=== PATIENT | female | born 1945 | race Caucasian/White ===

== ENCOUNTER → 2016-09-28 | Outpatient (CLI) | payer MEDICARE ==
--- NOTE | 2016-09-28 14:37 | US ---
EXAMINATION TYPE: US thyroid st tissue head/neck DATE OF EXAM: 09/28/2016 1:59 PM COMPARISON: 02/01/2013 CLINICAL HISTORY: E03.9 HYPOTHYROIDISM. Right thyroidectomy 10 years ago, history of left thyroid nod ule GLAND SIZE: Right Lobe: Surgically absent Left Lobe: 4.1 x 0.8 x 1.0cm Overall Parenchyma: homogeneous NODULES RIGHT: # of nodules measured on right: 0 LEFT: # of nodules measured on left: 1 1. 0.8 X 0.5 x 0.5 cm mixed nodule at the upper pole with well-defined margins; . This nodule is w ider than tall and shows intranodular vascularity. Prior size: 0.7 x 0.5 x 0.5 cm ISTHMUS: # of nodules measured in the isthmus: 0 Stable appearing left thyroid nodule IMPRESSION: Subcentimeter left lobe thyroid nodule, stable
--- NOTE | 2016-09-29 10:23 | MM ---
Reason for exam: screening (asymptomatic). Last mammogram was performed 1 year and 8 months ago. History: Patient is postmenopausal and history of other cancer. Physical Findings: A clinical breast exam by your physician is recommended on an annual basis and results should be correlated with mammographic findings. MG Screening Mammo w CAD Bilateral CC and MLO view(s) were taken. Prior study comparison: January 31, 2015, bilateral MG screening mammo w CAD. October 16, 2013, mammogram, performed at [facility]. There are scattered fibroglandular densities. Finding: There are typically benign vascular, round, linear calcifications in both breasts. There is no discrete abnormality. ASSESSMENT: Benign, BI-RAD 2 RECOMMENDATION: Routine screening mammogram of the right breast in 1 year.
== END | disposition home or self-care (01) ==
LOC: RADUSWWP 13:30
PROVIDERS: ATTEND Family Medicine
DX: Z12.31 Encounter for screening mammogram for malignant neoplasm of breast (principal); E04.1 Nontoxic single thyroid nodule
CPT/HCPCS: 76536; G0202; 77063

== ENCOUNTER → 2016-12-21 | Outpatient (CLI) | payer MEDICARE ==
[2016-12-21 11:12] LABS: ALT 32 U/L (9-52); AST 22 U/L (14-36); Alkaline Phosphatase 89 U/L (38-126); Anion Gap 10 mmol/L; Blood Urea Nitrogen 12 mg/dL (7-17); Calcium 8.9 mg/dL (8.4-10.2); Carbon Dioxide 27 mmol/L (22-30); Chloride 107 mmol/L (98-107); Glucose 137 mg/dL (74-99); Non-African American GFR(MDRD) >60 (>60 ml/min/1.73 sqM); Potassium 4.4 mmol/L (3.5-5.1); Sodium 144 mmol/L (137-145); Total Bilirubin 0.7 mg/dL (0.2-1.3); Total Protein 6.3 g/dL (6.3-8.2)
--- NOTE | 2016-12-21 13:33 | XR ---
EXAMINATION TYPE: XR chest 2V DATE OF EXAM: 12/21/2016 COMPARISON: Prior chest x-ray 11/12/2011 HISTORY: Shortness of breath, lung cancer TECHNIQUE: Frontal and lateral views of the chest are obtained. FINDINGS: There is no pneumothorax seen. Blunting of the costophrenic angles is an interval finding. Patient is rotated. The cardiac silhouette size is stable. Surgical clips present in the aorticopu lmonary window, left chest. The osseous structures are intact. IMPRESSION: There may be small pleural effusions, associated atelectasis. Heart size may be accentua sharon by patient rotation. Postop changes. Follow-up suggested.
== END | disposition home or self-care (01) ==
LOC: LABWHC1 10:03
PROVIDERS: ATTEND Internal Medicine Cardiovascular Disease
DX: R06.02 Shortness of breath (principal)
CPT/HCPCS: 36415; 71020; 80053; 83880; 85379

== ENCOUNTER → 2016-12-29 | Outpatient (CLI) | payer MEDICARE ==
[2016-12-29 14:22] VITALS: BP 153/70; PULSE 69; RESP 16; TEMP 98.9; BMI 41.2
[2016-12-29 16:11] LABS: CH 30.7; CHCM 34.7; HCT 39.2 % (34.0-46.0); HGB 13.7 gm/dL (11.4-16.0); INR 2.7 (<1.2); MCH 31.2 pg (25.0-35.0); MCHC 35.1 g/dL (31.0-37.0); Mean Platelet Volume 7.4; Prothrombin Time 26.2 sec (9.0-12.0); RDW 12.4 % (11.5-15.5); WBC 6.6 k/uL (3.8-10.6)
[2016-12-29 16:13] LABS: ALT 38 U/L (9-52); AST 22 U/L (14-36); Alkaline Phosphatase 93 U/L (38-126); Blood Urea Nitrogen 12 mg/dL (7-17); Calcium 8.8 mg/dL (8.4-10.2); Carbon Dioxide 30 mmol/L (22-30); Cholesterol 150 mg/dL (<200); Glucose 124 mg/dL (74-99); Non-African American GFR(MDRD) >60 (>60 ml/min/1.73 sqM); Total Bilirubin 0.7 mg/dL (0.2-1.3); Total Protein 6.6 g/dL (6.3-8.2)
[2016-12-29 16:14] LABS: Anion Gap 11 mmol/L; Chloride 101 mmol/L (98-107); HDL Cholesterol 49 mg/dL (40-60); Iron 139 ug/dL (37-170); Magnesium 1.7 mg/dL (1.6-2.3); Potassium 4.2 mmol/L (3.5-5.1); Sodium 142 mmol/L (137-145)
[2016-12-29 16:24] LABS: % Iron Saturation 33.5 % (20-50); Prealbumin 19 mg/dL (18-36); Total Iron Binding Capacity 415 ug/dL (265-497)
[2016-12-29 18:35] LABS: Vitamin B12 201 pg/mL
[2016-12-29 20:51] LABS: Hemoglobin A1C 7.2 % (4.2-6.1)
[2016-12-31 18:59] LABS: Selenium 141 mcg/L (63-160)
--- NOTE | 2017-01-22 19:51 | P.PN ---
Progress Note - Text DATE OF SERVICE: 12/29/2016 CHIEF COMPLAINT: Follow-up gastric bypass. HISTORY OF PRESENT ILLNESS: Leona Saunders is a 70-year-old female who had a Juan-en-Y gastric bypass performed in November 2011. Her highest weight for her 5-foot, 1-inch frame was 286 pounds. Her ideal body weight is 131 pounds. Her lowest weight was 178 pounds. Today she comes in weighing 211 pounds. She has maintained a 75 pound weight loss. Her body mass index has been reduced from 54.2 down to 41.2. Her percent excess weight loss is 53%. Since her last visit 1 year ago, she lost another 6 pounds. She is on water pills for her congestive heart failure. She is still on medications for diabetes, moderately improved. She still reports troubles with eating sweets and having occasional dumping syndrome. She reports intermittent indigestion. She denies any dysphagia to solid foods. PAST MEDICAL HISTORY: 1. Osteoarthritis bilateral knees and hips. 2. Diabetes type 2, insulin dependent. 3. Deep venous thromboses. 4. Pulmonary embolism. 5. Anxiety. 6. Depression. 7. Gastroesophageal reflux disease. 8. Erosive esophagitis. 9. Prior history of thyroid cancer. 10. Morbid obesity. PAST SURGICAL HISTORY: 1. Tonsillectomy. 2. . 3. D&C. 4. Bilateral cataract removal. 5. EGD. 6. Pulmonary lobe resection. 7. Juan-en-Y gastric bypass. MEDICATIONS: 1. Coumadin. 2. Zoloft. 3. Potassium. 4. Omeprazole. 5. Multivitamin. 6. Synthroid. 7. Lasix. 8. Vitamin D. 9. Atenolol. 10. Xanax. ALLERGIES: Include IODINE, LATEX. SOCIAL HISTORY: Lifelong nontobacco user. She reports living alone. FAMILY HISTORY: Significant for diabetes, including colon cancer. REVIEW OF ORGAN SYSTEMS: CONSTITUTIONAL: Her highest weight for her 5-foot, 1-inch frame was 286 pounds. Her ideal body weight is 131 pounds. Her lowest weight was 178 pounds. Today she comes in weighing 211 pounds. She has maintained a 75 pound weight loss. Her body mass index has been reduced from 54.2 down to 41.2. Her percent excess weight loss is 53%. Since her last visit 1 year ago, she lost another 6 pounds. GASTROINTESTINAL: Reports dumping syndrome with ice cream and sugars. Also lactose intolerant. No gastroesophageal reflux disease. ENDOCRINE: She is back on insulin for diabetes. Has thyroid issues. MUSCULOSKELETAL: Has osteoarthritis of the bilateral knees. She is pending joint replacement. HEENT: Denies any troubles with vision. Denies any tinnitus. RESPIRATORY: Denies any troubles breathing. No further reports of sleep apnea. History of lobe resection. CARDIOVASCULAR: History of right bundle branch block including DVTs and pulmonary embolisms. NEURO: Denies any numbness or tingling of the lower extremities. No reports of strokes. PSYCH: History of anxiety including depression. HEMATOLOGIC: Prior history of DVTs and pulmonary embolism, lifelong Coumadin. SKIN: No skin cancer or recent rash. PHYSICAL EXAM: VITAL SIGNS: 5 feet 1 inch, 211 pounds. Body mass index 39.9. GENERAL: Well-developed female in no acute distress. ABDOMEN: No palpable incisional hernias. MUSCULOSKELETAL: Bilateral 1+ trace pitting edema. HEENT: No sclera icterus. Extraocular movements grossly intact. Moist buccal mucosa. Head is atraumatic, normocephalic. Hears conversational speech. No nasal drainage. NECK: Supple without lymphadenopathy. No JV distention. CHEST: Non-labored respirations and equal bilateral excursions. CARDIOVASCULAR: Regular rate and rhythm. Palpable 2+ radial pulses. NEUROLOGIC: No focal or lateralizing signs. PSYCH: Appropriate affect. Alert and oriented to person, place and time. SKIN: Good skin turgor. Well-perfused. LABS: Laboratory Last Values WBC 6.6 k/uL (3.8-10.6) 12/29/16 15:40 RBC 4.40 m/uL (3.80-5.40) 12/29/16 15:40 Hgb 13.7 gm/dL (11.4-16.0) 12/29/16 15:40 Hct 39.2 % (34.0-46.0) 12/29/16 15:40 MCV 89.0 fL (80.0-100.0) 12/29/16 15:40 MCH 31.2 pg (25.0-35.0) 12/29/16 15:40 MCHC 35.1 g/dL (31.0-37.0) 12/29/16 15:40 RDW 12.4 % (11.5-15.5) 12/29/16 15:40 Plt Count 232 k/uL (150-450) 12/29/16 15:40 PT 26.2 sec (9.0-12.0) H 12/29/16 15:40 INR 2.7 (<1.2) H 12/29/16 15:40 APTT 30.0 sec (22.0-30.0) 12/29/16 15:40 Sodium 142 mmol/L (137-145) 12/29/16 15:40 Potassium 4.2 mmol/L (3.5-5.1) 12/29/16 15:40 Chloride 101 mmol/L (98-107) 12/29/16 15:40 Carbon Dioxide 30 mmol/L (22-30) 12/29/16 15:40 Anion Gap 11 mmol/L 12/29/16 15:40 BUN 12 mg/dL (7-17) 12/29/16 15:40 Creatinine 0.70 mg/dL (0.52-1.04) 12/29/16 15:40 Est GFR (MDRD) Af Amer >60 (>60 ml/min/1.73 sqM) 12/29/16 15:40 Est GFR (MDRD) Non-Af >60 (>60 ml/min/1.73 sqM) 12/29/16 15:40 Glucose 124 mg/dL (74-99) H 12/29/16 15:[address] Glu mg/dL 160 mg/dL 12/29/16 15:40 Hemoglobin A1c 7.2 % (4.2-6.1) H 12/29/16 15:40 Calcium 8.8 mg/dL (8.4-10.2) 12/29/16 15:40 Phosphorus 4.0 mg/dL (2.5-4.5) 12/29/16 15:40 Magnesium 1.7 mg/dL (1.6-2.3) 12/29/16 15:40 Iron 139 ug/dL (37-170) 12/29/16 15:40 TIBC 415 ug/dL (265-497) 12/29/16 15:40 % Saturation 33.5 % (20-50) 12/29/16 15:40 Ferritin 21 ng/mL (11-264) 12/29/16 15:40 Total Bilirubin 0.7 mg/dL (0.2-1.3) 12/29/16 15:40 AST 22 U/L (14-36) 12/29/16 15:40 ALT 38 U/L (9-52) 12/29/16 15:40 Alkaline Phosphatase 93 U/L (38-126) 12/29/16 15:40 Total Protein 6.6 g/dL (6.3-8.2) 12/29/16 15:40 Albumin 3.9 g/dL (3.5-5.0) 12/29/16 15:40 Prealbumin 19 mg/dL (18-36) 12/29/16 15:40 Triglycerides 157 mg/dL (<150) H 12/29/16 15:40 Cholesterol 150 mg/dL (<200) 12/29/16 15:40 LDL Cholesterol, Calc 70 mg/dL (0-99) 12/29/16 15:40 HDL Cholesterol 49 mg/dL (40-60) 12/29/16 15:40 Vitamin A 47 ug/dL (38-106) 12/29/16 15:40 Vitamin B1 53 ug/L (38-122) 12/29/16 15:40 Vitamin B12 201 pg/mL 12/29/16 15:40 Vitamin D 25-Hydroxy 30.7 ng/mL (30.0-100.0) 12/29/16 15:40 Folate >20.00 ng/mL 12/29/16 15:40 TSH 0.624 mIU/L (0.465-4.680) 12/29/16 15:40 PTH Intact 60.5 pg/mL (14.0-72.0) 12/29/16 15:40 Copper 1229 ug/L (810-1990) 12/29/16 15:40 Selenium 141 mcg/L (63-160) 12/29/16 15:40 Zinc 50 ug/dL (60-130) L 12/29/16 15:40 ASSESSMENT: 1. Morbid obesity due to excess caloric intake. 2. Body mass index reduced from 54.2 to 39.9. 3. Status post Juan-en-Y gastric bypass. 4. Diabetes type 2, insulin dependent. 5. Osteoarthritis of the bilateral knees secondary to morbid obesity. 6. Hypothyroidism. 7. Prior history of deep venous thrombosis. 8. Prior history of pulmonary embolism. 9. Osteoarthritis bilateral hips. 10. Anxiety. 11. Depression. 12. Gastroesophageal reflux disease, resolved. 13. Dietary surveillance and counseling. 14. Zinc deficiency. PLAN: 1. Recommend evaluation with bariatric dietitian. 2. Recommend bariatric metabolic panel. 3. Recommend continue multivitamin. 4. Recommend goal protein intake of 60 g daily. 5. She is seeking additional weight loss may benefit from 2 week high-protein low caloric diet.
== END | disposition home or self-care (01) ==
LOC: BARWHC3 13:19
PROVIDERS: ATTEND Surgery Plastic and Reconstructive Surgery
DX: Z48.815 Encounter for surgical aftercare following surgery on the digestive system (principal); E66.01 Morbid (severe) obesity due to excess calories; E11.8 Type 2 diabetes mellitus with unspecified complications; M17.0 Bilateral primary osteoarthritis of knee; E03.9 Hypothyroidism, unspecified; M16.0 Bilateral primary osteoarthritis of hip; F41.9 Anxiety disorder, unspecified; F32.9 Major depressive disorder, single episode, unspecified; E60 Dietary zinc deficiency; E21.1 Secondary hyperparathyroidism, not elsewhere classified; E89.1 Postprocedural hypoinsulinemia; D50.8 Other iron deficiency anemias; E44.0 Moderate protein-calorie malnutrition; E55.9 Vitamin D deficiency, unspecified; K74.1 Hepatic sclerosis; N19 Unspecified kidney failure; K90.9 Intestinal malabsorption, unspecified; Z68.39 Body mass index [BMI] 39.0-39.9, adult; Z98.84 Bariatric surgery status; Z86.711 Personal history of pulmonary embolism; Z86.718 Personal history of other venous thrombosis and embolism; Z79.01 Long term (current) use of anticoagulants; Z79.899 Other long term (current) drug therapy; Z91.040 Latex allergy status
CPT/HCPCS: 84255; 84134; 84425; 80061; 80053; 82607; 82728; 83036; 82525; 82746; 83540; 83550; 83735; 84100; 84443; 84590; 84630; 85027; 85610; 85730; 82306; 83970; G0463; 99211

== ENCOUNTER 2017-01-11 07:46 | Day surgery (SDC) | payer MEDICARE ==
[~2017-01-11 07:46] MED LIST: ALPRAZolam 0.5 MG TAB PO PRN; ASPIRIN 325 MG TAB PO STA; ATORVASTATIN 80 MG TAB PO STA; NITROGLYCERIN SL TABS 0.4 MG TAB SUBLINGUAL PRN; SODIUM CHLORIDE 0.9% 1,000 ML in EMPTY BAG 1 BAG IV ONE
[2017-01-11] MEDS: ALPRAZolam 0.25 MG TAB PO PRN ×2 (08:30→22:12)
[2017-01-11 08:45] LABS: Glucose,Whole Blood 212 mg/dL (75-99)
[2017-01-11] MEDS ORDERED: MIDAZOLAM 2 MG/2 ML VIAL ONE (08:49)
[2017-01-11] MEDS ORDERED: fentaNYL (PF) 50 MCG/ML 2 ML AMP ONE (08:50)
[2017-01-11 09:04] LABS: INR 1.6 (<1.2); Prothrombin Time 15.1 sec (9.0-12.0)
[2017-01-11] MEDS: BENZOCAINE SPRAY 100 APPLIC/CAN MUCOUS MEM ONE ×2 (09:09→09:18)
[2017-01-11] MEDS: MIDAZOLAM 2 MG/2 ML VIAL IV ONE ×2 (09:19→09:20)
[2017-01-11] MEDS ORDERED: fentaNYL (PF) 50 MCG/ML 2 ML AMP IV ONE ×2 (09:19→10:13)
--- NOTE | 2017-01-11 09:42 | P.PCN ---
Date of Procedure: 01/11/17 Preoperative Diagnosis: Moderate to severe mitral regurgitation Postoperative Diagnosis: The same Procedure(s) Performed: Transesophageal echocardiogram Implants: Indications for Procedure: Operative Findings: Description of Procedure: INDICATION: Assessment of mitral regurgitation CONSENT: . Verbal consent was obtained from patient PROCEDURE: , Patient was brought to the lab in a fasting state. Patient was prepped and draped in the usual fashion. The throat was sprayed with Hurricaine. Patient was given IV Versed and fentanyl for sedation. A lubricated Omni probe was introduced into the oropharynx and was advanced into the esophagus and stomach. Multiple views were obtained. Color, pulsed wave Doppler was obtained across the valves. Saline Contrast bubble injections were also performed. Patient tolerated the procedure well. CONSCIOUS SEDATION: Patient was given 1 mg of Versed and 25 micrograms of fentanyl for sedation. The duration is 12 minutes FINDINGS: . The aortic valve is mildly thickened and appears to be tricuspid without any regurgitation. The mitral valve also shows some thickening with evidence of eccentric mitral regurgitation which seemed to be protected posterior laterally. The piece of evaluating his 0.5-1. No reversal of flow in documented in either pulmonary veins. The left atrium is severely enlarged. There is no evidence of any clot in the left atrial appendage. There was no shunt across the interatrial septum. Saline contrast bubble injection also did not reveal any crossing of the bubbles across the interatrial septum. Left ventricle function appear to be mildly impaired. There is moderate tricuspid regurgitation. There is moderate pulmonary hypertension with a calculated peak right ventricle systolic blood pressures of 55. Trace pulmonic insufficiency. Aorta showed mild plaque in IMPRESSION: #1. Moderate to severe eccentric mitral regurgitation. #2. Severe left atrial enlargement. #3. No clot in the left atrial appendage. # 4. No shunt across intra-atrial septum or PFO #4. LV function appeared mildly impaired. #5. Mild plaque in the aorta. PLAN: Proceed with cardiac catheterization.
[2017-01-11] MEDS ORDERED: SODIUM CHLORIDE 0.9% 1,000 ML IV SCH ×3 (09:45→16:15)
[2017-01-11] MEDS ORDERED: LIDOCAINE 2% INJ 20 MG/ML SQ ONE (10:13)
[2017-01-11] MEDS: IV FLUID CONTINUATION 1,000 ML IV ONE ×2 (10:16→17:10)
[2017-01-11 10:38] LABS: Site FA
[2017-01-11 10:39] LABS: Site PA; Site RA
[2017-01-11] MEDS ORDERED: IOHEXOL 350 MG/ML 125ML BOTTLE INJ ONE (10:46)
[2017-01-11] MEDS ORDERED: FUROSEMIDE 10 MG/ML 4 ML VIAL IV ONE (10:46)
[2017-01-11] MEDS ORDERED: RX INFO: IV CONTRAST WAS GIVEN 1 EACH MISC MISCELLANE PRN (10:56)
--- NOTE | 2017-01-11 11:15 | P.PCN ---
Date of Procedure: 01/11/17 Preoperative Diagnosis: CHF, mitral regurgitation, atrial fibrillation Postoperative Diagnosis: Mild to moderate ostial stenosis of the right. Moderate pulmonary hypertension. Elevated end-diastolic pressures. Procedure(s) Performed: Implants: Indications for Procedure: Operative Findings: Description of Procedure: HISTORY: This is a 71-year-old female with history of chronic atrial fibrillation and hypertension who was recently found to have evidence of congestive heart failure and also evidence of moderate to severe mitral regurg on the echocardiogram. Patient had a EMELY examination today that also confirmed the presence of moderate to severe eccentric mitral regurgitation. Patient is advised to have a right and left heart catheterization for further evaluation. CONSENT:I have discussed the risks, benefits and alternative therapies for the above-mentioned procedure and for both sedation/analgesia as well as necessary blood product administration, if indicated, as they pertain to this patient. The patient has indicated understanding and acceptance of the risks and procedures discussed. Delete PROCEDURE: RIGHT HEART CATHETERIZATION: This was performed through the right femoral vein. Right femoral vein was entered using Seldinger technique and a 8-Faroese sheath was left in place. Right heart cath ablation was performed using [place] catheter. Patient tolerated the procedure well. LEFT HEART CATHETERIZATION: Patient was brought to the lab in a fasting state. Patient was given some IV sedation. The right groin is infiltrated with lidocaine and right femoral artery was entered using Seldinger technique. A 6-Faroese catheter was left in place and selective coronary arteriography and left ventriculography was performed. Patient tolerated the procedure well. Femoral angiogram was performed and Angio -Seal was applied for hemostasis. No immediate complications were noted and patient was transferred to [facility] in a stable condition. Conscious Sedation: Versed 0 mg Fentanyl : 25 g Duration : 32 minutes HEMODYNAMICS: RIGHT HEART CATHETERIZATION. #1. Right atrial pressure showed a mean value of 11. #2. Right ventricle pressure is 54/11. # 3. Pulmonary artery pressure 46/22 with mean of 22. #4. Pulmonary wedge pressure 33/45 with a mean of 31. V-wave was 45. #5. Cardiac output by thermodilution method is 5.63. By Armin method is 4.18. LEFT HEART CATHETERIZATION: Left ventricle pressure is 157/22-year-old aortic pressure is 152/75. End-diastolic pressure is about 15-22. SELECTIVE CORONARY ARTERIOGRAPHY: LEFT MAIN: Normal length and patent. THE LEFT ANTERIOR DESCENDING CORONARY ARTERY: This is a fair caliber vessel giving rise to good-sized diagonal and septal branches. The LAD and its branches are free of occlusive disease. THE LEFT CIRCUMFLEX AND IS CORONARY ARTERY: This is a moderate caliber vessel giving rise to good-sized OM branch. The circumflex and branches are free of occlusive disease. THE RIGHT CORONARY ARTERY: This is a dominant vessel with suspicious looking ostial lesion. There appears to be about 50-60% ostial lesion. This will further evaluate stress test to see the present ischemia. LEFT VENTRICULOGRAPHY: This revealed normal-sized cardiac silhouette with good systolic function. Mitral regurgitation could not be appreciated FINAL IMPRESSION: There is a moderate ostial stenosis of the right coronary artery. The rest of the coronary system appears to be normal. LV function is preserved. There is moderate pulmonary hypertension. There is a high wedge pressure with the significant V-wave though mitral regurgitation was not appreciated on the LV gram. PLAN: Continuation of the maximum medical therapy. I'll plan to increase the dose of ROHINI inhibitor, add Imdur and also Aldactone. Further recommendations depend upon clinical course. If there is ischemia documented in the right coronary artery distribution, percutaneous intervention could be considered. PROGNOSIS: []
[2017-01-11] MEDS ORDERED: INSULIN LISPRO (humaLOG) 300 UNIT/3 ML VIAL SQ SCH (12:30)
[2017-01-11] MEDS ORDERED: ATENOLOL 25 MG TAB PO STA (12:35)
[2017-01-11] MEDS ORDERED: MAGNESIUM SULFATE-D5W PMX 1 GM in DEXTROSE/WATER 1 100ML.BAG IVPB ONE ×2 (16:04→16:31)
[2017-01-11] MEDS ORDERED: ACETAMINOPHEN TAB 325 MG TAB PO PRN (16:08)
[2017-01-11 16:18] LABS: Magnesium 1.4 mg/dL (1.6-2.3); Potassium 4.5 mmol/L (3.5-5.1)
[2017-01-11 17:05] LABS: Glucose,Whole Blood 305 mg/dL (75-99)
[2017-01-11] MEDS: MAGNESIUM SULFATE-D5W PMX 1 GM in DEXTROSE/WATER 1 100ML.BAG IVPB SCH ×2 (17:12→18:15)
[2017-01-11] MEDS: ISOSORBIDE MONONITRATE ER 30 MG TAB.ER.24H PO SCH (17:17)
[2017-01-11] MEDS: INSULIN LISPRO (humaLOG) 300 UNIT/3 ML VIAL SQ SCH ×2 (17:21→22:13)
[2017-01-11] MEDS ORDERED: WARFARIN 2 MG TAB PO SCH (18:00)
[2017-01-11] MEDS: ATENOLOL 25 MG TAB PO SCH (20:38)
[2017-01-11 20:42] LABS: Hemoglobin A1C 7.4 % (4.2-6.1)
[2017-01-11 20:54] LABS: Glucose,Whole Blood 255 mg/dL (75-99)
[2017-01-12 05:43] LABS: Glucose,Whole Blood 117 mg/dL (75-99)
[2017-01-12] MEDS ORDERED: LEVOTHYROXINE 100 MCG TAB PO SCH (06:30)
[2017-01-12] MEDS: INSULIN LISPRO (humaLOG) 300 UNIT/3 ML VIAL SQ SCH ×2 (06:36→11:34)
[2017-01-12] MEDS ORDERED: PANTOPRAZOLE 40 MG TABLET PO SCH (07:30)
[2017-01-12 07:43] LABS: Magnesium 1.9 mg/dL (1.6-2.3); Potassium 4.4 mmol/L (3.5-5.1)
[2017-01-12] MEDS: ISOSORBIDE MONONITRATE ER 30 MG TAB.ER.24H PO SCH (08:32)
[2017-01-12] MEDS: ATENOLOL 25 MG TAB PO SCH (08:33)
[2017-01-12] MEDS ORDERED: SPIRONOLACTONE 25 MG TAB PO SCH (09:00)
[2017-01-12] MEDS ORDERED: FUROSEMIDE 40 MG TAB PO SCH (09:00)
[2017-01-12] MEDS ORDERED: LISINOPRIL 5 MG TAB PO SCH (09:00)
[2017-01-12] MEDS ORDERED: ESCITALOPRAM 20 MG TAB PO SCH (09:00)
[2017-01-12 09:05] VITALS: RESP 16
[2017-01-12 11:23] LABS: Glucose,Whole Blood 177 mg/dL (75-99)
[2017-01-12 11:48] VITALS: BMI 39.1
[2017-01-12] MEDS ORDERED: CHOLECALCIFEROL 1,000 UNIT TAB PO SCH (12:00)
[2017-01-12] MEDS ORDERED: MULTIVITAMINS, THERA 1 EACH TAB PO SCH (12:00)
[2017-01-12 12:59] VITALS: BP 95/59; PULSE 75; TEMP 97.1
--- NOTE | 2017-01-12 15:02 | P.PN ---
Subjective Principal diagnosis: mitral regurg discharge note This is a pleasant 71-year-old female with history of chronic atrial fibrillation, hypertension, who was recently found to be in congestive heart failure and was also found to have evidence of moderate to severe mitral regurgitation on echocardiogram. She was admitted to the hospital to undergo a transesophageal echocardiogram as well as cardiac catheterization.cardiac catheterization revealed moderate ostial stenosis of the right coronary artery, the rest of the coronary system appeared to be normal and LV function was preserved. Maximal medical therapy advised.EMELY revealed moderate to severe eccentric mitral regurgitation, severe left atrial enlargement. No clot in the left atrial appendage. No shunt across the intra-atrial septum and no evidence of PFO. Patient had 1 episode of nonsustained ventricular tachycardia and for this reason she was kept in the hospital. She was noted to have 2 brief episodes of nonsustained VT at a much slower rate since then. Magnesium was 1.4 this morning is 1.9. Her potassium is 4.4. Hemodynamically stable.patient was seen and examined today, Denies any chest pain or difficulty in breathing. Sitting up in the chair at the time of our examination. Objective - Vital Signs Vital signs: Vital Signs Temp 97.1 F L 01/12/17 12:00 Pulse 75 01/12/17 12:00 Resp 16 01/12/17 12:00 BP 95/59 01/12/17 12:00 Pulse Ox 97 01/12/17 12:00 Intake & Output 01/11/17 01/12/17 01/12/17 18:59 06:59 18:59 Intake Total 715 500 640 Output Total 300 Balance 415 500 640 Weight 95 kg 93.9 kg 93.9 kg Intake: IV 175 IV Fluid Continuation 1, 0 000 ml As IV .[facility] Rx#:[id number] Intake, IV Titration 300 260 160 Amount Magnesium Sulfate-D5w Pmx 100 1 gm In Dextrose/Water 1 100ml.bag @ 100 mls/hr IVPB Q1HR [facility] Rx#: [id number] Sodium Chloride 0.9% 1, 0 160 160 000 ml @ 20 mls/hr IV . Q24H [facility] Rx#:[id number] Sodium Chloride 0.9% 1, 300 000 ml @ 50 mls/hr IV . Q20H [facility] Rx#:[id number] Oral 240 240 480 Output: Urine 300 Other: # Voids 1 2 3 - Exam PHYSICAL EXAMINATION: HEENT: [Head is atraumatic, normocephalic. Pupils equal, round. Neck is supple. There is no elevated jugular venous pressure.] HEART EXAMINATION: [Heart S1, S2 systolic murmur. ] CHEST EXAMINATION:[ Lungs are clear to auscultation and precussion. No chest wall tenderness is noted on palpation or with deep breathing.] ABDOMEN: [ Soft, nontender. Bowel sounds are heard. No organomegaly noted]. right groin does not reveal any evidence of hematoma, there is mild ecchymosis. EXTREMITIES:[ 2+ peripheral pulses with no evidence of peripheral edema and no calf tenderness noted]. NEUROLOGIC [patient is awake, alert and oriented -3.] . - Labs CBC & Chem 7: 01/12/17 06:02 Labs: Abnormal Lab Results - Last 24 Hours (Table) 01/11/17 01/11/17 01/11/17 Range/Units 15:43 15:43 16:49 POC Glucose (mg/dL) 305 H (75-99) mg/dL Hemoglobin A1c 7.4 H (4.2-6.1) % Magnesium 1.4 L (1.6-2.3) mg/dL 01/11/17 01/12/17 01/12/17 Range/Units 20:53 05:41 11:17 POC Glucose (mg/dL) 255 H 117 H 177 H (75-99) mg/dL Hemoglobin A1c (4.2-6.1) % Magnesium (1.6-2.3) mg/dL Assessment and Plan (1) S/P cardiac cath Status: Acute (2) Mitral regurgitation Status: Acute (3) H/O transesophageal echocardiography (EMELY) for monitoring Status: Acute (4) HTN (hypertension) Status: Acute (5) Hyperlipemia Status: Acute (6) Diabetes Status: Acute Plan: From cardiology's perspective, patient may be able to be discharged home today we'll make her a follow-up appointment to see Dr. Orourke in the office next week. Patient will have a 24-hour monitor on at at time of discharge as well.she will be discharged home on atenolol 25 mg twice a day, Lexapro 20 mg daily, Lasix 40 mg daily, Imdur 30 mg daily, Synthroid 100 g daily, lisinopril 5 mg daily, multivitamin daily,Protonix 40 daily, Aldactone 25 mg daily,and Coumadin 2 mg daily as the patient was taking previously at home. DNP note has been reviewed, I agree with a documented findings and plan of care. Patient was seen and examined.
== END 2017-01-12 16:04 | disposition home or self-care (01) ==
LOC: CATHCVL 07:46 → 6SEL 10:45 → CATHCVL 01-12 16:04
PROVIDERS: ATTEND Internal Medicine Cardiovascular Disease
DX: I25.10 Atherosclerotic heart disease of native coronary artery without angina pectoris (principal); I27.2 Other secondary pulmonary hypertension; I11.0 Hypertensive heart disease with heart failure; I50.31 Acute diastolic (congestive) heart failure; I48.2 Chronic atrial fibrillation; I34.0 Nonrheumatic mitral (valve) insufficiency; I47.2 Ventricular tachycardia; E78.00 Pure hypercholesterolemia, unspecified; E11.9 Type 2 diabetes mellitus without complications; Z68.39 Body mass index [BMI] 39.0-39.9, adult; E66.09 Other obesity due to excess calories; E78.5 Hyperlipidemia, unspecified; Z86.711 Personal history of pulmonary embolism; Z85.118 Personal history of other malignant neoplasm of bronchus and lung; Z85.850 Personal history of malignant neoplasm of thyroid; Z98.84 Bariatric surgery status; Z79.01 Long term (current) use of anticoagulants; Z79.899 Other long term (current) drug therapy; Z91.09 Other allergy status, other than to drugs and biological substances
CPT/HCPCS: 93312; 93320; 93325; 93460; 85018; 83036; 82810; 83735 ×2; 84132 ×2; 85610; 99152; 99153; C1760; C1894 ×2; C1769; J2001; J2250; J1940; J3010; J3475; Q9967

== ENCOUNTER 2017-01-14 16:30 | Inpatient (IN) | payer MEDICARE ==
[2017-01-14] MEDS ORDERED: ACETAMINOPHEN TAB 325 MG TAB PO PRN (17:34)
[2017-01-14] MEDS ORDERED: NITROGLYCERIN SL TABS 0.4 MG TAB SUBLINGUAL PRN (17:34)
--- NOTE | 2017-01-14 17:39 | P.HPCAR ---
History of Present Illness H&P Date: 01/14/17 This is a 71-year-old female with history of chronic atrial fibrillation who has been having symptoms of shortness of breath and evidence of congestive heart failure. 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 Cardiac catheterization showed mild to moderate ostial narrowing of the right coronary artery without any significant lesion in the rest of the coronary system. Patient was sent home on medical therapy. Post cardiac catheterization, Patient was found to have 1 run of nonsustained V. tach. Patient was monitored for 12 hours overnight without any recurrence of significant arrhythmias. Patient was discharged home to have outpatient 24-hour monitor period outpatient 24-hour monitor showed recurrent episodes of asymptomatic ventricular tachycardia the longest one being 30 beats at a rate of about 160- 170. Patient is advised to be admitted to the hospital. Patient will have IV amiodarone therapy. She will have continuous monitoring. Further recommendations depend upon the clinical course. We'll also obtain EP evaluation Review of Systems REVIEW OF SYSTEMS: CONSTITUTIONAL:. Patient is doing well. No complaints of fever or chills EYES: Denies diplopia, blurring of vision EARS, NOSE, MOUTH, THROAT: Denies headaches, denies sore throat. CARDIOVASCULAR: Denies chest pain, denies shortness of breath, denies palpitations RESPIRATORY: Denies shortness of breath, denies cough. GASTROINTESTINAL: Denies change in appetite, denies abdominal pain, denies diarrhea GENITOURINARY: Denies hematuria, denies infections. MUSKULOSKELETAL: Denies pain, denies swelling. Denies any cramps or claudication INTEGUMENTARY: Denies rash, denies eczema. NEUROLOGICAL: Denies focal weakness, or visual disturbance. Denies any dizziness or syncope PSYCHIATRIC: Denies anxiety, denies depression. HEMATOLOGIC/LYMPHATIC: Denies any bleeding, denies enlarged lymph nodes. Physical Exam Vitals: Intake and Output 01/14/17 01/14/17 01/14/17 06:59 14:59 22:59 Other: Weight 95.45 kg Patient Weight 01/15/17 06:59 Weight 95.45 kg GENERAL EXAM: Patient is alert and oriented and doesn't appear to be in any acute distress HEENT: Normocephalic. Normal reaction of pupils, equal size, normal range of extraocular motion. No erythema or exudates in the throat. NECK: No masses, no nuchal rigidity. CHEST: No chest wall deformity. LUNGS: Equal air entry with no crackles or wheeze. HEART: S1 and S2 normal with no audible mumurs or gallops. Regular rhythm, femorals equal on both sides.. ABDOMEN: No hepatosplenomegaly, normal bowel sounds, no guarding or rigidity. SKIN: No rashes CENTRAL NERVOUS SYSTEM: No focal deficits. EXTREMITIES: No cyanosis, clubbing or edema. Past Medical History Past Medical History: Blood Disorder, Cancer, Diabetes Mellitus, Hypertension, Pulmonary Embolus (PE) Additional Past Medical History / Comment(s): Hx CHF, lung cancer, thyroid cancer. See Dr Orourke H&P. History of Any Multi-Drug Resistant Organisms: None Reported Past Surgical History: Bariatric Surgery, Section, Cholecystectomy, Tubal Ligation Additional Past Surgical History / Comment(s): Pt stated that she fractured toe , left lung lower lobe removed, partial thyroidectomy, bilateral cataract surgery. Past Anesthesia/Blood Transfusion Reactions: No Reported Reaction Past Psychological History: Anxiety, Depression Smoking Status: Never smoker Past Alcohol Use History: None Reported Past Drug Use History: None Reported - Past Family History Mother Family Medical History: No Reported History Physical Examination Intake and Output 01/14/17 01/14/17 01/14/17 06:59 14:59 22:59 Other: Weight 95.45 kg Patient Weight 01/15/17 06:59 Weight 95.45 kg Physical Exam: GENERAL EXAM: Patient is alert and oriented and doesn't appear to be in any acute distress HEENT: Normocephalic. Normal reaction of pupils, equal size, normal range of extraocular motion. No erythema or exudates in the throat. NECK: No masses, no nuchal rigidity. CHEST: No chest wall deformity. LUNGS: Equal air entry with no crackles or wheeze. HEART: S1 and S2 normal with no audible mumurs or gallops. Regular rhythm, femorals equal on both sides.. ABDOMEN: No hepatosplenomegaly, normal bowel sounds, no guarding or rigidity. SKIN: No rashes CENTRAL NERVOUS SYSTEM: No focal deficits. EXTREMITIES: No cyanosis, clubbing or edema. Results Intake and Output 08/04/17 08/04/17 08/04/17 06:59 14:59 22:59 Other: Weight 95.45 kg Patient Weight 01/15/17 06:59 Weight 95.45 kg Assessment and Plan (1) Ventricular tachycardia Status: Acute (2) Chronic congestive heart failure Status: Acute (3) Diabetes Status: Acute (4) HTN (hypertension) Status: Acute (5) Hyperlipemia Status: Acute (6) Mitral regurgitation Status: Acute Plan: Patient is being admitted and be monitored continuously. Patient is going to be be initiated on IV amiodarone therapy. Rest of the medication including beta blockers and nitrates will be continued. Anti-cognition to be continued. Electrophysiology evaluation. Further recommendations will depend upon the clinical course.
--- NOTE | 2017-01-14 18:35 | XR ---
EXAMINATION TYPE: XR chest 2V DATE OF EXAM: 01/14/2017 COMPARISON: 12/21/2016 HISTORY: Irregular heartbeat short of breath TECHNIQUE: Frontal and lateral views of the chest are obtained. FINDINGS: Heart appears enlarged. There is no heart failure. Lungs are clear of consolidation. There are chest leads. There is no sign of pleural effusion. IMPRESSION: No active cardiopulmonary disease. There is clearing of the heart failure and pleural fl uid compared to old exam.
[2017-01-14] MEDS ORDERED: DEXTROSE 5% IN WATER 250 ML with AMIODARONE 300 MG IV ONE (19:31)
[2017-01-14 19:34] LABS: Basophils % (A) 1 %; CH 31.2; CHCM 34.2; Eosinophils # (A) 0.1 k/uL (0-0.7); Eosinophils % (A) 2 %; HCT 38.4 % (34.0-46.0); HGB 12.6 gm/dL (11.4-16.0); Luc # (Auto) 0.07; Luc % (Auto) 1; Lymphocytes # (A) 1.9 k/uL (1.0-4.8); Lymphocytes % (A) 32 %; MCHC 32.8 g/dL (31.0-37.0); MCV 91.7 fL (80.0-100.0); Mean Platelet Volume 8.1; Monocytes # (A) 0.3 k/uL (0-1.0); Monocytes % (A) 5 %; Neutrophils # (A) 3.5 k/uL (1.3-7.7); Neutrophils % (A) 59 %; RBC 4.19 m/uL (3.80-5.40); RDW 13.4 % (11.5-15.5); WBC (Perox) 6.58
[2017-01-14 19:44] LABS: AST 23 U/L (14-36); Alkaline Phosphatase 79 U/L (38-126); Anion Gap 8 mmol/L; Blood Urea Nitrogen 24 mg/dL (7-17); Calcium 8.4 mg/dL (8.4-10.2); Carbon Dioxide 28 mmol/L (22-30); Chloride 101 mmol/L (98-107); Glucose 226 mg/dL (74-99); Non-African American GFR(MDRD) >60 (>60 ml/min/1.73 sqM); Potassium 4.3 mmol/L (3.5-5.1); Sodium 137 mmol/L (137-145); Total Bilirubin 0.5 mg/dL (0.2-1.3); Total Protein 5.9 g/dL (6.3-8.2)
[2017-01-14 19:49] LABS: ALT 38 U/L (9-52)
[2017-01-14 19:55] LABS: INR 1.5 (<1.2); Prothrombin Time 14.6 sec (9.0-12.0)
[2017-01-14] MEDS ORDERED: WARFARIN 2 MG TAB PO SCH (20:00)
[2017-01-14] MEDS ORDERED: DEXTROSE 5% IN WATER 100 ML with AMIODARONE 150 MG IV ONE (20:00)
[2017-01-14 20:45] LABS: Glucose,Whole Blood 219 mg/dL (75-99)
[2017-01-14] MEDS: AMIODARONE 450 MG in DEXTROSE 5% IN WATER 250 ML IV SCH ×2 (20:57)
[2017-01-14] MEDS: metFORMIN 500 MG TAB PO SCH (20:57)
[2017-01-14] MEDS: ATENOLOL 25 MG TAB PO SCH (20:57)
[2017-01-14] MEDS: SODIUM CHLORIDE 0.9% 1,000 ML IV SCH (20:58)
[2017-01-15] MEDS: AMIODARONE 450 MG in DEXTROSE 5% IN WATER 250 ML IV SCH ×6 (04:14→19:52)
[2017-01-15] MEDS: LEVOTHYROXINE 100 MCG TAB PO SCH (06:01)
[2017-01-15] MEDS: PANTOPRAZOLE 40 MG TABLET PO SCH (06:02)
[2017-01-15 06:32] LABS: Anion Gap 10 mmol/L; Blood Urea Nitrogen 20 mg/dL (7-17); Calcium 8.8 mg/dL (8.4-10.2); Carbon Dioxide 25 mmol/L (22-30); Chloride 104 mmol/L (98-107); Glucose 164 mg/dL (74-99); Magnesium 1.8 mg/dL (1.6-2.3); Non-African American GFR(MDRD) >60 (>60 ml/min/1.73 sqM); Potassium 4.4 mmol/L (3.5-5.1); Sodium 139 mmol/L (137-145)
[2017-01-15 06:40] LABS: Glucose,Whole Blood 173 mg/dL (75-99)
[2017-01-15] MEDS: ISOSORBIDE MONONITRATE ER 30 MG TAB.ER.24H PO SCH (08:10)
[2017-01-15] MEDS: FUROSEMIDE 40 MG TAB PO SCH (08:10)
[2017-01-15] MEDS: ATENOLOL 25 MG TAB PO SCH ×2 (08:10→19:59)
[2017-01-15] MEDS: LISINOPRIL 5 MG TAB PO SCH (08:11)
[2017-01-15] MEDS: SPIRONOLACTONE 25 MG TAB PO SCH (08:12)
[2017-01-15] MEDS: metFORMIN 500 MG TAB PO SCH ×2 (08:12→19:59)
--- NOTE | 2017-01-15 10:24 | P.PN ---
Subjective Principal diagnosis: V. tach This is a 71-year-old female with history of chronic atrial fibrillation who has been having symptoms of shortness of breath and evidence of congestive heart failure. 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 Cardiac catheterization showed mild to moderate ostial narrowing of the right coronary artery without any significant lesion in the rest of the coronary system. Patient was sent home on medical therapy. Post cardiac catheterization, Patient was found to have 1 run of nonsustained V. tach. Patient was monitored for 12 hours overnight without any recurrence of significant arrhythmias. Patient was discharged home to have outpatient 24-hour monitor period outpatient 24-hour monitor showed recurrent episodes of asymptomatic ventricular tachycardia the longest one being 30 beats at a rate of about 160- 170. Patient is advised to be admitted to the hospital. Patient will have IV amiodarone therapy. She will have continuous monitoring. Further recommendations depend upon the clinical course. We'll also obtain EP evaluation. 01/15/2017 Patient seen and examined this morning, she had one run of 10 nonsustained ventricular tachycardia through the night last night. No further episodes of VT since then. She was seen and examined this morning, denies any palpitations , no chest discomfort no dizziness or lightheadedness. Continues to be on IV amiodarone drip. Blood pressure this morning 140/60 with a heart rate in the 70s. Sodium 139, potassium 4.4, BUN 20, creatinine 0.8. Objective - Vital Signs Vital signs: Vital Signs Temp 98.1 F 01/15/17 08:18 Pulse 71 01/15/17 08:18 Resp 16 01/15/17 08:18 BP 140/67 01/15/17 08:18 Pulse Ox 96 01/15/17 08:18 Intake & Output 01/14/17 01/15/17 01/15/17 18:59 06:59 18:59 Intake Total 226.083 0 Output Total 350 200 Balance -123.917 -200 Weight 95.45 kg 94.9 kg Intake: Intake, IV Titration 226.083 Amount Amiodarone 450 mg In 226.083 Dextrose 5% in Water 250 ml @ 1 MG/MIN 33.33 mls/ hr IV .[id number] [facility] Rx#: [id number] Oral 0 Output: Urine 350 200 Other: Voiding Method Toilet # Voids 1 - Exam PHYSICAL EXAMINATION: HEENT: Head is atraumatic, normocephalic. Pupils equal, round. Neck is supple. There is no elevated jugular venous pressure. HEART EXAMINATION: Heart S1 and S2 systolic murmur is heard. CHEST EXAMINATION: Lungs are clear to auscultation and precussion. No chest wall tenderness is noted on palpation or with deep breathing. ABDOMEN: Soft, nontender. Bowel sounds are heard. No organomegaly noted. EXTREMITIES: 2+ peripheral pulses with no evidence of peripheral edema and no calf tenderness noted. NEUROLOGIC patient is awake, alert and oriented -3. . - Labs CBC & Chem 7: 01/14/17 19:20 01/15/17 05:41 Labs: Abnormal Lab Results - Last 24 Hours (Table) 01/14/17 01/14/17 01/14/17 Range/Units 19:20 19:20 20:15 PT 14.6 H (9.0-12.0) sec INR 1.5 H (<1.2) BUN 24 H (7-17) mg/dL Glucose 226 H (74-99) mg/dL POC Glucose (mg/dL) 219 H (75-99) mg/dL Total Protein 5.9 L (6.3-8.2) g/dL Albumin 3.3 L (3.5-5.0) g/dL 01/15/17 01/15/17 Range/Units 05:41 06:29 PT (9.0-12.0) sec INR (<1.2) BUN 20 H (7-17) mg/dL Glucose 164 H (74-99) mg/dL POC Glucose (mg/dL) 173 H (75-99) mg/dL Total Protein (6.3-8.2) g/dL Albumin (3.5-5.0) g/dL Assessment and Plan (1) Ventricular tachycardia Status: Acute (2) Diabetes Status: Acute (3) H/O transesophageal echocardiography (EMELY) for monitoring Status: Acute (4) HTN (hypertension) Status: Acute (5) Hyperlipemia Status: Acute (6) Mitral regurgitation Status: Acute (7) S/P cardiac cath Status: Acute Plan: From cardiology's perspective, we will continue IV amiodarone until. This finished at 8:00 tonight, then we will start the patient on oral amiodarone. Consultation with Dr. Ochoa has also been requested, he was seen and evaluate the patient on Tuesday. Potassium 4.4, magnesium 1.8. DNP note has been reviewed, I agree with a documented findings and plan of care. Patient was seen and examined.
[2017-01-15 12:04] LABS: Glucose,Whole Blood 166 mg/dL (75-99)
[2017-01-15] MEDS: SODIUM CHLORIDE 0.9% 1,000 ML IV SCH (19:52)
[2017-01-15] MEDS: WARFARIN 2 MG TAB PO SCH (19:59)
[2017-01-15] MEDS: AMIODARONE 200 MG TAB PO SCH (19:59)
[2017-01-15 21:07] LABS: Glucose,Whole Blood 232 mg/dL (75-99)
[2017-01-15] MEDS: ALPRAZolam 0.25 MG TAB PO PRN (22:36)
[2017-01-16 06:09] LABS: Glucose,Whole Blood 133 mg/dL (75-99)
[2017-01-16] MEDS: PANTOPRAZOLE 40 MG TABLET PO SCH (06:15)
[2017-01-16] MEDS: LEVOTHYROXINE 100 MCG TAB PO SCH (06:16)
[2017-01-16] MEDS: SPIRONOLACTONE 25 MG TAB PO SCH (09:44)
[2017-01-16] MEDS: AMIODARONE 200 MG TAB PO SCH ×2 (09:44→21:05)
[2017-01-16] MEDS: ATENOLOL 25 MG TAB PO SCH ×2 (09:44→21:05)
[2017-01-16] MEDS: metFORMIN 500 MG TAB PO SCH ×2 (09:44→21:05)
[2017-01-16] MEDS: LISINOPRIL 5 MG TAB PO SCH (09:44)
[2017-01-16] MEDS: ISOSORBIDE MONONITRATE ER 30 MG TAB.ER.24H PO SCH (09:45)
[2017-01-16] MEDS: FUROSEMIDE 40 MG TAB PO SCH (09:45)
[2017-01-16 12:24] LABS: Glucose,Whole Blood 156 mg/dL (75-99)
--- NOTE | 2017-01-16 13:05 | P.PN ---
Subjective Principal diagnosis: Cardiac arrhythmia This is a pleasant 71-year-old female patient with a known mitral regurgitation, paroxysmal atrial fibrillation, as well as multiple comorbid conditions who was admitted to the hospital after she was found to have multiple episodes of sustained and symptomatic V. tach. The patient is going to be seen in the next [address] Ochoa for EP study and possible VT ablation. She continues to be hemodynamically stable and she has been maintaining normal sinus mechanism. She is asymptomatic from the cardiovascular standpoint of view. Objective - Vital Signs Vital signs: Vital Signs Temp 97.5 F L 01/16/17 04:00 Pulse 56 L 01/16/17 04:00 Resp 16 01/16/17 04:00 BP 120/52 01/16/17 04:00 Pulse Ox 96 01/16/17 04:00 Intake & Output 01/15/17 01/16/17 01/16/17 18:59 06:59 18:59 Intake Total 606.674 46.6 Output Total 500 Balance 106.674 46.6 Weight 93.7 kg Intake: IV 46.6 0.9% NS FLUSH 10mL 10 Amiodarone 450 mg In 16.6 Dextrose 5% in Water 250 ml @ 1 MG/MIN 33.33 mls/ hr IV .Q7H31M [facility] Rx#: [id number] Sodium Chloride 0.9% 1, 20 000 ml @ 20 mls/hr IV . Q24H [facility] Rx#:[id number] Intake, IV Titration 119.674 Amount Amiodarone 450 mg In 119.674 Dextrose 5% in Water 250 ml @ 1 MG/MIN 33.33 mls/ hr IV .Q7H31M [facility] Rx#: [id number] Oral 487 Output: Urine 500 Other: # Voids 2 - Constitutional General appearance: Present: no acute distress - Labs CBC & Chem 7: 01/14/17 19:20 01/15/17 05:41 Labs: Abnormal Lab Results - Last 24 Hours (Table) 01/15/17 01/16/17 01/16/17 Range/Units 20:59 06:04 12:03 POC Glucose (mg/dL) 232 H 133 H 156 H (75-99) mg/dL Assessment and Plan Plan: This is a pleasant 71-year-old female patient with sustained VT. The plan is to proceed with EP study and VT ablation.
[2017-01-16] MEDS: SODIUM CHLORIDE 0.9% 1,000 ML IV SCH (15:06)
[2017-01-16 17:13] LABS: Glucose,Whole Blood 144 mg/dL (75-99)
[2017-01-16] MEDS: WARFARIN 2 MG TAB PO SCH (21:05)
[2017-01-16 21:10] LABS: Glucose,Whole Blood 171 mg/dL (75-99)
[2017-01-16] MEDS: ALPRAZolam 0.25 MG TAB PO PRN (22:30)
[2017-01-17 05:43] LABS: Glucose,Whole Blood 122 mg/dL (75-99)
[2017-01-17] MEDS: LEVOTHYROXINE 100 MCG TAB PO SCH (06:03)
[2017-01-17] MEDS: PANTOPRAZOLE 40 MG TABLET PO SCH (06:05)
[2017-01-17 06:59] LABS: INR 2.1 (<1.2); Prothrombin Time 20.4 sec (9.0-12.0)
[2017-01-17] MEDS: LISINOPRIL 5 MG TAB PO SCH (09:40)
[2017-01-17] MEDS: AMIODARONE 200 MG TAB PO SCH ×2 (09:41→22:17)
[2017-01-17] MEDS: ATENOLOL 25 MG TAB PO SCH ×2 (09:41→22:17)
[2017-01-17] MEDS: SPIRONOLACTONE 25 MG TAB PO SCH (09:41)
[2017-01-17] MEDS: FUROSEMIDE 40 MG TAB PO SCH (09:41)
[2017-01-17] MEDS: metFORMIN 500 MG TAB PO SCH ×2 (09:42→22:17)
[2017-01-17] MEDS: ISOSORBIDE MONONITRATE ER 30 MG TAB.ER.24H PO SCH (09:42)
[2017-01-17 12:02] LABS: Glucose,Whole Blood 137 mg/dL (75-99)
--- NOTE | 2017-01-17 14:59 | P.PN ---
Subjective Principal diagnosis: V. tach This is a 71-year-old female with history of chronic atrial fibrillation who has been having symptoms of shortness of breath and evidence of congestive heart failure. 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 Cardiac catheterization showed mild to moderate ostial narrowing of the right coronary artery without any significant lesion in the rest of the coronary system. Patient was sent home on medical therapy. Post cardiac catheterization, Patient was found to have 1 run of nonsustained V. tach. Patient was monitored for 12 hours overnight without any recurrence of significant arrhythmias. Patient was discharged home to have outpatient 24-hour monitor period outpatient 24-hour monitor showed recurrent episodes of asymptomatic ventricular tachycardia the longest one being 30 beats at a rate of about 160- 170. Patient is advised to be admitted to the hospital. Patient will have IV amiodarone therapy. She will have continuous monitoring. Further recommendations depend upon the clinical course. We'll also obtain EP evaluation. 01/15/2017 Patient seen and examined this morning, she had one run of 10 nonsustained ventricular tachycardia through the night last night. No further episodes of VT since then. She was seen and examined this morning, denies any palpitations , no chest discomfort no dizziness or lightheadedness. Continues to be on IV amiodarone drip. Blood pressure this morning 140/60 with a heart rate in the 70s. Sodium 139, potassium 4.4, BUN 20, creatinine 0.8. 01/17/2017 Patient seen and examined this morning, she has been up ambulating in the quarles today with no difficulty. She was noted to have 1 run of 4 nonsustained VT through the night last night. Currently on oral amiodarone. Consultation with cardiothoracic surgery has been requested for mitral valve replacement and maze procedure. Patient will also be evaluated today by Dr. Laureano. Objective - Vital Signs Vital signs: Vital Signs Temp 97 F L 01/17/17 04:00 Pulse 61 01/17/17 12:00 Resp 18 01/17/17 12:00 BP 113/55 01/17/17 12:00 Pulse Ox 97 01/17/17 12:00 Intake & Output 01/16/17 01/17/17 01/17/17 18:59 06:59 18:59 Intake Total 914 257 180 Output Total 2 Balance 912 257 180 Weight 93 kg Intake: IV 440 20 0.9% NS FLUSH 10mL 20 Amiodarone 450 mg In 200 Dextrose 5% in Water 250 ml @ 1 MG/MIN 33.33 mls/ hr IV .Q7H31M [facility] Rx#: [id number] Sodium Chloride 0.9% 1, 240 000 ml @ 20 mls/hr IV . Q24H [facility] Rx#:[id number] Oral 474 237 180 Output: Urine 2 Other: # Voids 0 # Bowel Movements 1 - Exam PHYSICAL EXAMINATION: HEENT: Head is atraumatic, normocephalic. Pupils equal, round. Neck is supple. There is no elevated jugular venous pressure. HEART EXAMINATION: Heart S1 and S2 systolic murmur is heard. CHEST EXAMINATION: Lungs are clear to auscultation and precussion. No chest wall tenderness is noted on palpation or with deep breathing. ABDOMEN: Soft, nontender. Bowel sounds are heard. No organomegaly noted. EXTREMITIES: 2+ peripheral pulses with no evidence of peripheral edema and no calf tenderness noted. NEUROLOGIC patient is awake, alert and oriented -3. . - Labs CBC & Chem 7: 01/14/17 19:20 01/15/17 05:41 Labs: Abnormal Lab Results - Last 24 Hours (Table) 01/16/17 01/16/17 01/17/17 Range/Units 16:49 21:08 05:42 PT (9.0-12.0) sec INR (<1.2) POC Glucose (mg/dL) 144 H 171 H 122 H (75-99) mg/dL 01/17/17 01/17/17 Range/Units 05:49 11:54 PT 20.4 H (9.0-12.0) sec INR 2.1 H (<1.2) POC Glucose (mg/dL) 137 H (75-99) mg/dL Assessment and Plan (1) Ventricular tachycardia Status: Acute (2) Diabetes Status: Acute (3) H/O transesophageal echocardiography (EMELY) for monitoring Status: Acute (4) HTN (hypertension) Status: Acute (5) Hyperlipemia Status: Acute (6) Mitral regurgitation Status: Acute (7) S/P cardiac cath Status: Acute Plan: From cardiology's perspective, we will continue by mouth amiodarone . Consultation with cardiothoracic surgery regarding a mitral valve replacement and maze procedure. Patient will also be evaluated later today by Dr. Ochoa. DNP note has been reviewed, I agree with a documented findings and plan of care. Patient was seen and examined.
--- NOTE | 2017-01-17 16:21 | P.GSCN ---
History of Present Illness Consult date: 01/17/17 Reason for Consult: Severe mitral regurgitation, surgical recommendations. Requesting physician: Ricardo Orourke History of present illness: This 71-year-old female has been followed by Dr. Orourke for hypertension, pulmonary embolism, mitral regurgitation, and congestive heart failure. Apparently she has had increasing complaints of shortness of breath as well as lower extremity edema. She has been treated with diuretics. She had an echocardiogram in Dr. Dr. Orourke's office demonstrating moderate to severe mitral regurgitation and evidence of pulmonary hypertension. She was advised to have a cardiac catheterization as well as a EMELY. Her heart catheterization on 01/11/2017 demonstrated moderate ostial stenosis of the right coronary artery , otherwise no significant coronary artery disease. Transesophageal echocardiogram demonstrated a thickened mitral valve with evidence of eccentric mitral regurgitation which seemed to be projected postero-laterally. Her left atrium was severely enlarged. There is no evidence of a clot in the left atrial appendage. There was no shunt across intra-arterial septum or PFO. LV function appeared to be mildly impaired. There is mild plaque in the aorta. In addition she has had runs of nonsustained ventricular tachycardia which was captured on a 24-hour event monitor. She denies any chest pain, palpitations, discomfort, lightheadedness, or syncope with these episodes. She is to see Dr. Ochoa for recommendations related to the ventricular tachycardia. Dr. García from cardiothoracic surgery was consulted for her mitral valve regurgitation. Review of Systems 14 point review of systems was completed and was negative except as noted. - Constitutional Reports fatigue - Cardiovascular Reports as per HPI - Respiratory Reports as per HPI - Musculoskeletal bilateral: knee pain Past Medical History Past Medical History: Blood Disorder, Cancer, Diabetes Mellitus, Hypertension, Pulmonary Embolus (PE) Additional Past Medical History / Comment(s): Hx CHF, lung cancer, thyroid cancer. See Dr Orourke H&P. History of Any Multi-Drug Resistant Organisms: None Reported Past Surgical History: Bariatric Surgery, Section, Cholecystectomy, Tubal Ligation Additional Past Surgical History / Comment(s): Pt stated that she fractured toe , left lung lower lobe removed, partial thyroidectomy, bilateral cataract surgery. Past Anesthesia/Blood Transfusion Reactions: No Reported Reaction Smoking Status: Never smoker Past Alcohol Use History: None Reported Past Drug Use History: None Reported - Past Family History Mother Family Medical History: No Reported History Additional Family Medical History / Comment(s): age 94 from "natural causes " Father Family Medical History: Diabetes Mellitus, Myocardial Infarction ([place]) Medications and Allergies Home Medications Medication Instructions Recorded Confirmed Type Cholecalciferol [Vitamin D3] 5,000 units PO DAILY 01/09/14 01/14/17 History Furosemide [Lasix] 40 mg PO DAILY 01/09/14 01/14/17 History Multivitamins, Thera [Multivitamin 1 tab PO DAILY 01/09/14 01/14/17 History (formulary)] Omeprazole 40 mg PO DAILY 01/09/14 01/14/17 History Warfarin [Coumadin] 2 mg PO HS 01/09/14 01/14/17 History Escitalopram [Lexapro] 20 mg PO DAILY 12/29/16 01/14/17 History Lisinopril [Zestril] 5 mg PO DAILY 01/07/17 01/14/17 History Acetaminophen [Tylenol Arthritis] 650 mg PO DAILY PRN 01/11/17 01/14/17 History Levothyroxine Sodium [Synthroid] 100 mcg PO DAILY 01/11/17 01/14/17 History metFORMIN HCL [Glucophage] 1,000 mg PO BID 01/11/17 01/14/17 History Atenolol 25 mg PO BID 01/14/17 01/14/17 History ALPRAZolam [Xanax] 0.25 mg PO BID PRN 01/15/17 01/15/17 History Allergies Allergy/AdvReac Type Severity Reaction Status Date / Time iodine AdvReac Intermediate MOTHER IS Verified 01/14/17 20:57 ALLERGIC latex AdvReac Rash/Hives Verified 01/14/17 20:57 Surgical - Exam Vital Signs Temp Pulse Resp BP Pulse Ox 97.8 F 82 18 144/79 94 L 01/14/17 18:00 01/14/17 18:00 01/14/17 18:00 01/14/17 18:00 01/14/17 18:00 - General well developed, well nourished, no distress, no pain - Eyes PERRL, normal ocular movement - ENT no hearing loss - Neck no masses, no bruits, trachea midline - Respiratory Respirations even, nonlabored. Currently on room air with oxygen saturation 99% . normal expansion, normal respiratory effort, clear to auscultation - Cardiovascular Normal sinus rhythm on telemetry without evidence of ischemia. Alarm monitor does demonstrate runs of ventricular tachycardia as previously mentioned. Palpable pulses bilaterally. Trace nonpitting edema present to lower extremities. Heart Sounds: normal: S1, S2 Abnormal Heart Sounds: systolic murmur - Abdomen Abdomen: soft, non tender, bowel sounds - Genitourinary Deferred - Rectum Deferred - Integumentary no rash, no growths - Neurologic normal coordination, normal sensation - Musculoskeletal Patient does walk with a walker. - Psychiatric oriented to time, oriented to person, oriented to place, speech is normal, memory intact Results - Labs 01/14/17 19:20 01/15/17 05:41 Abnormal Lab Results - Last 24 Hours (Table) 01/16/17 01/16/17 01/17/17 Range/Units 16:49 21:08 05:42 PT (9.0-12.0) sec INR (<1.2) POC Glucose (mg/dL) 144 H 171 H 122 H (75-99) mg/dL 01/17/17 01/17/17 Range/Units 05:49 11:54 PT 20.4 H (9.0-12.0) sec INR 2.1 H (<1.2) POC Glucose (mg/dL) 137 H (75-99) mg/dL - Imaging Chest x-ray: report reviewed, image reviewed Assessment and Plan (1) History of lung cancer Status: Acute (2) History of thyroid cancer Status: Acute (3) Paroxysmal atrial fibrillation Status: Acute (4) History of pulmonary embolism Status: Acute (5) Nonsustained ventricular tachycardia Status: Acute (6) History of lobectomy of lung Status: Acute (7) Tobacco dependence in remission Status: Acute (8) Ventricular tachycardia Status: Acute (9) Diabetes Status: Acute (10) H/O transesophageal echocardiography (EMELY) for monitoring Status: Acute (11) HTN (hypertension) Status: Acute (12) Hyperlipemia Status: Acute (13) Mitral regurgitation Status: Acute (14) S/P cardiac cath Status: Acute Plan: The patient was seen and examined at the bedside with Dr. García. Chart/ diagnostics or reviewed. Cardiac catheterization as well as transesophageal echocardiogram films were reviewed. Patient to see Dr. Ochoa regarding ventricular tachycardia. Patient would need dental clearance prior to surgery. Dr. García discussed mitral valve surgery with the patient and her daughters at length. All risks and benefits were explained and all questions were answered. She is to follow-up in our office with Dr. García for plans for future surgery. Thank you Dr. Orourke for this consult. We look forward to working with you in the care of your patient. Time with Patient: Greater than 30
[2017-01-17 16:55] LABS: Glucose,Whole Blood 153 mg/dL (75-99)
[2017-01-17 19:03] LABS: Magnesium 1.5 mg/dL (1.6-2.3); Potassium 4.8 mmol/L (3.5-5.1)
[2017-01-17 21:05] LABS: Glucose,Whole Blood 257 mg/dL (75-99)
[2017-01-17] MEDS: WARFARIN 2 MG TAB PO SCH (22:17)
[2017-01-17] MEDS: SODIUM CHLORIDE 0.9% 1,000 ML IV SCH (22:18)
[2017-01-17] MEDS: ALPRAZolam 0.25 MG TAB PO PRN (22:18)
[2017-01-17] MEDS ORDERED: Magnesium Replacement Protocol 1 EACH MISC MISCELLANE PRN (23:56)
[2017-01-18] MEDS: MAGNESIUM SULFATE-D5W PMX 1 GM in DEXTROSE/WATER 1 100ML.BAG IVPB SCH ×2 (00:41→01:45)
[2017-01-18 05:48] LABS: Glucose,Whole Blood 139 mg/dL (75-99)
[2017-01-18] MEDS: LEVOTHYROXINE 100 MCG TAB PO SCH (06:43)
[2017-01-18] MEDS: PANTOPRAZOLE 40 MG TABLET PO SCH (06:43)
[2017-01-18] MEDS: AMIODARONE 200 MG TAB PO SCH ×2 (08:13→21:40)
[2017-01-18] MEDS: FUROSEMIDE 40 MG TAB PO SCH (08:14)
[2017-01-18] MEDS: ATENOLOL 25 MG TAB PO SCH ×2 (08:14→21:40)
[2017-01-18] MEDS: ISOSORBIDE MONONITRATE ER 30 MG TAB.ER.24H PO SCH (08:14)
[2017-01-18] MEDS: SPIRONOLACTONE 25 MG TAB PO SCH (08:15)
[2017-01-18] MEDS: LISINOPRIL 5 MG TAB PO SCH (08:15)
[2017-01-18] MEDS: metFORMIN 500 MG TAB PO SCH ×2 (08:15→21:40)
[2017-01-18 09:52] LABS: Hemoglobin A1C 7.6 % (4.2-6.1)
[2017-01-18 11:52] LABS: Glucose,Whole Blood 130 mg/dL (75-99)
--- NOTE | 2017-01-18 12:11 | P.PN ---
Subjective Principal diagnosis: V. tach This is a 71-year-old female with history of chronic atrial fibrillation who has been having symptoms of shortness of breath and evidence of congestive heart failure. 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 Cardiac catheterization showed mild to moderate ostial narrowing of the right coronary artery without any significant lesion in the rest of the coronary system. Patient was sent home on medical therapy. Post cardiac catheterization, Patient was found to have 1 run of nonsustained V. tach. Patient was monitored for 12 hours overnight without any recurrence of significant arrhythmias. Patient was discharged home to have outpatient 24-hour monitor period outpatient 24-hour monitor showed recurrent episodes of asymptomatic ventricular tachycardia the longest one being 30 beats at a rate of about 160- 170. Patient is advised to be admitted to the hospital. Patient will have IV amiodarone therapy. She will have continuous monitoring. Further recommendations depend upon the clinical course. We'll also obtain EP evaluation. 01/15/2017 Patient seen and examined this morning, she had one run of 10 nonsustained ventricular tachycardia through the night last night. No further episodes of VT since then. She was seen and examined this morning, denies any palpitations , no chest discomfort no dizziness or lightheadedness. Continues to be on IV amiodarone drip. Blood pressure this morning 140/60 with a heart rate in the 70s. Sodium 139, potassium 4.4, BUN 20, creatinine 0.8. 01/17/2017 Patient seen and examined this morning, she has been up ambulating in the quarles today with no difficulty. She was noted to have 1 run of 4 nonsustained VT through the night last night. Currently on oral amiodarone. Consultation with cardiothoracic surgery has been requested for mitral valve replacement and maze procedure. Patient will also be evaluated today by Dr. Ochoa. 01/18/2017 Patient seen and examined this morning. She has been up ambulating without any difficulty. Denies any chest discomfort, breathing overall has been stable. Patient was noted to have 1 run of 3 nonsustained ventricular tachycardia. Upon further review in the monitor room, patient did have another episode of 11 is nonsustained VT. She is waiting today to be evaluated by Dr. Ochoa. Patient was also seen in consultation yesterday by Dr. García regarding mitral valve surgery. They will also follow up with him as an outpatient. Objective - Vital Signs Vital signs: Vital Signs Temp 96.9 F L 01/18/17 11:19 Pulse 59 L 01/18/17 11:19 Resp 18 01/18/17 11:19 BP 108/52 01/18/17 11:19 Pulse Ox 97 01/18/17 11:19 Intake & Output 01/17/17 01/18/17 01/18/17 18:59 06:59 18:59 Intake Total 360 440 840 Balance 360 440 840 Weight 91.8 kg Intake: Intake, IV Titration 200 Amount Magnesium Sulfate-D5w Pmx 200 1 gm In Dextrose/Water 1 100ml.bag @ 100 mls/hr IVPB Q1H [facility] Rx#: [id number] Oral 360 240 840 Other: Voiding Method Toilet Toilet # Voids 0 1 - Exam PHYSICAL EXAMINATION: HEENT: Head is atraumatic, normocephalic. Pupils equal, round. Neck is supple. There is no elevated jugular venous pressure. HEART EXAMINATION: Heart S1 and S2 systolic murmur is heard. CHEST EXAMINATION: Lungs are clear to auscultation and precussion. No chest wall tenderness is noted on palpation or with deep breathing. ABDOMEN: Soft, nontender. Bowel sounds are heard. No organomegaly noted. EXTREMITIES: 2+ peripheral pulses with no evidence of peripheral edema and no calf tenderness noted. NEUROLOGIC patient is awake, alert and oriented -3. . - Labs CBC & Chem 7: 01/14/17 19:20 01/17/17 18:41 Labs: Abnormal Lab Results - Last 24 Hours (Table) 01/17/17 01/17/17 01/17/17 Range/Units 16:46 18:41 21:04 POC Glucose (mg/dL) 153 H 257 H (75-99) mg/dL Hemoglobin A1c (4.2-6.1) % Magnesium 1.5 L (1.6-2.3) mg/dL 01/18/17 01/18/17 01/18/17 Range/Units 05:47 05:52 11:49 POC Glucose (mg/dL) 139 H 130 H (75-99) mg/dL Hemoglobin A1c 7.6 H (4.2-6.1) % Magnesium (1.6-2.3) mg/dL Assessment and Plan (1) Ventricular tachycardia Status: Acute (2) Diabetes Status: Acute (3) H/O transesophageal echocardiography (EMELY) for monitoring Status: Acute (4) HTN (hypertension) Status: Acute (5) Hyperlipemia Status: Acute (6) Mitral regurgitation Status: Acute (7) S/P cardiac cath Status: Acute Plan: From cardiology's perspective, we will continue by mouth Amiodarone 400 mg one tablet by mouth twice a day . Patient will be evaluated later today by Dr. Ochoa. Further recommendations to follow. DNP note has been reviewed, I agree with a documented findings and plan of care. Patient was seen and examined.
--- NOTE | 2017-01-18 13:18 | P.CRDCN ---
History of Present Illness Chief complaint: [facility] History of present illness: Consult requested by Dr. Orourke 71-year-old female with a history of permanent atrial fibrillation who was admitted with runs of ventricular tachycardia documented on a vent monitor. Review of the telemetry strips suggests a left bundle branch block morphology with notching of the QRS and upright QRS is in the inferior leads and possibly biphasic in lead 1, but this is a telemetry strip not 12-lead ECG She was started on IV amiodarone and now is on by mouth amiodarone for suppression of runs of ventricular tachycardia She does not feel the palpitations but she complains of shortness of breath and may get dizzy She also has eccentric mitral regurgitation. I reviewed the 2-D echo in the office and it shows involvement of the sub-valvular chordal apparatus, restriction of movement of the valve leaflets especially the distal half of the valve leaflets with a hockey-stick appearance when fully open. A rheumatic etiology must be considered. She continues to have short runs of nonsustained ventricular tachycardia but has been recently started on oral amiodarone after switching from IV amiodarone Review of systems: No fever chills or rigors, no cough, phlegm or expectoration , no nausea, vomiting or diarrhea, no hematuria, dysuria, no musculoskeletal complaints, no strokes or seizures, no skin lesions. Her main complaint is shortness of breath on exertion. She was originally admitted last month which shortness of breath and heart failure symptoms secondary to significant mitral regurgitation. Left ventricular ejection fraction at best 50%. Past history of pulmonary embolism, lung cancer in the past, thyroid cancer, diabetes mellitus bariatric surgery 5 years back On examination she is sitting comfortably in bed afebrile 96.9F pulse rate in the 60s, blood pressure 108/52 mmHg no JVD breath sounds are reduced bilaterally , no clear-cut murmur audible in the sitting position abdomen soft extremities are warm no edema Impression Recurrent long runs of nonsustained ventricular tachycardia, possible associated dizzy spells Significant mitral regurgitation, eccentric Left ventricular ejection fraction about 50% in the setting of significant mitral regurgitation History of pulmonary embolism History of lung cancer History of thyroid cancer Adult onset diabetes Morbid obesity status post gastric bypass surgery Suggest Oral amiodarone for suppressive therapy In view of severe mitral regurgitation and heart failure I would avoid an invasive approach for ventricular tachycardia management Evaluation and treatment of mitral regurgitation with valve replacement, surgical consult LifeVest for at least 3 months Reassessment of ventricular tachycardia thereafter Cardiac MRI to assess the right and left ventricle given the notching of the QRS during ventricular tachycardia Past Medical History Past Medical History: Blood Disorder, Cancer, Diabetes Mellitus, Hypertension, Pulmonary Embolus (PE) Additional Past Medical History / Comment(s): Hx CHF, lung cancer, thyroid cancer. See Dr Orourke H&P. History of Any Multi-Drug Resistant Organisms: None Reported Past Surgical History: Bariatric Surgery, Section, Cholecystectomy, Tubal Ligation Additional Past Surgical History / Comment(s): Pt stated that she fractured toe , left lung lower lobe removed, partial thyroidectomy, bilateral cataract surgery. Past Anesthesia/Blood Transfusion Reactions: No Reported Reaction Smoking Status: Never smoker Past Alcohol Use History: None Reported Past Drug Use History: None Reported - Past Family History Mother Family Medical History: No Reported History Additional Family Medical History / Comment(s): age 94 from "natural causes " Father Family Medical History: Diabetes Mellitus, Myocardial Infarction ([place]) Medications and Allergies Home Medications Medication Instructions Recorded Confirmed Type Cholecalciferol [Vitamin D3] 5,000 units PO DAILY 01/09/14 01/14/17 History Furosemide [Lasix] 40 mg PO DAILY 01/09/14 01/14/17 History Multivitamins, Thera [Multivitamin 1 tab PO DAILY 01/09/14 01/14/17 History (formulary)] Omeprazole 40 mg PO DAILY 01/09/14 01/14/17 History Warfarin [Coumadin] 2 mg PO HS 01/09/14 01/14/17 History Escitalopram [Lexapro] 20 mg PO DAILY 12/29/16 01/14/17 History Lisinopril [Zestril] 5 mg PO DAILY 01/07/17 01/14/17 History Acetaminophen [Tylenol Arthritis] 650 mg PO DAILY PRN 01/11/17 01/14/17 History Levothyroxine Sodium [Synthroid] 100 mcg PO DAILY 01/11/17 01/14/17 History metFORMIN HCL [Glucophage] 1,000 mg PO BID 01/11/17 01/14/17 History Atenolol 25 mg PO BID 01/14/17 01/14/17 History ALPRAZolam [Xanax] 0.25 mg PO BID PRN 01/15/17 01/15/17 History Allergies Allergy/AdvReac Type Severity Reaction Status Date / Time iodine AdvReac Intermediate MOTHER IS Verified 01/14/17 20:57 ALLERGIC latex AdvReac Rash/Hives Verified 01/14/17 20:57 Physical Exam Vitals: Vital Signs Temp Pulse Resp BP Pulse Ox 01/18/17 11:19 96.9 F L 59 L 18 108/52 97 01/18/17 08:00 97.8 F 58 L 18 109/53 97 01/18/17 04:00 97.7 F 56 L 18 133/61 99 01/18/17 00:00 97.2 F L 56 L 18 141/63 99 01/17/17 20:00 98.2 F 61 18 129/67 97 01/17/17 16:00 97.7 F 61 18 128/61 97 Intake and Output 01/17/17 01/18/17 01/18/17 22:59 06:59 14:59 Intake Total 240 200 840 Balance 240 200 840 Intake: Intake, IV Titration 200 Amount Magnesium Sulfate-D5w Pmx 200 1 gm In Dextrose/Water 1 100ml.bag @ 100 mls/hr IVPB Q1H KEYLA Rx#: [id number] Oral 240 840 Other: Voiding Method Toilet Toilet Toilet # Voids 1 Weight 91.8 kg Results 01/14/17 19:20 01/17/17 18:41 Comprehensive Metabolic Panel 01/17/17 Range/Units 18:41 Potassium 4.8 (3.5-5.1) mmol/L Current Medications Generic Name Dose Route Start Last Admin Trade Name Lauroq PRN Reason Stop Dose Admin Acetaminophen 650 mg 01/14/17 17:34 01/14/17 20:06 Tylenol Tab PO 650 mg DAILY PRN Administration Mild to Moderate Pain Alprazolam 0.25 mg 01/15/17 17:28 01/17/17 22:18 Xanax PO 0.25 mg BID PRN Administration Anxiety Amiodarone HCl 400 mg 01/15/17 21:00 01/18/17 08:13 Cordarone PO 400 mg BID KEYLA Administration Atenolol 25 mg 01/14/17 21:00 01/18/17 08:14 Tenormin PO 25 mg BID KEYLA Administration Furosemide 40 mg 01/15/17 09:00 01/18/17 08:14 Lasix PO 40 mg DAILY KEYLA Administration Sodium Chloride 1,000 mls @ 20 mls/hr 01/14/17 19:30 01/17/17 22:18 Saline 0.9% IV Not Given .Q24H [facility] [place] Isosorbide Mononitrate 30 mg 01/15/17 09:00 01/18/17 08:14 Imdur PO 30 mg DAILY KEYLA Administration Levothyroxine Sodium 100 mcg 01/15/17 06:30 01/18/17 06:43 Synthroid PO 100 mcg DAILY@0630 KEYLA Administration Lisinopril 5 mg 01/15/17 09:00 01/18/17 08:15 Zestril PO 5 mg DAILY KEYLA Administration Metformin HCl 1,000 mg 01/14/17 21:00 01/18/17 08:15 Glucophage PO 1,000 mg BID KEYLA Administration Miscellaneous Information 1 each 01/17/17 23:56 Magnesium Per Protocol MISCELLANE DAILY PRN Per Protocol Protocol Nitroglycerin 0.4 mg 01/14/17 17:34 Nitrostat SUBLINGUAL Q5M PRN Chest Pain Pantoprazole Sodium 40 mg 01/15/17 07:30 01/18/17 06:43 Protonix PO 40 mg AC-[id number] KEYLA Administration Spironolactone 25 mg 01/15/17 09:00 01/18/17 08:15 Aldactone PO 25 mg DAILY KEYLA Administration Warfarin Sodium 2 mg 01/15/17 21:00 01/17/17 22:17 Coumadin PO 2 mg HS KEYLA Administration Intake and Output 01/17/17 01/18/17 01/18/17 22:59 06:59 14:59 Intake Total 240 200 840 Balance 240 200 840 Intake: Intake, IV Titration 200 Amount Magnesium Sulfate-D5w Pmx 200 1 gm In Dextrose/Water 1 100ml.bag @ 100 mls/hr IVPB Q1H [facility] Rx#: [id number] Oral 240 840 Other: Voiding Method Toilet Toilet Toilet # Voids 1 Weight 91.8 kg 01/14/17 19:20 01/17/17 18:41
[2017-01-18 16:52] LABS: Glucose,Whole Blood 135 mg/dL (75-99)
[2017-01-18 20:55] LABS: Glucose,Whole Blood 134 mg/dL (75-99)
[2017-01-18] MEDS: WARFARIN 2 MG TAB PO SCH (21:41)
[2017-01-18] MEDS: SODIUM CHLORIDE 0.9% 1,000 ML IV SCH (21:44)
[2017-01-18] MEDS: ALPRAZolam 0.25 MG TAB PO PRN (21:44)
[2017-01-19 06:04] LABS: Glucose,Whole Blood 113 mg/dL (75-99)
[2017-01-19] MEDS: LEVOTHYROXINE 100 MCG TAB PO SCH (06:32)
[2017-01-19] MEDS: PANTOPRAZOLE 40 MG TABLET PO SCH (07:24)
[2017-01-19] MEDS: ATENOLOL 25 MG TAB PO SCH ×2 (08:51→21:27)
[2017-01-19] MEDS: AMIODARONE 200 MG TAB PO SCH ×2 (08:51→21:27)
[2017-01-19] MEDS: FUROSEMIDE 40 MG TAB PO SCH (08:51)
[2017-01-19] MEDS: LISINOPRIL 5 MG TAB PO SCH (08:51)
[2017-01-19] MEDS: metFORMIN 500 MG TAB PO SCH ×2 (08:52→21:27)
[2017-01-19] MEDS: ISOSORBIDE MONONITRATE ER 30 MG TAB.ER.24H PO SCH (08:52)
[2017-01-19] MEDS: SPIRONOLACTONE 25 MG TAB PO SCH (08:52)
[2017-01-19 10:30] LABS: INR 2.8 (<1.2); Prothrombin Time 27.3 sec (9.0-12.0)
[2017-01-19 11:46] LABS: Glucose,Whole Blood 128 mg/dL (75-99)
--- NOTE | 2017-01-19 14:28 | CDI ---
In responding to this query, please exercise your independent professional judgment. [facility] Coding Staff and Clinical Documentation Specialists appreciate your assistance in clarifying documentation, maintaining compliance with coding guidelines, accurately documenting patients condition and capturing severity of illness. The fact that a question is asked does not imply that any particular answer is desired or expected. Communication forms are a method of clarifying documentation and are not made part of the Legal Health Record. Thank you in advance for your clarification. Last Revision, August 2016 Theodore Andino [address] [place] [address] Documentation Clarification Form Date: 01/19/2017 1:56:00 PM From: Leonor Hensley RN, CDS Admit Date: 01/14/2017 5:10:00 PM Patient Name: Leona Saunders Visit Number: [id number] Radha Sanchez DNP/Dr. Ricardo Orourke 71 yo patient admitted for shortness of breath and evidence of CHF. Noted to have run of Nonsustained Ventricular Tachycardia Chronic A-fib and CHF noted per medical history History/Risk Factors: Lung and Thyroid cancer, Chronic A-fib, HTN, CHF Clinical Indicators: "This is a 71-year-old female with history of chronic atrial fibrillation who has been having symptoms of shortness of breath and evidence of congestive heart failure" per H&P and progress notes 01/14 through 01/18. " Chronic congestive heart failure" "recent EMELY- moderate to severe eccentric mitral regurgitation, per H&P, "Left ventricular ejection fraction about 50% in the setting of significant per EP consult Treatment: IV Amiodarone, Home doses: Lasix 40mg daily, Atenolol 25 mg BID, Zestril 5 mg daily In your professional opinion, can you please clarify the acuity and type of CHF if known? Compensated Chronic Systolic Heart Failure Compensated Chronic Diastolic Heart Failure Unable to determine Other, please specify Please document in your progress notes and discharge summary in order to capture severity of illness and risk of mortality. Include clinical findings that support your diagnosis. FYI: Press F11 to launch patient chart. Thank you. MAYNOR
--- NOTE | 2017-01-19 14:38 | P.PN ---
Subjective Principal diagnosis: V. tach This is a 71-year-old female with history of chronic atrial fibrillation who has been having symptoms of shortness of breath and evidence of congestive heart failure. 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 Cardiac catheterization showed mild to moderate ostial narrowing of the right coronary artery without any significant lesion in the rest of the coronary system. Patient was sent home on medical therapy. Post cardiac catheterization, Patient was found to have 1 run of nonsustained V. tach. Patient was monitored for 12 hours overnight without any recurrence of significant arrhythmias. Patient was discharged home to have outpatient 24-hour monitor period outpatient 24-hour monitor showed recurrent episodes of asymptomatic ventricular tachycardia the longest one being 30 beats at a rate of about 160- 170. Patient is advised to be admitted to the hospital. Patient will have IV amiodarone therapy. She will have continuous monitoring. Further recommendations depend upon the clinical course. We'll also obtain EP evaluation. 01/15/2017 Patient seen and examined this morning, she had one run of 10 nonsustained ventricular tachycardia through the night last night. No further episodes of VT since then. She was seen and examined this morning, denies any palpitations , no chest discomfort no dizziness or lightheadedness. Continues to be on IV amiodarone drip. Blood pressure this morning 140/60 with a heart rate in the 70s. Sodium 139, potassium 4.4, BUN 20, creatinine 0.8. 01/17/2017 Patient seen and examined this morning, she has been up ambulating in the quarles today with no difficulty. She was noted to have 1 run of 4 nonsustained VT through the night last night. Currently on oral amiodarone. Consultation with cardiothoracic surgery has been requested for mitral valve replacement and maze procedure. Patient will also be evaluated today by Dr. Ochoa. 01/18/2017 Patient seen and examined this morning. She has been up ambulating without any difficulty. Denies any chest discomfort, breathing overall has been stable. Patient was noted to have 1 run of 3 nonsustained ventricular tachycardia. Upon further review in the monitor room, patient did have another episode of 11 is nonsustained VT. She is waiting today to be evaluated by Dr. Ochoa. Patient was also seen in consultation yesterday by Dr. García regarding mitral valve surgery. They will also follow up with him as an outpatient. 01/19/2017 Patient seen and examined this morning, she had one run of nonsustained ventricular tachycardia, 5 B2 the night last night. Feels well overall. She has been up ambulating in the hallways. Her outpatient appointment for her cardiac MRI has been scheduled. We are trying to work out the details to assist the patient with coverage for her LifeVest. Objective - Vital Signs Vital signs: Vital Signs Temp 96.8 F L 01/19/17 08:00 Pulse 57 L 01/19/17 11:29 Resp 17 01/19/17 11:29 BP 100/50 01/19/17 11:29 Pulse Ox 94 L 01/19/17 11:29 Intake & Output 01/18/17 01/19/17 01/19/17 18:59 06:59 18:59 Intake Total 1260 210 360 Balance 1260 210 360 Weight 92.5 kg Intake: IV 10 0.9% NS FLUSH 10mL 10 Oral 1260 200 360 Other: Voiding Method Toilet Toilet Toilet # Voids 2 1 - Exam PHYSICAL EXAMINATION: HEENT: Head is atraumatic, normocephalic. Pupils equal, round. Neck is supple. There is no elevated jugular venous pressure. HEART EXAMINATION: Heart S1 and S2 systolic murmur is heard. CHEST EXAMINATION: Lungs are clear to auscultation and precussion. No chest wall tenderness is noted on palpation or with deep breathing. ABDOMEN: Soft, nontender. Bowel sounds are heard. No organomegaly noted. EXTREMITIES: 2+ peripheral pulses with no evidence of peripheral edema and no calf tenderness noted. NEUROLOGIC patient is awake, alert and oriented -3. . - Labs CBC & Chem 7: 01/14/17 19:20 01/17/17 18:41 Labs: Abnormal Lab Results - Last 24 Hours (Table) 01/18/17 01/18/17 01/19/17 Range/Units 16:49 20:53 06:02 PT (9.0-12.0) sec INR (<1.2) POC Glucose (mg/dL) 135 H 134 H 113 H (75-99) mg/dL 01/19/17 01/19/17 Range/Units 10:01 11:42 PT 27.3 H (9.0-12.0) sec INR 2.8 H (<1.2) POC Glucose (mg/dL) 128 H (75-99) mg/dL Assessment and Plan (1) Ventricular tachycardia Status: Acute (2) Diabetes Status: Acute (3) H/O transesophageal echocardiography (EMELY) for monitoring Status: Acute (4) HTN (hypertension) Status: Acute (5) Hyperlipemia Status: Acute (6) Mitral regurgitation Status: Acute (7) S/P cardiac cath Status: Acute Plan: From cardiology's perspective, we will continue by mouth Amiodarone 400 mg one tablet by mouth twice a day . Outpatient cardiac MRI has been scheduled. Attempting to assist the patient with getting her LifeVest. Plan for possible discharge home in the morning DNP note has been reviewed, I agree with a documented findings and plan of care. Patient was seen and examined.
[2017-01-19 17:06] LABS: Glucose,Whole Blood 120 mg/dL (75-99)
[2017-01-19] MEDS: SODIUM CHLORIDE 0.9% 1,000 ML IV SCH (20:42)
[2017-01-19 20:50] LABS: Glucose,Whole Blood 179 mg/dL (75-99)
[2017-01-19 20:56] VITALS: RESP 18
[2017-01-19] MEDS: WARFARIN 2 MG TAB PO SCH (21:27)
[2017-01-19] MEDS: ALPRAZolam 0.25 MG TAB PO PRN (21:28)
[2017-01-20 05:51] LABS: Glucose,Whole Blood 95 mg/dL (75-99)
[2017-01-20] MEDS: LEVOTHYROXINE 100 MCG TAB PO SCH (07:09)
[2017-01-20] MEDS: PANTOPRAZOLE 40 MG TABLET PO SCH (07:09)
[2017-01-20] MEDS: FUROSEMIDE 40 MG TAB PO SCH (08:44)
[2017-01-20] MEDS: ISOSORBIDE MONONITRATE ER 30 MG TAB.ER.24H PO SCH (08:44)
[2017-01-20] MEDS: ATENOLOL 25 MG TAB PO SCH (08:44)
[2017-01-20] MEDS: AMIODARONE 200 MG TAB PO SCH (08:44)
[2017-01-20] MEDS: metFORMIN 500 MG TAB PO SCH (08:44)
[2017-01-20] MEDS: SPIRONOLACTONE 25 MG TAB PO SCH (08:44)
[2017-01-20] MEDS: LISINOPRIL 5 MG TAB PO SCH (08:47)
[2017-01-20 11:30] LABS: Glucose,Whole Blood 104 mg/dL (75-99)
[2017-01-20 15:07] VITALS: BMI 38.5
[2017-01-20 15:42] VITALS: BP 98/52; PULSE 62; TEMP 97
--- NOTE | 2017-01-20 15:55 | P.PN ---
Subjective Principal diagnosis: V. tach Discharge Summary This is a 71-year-old female with history of chronic atrial fibrillation who has been having symptoms of shortness of breath and evidence of congestive heart failure. 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 Cardiac catheterization showed mild to moderate ostial narrowing of the right coronary artery without any significant lesion in the rest of the coronary system. Patient was sent home on medical therapy. Post cardiac catheterization, Patient was found to have 1 run of nonsustained V. tach. Patient was monitored for 12 hours overnight without any recurrence of significant arrhythmias. Patient was discharged home to have outpatient 24-hour monitor period outpatient 24-hour monitor showed recurrent episodes of asymptomatic ventricular tachycardia the longest one being 30 beats at a rate of about 160- 170. Patient is advised to be admitted to the hospital. Patient will have IV amiodarone therapy. She will have continuous monitoring. Further recommendations depend upon the clinical course. We'll also obtain EP evaluation. 01/15/2017 Patient seen and examined this morning, she had one run of 10 nonsustained ventricular tachycardia through the night last night. No further episodes of VT since then. She was seen and examined this morning, denies any palpitations , no chest discomfort no dizziness or lightheadedness. Continues to be on IV amiodarone drip. Blood pressure this morning 140/60 with a heart rate in the 70s. Sodium 139, potassium 4.4, BUN 20, creatinine 0.8. 01/17/2017 Patient seen and examined this morning, she has been up ambulating in the quarles today with no difficulty. She was noted to have 1 run of 4 nonsustained VT through the night last night. Currently on oral amiodarone. Consultation with cardiothoracic surgery has been requested for mitral valve replacement and maze procedure. Patient will also be evaluated today by Dr. Ochoa. 01/18/2017 Patient seen and examined this morning. She has been up ambulating without any difficulty. Denies any chest discomfort, breathing overall has been stable. Patient was noted to have 1 run of 3 nonsustained ventricular tachycardia. Upon further review in the monitor room, patient did have another episode of 11 is nonsustained VT. She is waiting today to be evaluated by Dr. Ochoa. Patient was also seen in consultation yesterday by Dr. García regarding mitral valve surgery. They will also follow up with him as an outpatient. 01/19/2017 Patient seen and examined this morning, she had one run of nonsustained ventricular tachycardia, 5 B2 the night last night. Feels well overall. She has been up ambulating in the hallways. Her outpatient appointment for her cardiac MRI has been scheduled. We are trying to work out the details to assist the patient with coverage for her LifeVest. 10/20/2016 Patient seen and examined this morning, feels well, no further episodes of nonsustained ventricular tachycardia. Blood pressure 98/50 with a heart rate in the 60s. PT 27.3 INR 2.8. Outpatient MRI is scheduled next week, LifeVest should arrive today. Objective - Vital Signs Vital signs: Vital Signs Temp 97.0 F L 01/20/17 15:41 Pulse 62 01/20/17 15:43 Resp 18 01/20/17 15:43 BP 98/52 01/20/17 15:41 Pulse Ox 97 01/20/17 15:41 Intake & Output 01/19/17 01/20/17 01/20/17 18:59 06:59 18:59 Intake Total 610 210 390 Output Total 400 Balance 610 210 -10 Weight 92.5 kg 92.5 kg Intake: IV 10 10 10 0.9% NS FLUSH 10mL 10 10 10 Oral 600 200 380 Output: Urine 400 Other: Voiding Method Toilet Toilet Toilet # Voids 1 1 1 - Exam PHYSICAL EXAMINATION: HEENT: Head is atraumatic, normocephalic. Pupils equal, round. Neck is supple. There is no elevated jugular venous pressure. HEART EXAMINATION: Heart S1 and S2 systolic murmur is heard. CHEST EXAMINATION: Lungs are clear to auscultation and precussion. No chest wall tenderness is noted on palpation or with deep breathing. ABDOMEN: Soft, nontender. Bowel sounds are heard. No organomegaly noted. EXTREMITIES: 2+ peripheral pulses with no evidence of peripheral edema and no calf tenderness noted. NEUROLOGIC patient is awake, alert and oriented -3. . - Labs CBC & Chem 7: 01/14/17 19:20 01/17/17 18:41 Labs: Abnormal Lab Results - Last 24 Hours (Table) 01/19/17 01/19/17 01/20/17 Range/Units 17:03 20:48 11:25 POC Glucose (mg/dL) 120 H 179 H 104 H (75-99) mg/dL Assessment and Plan (1) Ventricular tachycardia Status: Acute (2) Diabetes Status: Acute (3) H/O transesophageal echocardiography (EMELY) for monitoring Status: Acute (4) HTN (hypertension) Status: Acute (5) Hyperlipemia Status: Acute (6) Mitral regurgitation Status: Acute (7) S/P cardiac cath Status: Acute Plan: Patient will be discharged home today. She'll have a follow-up appointment with Dr. Orourke in one week. Patient is scheduled for cardiac MRI next week. Prior to her discharge home she will be fitted with a LifeVest. She will also have a follow-up appointment with Dr. Laureano in the office. She will follow-up with cardiothoracic surgery as well. Patient will be discharged home on amiodarone 200 mg one tablet by mouth 3 times a day, atenolol 25 mg twice a day, Lasix 40 mg daily, Imdur 30 mg daily, Synthroid 100 g daily, lisinopril 5 mg daily, metformin 1000 mg twice a day, Protonix 40 mg daily, Aldactone 25 mg daily, and Coumadin 2 mg daily. We will will monitor INR closely as the patient is also now on amiodarone. PT/INR Tuesday and every weekly. Patient discharged home in stable condition, no ectopy noted today on the monitor. Patient and Family aware of the plan of care. DNP note has been reviewed, I agree with a documented findings and plan of care. Patient was seen and examined.
[2017-01-20 16:36] LABS: Glucose,Whole Blood 119 mg/dL (75-99)
--- NOTE | 2017-02-25 13:48 | P.PN ---
Progress Note - Text This is an addendum to the cardiology progress note dictated. Patient has diastolic congestive heart failure acute on chronic. DNP note has been reviewed, I agree with a documented findings and plan of care. Patient was seen and examined.
== END 2017-01-20 19:21 | disposition home health service (06) | DRG 308 ==
LOC: 6SEL 17:10
PROVIDERS: ADMIT Internal Medicine Cardiovascular Disease; ATTEND Internal Medicine Cardiovascular Disease
DX: I47.2 Ventricular tachycardia (principal); I50.33 Acute on chronic diastolic (congestive) heart failure; I27.2 Other secondary pulmonary hypertension; E66.01 Morbid (severe) obesity due to excess calories; E11.9 Type 2 diabetes mellitus without complications; I25.10 Atherosclerotic heart disease of native coronary artery without angina pectoris; I11.0 Hypertensive heart disease with heart failure; I34.0 Nonrheumatic mitral (valve) insufficiency; I48.0 Paroxysmal atrial fibrillation; F41.9 Anxiety disorder, unspecified; F32.9 Major depressive disorder, single episode, unspecified; E78.5 Hyperlipidemia, unspecified; F17.201 Nicotine dependence, unspecified, in remission; Z79.84 Long term (current) use of oral hypoglycemic drugs; Z79.01 Long term (current) use of anticoagulants; Z79.899 Other long term (current) drug therapy; Z90.49 Acquired absence of other specified parts of digestive tract; Z91.041 Radiographic dye allergy status; Z91.040 Latex allergy status; Z98.84 Bariatric surgery status; Z86.711 Personal history of pulmonary embolism; Z85.850 Personal history of malignant neoplasm of thyroid; Z85.118 Personal history of other malignant neoplasm of bronchus and lung; Z82.49 Family history of ischemic heart disease and other diseases of the circulatory system; Z68.38 Body mass index [BMI] 38.0-38.9, adult
CPT/HCPCS: 36415; 71020; 80048; 80053; 82810; 83036; 83735; 83880; 84132; 85018; 85025; 85610; 93312; 93320; 93325; 93460

== ENCOUNTER → 2017-01-14 | Outpatient (CLI) | payer MEDICARE ==
[2017-01-14 11:36] LABS: Anion Gap 9 mmol/L; Blood Urea Nitrogen 22 mg/dL (7-17); Calcium 8.5 mg/dL (8.4-10.2); Carbon Dioxide 29 mmol/L (22-30); Chloride 101 mmol/L (98-107); Glucose 189 mg/dL (74-99); Non-African American GFR(MDRD) 57 (>60 ml/min/1.73 sqM); Potassium 4.5 mmol/L (3.5-5.1); Sodium 139 mmol/L (137-145)
== END | disposition home or self-care (01) ==
LOC: LABWHC1 10:55
PROVIDERS: ATTEND Internal Medicine Cardiovascular Disease
DX: I50.31 Acute diastolic (congestive) heart failure (principal)
CPT/HCPCS: 36415; 80048

== ENCOUNTER → 2017-02-08 | Outpatient (CLI) | payer MEDICARE ==
[2017-02-08 07:59] LABS: EKG EKG PERFORMED
[2017-02-08 09:54] LABS: INR 2.1 (<1.2); Partial Thromboplastin Time 26.6 sec (22.0-30.0); Prothrombin Time 20.2 sec (9.0-12.0)
[2017-02-08 10:03] LABS: ALT 38 U/L (9-52); AST 26 U/L (14-36); Alkaline Phosphatase 82 U/L (38-126); Anion Gap 9 mmol/L; Blood Urea Nitrogen 26 mg/dL (7-17); Calcium 8.8 mg/dL (8.4-10.2); Carbon Dioxide 25 mmol/L (22-30); Chloride 106 mmol/L (98-107); Cholesterol 155 mg/dL (<200); Glucose 148 mg/dL (74-99); HDL Cholesterol 56 mg/dL (40-60); Magnesium 1.6 mg/dL (1.6-2.3); Non-African American GFR(MDRD) 49 (>60 ml/min/1.73 sqM); Potassium 4.7 mmol/L (3.5-5.1); Sodium 140 mmol/L (137-145); Total Bilirubin 0.4 mg/dL (0.2-1.3); Total Protein 6.2 g/dL (6.3-8.2)
[2017-02-08 10:08] LABS: CH 31.7; HCT 40.5 % (34.0-46.0); HDW 2.58; HGB 13.5 gm/dL (11.4-16.0); MCH 31.1 pg (25.0-35.0); MCHC 33.3 g/dL (31.0-37.0); MCV 93.6 fL (80.0-100.0); Mean Platelet Volume 7.8; RBC 4.33 m/uL (3.80-5.40); RDW 13.2 % (11.5-15.5); WBC 7.5 k/uL (3.8-10.6)
[2017-02-08 10:14] LABS: Appearance,Urine Cloudy (Clear); Bacteria,Urine Many /hpf; Bilirubin,Urine Negative (Negative); Glucose,Urine (UA) Negative (Negative); Ketones,Urine Negative (Negative); Leukocyte Esterase,Urine Large (Negative); Mucus,Urine Rare /hpf; Nitrite,Urine Negative (Negative); Particle Count 12449; Protein,Urine Negative (Negative); RBC,Urine 2 /hpf (0-5); Specific Gravity,Urine 1.014 (1.001-1.035); Squamous Epithelial Cell,Urine 2 /hpf (0-4); UA Billing (MACRO vs. MICRO) MICRO; Urobilinogen,Urine <2.0 mg/dL (<2.0); WBC,Urine 39 /hpf (0-5)
[2017-02-08 10:35] LABS: Hepatitis B Surface Ag Index 0.05
[2017-02-08 10:41] LABS: Hepatitis B Core IgM Index 0.02
[2017-02-08 10:51] LABS: Hepatitis C Virus IgG Ab Negative (Negative); Hepatitis C Virus IgG Index 0.04
--- NOTE | 2017-02-08 12:06 | XR ---
EXAMINATION TYPE: XR chest 2V DATE OF EXAM: 02/08/2017 HISTORY: Z01.818 pre op. REFERENCE: Previous study dated 01/14/2017. FINDINGS: There is an S-shaped scoliosis convex to the right in the upper thoracic region and to the left in the lower thoracic region. There is mild hypertrophic spondylosis and spondylosis deformans i n the dorsal spine. There is been previous mediastinal surgery. The lungs appear clear. Pleural spaces are clear. The heart is not enlarged. IMPRESSION: NO ACUTE INTRATHORACIC ABNORMALITY.
== END | disposition home or self-care (01) ==
LOC: LABWHC1 07:48
PROVIDERS: ATTEND Thoracic Surgery (Cardiothoracic Vascular Surgery)
DX: Z01.818 Encounter for other preprocedural examination (principal); Z01.812 Encounter for preprocedural laboratory examination
CPT/HCPCS: 36415; 71020; 80053; 80061; 80074; 81001; 83036; 83735; 83880; 84443; 84484; 85027; 85610; 85730; 87070; 87077; 87086; 87186; 93005; 94150

== ENCOUNTER 2017-02-18 05:46 | Inpatient (IN) | payer MEDICARE ==
[~2017-02-18 05:46] MED LIST changes: +ALBUMIN HUMAN 25% 50 ML IV ONE; +ALBUMIN HUMAN 5% 500 ML IVPB ONE; -ALPRAZolam 0.5 MG TAB PO PRN; +AMINOCAPROIC ACID 5,000 MG in DEXTROSE 5% IN WATER 50 ML IV ONE; +ASPIRIN 325 MG TAB PO ONE; -ASPIRIN 325 MG TAB PO STA; +ATORVASTATIN 10 MG TAB PO ONE; -ATORVASTATIN 80 MG TAB PO STA; +CALCIUM CHLORIDE 100 MG/ML 10 ML SYRINGE IV ONE; +CARDIOPLEGIC SOLN (K+ 16 MEQ/L 1,000 ML with SODIUM BICARB (1 MEQ/ML) 20 ML, LIDOCAINE ... PERFUSION ONE; +CHLORHEXIDINE GLUCONATE 15 ML CUP MUCOUS MEM ONE; +HEPARIN SODIUM 1,000 UN/ML (10ML VL) IV ONE; +HEPARIN SODIUM,PORCINE 5,000 UNIT in SODIUM CHLORIDE 0.9% 500 ML IV ONE; +INSULIN REGULAR 100 UNIT in SODIUM CHLORIDE 0.9% 100 ML IV ONE; +LACTATED RINGERS 1,000 ML IV ONE; +MAGNESIUM SULFATE MG 500 MG/ML VIAL IV ONE; +MANNITOL 25% 12.5 GM/50 ML VIAL IV ONE; +METOPROLOL TARTRATE 12.5 MG TAB PO ONE; +MUPIROCIN 2% OINT 22 GM TUBE NASAL ONE; -NITROGLYCERIN SL TABS 0.4 MG TAB SUBLINGUAL PRN; +NITROGLYCERIN-D5W PMX 25 MG/250 ML BTL IV ONE; +NITROGLYCERIN-D5W PMX 50 MG in DEXTROSE/WATER 1 250ML.BAG IV ONE; +NOREPINEPHRIN 4 MG-0.9% NS PMX 4 MG/250 ML ML IV ONE; +PAPAVERINE 360 MG in SODIUM CHLORIDE 0.9% 90 ML IV ONE; +PHENYLEPHRINE 40 MG in SODIUM CHLORIDE 0.9% 250 ML IV ONE; +PHENYLEPHRINE-0.9% NACL SYG 1 MG/10 ML SYRINGE IV ONE; +PROPOFOL 1,000 MG/100 ML VIAL IV ONE; +PROTAMINE SULFATE 10 MG/ML 25 ML VIAL IV ONE; +PROTAMINE SULFATE 250 MG in EMPTY BAG 1 BAG IV ONE; +SODIUM BICARB 8.4% 50 ML SYR (1 MEQ/ML) IV ONE; +SODIUM CHLORIDE 0.9% 1,000 ML IV ONE; -SODIUM CHLORIDE 0.9% 1,000 ML in EMPTY BAG 1 BAG IV ONE; +ceFAZolin 1,000 MG in SODIUM CHLORIDE 0.9% IRRIGATIO 1,000 ML IRRIGATION ONE; +ceFAZolin 2,000 MG in SODIUM CHLORIDE 0.9% 30 ML IVPB ONE
[2017-02-18] MEDS ORDERED: LACTATED RINGERS 1,000 ML IV SCH (05:47)
[2017-02-18] MEDS ORDERED: MIDAZOLAM 2 MG/2 ML VIAL IV PRN (05:47)
[2017-02-18 06:24] LABS: Glucose,Whole Blood 132 mg/dL (75-99)
[2017-02-18] MEDS ORDERED: PROPOFOL 10 MG/ML 20 ML VIAL IV ONE (08:10)
[2017-02-18] MEDS ORDERED: CALCIUM CHLORIDE 100 MG/ML 10 ML SYRINGE ONE (08:10)
[2017-02-18] MEDS ORDERED: HEPARIN SODIUM,PORCINE 10,000 UNIT/ML 1 ML VIAL ONE (08:10)
[2017-02-18] MEDS ORDERED: MIDAZOLAM 2 MG/2 ML VIAL ONE (08:10)
[2017-02-18] MEDS ORDERED: PHENYLEPHRINE-0.9% NACL SYG 1 MG/10 ML SYRINGE ONE (08:10)
[2017-02-18] MEDS ORDERED: fentaNYL (PF) 50 MCG/ML 50 ML VIAL ONE (08:10)
[2017-02-18] MEDS ORDERED: ePHEDrine SULFATE/0.9% NACL/PF 50 MG/5 ML SYRINGE IV ONE (08:10)
[2017-02-18] MEDS ORDERED: fentaNYL (PF) 50 MCG/ML 2 ML AMP ONE (08:10)
[2017-02-18] MEDS ORDERED: HEPARIN SODIUM,PORCINE 5,000 UNIT/ML 1 ML VIAL ONE (08:10)
[2017-02-18] MEDS ORDERED: LIDOCAINE 2% SYG (PF) 100 MG/5 ML ONE (08:10)
[2017-02-18] MEDS ORDERED: PROTAMINE SULFATE 10 MG/ML 25 ML VIAL IV ONE (08:10)
[2017-02-18] MEDS ORDERED: VECURONIUM 10 MG VIAL IV ONE (08:10)
[2017-02-18] MEDS ORDERED: SODIUM CHLORIDE 0.9% IRRIG 1,000 ML BTL IRRIGATION ONE (08:10)
[2017-02-18 08:52] LABS: Glucose,Whole Blood 161 mg/dL (75-99)
[2017-02-18] MEDS ORDERED: SODIUM CHLORIDE 0.9% 500 ML with HEPARIN SODIUM,PORCINE 5,000 UNIT IRRIGATION ONE ×2 (09:07)
[2017-02-18] MEDS ORDERED: ceFAZolin 1,000 MG in SODIUM CHLORIDE 0.9% 1,000 ML IRRIGATION ONE (09:12)
[2017-02-18 09:25] LABS: Glucose,Whole Blood 179 mg/dL (75-99)
[2017-02-18 10:16] LABS: Glucose,Whole Blood 178 mg/dL (75-99)
[2017-02-18 10:52] LABS: Glucose,Whole Blood 175 mg/dL (75-99)
[2017-02-18 11:55] LABS: Glucose,Whole Blood 182 mg/dL (75-99)
[2017-02-18 11:55] LABS: Glucose,Whole Blood 185 mg/dL (75-99)
[2017-02-18] MEDS: CLEVIDIPINE BUTYRATE 25 MG in EMPTY BAG 1 BAG IV ONE ×2 (12:41→13:33)
[2017-02-18] MEDS ORDERED: Phosphorus Replacement Protoco 1 EACH MISC MISCELLANE PRN (12:47)
[2017-02-18] MEDS ORDERED: CALCIUM GLUCONATE 2,000 MG in SODIUM CHLORIDE 0.9% 100 ML IVPB PRN (12:47)
[2017-02-18] MEDS ORDERED: MORPHINE SULFATE 2 MG/ML SYRINGE IVP PRN (12:47)
[2017-02-18] MEDS ORDERED: ALBUMIN HUMAN 5% 250 ML in EMPTY BAG 1 BAG IVPB PRN (12:47)
[2017-02-18] MEDS ORDERED: BENZOCAINE/MENTHOL LOZENG 1 EACH LOZENGE MUCOUS MEM PRN (12:47)
[2017-02-18] MEDS ORDERED: Magnesium Replacement Protocol 1 EACH MISC MISCELLANE PRN (12:47)
[2017-02-18] MEDS ORDERED: NITROGLYCERIN-D5W PMX 50 MG in DEXTROSE/WATER 1 250ML.BAG IV SCH (12:47)
[2017-02-18] MEDS ORDERED: Potassium Replacement Protocol 1 EACH MISC MISCELLANE PRN (12:47)
[2017-02-18] MEDS ORDERED: PROPOFOL 1,000 MG/100 ML VIAL IV SCH (12:47)
[2017-02-18] MEDS ORDERED: ONDANSETRON 4 MG/2 ML VIAL IVP PRN (12:47)
--- NOTE | 2017-02-18 12:49 | P.OP ---
Date of Procedure: 02/18/17 Preoperative Diagnosis: Mitral regurgitation Postoperative Diagnosis: Same, PFO Procedure(s) Performed: Complex mitral valve repair with cari-cord to A1, closure of cleft P1-P2, and annuloplasty with randee 3-D 28 mm ring, closure of PFO, with epi-aortic ultrasonography and closure of the left atrial appendage, and EMELY by anesthesia Implants: 28 mm randee 3-D mitral ring Anesthesia: MEG Surgeon: Pedro García Vehicle Insurance Agent #1: Bud Bautista Estimated Blood Loss (ml): 200 Pathology: none sent Condition: stable Disposition: ICU Indications for Procedure: 71-year-old obese female with severe mitral regurgitation and debilitating symptomatology Operative Findings: Intraoperative EMELY confirmed the presence of a posteriorly directed jet that extended along the wall of the atrium all the way to the posterior atrium. This was felt to be consistent with anterior leaflet prolapse. On opening the left atrium a patent foramen ovale was evident. On exploration of the valve there was a ruptured cord in a 1 as well as posterior annular dilatation. A cari -cord was placed on the ruptured cord area and an annuloplasty ring was placed. There was still regurgitation on testing the valve at that point between P1 and P2 and this cleft was closed. EMELY on completion of the procedure showed no evidence of mitral regurgitation Description of Procedure: Patient was brought to the operating room, placed supine on the operating table , anesthetized, and intubated. EMELY probe was placed. The anterior torso and lower extremities were sterilely prepped and draped. Midline sternotomy was performed. Pericardium was opened in the midline after opening both pleural spaces. Heart was exposed with pericardial sutures. The patient was systemically heparinized. Epi-aortic ultrasonography was performed. There was some calcified posterior plaque in the distal ascending aorta. This area was avoided on crossclamping. Patient was cannulated for cardiopulmonary bypass in standard fashion with dual atrial cannulation. Antegrade and retrograde cardioplegia lines were placed. Pursestring suture was placed in the right superior pulmonary vein for a atrial vent. Patient was placed on cardiopulmonary bypass and stabilized. Aorta was crossclamped avoiding the area of posterior plaque and the heart was arrested with cold crystalloid antegrade cardioplegia. Following antegrade cardioplegia retrograde cardioplegia was given. The interatrial groove was developed and the left atrium was entered through the inner atrial groove. There was a patent foramen ovale and this was closed with 4-0 Prolene. Left atrial appendage was oversewn with a 2 layer closure of 3-0 Prolene. The valve was now assessed. There was an obvious ruptured cord at 81. A 5-0 [place] was placed twice through the anterior medial papillary muscle and tied down. The 2 ends of the suture were then passed through the edge of the anterior leaflet at the region of the ruptured cord. These were tightened to appropriate length and tied. Circumferential annuloplasty sutures of 2-0 [place] were placed. The anterior leaflet was sized and a 28 mm randee 3-D ring was chosen. Sutures were placed through the ring and the ring was seated and the sutures tied. The valve was again tested. There was residual regurgitation at the P1 and P2 cleft and this was closed with a 5-0 Prolene suture. Regurgitation was now resolved. The atrium was closed with a single layer running closure of 3-0 Prolene. The left atrial vent was removed and the pursestring tied. The patient was placed in Trendelenburg the aortic vent was turned on high and the cross-clamp was removed. Retrograde cardioplegia line was removed. Atrial and ventricular pacing wires were placed. The inferior vena caval cannula was pulled back into the right atrium and the superior vena caval click cannula was clamped and removed. EMELY guidance demonstrated no significant air in the heart and good motion of the mitral leaflets. Patient was rewarmed to systemic temperature from a kevin of 34. We then weaned the patient from cardiopulmonary bypass without use of inotropic support. Patient easily. The pump was returned to the patient and the patient was decannulated in standard fashion. Heparin was reversed with protamine. The left pleural space was drained with a 32-Afghan chest tube. The mediastinum was drained with 2 36-Afghan chest tubes. After assuring good hemostasis the mediastinum was irrigated with antibiotic solution and the sternum closed with 8 sternal wires. Fascia was closed with 0 Ethibond. Subcutaneous and subcuticular layers were closed with layers of Vicryl suture. Patient was transferred to the ICU in stable hemodynamic condition. 2 units of fresh frozen and 6 units of platelets were given to facilitate coagulation during the drying up process. No inotropic support was required.
[2017-02-18 13:06] LABS: Glucose,Whole Blood 132 mg/dL (75-99)
[2017-02-18 13:26] LABS: INR 1.2 (<1.2); Partial Thromboplastin Time 26.5 sec (22.0-30.0); Prothrombin Time 12.2 sec (9.0-12.0)
[2017-02-18 13:28] LABS: Ionized Calcium 4.8 mg/dL (4.5-5.3)
[2017-02-18 13:30] LABS: ABG PCO2 47 mmHg (35-45); ABG PH 7.32 (7.35-7.45); ABG PO2 394 mmHg (83-108)
[2017-02-18 13:31] LABS: ABG Base Excess -1.7 mmol/L; ABG HCO3 24 mmol/L (21-25); ABG TCO2 25 mmol/L (19-24)
--- NOTE | 2017-02-18 13:33 | XR ---
EXAMINATION TYPE: XR chest 1V portable DATE OF EXAM: 02/18/2017 CLINICAL HISTORY: Post open cardiac surgery. TECHNIQUE: Single AP portable supine view of the chest is obtained. COMPARISON: Chest x-ray from February 08, 2017. FINDINGS: There is new endotracheal tube with tip at aortic knob level just above julio, recommend pulling back 3 to 4 cm. There is new orogastric tube projecting below left hemidiaphragm. There is ne w right internal jugular [place] catheter with tip at level of pulmonary outflow track. There is me diastinal drainage catheter and left-sided chest tube. Sternal wires are now present. Mediastinal cli ps are again seen. There is metallic mitral valvular ring now identified. There is diminished inspiration with moderate central vascular congestion and patchy right basilar at electasis and more prominent left basilar opacity consistent with atelectasis and/or infiltrate and p robable small left pleural effusion. No sizable pneumothorax is seen. Cardiac silhouette size is felt within normal limits. Osseous structures are intact. IMPRESSION: 1. New endotracheal tube has tip just above julio, recommend pulling back 3 to 4 cm. 2. Diminished inspiration on current study with moderate central vascular congestion and left greater than right bibasilar atelectasis and/or infiltrate with suspected new small left pleural effusion.
[2017-02-18 13:40] LABS: Basophils % (A) 0 %; CH 30.7; CHCM 34.3; Eosinophils % (A) 1 %; HCT 26.9 % (34.0-46.0); HDW 2.69; Luc # (Auto) 0.03; Luc % (Auto) 1; Lymphocytes # (A) 0.7 k/uL (1.0-4.8); Lymphocytes % (A) 11 %; MCH 30.7 pg (25.0-35.0); MCHC 34.2 g/dL (31.0-37.0); MCV 89.9 fL (80.0-100.0); Mean Platelet Volume 7.1; Monocytes # (A) 0.2 k/uL (0-1.0); Monocytes % (A) 3 %; Neutrophils # (A) 5.7 k/uL (1.3-7.7); Neutrophils % (A) 85 %; RDW 12.9 % (11.5-15.5); WBC 6.7 k/uL (3.8-10.6); WBC (Perox) 6.78
[2017-02-18 13:42] LABS: HGB 9.2 gm/dL (11.4-16.0)
[2017-02-18 13:58] LABS: Glucose,Whole Blood 121 mg/dL (75-99)
[2017-02-18 14:00] LABS: ALT 204 U/L (9-52); AST 551 U/L (14-36); Alkaline Phosphatase 78 U/L (38-126); Anion Gap 6 mmol/L; Blood Urea Nitrogen 22 mg/dL (7-17); Calcium 8.1 mg/dL (8.4-10.2); Carbon Dioxide 25 mmol/L (22-30); Chloride 110 mmol/L (98-107); Glucose 126 mg/dL (74-99); Magnesium 2.5 mg/dL (1.6-2.3); Non-African American GFR(MDRD) >60 (>60 ml/min/1.73 sqM); Potassium 4.3 mmol/L (3.5-5.1); Sodium 141 mmol/L (137-145); Total Bilirubin 0.6 mg/dL (0.2-1.3); Total Protein 4.8 g/dL (6.3-8.2)
[2017-02-18 14:41] LABS: ABG Base Excess -1.5 mmol/L; ABG HCO3 23 mmol/L (21-25); ABG PCO2 41 mmHg (35-45); ABG PH 7.37 (7.35-7.45); ABG PO2 125 mmHg (83-108); ABG TCO2 24 mmol/L (19-24)
[2017-02-18] MEDS: LACTATED RINGERS 1,000 ML IV SCH (14:41)
[2017-02-18] MEDS: INSULIN REGULAR 100 UNIT in SODIUM CHLORIDE 0.9% 100 ML IV SCH (14:42)
[2017-02-18 15:05] LABS: Glucose,Whole Blood 120 mg/dL (75-99)
--- NOTE | 2017-02-18 15:08 | CONS ---
CONSULTATION Leona is a 71-year-old lady who was admitted to hospital who has history of hypertension, pulmonary embolism and mitral regurgitation. She was admitted to hospital following mitral valve repair. Patient has just been brought in from the OR. She underwent successful surgery, intubated on vent and on IV Lopressor, oral aspirin and statin. PAST MEDICAL HISTORY: Past medical history is significant for: 1. Eab-qghylow-bfocwxuqe diabetes. 2. Pulmonary embolism. 3. Mitral regurgitation. 4. Hypothyroidism. 5. Atrial fibrillation. MEDICATIONS: Medications at home included: 1. Glucophage 500 b.i.d. 2. Coumadin. 3. Aldactone 25 daily. 4. Vistaril 5 daily. 5. Synthroid. 6. Imdur. 7. Lasix. 8. Atenolol 25 b.i.d. 9. Cordarone 200 b.i.d. 10.Xanax. ALLERGIES: 1. IV DYE. 2. LATEX. FAMILY HISTORY, SOCIAL HISTORY, REVIEW OF SYSTEMS: I am unable to obtain from the patient, who is intubated on vent. PHYSICAL EXAMINATION: Patient is intubated on vent. Remains in a paced rhythm. Hemodynamically stable. Chest exam reveals diminished air entry bilaterally. Heart exam reveals first and second heart sounds. No gallop. Abdomen is soft. Examination of extremities did not reveal edema. Peripheral pulses are palpable. LABS: Hemoglobin of 9.2. Platelet count is 173. Blood gases show a pH of 7.3, PO2 of 394. Potassium is 4.3. Creatinine is 0.86. EKG is ( ) as described above. ASSESSMENT: 1. Mitral regurgitation, status post mitral valve repair. 2. History of hypertension. 3. History of pulmonary embolism. Patient will continue with supportive care at this time. Please resume Coumadin whenever it is feasible from the surgical standpoint. MMODL / IJN: [id number] /
[2017-02-18] MEDS: IPRATROPIUM-ALBUTEROL 3 ML NEB INHALATION SCH ×2 (15:21→19:25)
[2017-02-18] MEDS: CLEVIDIPINE BUTYRATE 25 MG in EMPTY BAG 1 BAG IV SCH ×2 (15:30→20:18)
--- NOTE | 2017-02-18 15:39 | P.CNPUL ---
History of Present Illness Consult date: 02/18/17 Requesting physician: Pedro García Reason for consult: other (Status post mitral valve repair, patient is on mechanical ventilation.) Chief complaint: Status post mitral valve repair History of present illness: This is a 71-year-old female with history of multiple medical problems including mfr-[id number] diabetes, history of pulmonary embolism, chronic mitral regurgitation, and atrial fibrillation as well as hypothyroidism. Patient was recently evaluated by cardiac surgery for possible mitral valve repair, and electively the patient underwent mitral valve repair today, postoperatively she was on mechanical ventilation, and I was asked to see her on consultation. Patient is presently on mechanical ventilation, vent settings where at rest by Dr. García and he placed on a tidal volume of 600 assist control rate of 10, and FiO2 of 50%. PEEP of 5. Chest x-ray showed minimal nonspecific atelectasis at the bases. Review of Systems ROS unobtainable: due to endotracheal tube Past Medical History Past Medical History: Atrial Fibrillation, Blood Disorder, Cancer, Heart Failure , Diabetes Mellitus, GERD/Reflux, Hypertension, Osteoarthritis (OA), Pulmonary Embolus (PE), Sleep Apnea/CPAP/BIPAP Additional Past Medical History / Comment(s): Hx lung cancer-8 yrs. ago, thyroid cancer @least 10 yrs., hx. of multiple pulmonary embolisms about 8 yrs. ago-clotting disorder-not sure what it's called, unable to use CPAP, wearing life vest, finished antibiotic for UTI History of Any Multi-Drug Resistant Organisms: None Reported Past Surgical History: Bariatric Surgery, Section, Cholecystectomy, Heart Catheterization, Tubal Ligation Additional Past Surgical History / Comment(s): Pt stated that she fractured toe , left lung lower lobe removed, partial thyroidectomy, bilateral cataract surgery, rouxen y gastric bypass Past Anesthesia/Blood Transfusion Reactions: Postoperative Nausea & Vomiting ( PONV) Past Psychological History: Anxiety, Depression Additional Psychological History / Comment(s): pt lives alone, uses a walker when up for balance Smoking Status: Never smoker Past Alcohol Use History: None Reported Past Drug Use History: None Reported - Past Family History Mother Family Medical History: No Reported History Additional Family Medical History / Comment(s): age 94 from "natural causes " Father Family Medical History: Diabetes Mellitus, Myocardial Infarction (DC) Medications and Allergies Home Medications Medication Instructions Recorded Confirmed Type Cholecalciferol [Vitamin D3] 5,000 units PO BID 07/30/14 09/08/17 History Furosemide [Lasix] 40 mg PO DAILY 01/09/14 02/18/17 History Multivitamins, Thera [Multivitamin 1 tab PO DAILY 01/09/14 02/18/17 History (formulary)] Omeprazole 40 mg PO DAILY 01/09/14 02/18/17 History Warfarin [Coumadin] 1 mg PO HS 01/09/14 02/18/17 History Lisinopril [Zestril] 5 mg PO DAILY 01/07/17 02/18/17 History Acetaminophen [Tylenol Arthritis] 650 mg PO DAILY PRN 01/11/17 02/18/17 History Isosorbide Mononitrate ER [Imdur] 30 mg PO DAILY #30 tab 01/11/17 02/18/17 Rx Levothyroxine Sodium [Synthroid] 100 mcg PO DAILY 01/11/17 02/18/17 History metFORMIN HCL [Glucophage] 500 mg PO BID 01/11/17 02/18/17 History Spironolactone [Aldactone] 25 mg PO DAILY #30 tab 01/12/17 02/18/17 Rx ALPRAZolam [Xanax] 0.25 mg PO BID PRN 01/15/17 02/18/17 History Atenolol 25 mg PO BID #60 01/20/17 02/18/17 Rx Amiodarone [Cordarone] 200 mg PO BID 02/09/17 02/18/17 History Mupirocin 2% Nasal Oint [Bactroban 1 applic NASAL BID 02/17/17 02/18/17 History 2% Nasal Oint] Aspirin 325 mg PO ONCE 02/18/17 02/18/17 History Allergies Allergy/AdvReac Type Severity Reaction Status Date / Time iodine AdvReac Intermediate MOTHER IS Verified 02/18/17 06:05 ALLERGIC latex AdvReac Rash/Hives Verified 02/18/17 06:05 Physical Exam Vitals: Vital Signs Temp Pulse Pulse Resp BP BP BP 02/18/17 15:24 80 02/18/17 15:15 80 02/18/17 15:00 96.6 F L 80 10 L 02/18/17 14:45 80 02/18/17 14:30 80 10 L 02/18/17 14:15 80 02/18/17 14:00 96.5 F L 80 10 L 02/18/17 13:45 80 02/18/17 13:30 80 10 L 02/18/17 13:20 80 12 149/70 02/18/17 13:10 80 12 02/18/17 13:01 02/18/17 13:00 02/18/17 12:47 96.4 F L 02/18/17 06:15 97.8 F 64 16 147/65 141/71 Pulse Ox 02/18/17 15:24 02/18/17 15:15 100 02/18/17 15:00 100 02/18/17 14:45 100 02/18/17 14:30 100 02/18/17 14:15 100 02/18/17 14:00 100 02/18/17 13:45 100 02/18/17 13:30 100 02/18/17 13:20 100 02/18/17 13:10 100 02/18/17 13:01 100 02/18/17 13:00 100 02/18/17 12:47 02/18/17 06:15 99 Intake and Output 02/18/17 02/18/17 02/18/17 06:59 14:59 22:59 Intake Total 1100.948 80.764 Output Total 2364 48 Balance -1263.052 32.764 Intake: IV 148 69 Cardiac Output 0.9NS 30 10 Lactated Ringers 100 50 Pressure Bag 0.9NS 18 9 Intake, IV Titration 53.948 11.764 Amount Insulin Regular 100 unit 0.606 In Sodium Chloride 0.9% 100 ml @ Per Protocol IV .Q0M [facility] Rx#:[id number] Lactated Ringers 1,000 ml 40 @ Per Protocol IV ONCE ONE Rx#:[id number] Propofol 1,000 mg In 100 13.948 11.158 ml @ Titrate IV .Q0M [facility] Rx#:[id number] Blood Product 899 Ffp 24 Cpd Unit 297 [id number] Ffp 24 Cpd Unit 340 [id number] Platelet Pheresis Acda1 262 Unit [id number] Output: Chest Tube Drainage 87 13 Left Plueral X 1 7 3 Mediastinal X2 80 10 Urine 1077 35 Estimated Blood Loss 1200 ABP, PAP, CO, CI - Last 8 Hours Arterial Blood Pressure 110/53 Arterial Blood Pressure 101/47 Arterial Blood Pressure 112/49 Arterial Blood Pressure 121/56 Arterial Blood Pressure 110/51 Arterial Blood Pressure 109/49 Arterial Blood Pressure 116/50 Arterial Blood Pressure 135/58 Arterial Blood Pressure 142/70 Arterial Blood Pressure 138/67 Pulmonary Artery Pressure 34/21 Pulmonary Artery Pressure 32/20 Pulmonary Artery Pressure 34/21 Pulmonary Artery Pressure 35/21 Pulmonary Artery Pressure 34/21 Pulmonary Artery Pressure 35/22 Pulmonary Artery Pressure 40/23 Pulmonary Artery Pressure 45/25 Pulmonary Artery Pressure 57/36 Pulmonary Artery Pressure 53/34 Cardiac Output 4.7 Cardiac Output 4.7 Cardiac Output 4.2 Cardiac Output 4.2 Cardiac Output 4.8 Cardiac Output 4.8 Cardiac Output 4.2 Cardiac Output 4.2 Cardiac Output 4.2 Cardiac Output 4.2 Cardiac Index 2.5 Cardiac Index 2.2 Cardiac Index 2.2 Cardiac Index 2.2 Physical Exam: Revealed a 71-year-old female on mechanical ventilation, sedated , in no distress. Endotracheal tube and orogastric tube are intact. HEENT:[Neck is supple.] [No neck masses.] [No thyromegaly.] [No JVD.] Chest: [Clear throughout, no crackles, no rhonchi, no wheezes.] Cardiac Exam: [Normal S1 and S2, no S3 gallop, no murmur.] Abdomen: [Soft, nontender, no megaly, no rebound, no guarding, normal bowel sounds.] Extremities: [No clubbing, no edema, no cyanosis.] Neurological Exam: Cannot be assessed, patient is sedated, on mechanical ventilation. Results - Laboratory Findings CBC and BMP: 02/18/17 13:00 02/18/17 13:00 ABG ABG pH 7.37 (7.35-7.45) 02/18/17 14:36 ABG pCO2 41 mmHg (35-45) 02/18/17 14:36 ABG pO2 125 mmHg (83-108) H 02/18/17 14:36 ABG O2 Saturation 99.0 % (94-97) H 02/18/17 14:36 PT/INR, D-dimer PT 12.2 sec (9.0-12.0) H 02/18/17 13:00 INR 1.2 (<1.2) H 02/18/17 13:00 Abnormal lab findings: Abnormal Labs 02/08/17 02/18/17 02/18/17 07:59 06:20 08:38 RBC Hgb Hct Lymphocytes # PT INR ABG pH ABG pCO2 ABG pO2 ABG Total CO2 ABG O2 Saturation Chloride BUN Glucose POC Glucose (mg/dL) 132 H 161 H Calcium Magnesium AST ALT Total Protein Albumin Crossmatch See Detail 02/18/17 02/18/17 02/18/17 09:22 10:04 10:37 RBC Hgb Hct Lymphocytes # PT INR ABG pH ABG pCO2 ABG pO2 ABG Total CO2 ABG O2 Saturation Chloride BUN Glucose POC Glucose (mg/dL) 179 H 178 H 175 H Calcium Magnesium AST ALT Total Protein Albumin Crossmatch 02/18/17 02/18/17 02/18/17 11:16 11:41 13:00 RBC 3.00 L Hgb 9.2 L D Hct 26.9 L Lymphocytes # 0.7 L PT INR ABG pH ABG pCO2 ABG pO2 ABG Total CO2 ABG O2 Saturation Chloride BUN Glucose POC Glucose (mg/dL) 185 H 182 H Calcium Magnesium AST ALT Total Protein Albumin Crossmatch 02/18/17 02/18/17 02/18/17 13:00 13:00 13:04 RBC Hgb Hct Lymphocytes # PT 12.2 H INR 1.2 H ABG pH ABG pCO2 ABG pO2 ABG Total CO2 ABG O2 Saturation Chloride 110 H BUN 22 H Glucose 126 H POC Glucose (mg/dL) 132 H Calcium 8.1 L Magnesium 2.5 H AST 551 H ALT 204 H Total Protein 4.8 L Albumin 2.7 L Crossmatch 02/18/17 02/18/17 02/18/17 13:27 13:55 14:36 RBC Hgb Hct Lymphocytes # PT INR ABG pH 7.32 L ABG pCO2 47 H ABG pO2 394 H 125 H ABG Total CO2 25 H ABG O2 Saturation 100.0 H 99.0 H Chloride BUN Glucose POC Glucose (mg/dL) 121 H Calcium Magnesium AST ALT Total Protein Albumin Crossmatch 02/18/17 15:03 RBC Hgb Hct Lymphocytes # PT INR ABG pH ABG pCO2 ABG pO2 ABG Total CO2 ABG O2 Saturation Chloride BUN Glucose POC Glucose (mg/dL) 120 H Calcium Magnesium AST ALT Total Protein Albumin Crossmatch - Diagnostic Findings Chest x-ray: image reviewed (Endotracheal tube just above the julio, by basilar atelectasis is noted, small left pleural effusion is noted.) Assessment and Plan Plan: Impression: 1Status post mitral valve repair postoperative day #0. 2 multiple comorbidities including history of pulmonary embolism, diabetes, hypertension, thyroid cancer, history of bariatric surgery, history of partial thyroidectomy and history of left lower lobectomy. Recommendation: Patient will be kept on mechanical ventilation, vent settings were noted as ordered by Dr. García ABG was also noted, will likely extubate in the next few hours. We'll continue to follow. Time with Patient: Greater than 30
[2017-02-18 15:52] LABS: Glucose,Whole Blood 122 mg/dL (75-99)
[2017-02-18 15:59] LABS: Basophils % (A) 0 %; CH 31.7; Eosinophils % (A) 0 %; HCT 28.9 % (34.0-46.0); HGB 10.1 gm/dL (11.4-16.0); Luc # (Auto) 0.03; Luc % (Auto) 0; Lymphocytes % (A) 13 %; MCV 88.4 fL (80.0-100.0); Mean Platelet Volume 8.2; Monocytes # (A) 0.3 k/uL (0-1.0); Monocytes % (A) 4 %; Neutrophils # (A) 6.1 k/uL (1.3-7.7); Neutrophils % (A) 82 %; RBC 3.27 m/uL (3.80-5.40); RDW 13.3 % (11.5-15.5); WBC 7.4 k/uL (3.8-10.6); WBC (Perox) 7.49
[2017-02-18 17:10] LABS: Glucose,Whole Blood 130 mg/dL (75-99)
[2017-02-18] MEDS: ACETAMINOPHEN IV (For NPO) 1,000 MG in EMPTY BAG 1 BAG IVPB SCH ×2 (17:10→23:04)
[2017-02-18] MEDS: ceFAZolin 2 GM in SODIUM CHLORIDE 0.9% 100 ML IVPB SCH ×2 (18:02→23:22)
[2017-02-18 18:03] LABS: Glucose,Whole Blood 140 mg/dL (75-99)
[2017-02-18 18:59] LABS: Glucose,Whole Blood 129 mg/dL (75-99)
[2017-02-18 19:15] LABS: Basophils % (A) 0 %; Eosinophils % (A) 0 %; HCT 29.7 % (34.0-46.0); HGB 10.1 gm/dL (11.4-16.0); Luc # (Auto) 0.03; Luc % (Auto) 0; Lymphocytes # (A) 0.5 k/uL (1.0-4.8); Lymphocytes % (A) 6 %; MCH 30.3 pg (25.0-35.0); MCHC 33.9 g/dL (31.0-37.0); MCV 89.2 fL (80.0-100.0); Mean Platelet Volume 7.8; Monocytes # (A) 0.3 k/uL (0-1.0); Monocytes % (A) 4 %; Neutrophils # (A) 8.2 k/uL (1.3-7.7); Neutrophils % (A) 90 %; RBC 3.33 m/uL (3.80-5.40); RDW 13.8 % (11.5-15.5); WBC 9.1 k/uL (3.8-10.6); WBC (Perox) 9.06
[2017-02-18 19:27] LABS: Anion Gap 5 mmol/L; Blood Urea Nitrogen 19 mg/dL (7-17); Carbon Dioxide 26 mmol/L (22-30); Chloride 107 mmol/L (98-107); Glucose 125 mg/dL (74-99); Non-African American GFR(MDRD) >60 (>60 ml/min/1.73 sqM); Potassium 4.5 mmol/L (3.5-5.1); Sodium 138 mmol/L (137-145)
[2017-02-18 20:17] LABS: Glucose,Whole Blood 129 mg/dL (75-99)
[2017-02-18 20:30] LABS: ABG PCO2 39 mmHg (35-45)
[2017-02-18 20:31] LABS: ABG Base Excess -0.7 mmol/L; ABG HCO3 24 mmol/L (21-25); ABG PO2 86 mmHg (83-108); ABG TCO2 25 mmol/L (19-24)
[2017-02-18] MEDS: HEPARIN SODIUM,PORCINE 5,000 UNIT/ML 1 ML VIAL SQ SCH (21:00)
[2017-02-18 21:05] LABS: Glucose,Whole Blood 126 mg/dL (75-99)
[2017-02-18] MEDS: MUPIROCIN 2% OINT 22 GM TUBE NASAL SCH (21:08)
[2017-02-18 22:02] LABS: Glucose,Whole Blood 125 mg/dL (75-99)
[2017-02-18 23:09] LABS: Glucose,Whole Blood 125 mg/dL (75-99)
[2017-02-19 00:01] LABS: Glucose,Whole Blood 120 mg/dL (75-99)
[2017-02-19] MEDS: HEPARIN SODIUM,PORCINE 5,000 UNIT/ML 1 ML VIAL SQ SCH ×4 (00:34→23:14)
[2017-02-19 01:11] LABS: Glucose,Whole Blood 113 mg/dL (75-99)
[2017-02-19 02:21] LABS: Glucose,Whole Blood 112 mg/dL (75-99)
[2017-02-19 03:40] LABS: Glucose,Whole Blood 130 mg/dL (75-99)
[2017-02-19] MEDS: IPRATROPIUM-ALBUTEROL 3 ML NEB INHALATION SCH ×5 (04:05→21:08)
[2017-02-19 04:11] LABS: Glucose,Whole Blood 109 mg/dL (75-99)
[2017-02-19 05:07] LABS: Glucose,Whole Blood 129 mg/dL (75-99)
[2017-02-19 05:59] LABS: Glucose,Whole Blood 165 mg/dL (75-99)
[2017-02-19 05:59] LABS: Glucose,Whole Blood 171 mg/dL (75-99)
[2017-02-19 06:12] LABS: Basophils % (A) 0 %; CH 30.5; CHCM 34.5; Eosinophils % (A) 0 %; HCT 30.5 % (34.0-46.0); HDW 2.66; HGB 10.5 gm/dL (11.4-16.0); Luc # (Auto) 0.08; Luc % (Auto) 1; Lymphocytes # (A) 0.7 k/uL (1.0-4.8); Lymphocytes % (A) 6 %; MCH 30.5 pg (25.0-35.0); MCHC 34.4 g/dL (31.0-37.0); MCV 88.7 fL (80.0-100.0); Mean Platelet Volume 7.6; Monocytes # (A) 0.5 k/uL (0-1.0); Monocytes % (A) 4 %; Neutrophils # (A) 10.4 k/uL (1.3-7.7); Neutrophils % (A) 88 %; RBC 3.44 m/uL (3.80-5.40); RDW 12.9 % (11.5-15.5); WBC 11.8 k/uL (3.8-10.6); WBC (Perox) 11.57
[2017-02-19 06:20] LABS: INR 1.1 (<1.2); Prothrombin Time 10.8 sec (9.0-12.0)
[2017-02-19] MEDS: ACETAMINOPHEN IV (For NPO) 1,000 MG in EMPTY BAG 1 BAG IVPB SCH ×3 (06:22→17:11)
[2017-02-19 06:26] LABS: Partial Thromboplastin Time 22.2 sec (22.0-30.0)
[2017-02-19 06:46] LABS: Ionized Calcium 4.8 mg/dL (4.5-5.3)
[2017-02-19 06:58] LABS: ALT 164 U/L (9-52); AST 202 U/L (14-36); Alkaline Phosphatase 71 U/L (38-126); Anion Gap 5 mmol/L; Blood Urea Nitrogen 17 mg/dL (7-17); Calcium 8.2 mg/dL (8.4-10.2); Carbon Dioxide 25 mmol/L (22-30); Chloride 107 mmol/L (98-107); Glucose 158 mg/dL (74-99); Magnesium 1.8 mg/dL (1.6-2.3); Non-African American GFR(MDRD) >60 (>60 ml/min/1.73 sqM); Potassium 5.5 mmol/L (3.5-5.1); Sodium 137 mmol/L (137-145); Total Bilirubin 0.7 mg/dL (0.2-1.3); Total Protein 5.1 g/dL (6.3-8.2)
[2017-02-19 07:04] LABS: Glucose,Whole Blood 152 mg/dL (75-99)
[2017-02-19] MEDS: CLEVIDIPINE BUTYRATE 25 MG in EMPTY BAG 1 BAG IV SCH ×2 (07:24→11:24)
--- NOTE | 2017-02-19 08:00 | XR ---
EXAMINATION TYPE: XR chest 1V portable DATE OF EXAM: 02/19/2017 HISTORY: Post Operative Cardiac Surgery. REFERENCE: Previous study dated 02/18/2017. FINDINGS: There has been a midline sternotomy. The patient has been extubated. The patient's NG tube is been removed. A Kenvir-Grayson catheter remains in place via a right internal jugular approach. Its tip is in the pulmonary outflow tract. A left pleural drain remains in place. There is platelike atelectasis in the right midlung. There is dense consolidation behind the left rodriguez e of the heart. There is vascular congestion without destiny edema. There is a small left effusion. IMPRESSION: CONTINUING POSTOPERATIVE CHANGE.
[2017-02-19 08:05] LABS: Glucose,Whole Blood 132 mg/dL (75-99)
[2017-02-19] MEDS: ceFAZolin 2 GM in SODIUM CHLORIDE 0.9% 100 ML IVPB SCH (08:15)
[2017-02-19] MEDS: CLOPIDOGREL 75 MG TAB PO SCH (08:16)
[2017-02-19] MEDS: ASPIRIN 325 MG TAB PO SCH (08:17)
[2017-02-19] MEDS: MUPIROCIN 2% OINT 22 GM TUBE NASAL SCH ×2 (08:17→22:15)
[2017-02-19] MEDS: METOPROLOL TARTRATE 12.5 MG TAB PO SCH (08:17)
[2017-02-19] MEDS ORDERED: ATORVASTATIN 40 MG TAB PO SCH (09:00)
[2017-02-19] MEDS ORDERED: PANTOPRAZOLE 40 MG/10 ML VIAL IVP SCH (09:00)
[2017-02-19 09:02] LABS: Glucose,Whole Blood 139 mg/dL (75-99)
--- NOTE | 2017-02-19 09:04 | P.PN ---
Subjective Principal diagnosis: Severe mitral regurgitation, history of atrial fibrillation, congestive heart failure, diabetes mellitus type 2, gastroesophageal reflux disease, hypertension , history of pulmonary embolus, osteoarthritis, sleep apnea uses CPAP/BiPAP at home, history of lung cancer 8 years ago, history of thyroid cancer. POD #1, Complex mitral valve repair with cari-cord to A1, closure of cleft P1-P2 , and annuloplasty with randee 3-D 28 mm ring, closure of PFO, with epi-aortic ultrasonography and closure of the left atrial appendage, and EMELY by anesthesia. Patient is sitting up to the bedside chair, no acute distress. Oriented 3. Denies any complaints of pain at this time. She is tolerating oral intake. Objective - Vital Signs Vital signs: Vital Signs Temp 98.2 F 02/18/17 19:00 Pulse 53 L 02/19/17 07:30 Resp 9 L 02/19/17 07:30 BP 149/70 02/18/17 13:20 Pulse Ox 99 02/19/17 07:30 Intake & Output 02/18/17 02/19/17 02/19/17 18:59 06:59 18:59 Intake Total 3494.798 3767.067 69.626 Output Total 3097 1383 135 Balance -1579.881 -198.933 -65.374 Weight 92.986 kg 99.5 kg Intake: IV 424 798 59 Cardiac Output 0.9NS 70 90 Lactated Ringers 300 600 50 Pressure Bag 0.9NS 54 108 9 Intake, IV Titration 194.119 386.067 10.626 Amount ACETAMINOPHEN IV (For NPO 200 ) 1,000 mg In Empty Bag 1 bag @ 400 mls/hr IVPB Q6HR [facility] Rx#:[id number] Clevidipine Butyrate 25 10.034 63.133 0.033 mg In Empty Bag 1 bag @ 1 MG/HR 2 mls/hr IV .Q24H [facility] Rx#:[id number] Insulin Regular 100 unit 7.216 22.934 10.593 In Sodium Chloride 0.9% 100 ml @ Per Protocol IV .Q0M [facility] Rx#:[id number] Lactated Ringers 1,000 ml 40 @ Per Protocol IV ONCE ONE Rx#:[id number] Propofol 1,000 mg In 100 36.869 ml @ Titrate IV .Q0M [facility] Rx#:[id number] ceFAZolin 2 gm In Sodium 100 100 Chloride 0.9% 100 ml @ 100 mls/hr IVPB Q8HR [facility] Rx#:[id number] Blood Product 899 Ffp 24 Cpd Unit 297 [id number] Ffp 24 Cpd Unit 340 [id number] Platelet Pheresis Acda1 262 Unit [id number] Output: Chest Tube Drainage 195 323 35 Left Plueral X 1 40 93 15 Mediastinal X2 155 230 20 Urine 1702 1060 100 Estimated Blood Loss 1200 Other: Voiding Method Indwelling Catheter Indwelling Catheter ABP, PAP, CO, CI - Last Documented Arterial Blood Pressure 115/42 Pulmonary Artery Pressure 27/10 Cardiac Output 4.4 Cardiac Index 2.3 - Constitutional General appearance: Present: cooperative, no acute distress, obese - EENT Eyes: Present: PERRLA, normal appearance ENT: Present: hearing grossly normal - Neck Details: No JVD, right IJ [place] and [place] catheter in place. Current cardiac output is 3.8, cardiac index 2.0, PA pressures are 27/9, CVP is 3. - Respiratory Details: Lungs are essentially clear to her bilateral upper lobes, few scattered crackles to her bilateral bases. She is achieving 750 mL on her incentive spirometry. Oxygen saturations are 99% on 2 L nasal cannula. Left pleural and mediastinal chest tubes without air leak. Chest tubes remained to low continuous wall suction -20 cm H2O. Left pleural chest tube draining thin serosanguineous drainage 80 mL output in the last 8 hours, 160 mL output since surgery. Mediastinal chest tubes draining thin serosanguineous drainage 150 mL output in the last 8 hours, 420 mL output since surgery. - Cardiovascular Details: Regular rhythm and bradycardic rate. S1 and S2 present, faint systolic murmur. Bedside telemetry showing sinus bradycardia heart rate 52. Sternum is stable. Heart hugger is in place and she is demonstrating appropriate use. No edema present. Knee-high CATE hose and sequential compression devices in place to her bilateral lower extremities. A/V epicardial pacemaker wires and intact and connected to a [employer] pacemaker generator on VVI backup of 50. - Gastrointestinal Gastrointestinal Comment(s): Abdomen is soft, nontender and nondistended. Active bowel sounds to all 4 abdominal quadrants. She is tolerating oral intake. - Genitourinary Genitourinary Comment(s): Adequate urine output, clear yellow urine. Ortega catheter for accurate I&O. - Integumentary Integumentary Comment(s): Midline sternal incision clean dry and well approximated. Dermabond dressing clean and dry. Integumentary: Present: normal, normal turgor - Neurologic Neurologic Comment(s): No focal deficits. Neurologic: Present: CNII-XII intact - Musculoskeletal Musculoskeletal: Present: gait normal, strength equal bilaterally - Psychiatric Psychiatric: Present: A&O x's 3, appropriate affect, intact judgment & insight - Allied health notes Allied health notes reviewed: nursing - Labs CBC & Chem 7: 02/19/17 05:50 02/19/17 05:50 Labs: Abnormal Lab Results - Last 24 Hours (Table) 02/08/17 02/18/17 02/18/17 Range/Units 07:59 08:38 09:22 WBC (3.8-10.6) k/uL RBC (3.80-5.40) m/uL Hgb (11.4-16.0) gm/dL Hct (34.0-46.0) % Neutrophils # (1.3-7.7) k/uL Lymphocytes # (1.0-4.8) k/uL PT (9.0-12.0) sec INR (<1.2) ABG pH (7.35-7.45) ABG pCO2 (35-45) mmHg ABG pO2 (83-108) mmHg ABG Total CO2 (19-24) mmol/L ABG O2 Saturation (94-97) % Potassium (3.5-5.1) mmol/L Chloride (98-107) mmol/L BUN (7-17) mg/dL Glucose (74-99) mg/dL POC Glucose (mg/dL) 161 H 179 H (75-99) mg/dL Calcium (8.4-10.2) mg/dL Magnesium (1.6-2.3) mg/dL AST (14-36) U/L ALT (9-52) U/L Total Protein (6.3-8.2) g/dL Albumin (3.5-5.0) g/dL Crossmatch See Detail 02/18/17 02/18/17 02/18/17 Range/Units 10:04 10:37 11:16 WBC (3.8-10.6) k/uL RBC (3.80-5.40) m/uL Hgb (11.4-16.0) gm/dL Hct (34.0-46.0) % Neutrophils # (1.3-7.7) k/uL Lymphocytes # (1.0-4.8) k/uL PT (9.0-12.0) sec INR (<1.2) ABG pH (7.35-7.45) ABG pCO2 (35-45) mmHg ABG pO2 (83-108) mmHg ABG Total CO2 (19-24) mmol/L ABG O2 Saturation (94-97) % Potassium (3.5-5.1) mmol/L Chloride (98-107) mmol/L BUN (7-17) mg/dL Glucose (74-99) mg/dL POC Glucose (mg/dL) 178 H 175 H 185 H (75-99) mg/dL Calcium (8.4-10.2) mg/dL Magnesium (1.6-2.3) mg/dL AST (14-36) U/L ALT (9-52) U/L Total Protein (6.3-8.2) g/dL Albumin (3.5-5.0) g/dL Crossmatch 02/18/17 02/18/17 02/18/17 Range/Units 11:41 13:00 13:00 WBC (3.8-10.6) k/uL RBC 3.00 L (3.80-5.40) m/uL Hgb 9.2 L D (11.4-16.0) gm/dL Hct 26.9 L (34.0-46.0) % Neutrophils # (1.3-7.7) k/uL Lymphocytes # 0.7 L (1.0-4.8) k/uL PT (9.0-12.0) sec INR (<1.2) ABG pH (7.35-7.45) ABG pCO2 (35-45) mmHg ABG pO2 (83-108) mmHg ABG Total CO2 (19-24) mmol/L ABG O2 Saturation (94-97) % Potassium (3.5-5.1) mmol/L Chloride 110 H (98-107) mmol/L BUN 22 H (7-17) mg/dL Glucose 126 H (74-99) mg/dL POC Glucose (mg/dL) 182 H (75-99) mg/dL Calcium 8.1 L (8.4-10.2) mg/dL Magnesium 2.5 H (1.6-2.3) mg/dL AST 551 H (14-36) U/L ALT 204 H (9-52) U/L Total Protein 4.8 L (6.3-8.2) g/dL Albumin 2.7 L (3.5-5.0) g/dL Crossmatch 02/18/17 02/18/17 02/18/17 Range/Units 13:00 13:04 13:27 WBC (3.8-10.6) k/uL RBC (3.80-5.40) m/uL Hgb (11.4-16.0) gm/dL Hct (34.0-46.0) % Neutrophils # (1.3-7.7) k/uL Lymphocytes # (1.0-4.8) k/uL PT 12.2 H (9.0-12.0) sec INR 1.2 H (<1.2) ABG pH 7.32 L (7.35-7.45) ABG pCO2 47 H (35-45) mmHg ABG pO2 394 H (83-108) mmHg ABG Total CO2 25 H (19-24) mmol/L ABG O2 Saturation 100.0 H (94-97) % Potassium (3.5-5.1) mmol/L Chloride (98-107) mmol/L BUN (7-17) mg/dL Glucose (74-99) mg/dL POC Glucose (mg/dL) 132 H (75-99) mg/dL Calcium (8.4-10.2) mg/dL Magnesium (1.6-2.3) mg/dL AST (14-36) U/L ALT (9-52) U/L Total Protein (6.3-8.2) g/dL Albumin (3.5-5.0) g/dL Crossmatch 02/18/17 02/18/17 02/18/17 Range/Units 13:55 14:36 15:03 WBC (3.8-10.6) k/uL RBC (3.80-5.40) m/uL Hgb (11.4-16.0) gm/dL Hct (34.0-46.0) % Neutrophils # (1.3-7.7) k/uL Lymphocytes # (1.0-4.8) k/uL PT (9.0-12.0) sec INR (<1.2) ABG pH (7.35-7.45) ABG pCO2 (35-45) mmHg ABG pO2 125 H (83-108) mmHg ABG Total CO2 (19-24) mmol/L ABG O2 Saturation 99.0 H (94-97) % Potassium (3.5-5.1) mmol/L Chloride (98-107) mmol/L BUN (7-17) mg/dL Glucose (74-99) mg/dL POC Glucose (mg/dL) 121 H 120 H (75-99) mg/dL Calcium (8.4-10.2) mg/dL Magnesium (1.6-2.3) mg/dL AST (14-36) U/L ALT (9-52) U/L Total Protein (6.3-8.2) g/dL Albumin (3.5-5.0) g/dL Crossmatch 02/18/17 02/18/17 02/18/17 Range/Units 15:50 15:50 17:07 WBC (3.8-10.6) k/uL RBC 3.27 L (3.80-5.40) m/uL Hgb 10.1 L (11.4-16.0) gm/dL Hct 28.9 L (34.0-46.0) % Neutrophils # (1.3-7.7) k/uL Lymphocytes # (1.0-4.8) k/uL PT (9.0-12.0) sec INR (<1.2) ABG pH (7.35-7.45) ABG pCO2 (35-45) mmHg ABG pO2 (83-108) mmHg ABG Total CO2 (19-24) mmol/L ABG O2 Saturation (94-97) % Potassium (3.5-5.1) mmol/L Chloride (98-107) mmol/L BUN (7-17) mg/dL Glucose (74-99) mg/dL POC Glucose (mg/dL) 122 H 130 H (75-99) mg/dL Calcium (8.4-10.2) mg/dL Magnesium (1.6-2.3) mg/dL AST (14-36) U/L ALT (9-52) U/L Total Protein (6.3-8.2) g/dL Albumin (3.5-5.0) g/dL Crossmatch 02/18/17 02/18/17 02/18/17 Range/Units 18:01 18:56 19:00 WBC (3.8-10.6) k/uL RBC (3.80-5.40) m/uL Hgb (11.4-16.0) gm/dL Hct (34.0-46.0) % Neutrophils # (1.3-7.7) k/uL Lymphocytes # (1.0-4.8) k/uL PT (9.0-12.0) sec INR (<1.2) ABG pH (7.35-7.45) ABG pCO2 (35-45) mmHg ABG pO2 (83-108) mmHg ABG Total CO2 (19-24) mmol/L ABG O2 Saturation (94-97) % Potassium (3.5-5.1) mmol/L Chloride (98-107) mmol/L BUN 19 H (7-17) mg/dL Glucose 125 H (74-99) mg/dL POC Glucose (mg/dL) 140 H 129 H (75-99) mg/dL Calcium 8.0 L (8.4-10.2) mg/dL Magnesium (1.6-2.3) mg/dL AST (14-36) U/L ALT (9-52) U/L Total Protein (6.3-8.2) g/dL Albumin (3.5-5.0) g/dL Crossmatch 02/18/17 02/18/17 02/18/17 Range/Units 19:00 20:11 20:20 WBC (3.8-10.6) k/uL RBC 3.33 L (3.80-5.40) m/uL Hgb 10.1 L (11.4-16.0) gm/dL Hct 29.7 L (34.0-46.0) % Neutrophils # 8.2 H (1.3-7.7) k/uL Lymphocytes # 0.5 L (1.0-4.8) k/uL PT (9.0-12.0) sec INR (<1.2) ABG pH (7.35-7.45) ABG pCO2 (35-45) mmHg ABG pO2 (83-108) mmHg ABG Total CO2 25 H (19-24) mmol/L ABG O2 Saturation (94-97) % Potassium (3.5-5.1) mmol/L Chloride (98-107) mmol/L BUN (7-17) mg/dL Glucose (74-99) mg/dL POC Glucose (mg/dL) 129 H (75-99) mg/dL Calcium (8.4-10.2) mg/dL Magnesium (1.6-2.3) mg/dL AST (14-36) U/L ALT (9-52) U/L Total Protein (6.3-8.2) g/dL Albumin (3.5-5.0) g/dL Crossmatch 02/18/17 02/18/17 02/18/17 Range/Units 21:03 21:59 23:08 WBC (3.8-10.6) k/uL RBC (3.80-5.40) m/uL Hgb (11.4-16.0) gm/dL Hct (34.0-46.0) % Neutrophils # (1.3-7.7) k/uL Lymphocytes # (1.0-4.8) k/uL PT (9.0-12.0) sec INR (<1.2) ABG pH (7.35-7.45) ABG pCO2 (35-45) mmHg ABG pO2 (83-108) mmHg ABG Total CO2 (19-24) mmol/L ABG O2 Saturation (94-97) % Potassium (3.5-5.1) mmol/L Chloride (98-107) mmol/L BUN (7-17) mg/dL Glucose (74-99) mg/dL POC Glucose (mg/dL) 126 H 125 H 125 H (75-99) mg/dL Calcium (8.4-10.2) mg/dL Magnesium (1.6-2.3) mg/dL AST (14-36) U/L ALT (9-52) U/L Total Protein (6.3-8.2) g/dL Albumin (3.5-5.0) g/dL Crossmatch 02/19/17 02/19/17 02/19/17 Range/Units 00:00 01:09 02:19 WBC (3.8-10.6) k/uL RBC (3.80-5.40) m/uL Hgb (11.4-16.0) gm/dL Hct (34.0-46.0) % Neutrophils # (1.3-7.7) k/uL Lymphocytes # (1.0-4.8) k/uL PT (9.0-12.0) sec INR (<1.2) ABG pH (7.35-7.45) ABG pCO2 (35-45) mmHg ABG pO2 (83-108) mmHg ABG Total CO2 (19-24) mmol/L ABG O2 Saturation (94-97) % Potassium (3.5-5.1) mmol/L Chloride (98-107) mmol/L BUN (7-17) mg/dL Glucose (74-99) mg/dL POC Glucose (mg/dL) 120 H 113 H 112 H (75-99) mg/dL Calcium (8.4-10.2) mg/dL Magnesium (1.6-2.3) mg/dL AST (14-36) U/L ALT (9-52) U/L Total Protein (6.3-8.2) g/dL Albumin (3.5-5.0) g/dL Crossmatch 02/19/17 02/19/17 02/19/17 Range/Units 03:27 04:09 05:05 WBC (3.8-10.6) k/uL RBC (3.80-5.40) m/uL Hgb (11.4-16.0) gm/dL Hct (34.0-46.0) % Neutrophils # (1.3-7.7) k/uL Lymphocytes # (1.0-4.8) k/uL PT (9.0-12.0) sec INR (<1.2) ABG pH (7.35-7.45) ABG pCO2 (35-45) mmHg ABG pO2 (83-108) mmHg ABG Total CO2 (19-24) mmol/L ABG O2 Saturation (94-97) % Potassium (3.5-5.1) mmol/L Chloride (98-107) mmol/L BUN (7-17) mg/dL Glucose (74-99) mg/dL POC Glucose (mg/dL) 130 H 109 H 129 H (75-99) mg/dL Calcium (8.4-10.2) mg/dL Magnesium (1.6-2.3) mg/dL AST (14-36) U/L ALT (9-52) U/L Total Protein (6.3-8.2) g/dL Albumin (3.5-5.0) g/dL Crossmatch 02/19/17 02/19/17 02/19/17 Range/Units 05:50 05:50 05:52 WBC 11.8 H (3.8-10.6) k/uL RBC 3.44 L (3.80-5.40) m/uL Hgb 10.5 L (11.4-16.0) gm/dL Hct 30.5 L (34.0-46.0) % Neutrophils # 10.4 H (1.3-7.7) k/uL Lymphocytes # 0.7 L (1.0-4.8) k/uL PT (9.0-12.0) sec INR (<1.2) ABG pH (7.35-7.45) ABG pCO2 (35-45) mmHg ABG pO2 (83-108) mmHg ABG Total CO2 (19-24) mmol/L ABG O2 Saturation (94-97) % Potassium 5.5 H (3.5-5.1) mmol/L Chloride (98-107) mmol/L BUN (7-17) mg/dL Glucose 158 H (74-99) mg/dL POC Glucose (mg/dL) 171 H (75-99) mg/dL Calcium 8.2 L (8.4-10.2) mg/dL Magnesium (1.6-2.3) mg/dL AST 202 H (14-36) U/L ALT 164 H (9-52) U/L Total Protein 5.1 L (6.3-8.2) g/dL Albumin 2.9 L (3.5-5.0) g/dL Crossmatch 02/19/17 02/19/17 02/19/17 Range/Units 05:55 07:02 08:03 WBC (3.8-10.6) k/uL RBC (3.80-5.40) m/uL Hgb (11.4-16.0) gm/dL Hct (34.0-46.0) % Neutrophils # (1.3-7.7) k/uL Lymphocytes # (1.0-4.8) k/uL PT (9.0-12.0) sec INR (<1.2) ABG pH (7.35-7.45) ABG pCO2 (35-45) mmHg ABG pO2 (83-108) mmHg ABG Total CO2 (19-24) mmol/L ABG O2 Saturation (94-97) % Potassium (3.5-5.1) mmol/L Chloride (98-107) mmol/L BUN (7-17) mg/dL Glucose (74-99) mg/dL POC Glucose (mg/dL) 165 H 152 H 132 H (75-99) mg/dL Calcium (8.4-10.2) mg/dL Magnesium (1.6-2.3) mg/dL AST (14-36) U/L ALT (9-52) U/L Total Protein (6.3-8.2) g/dL Albumin (3.5-5.0) g/dL Crossmatch - Imaging and Cardiology Chest x-ray: report reviewed, image reviewed Assessment and Plan (1) Status post mitral valve repair Status: Acute (2) Chronic congestive heart failure Status: Acute (3) Diabetes Status: Acute (4) HTN (hypertension) Status: Acute (5) History of lobectomy of lung Status: Acute (6) History of lung cancer Status: Acute (7) History of pulmonary embolism Status: Acute (8) History of thyroid cancer Status: Acute (9) Hyperlipemia Status: Acute (10) Mitral regurgitation Status: Acute (11) Paroxysmal atrial fibrillation Status: Acute (12) Tobacco dependence in remission Status: Acute Plan: 1. Continue aspirin, heparin subcu, Plavix, and beta samira. We will maximize beta samira therapy as tolerated. 2. Encourage use of her incentive spirometry every hour while awake. 3. Wean oxygen as tolerated. Pulmonary recommendations per Dr. Trujillo. 4. GI and DVT prophylaxis. 5. We will hold her Lipitor as her liver enzymes are elevated this a.m. 6. We will monitor daily labs and chest x-ray. 7. Physical therapy will be consulted to assist with ambulation and increasing activity as tolerated. 8. welfare eligibility worker consult and for discharge planning to rehab. 9. Further recommendations as the patient progresses and care. Time with Patient: Greater than 30
[2017-02-19 09:57] LABS: Glucose,Whole Blood 117 mg/dL (75-99)
[2017-02-19 11:13] LABS: Glucose,Whole Blood 108 mg/dL (75-99)
--- NOTE | 2017-02-19 11:17 | P.PN ---
Subjective Principal diagnosis: Mitral regurgitation status post mitral valve repair Patient is postop day #1 doing well she is extubated. She has underlying sinus rhythm but is currently using the pacemaker she is being paced at 60 bpm underlying rate is 50 bpm Objective - Vital Signs Vital signs: Vital Signs Temp 98.2 F 02/18/17 19:00 Pulse 66 02/19/17 09:02 Resp 9 L 02/19/17 07:30 BP 149/70 02/18/17 13:20 Pulse Ox 99 02/19/17 07:30 Intake & Output 02/18/17 02/19/17 02/19/17 18:59 06:59 18:59 Intake Total 9444.788 4370.067 75.326 Output Total 3097 1383 135 Balance -1579.881 -198.933 -59.674 Weight 92.986 kg 99.5 kg Intake: IV 424 798 59 Cardiac Output 0.9NS 70 90 Lactated Ringers 300 600 50 Pressure Bag 0.9NS 54 108 9 Intake, IV Titration 194.119 386.067 16.326 Amount ACETAMINOPHEN IV (For NPO 200 ) 1,000 mg In Empty Bag 1 bag @ 400 mls/hr IVPB Q6HR [facility] Rx#:[id number] Clevidipine Butyrate 25 10.034 63.133 0.033 mg In Empty Bag 1 bag @ 1 MG/HR 2 mls/hr IV .Q24H [facility] Rx#:[id number] Insulin Regular 100 unit 7.216 22.934 16.293 In Sodium Chloride 0.9% 100 ml @ Per Protocol IV .Q0M [facility] Rx#:[id number] Lactated Ringers 1,000 ml 40 @ Per Protocol IV ONCE ONE Rx#:[id number] Propofol 1,000 mg In 100 36.869 ml @ Titrate IV .Q0M [facility] Rx#:[id number] ceFAZolin 2 gm In Sodium 100 100 Chloride 0.9% 100 ml @ 100 mls/hr IVPB Q8HR [facility] Rx#:[id number] Blood Product 899 Ffp 24 Cpd Unit 297 [id number] Ffp 24 Cpd Unit 340 [id number] Platelet Pheresis Acda1 262 Unit [id number] Output: Chest Tube Drainage 195 323 35 Left Plueral X 1 40 93 15 Mediastinal X2 155 230 20 Urine 1702 1060 100 Estimated Blood Loss 1200 Other: Voiding Method Indwelling Catheter Indwelling Catheter ABP, PAP, CO, CI - Last Documented Arterial Blood Pressure 115/42 Pulmonary Artery Pressure 27/10 Cardiac Output 4.4 Cardiac Index 2.3 - Exam Comfortable at rest vital signs are stable chest exam reveals diminished air entry at the bases heart exam was first and second heart sounds no gallop exam extremities did not will any edema per for pulses are felt Labs have been reviewed - Labs CBC & Chem 7: 02/19/17 05:50 02/19/17 05:50 Labs: Abnormal Lab Results - Last 24 Hours (Table) 02/08/17 02/18/17 02/18/17 Range/Units 07:59 11:16 11:41 WBC (3.8-10.6) k/uL RBC (3.80-5.40) m/uL Hgb (11.4-16.0) gm/dL Hct (34.0-46.0) % Neutrophils # (1.3-7.7) k/uL Lymphocytes # (1.0-4.8) k/uL PT (9.0-12.0) sec INR (<1.2) ABG pH (7.35-7.45) ABG pCO2 (35-45) mmHg ABG pO2 (83-108) mmHg ABG Total CO2 (19-24) mmol/L ABG O2 Saturation (94-97) % Potassium (3.5-5.1) mmol/L Chloride (98-107) mmol/L BUN (7-17) mg/dL Glucose (74-99) mg/dL POC Glucose (mg/dL) 185 H 182 H (75-99) mg/dL Calcium (8.4-10.2) mg/dL Magnesium (1.6-2.3) mg/dL AST (14-36) U/L ALT (9-52) U/L Total Protein (6.3-8.2) g/dL Albumin (3.5-5.0) g/dL Crossmatch See Detail 02/18/17 02/18/17 02/18/17 Range/Units 13:00 13:00 13:00 WBC (3.8-10.6) k/uL RBC 3.00 L (3.80-5.40) m/uL Hgb 9.2 L D (11.4-16.0) gm/dL Hct 26.9 L (34.0-46.0) % Neutrophils # (1.3-7.7) k/uL Lymphocytes # 0.7 L (1.0-4.8) k/uL PT 12.2 H (9.0-12.0) sec INR 1.2 H (<1.2) ABG pH (7.35-7.45) ABG pCO2 (35-45) mmHg ABG pO2 (83-108) mmHg ABG Total CO2 (19-24) mmol/L ABG O2 Saturation (94-97) % Potassium (3.5-5.1) mmol/L Chloride 110 H (98-107) mmol/L BUN 22 H (7-17) mg/dL Glucose 126 H (74-99) mg/dL POC Glucose (mg/dL) (75-99) mg/dL Calcium 8.1 L (8.4-10.2) mg/dL Magnesium 2.5 H (1.6-2.3) mg/dL AST 551 H (14-36) U/L ALT 204 H (9-52) U/L Total Protein 4.8 L (6.3-8.2) g/dL Albumin 2.7 L (3.5-5.0) g/dL Crossmatch 02/18/17 02/18/17 02/18/17 Range/Units 13:04 13:27 13:55 WBC (3.8-10.6) k/uL RBC (3.80-5.40) m/uL Hgb (11.4-16.0) gm/dL Hct (34.0-46.0) % Neutrophils # (1.3-7.7) k/uL Lymphocytes # (1.0-4.8) k/uL PT (9.0-12.0) sec INR (<1.2) ABG pH 7.32 L (7.35-7.45) ABG pCO2 47 H (35-45) mmHg ABG pO2 394 H (83-108) mmHg ABG Total CO2 25 H (19-24) mmol/L ABG O2 Saturation 100.0 H (94-97) % Potassium (3.5-5.1) mmol/L Chloride (98-107) mmol/L BUN (7-17) mg/dL Glucose (74-99) mg/dL POC Glucose (mg/dL) 132 H 121 H (75-99) mg/dL Calcium (8.4-10.2) mg/dL Magnesium (1.6-2.3) mg/dL AST (14-36) U/L ALT (9-52) U/L Total Protein (6.3-8.2) g/dL Albumin (3.5-5.0) g/dL Crossmatch 02/18/17 02/18/17 02/18/17 Range/Units 14:36 15:03 15:50 WBC (3.8-10.6) k/uL RBC 3.27 L (3.80-5.40) m/uL Hgb 10.1 L (11.4-16.0) gm/dL Hct 28.9 L (34.0-46.0) % Neutrophils # (1.3-7.7) k/uL Lymphocytes # (1.0-4.8) k/uL PT (9.0-12.0) sec INR (<1.2) ABG pH (7.35-7.45) ABG pCO2 (35-45) mmHg ABG pO2 125 H (83-108) mmHg ABG Total CO2 (19-24) mmol/L ABG O2 Saturation 99.0 H (94-97) % Potassium (3.5-5.1) mmol/L Chloride (98-107) mmol/L BUN (7-17) mg/dL Glucose (74-99) mg/dL POC Glucose (mg/dL) 120 H (75-99) mg/dL Calcium (8.4-10.2) mg/dL Magnesium (1.6-2.3) mg/dL AST (14-36) U/L ALT (9-52) U/L Total Protein (6.3-8.2) g/dL Albumin (3.5-5.0) g/dL Crossmatch 02/18/17 02/18/17 02/18/17 Range/Units 15:50 17:07 18:01 WBC (3.8-10.6) k/uL RBC (3.80-5.40) m/uL Hgb (11.4-16.0) gm/dL Hct (34.0-46.0) % Neutrophils # (1.3-7.7) k/uL Lymphocytes # (1.0-4.8) k/uL PT (9.0-12.0) sec INR (<1.2) ABG pH (7.35-7.45) ABG pCO2 (35-45) mmHg ABG pO2 (83-108) mmHg ABG Total CO2 (19-24) mmol/L ABG O2 Saturation (94-97) % Potassium (3.5-5.1) mmol/L Chloride (98-107) mmol/L BUN (7-17) mg/dL Glucose (74-99) mg/dL POC Glucose (mg/dL) 122 H 130 H 140 H (75-99) mg/dL Calcium (8.4-10.2) mg/dL Magnesium (1.6-2.3) mg/dL AST (14-36) U/L ALT (9-52) U/L Total Protein (6.3-8.2) g/dL Albumin (3.5-5.0) g/dL Crossmatch 02/18/17 02/18/17 02/18/17 Range/Units 18:56 19:00 19:00 WBC (3.8-10.6) k/uL RBC 3.33 L (3.80-5.40) m/uL Hgb 10.1 L (11.4-16.0) gm/dL Hct 29.7 L (34.0-46.0) % Neutrophils # 8.2 H (1.3-7.7) k/uL Lymphocytes # 0.5 L (1.0-4.8) k/uL PT (9.0-12.0) sec INR (<1.2) ABG pH (7.35-7.45) ABG pCO2 (35-45) mmHg ABG pO2 (83-108) mmHg ABG Total CO2 (19-24) mmol/L ABG O2 Saturation (94-97) % Potassium (3.5-5.1) mmol/L Chloride (98-107) mmol/L BUN 19 H (7-17) mg/dL Glucose 125 H (74-99) mg/dL POC Glucose (mg/dL) 129 H (75-99) mg/dL Calcium 8.0 L (8.4-10.2) mg/dL Magnesium (1.6-2.3) mg/dL AST (14-36) U/L ALT (9-52) U/L Total Protein (6.3-8.2) g/dL Albumin (3.5-5.0) g/dL Crossmatch 02/18/17 02/18/17 02/18/17 Range/Units 20:11 20:20 21:03 WBC (3.8-10.6) k/uL RBC (3.80-5.40) m/uL Hgb (11.4-16.0) gm/dL Hct (34.0-46.0) % Neutrophils # (1.3-7.7) k/uL Lymphocytes # (1.0-4.8) k/uL PT (9.0-12.0) sec INR (<1.2) ABG pH (7.35-7.45) ABG pCO2 (35-45) mmHg ABG pO2 (83-108) mmHg ABG Total CO2 25 H (19-24) mmol/L ABG O2 Saturation (94-97) % Potassium (3.5-5.1) mmol/L Chloride (98-107) mmol/L BUN (7-17) mg/dL Glucose (74-99) mg/dL POC Glucose (mg/dL) 129 H 126 H (75-99) mg/dL Calcium (8.4-10.2) mg/dL Magnesium (1.6-2.3) mg/dL AST (14-36) U/L ALT (9-52) U/L Total Protein (6.3-8.2) g/dL Albumin (3.5-5.0) g/dL Crossmatch 02/18/17 02/18/17 02/19/17 Range/Units 21:59 23:08 00:00 WBC (3.8-10.6) k/uL RBC (3.80-5.40) m/uL Hgb (11.4-16.0) gm/dL Hct (34.0-46.0) % Neutrophils # (1.3-7.7) k/uL Lymphocytes # (1.0-4.8) k/uL PT (9.0-12.0) sec INR (<1.2) ABG pH (7.35-7.45) ABG pCO2 (35-45) mmHg ABG pO2 (83-108) mmHg ABG Total CO2 (19-24) mmol/L ABG O2 Saturation (94-97) % Potassium (3.5-5.1) mmol/L Chloride (98-107) mmol/L BUN (7-17) mg/dL Glucose (74-99) mg/dL POC Glucose (mg/dL) 125 H 125 H 120 H (75-99) mg/dL Calcium (8.4-10.2) mg/dL Magnesium (1.6-2.3) mg/dL AST (14-36) U/L ALT (9-52) U/L Total Protein (6.3-8.2) g/dL Albumin (3.5-5.0) g/dL Crossmatch 02/19/17 02/19/17 02/19/17 Range/Units 01:09 02:19 03:27 WBC (3.8-10.6) k/uL RBC (3.80-5.40) m/uL Hgb (11.4-16.0) gm/dL Hct (34.0-46.0) % Neutrophils # (1.3-7.7) k/uL Lymphocytes # (1.0-4.8) k/uL PT (9.0-12.0) sec INR (<1.2) ABG pH (7.35-7.45) ABG pCO2 (35-45) mmHg ABG pO2 (83-108) mmHg ABG Total CO2 (19-24) mmol/L ABG O2 Saturation (94-97) % Potassium (3.5-5.1) mmol/L Chloride (98-107) mmol/L BUN (7-17) mg/dL Glucose (74-99) mg/dL POC Glucose (mg/dL) 113 H 112 H 130 H (75-99) mg/dL Calcium (8.4-10.2) mg/dL Magnesium (1.6-2.3) mg/dL AST (14-36) U/L ALT (9-52) U/L Total Protein (6.3-8.2) g/dL Albumin (3.5-5.0) g/dL Crossmatch 02/19/17 02/19/17 02/19/17 Range/Units 04:09 05:05 05:50 WBC 11.8 H (3.8-10.6) k/uL RBC 3.44 L (3.80-5.40) m/uL Hgb 10.5 L (11.4-16.0) gm/dL Hct 30.5 L (34.0-46.0) % Neutrophils # 10.4 H (1.3-7.7) k/uL Lymphocytes # 0.7 L (1.0-4.8) k/uL PT (9.0-12.0) sec INR (<1.2) ABG pH (7.35-7.45) ABG pCO2 (35-45) mmHg ABG pO2 (83-108) mmHg ABG Total CO2 (19-24) mmol/L ABG O2 Saturation (94-97) % Potassium (3.5-5.1) mmol/L Chloride (98-107) mmol/L BUN (7-17) mg/dL Glucose (74-99) mg/dL POC Glucose (mg/dL) 109 H 129 H (75-99) mg/dL Calcium (8.4-10.2) mg/dL Magnesium (1.6-2.3) mg/dL AST (14-36) U/L ALT (9-52) U/L Total Protein (6.3-8.2) g/dL Albumin (3.5-5.0) g/dL Crossmatch 02/19/17 02/19/17 02/19/17 Range/Units 05:50 05:52 05:55 WBC (3.8-10.6) k/uL RBC (3.80-5.40) m/uL Hgb (11.4-16.0) gm/dL Hct (34.0-46.0) % Neutrophils # (1.3-7.7) k/uL Lymphocytes # (1.0-4.8) k/uL PT (9.0-12.0) sec INR (<1.2) ABG pH (7.35-7.45) ABG pCO2 (35-45) mmHg ABG pO2 (83-108) mmHg ABG Total CO2 (19-24) mmol/L ABG O2 Saturation (94-97) % Potassium 5.5 H (3.5-5.1) mmol/L Chloride (98-107) mmol/L BUN (7-17) mg/dL Glucose 158 H (74-99) mg/dL POC Glucose (mg/dL) 171 H 165 H (75-99) mg/dL Calcium 8.2 L (8.4-10.2) mg/dL Magnesium (1.6-2.3) mg/dL AST 202 H (14-36) U/L ALT 164 H (9-52) U/L Total Protein 5.1 L (6.3-8.2) g/dL Albumin 2.9 L (3.5-5.0) g/dL Crossmatch 02/19/17 02/19/17 02/19/17 Range/Units 07:02 08:03 09:00 WBC (3.8-10.6) k/uL RBC (3.80-5.40) m/uL Hgb (11.4-16.0) gm/dL Hct (34.0-46.0) % Neutrophils # (1.3-7.7) k/uL Lymphocytes # (1.0-4.8) k/uL PT (9.0-12.0) sec INR (<1.2) ABG pH (7.35-7.45) ABG pCO2 (35-45) mmHg ABG pO2 (83-108) mmHg ABG Total CO2 (19-24) mmol/L ABG O2 Saturation (94-97) % Potassium (3.5-5.1) mmol/L Chloride (98-107) mmol/L BUN (7-17) mg/dL Glucose (74-99) mg/dL POC Glucose (mg/dL) 152 H 132 H 139 H (75-99) mg/dL Calcium (8.4-10.2) mg/dL Magnesium (1.6-2.3) mg/dL AST (14-36) U/L ALT (9-52) U/L Total Protein (6.3-8.2) g/dL Albumin (3.5-5.0) g/dL Crossmatch 02/19/17 02/19/17 Range/Units 09:56 11:12 WBC (3.8-10.6) k/uL RBC (3.80-5.40) m/uL Hgb (11.4-16.0) gm/dL Hct (34.0-46.0) % Neutrophils # (1.3-7.7) k/uL Lymphocytes # (1.0-4.8) k/uL PT (9.0-12.0) sec INR (<1.2) ABG pH (7.35-7.45) ABG pCO2 (35-45) mmHg ABG pO2 (83-108) mmHg ABG Total CO2 (19-24) mmol/L ABG O2 Saturation (94-97) % Potassium (3.5-5.1) mmol/L Chloride (98-107) mmol/L BUN (7-17) mg/dL Glucose (74-99) mg/dL POC Glucose (mg/dL) 117 H 108 H (75-99) mg/dL Calcium (8.4-10.2) mg/dL Magnesium (1.6-2.3) mg/dL AST (14-36) U/L ALT (9-52) U/L Total Protein (6.3-8.2) g/dL Albumin (3.5-5.0) g/dL Crossmatch Assessment and Plan Plan: Mitral regurgitation status post mitral valve repair Sinus bradycardia Plan the pacer rate down to 50 bpm continue rest of her medications
[2017-02-19] MEDS: FUROSEMIDE 10 MG/ML 2 ML VIAL IV SCH ×2 (11:20→22:23)
[2017-02-19] MEDS: LACTATED RINGERS 1,000 ML IV SCH (11:24)
[2017-02-19 11:52] LABS: Glucose,Whole Blood 107 mg/dL (75-99)
[2017-02-19] MEDS ORDERED: HYDROcodone/APAP 5-325MG 1 EACH TAB PO PRN (12:09)
[2017-02-19] MEDS ORDERED: BISACODYL 10 MG SUPP RECTAL PRN (12:11)
[2017-02-19] MEDS ORDERED: MAGNESIUM HYDROXIDE 2,400 MG/10 ML CUP PO PRN (12:11)
[2017-02-19] MEDS ORDERED: IPRATROPIUM-ALBUTEROL 3 ML NEB INHALATION PRN (12:12)
--- NOTE | 2017-02-19 12:36 | P.PN ---
Subjective Principal diagnosis: Severe mitral valve regurgitation, status post mitral valve repair postoperative day #1 his is a 71-year-old female with history of multiple medical problems including mxi-[id number] diabetes, history of pulmonary embolism, chronic mitral regurgitation, and atrial fibrillation as well as hypothyroidism. Patient was recently evaluated by cardiac surgery for possible mitral valve repair, and electively the patient underwent mitral valve repair today, postoperatively she was on mechanical ventilation, and I was asked to see her on consultation. Patient is presently on mechanical ventilation, vent settings where at rest by Dr. García and he placed on a tidal volume of 600 assist control rate of 10, and FiO2 of 50%. PEEP of 5. Chest x-ray showed minimal nonspecific atelectasis at the bases. Patient was reevaluated today on 02/19/2017, underwent mitral valve repair on 2016, patient had a relatively uneventful postoperative course, extubated last night uneventfully. Doing well today, relatively asymptomatic. Chest x-ray showed mostly postoperative changes and possibly some left lower lobe atelectasis and right basilar atelectasis. Small tiny effusion is suspected on the left side. CBC was reviewed, and basic metabolic profile was also reviewed. Objective - Vital Signs Vital signs: Vital Signs Temp 98.2 F 02/18/17 19:00 Pulse 125 H 02/19/17 11:00 Resp 19 02/19/17 11:00 BP 131/55 02/19/17 11:00 Pulse Ox 99 02/19/17 08:00 Intake & Output 02/18/17 02/19/17 02/19/17 18:59 06:59 18:59 Intake Total 4010.076 7507.067 308.326 Output Total 3097 1383 287 Balance -1579.881 -198.933 21.326 Weight 92.986 kg 99.5 kg Intake: IV 424 798 292 Cardiac Output 0.9NS 70 90 60 Lactated Ringers 300 600 190 Pressure Bag 0.9NS 54 108 42 Intake, IV Titration 194.119 386.067 16.326 Amount ACETAMINOPHEN IV (For NPO 200 ) 1,000 mg In Empty Bag 1 bag @ 400 mls/hr IVPB Q6HR [facility] Rx#:[id number] Clevidipine Butyrate 25 10.034 63.133 0.033 mg In Empty Bag 1 bag @ 1 MG/HR 2 mls/hr IV .Q24H [facility] Rx#:[id number] Insulin Regular 100 unit 7.216 22.934 16.293 In Sodium Chloride 0.9% 100 ml @ Per Protocol IV .Q0M [facility] Rx#:[id number] Lactated Ringers 1,000 ml 40 @ Per Protocol IV ONCE ONE Rx#:[id number] Propofol 1,000 mg In 100 36.869 ml @ Titrate IV .Q0M [facility] Rx#:[id number] ceFAZolin 2 gm In Sodium 100 100 Chloride 0.9% 100 ml @ 100 mls/hr IVPB Q8HR [facility] Rx#:[id number] Blood Product 899 Ffp 24 Cpd Unit 297 [id number] Ffp 24 Cpd Unit 340 [id number] Platelet Pheresis Acda1 262 Unit [id number] Output: Chest Tube Drainage 195 323 60 Left Plueral X 1 40 93 20 Mediastinal X2 155 230 40 Urine 1702 1060 227 Estimated Blood Loss 1200 Other: Voiding Method Indwelling Catheter Indwelling Catheter Indwelling Catheter ABP, PAP, CO, CI - Last Documented Arterial Blood Pressure 95/35 Pulmonary Artery Pressure 36/12 Cardiac Output 3.4 Cardiac Index 1.8 - Exam Physical Exam: Revealed a 71-year-old female in no distress. HEENT:[Neck is supple.] [No neck masses.] [No thyromegaly.] [No JVD.] Chest: [Diminished breath sounds and crackles at the bases..] Cardiac Exam: [Normal S1 and S2, no S3 gallop, no murmur.] Abdomen: [Soft, nontender, no megaly, no rebound, no guarding, normal bowel sounds.] Extremities: [No clubbing, no edema, no cyanosis.] Neurological Exam: [No focal neurologic deficit.] - Labs CBC & Chem 7: 02/19/17 05:50 02/19/17 05:50 Labs: Abnormal Lab Results - Last 24 Hours (Table) 02/08/17 02/18/17 02/18/17 Range/Units 07:59 13:00 13:00 WBC (3.8-10.6) k/uL RBC 3.00 L (3.80-5.40) m/uL Hgb 9.2 L D (11.4-16.0) gm/dL Hct 26.9 L (34.0-46.0) % Neutrophils # (1.3-7.7) k/uL Lymphocytes # 0.7 L (1.0-4.8) k/uL PT (9.0-12.0) sec INR (<1.2) ABG pH (7.35-7.45) ABG pCO2 (35-45) mmHg ABG pO2 (83-108) mmHg ABG Total CO2 (19-24) mmol/L ABG O2 Saturation (94-97) % Potassium (3.5-5.1) mmol/L Chloride 110 H (98-107) mmol/L BUN 22 H (7-17) mg/dL Glucose 126 H (74-99) mg/dL POC Glucose (mg/dL) (75-99) mg/dL Calcium 8.1 L (8.4-10.2) mg/dL Magnesium 2.5 H (1.6-2.3) mg/dL AST 551 H (14-36) U/L ALT 204 H (9-52) U/L Total Protein 4.8 L (6.3-8.2) g/dL Albumin 2.7 L (3.5-5.0) g/dL Crossmatch See Detail 02/18/17 02/18/17 02/18/17 Range/Units 13:00 13:04 13:27 WBC (3.8-10.6) k/uL RBC (3.80-5.40) m/uL Hgb (11.4-16.0) gm/dL Hct (34.0-46.0) % Neutrophils # (1.3-7.7) k/uL Lymphocytes # (1.0-4.8) k/uL PT 12.2 H (9.0-12.0) sec INR 1.2 H (<1.2) ABG pH 7.32 L (7.35-7.45) ABG pCO2 47 H (35-45) mmHg ABG pO2 394 H (83-108) mmHg ABG Total CO2 25 H (19-24) mmol/L ABG O2 Saturation 100.0 H (94-97) % Potassium (3.5-5.1) mmol/L Chloride (98-107) mmol/L BUN (7-17) mg/dL Glucose (74-99) mg/dL POC Glucose (mg/dL) 132 H (75-99) mg/dL Calcium (8.4-10.2) mg/dL Magnesium (1.6-2.3) mg/dL AST (14-36) U/L ALT (9-52) U/L Total Protein (6.3-8.2) g/dL Albumin (3.5-5.0) g/dL Crossmatch 02/18/17 02/18/17 02/18/17 Range/Units 13:55 14:36 15:03 WBC (3.8-10.6) k/uL RBC (3.80-5.40) m/uL Hgb (11.4-16.0) gm/dL Hct (34.0-46.0) % Neutrophils # (1.3-7.7) k/uL Lymphocytes # (1.0-4.8) k/uL PT (9.0-12.0) sec INR (<1.2) ABG pH (7.35-7.45) ABG pCO2 (35-45) mmHg ABG pO2 125 H (83-108) mmHg ABG Total CO2 (19-24) mmol/L ABG O2 Saturation 99.0 H (94-97) % Potassium (3.5-5.1) mmol/L Chloride (98-107) mmol/L BUN (7-17) mg/dL Glucose (74-99) mg/dL POC Glucose (mg/dL) 121 H 120 H (75-99) mg/dL Calcium (8.4-10.2) mg/dL Magnesium (1.6-2.3) mg/dL AST (14-36) U/L ALT (9-52) U/L Total Protein (6.3-8.2) g/dL Albumin (3.5-5.0) g/dL Crossmatch 02/18/17 02/18/17 02/18/17 Range/Units 15:50 15:50 17:07 WBC (3.8-10.6) k/uL RBC 3.27 L (3.80-5.40) m/uL Hgb 10.1 L (11.4-16.0) gm/dL Hct 28.9 L (34.0-46.0) % Neutrophils # (1.3-7.7) k/uL Lymphocytes # (1.0-4.8) k/uL PT (9.0-12.0) sec INR (<1.2) ABG pH (7.35-7.45) ABG pCO2 (35-45) mmHg ABG pO2 (83-108) mmHg ABG Total CO2 (19-24) mmol/L ABG O2 Saturation (94-97) % Potassium (3.5-5.1) mmol/L Chloride (98-107) mmol/L BUN (7-17) mg/dL Glucose (74-99) mg/dL POC Glucose (mg/dL) 122 H 130 H (75-99) mg/dL Calcium (8.4-10.2) mg/dL Magnesium (1.6-2.3) mg/dL AST (14-36) U/L ALT (9-52) U/L Total Protein (6.3-8.2) g/dL Albumin (3.5-5.0) g/dL Crossmatch 02/18/17 02/18/17 02/18/17 Range/Units 18:01 18:56 19:00 WBC (3.8-10.6) k/uL RBC (3.80-5.40) m/uL Hgb (11.4-16.0) gm/dL Hct (34.0-46.0) % Neutrophils # (1.3-7.7) k/uL Lymphocytes # (1.0-4.8) k/uL PT (9.0-12.0) sec INR (<1.2) ABG pH (7.35-7.45) ABG pCO2 (35-45) mmHg ABG pO2 (83-108) mmHg ABG Total CO2 (19-24) mmol/L ABG O2 Saturation (94-97) % Potassium (3.5-5.1) mmol/L Chloride (98-107) mmol/L BUN 19 H (7-17) mg/dL Glucose 125 H (74-99) mg/dL POC Glucose (mg/dL) 140 H 129 H (75-99) mg/dL Calcium 8.0 L (8.4-10.2) mg/dL Magnesium (1.6-2.3) mg/dL AST (14-36) U/L ALT (9-52) U/L Total Protein (6.3-8.2) g/dL Albumin (3.5-5.0) g/dL Crossmatch 02/18/17 02/18/17 02/18/17 Range/Units 19:00 20:11 20:20 WBC (3.8-10.6) k/uL RBC 3.33 L (3.80-5.40) m/uL Hgb 10.1 L (11.4-16.0) gm/dL Hct 29.7 L (34.0-46.0) % Neutrophils # 8.2 H (1.3-7.7) k/uL Lymphocytes # 0.5 L (1.0-4.8) k/uL PT (9.0-12.0) sec INR (<1.2) ABG pH (7.35-7.45) ABG pCO2 (35-45) mmHg ABG pO2 (83-108) mmHg ABG Total CO2 25 H (19-24) mmol/L ABG O2 Saturation (94-97) % Potassium (3.5-5.1) mmol/L Chloride (98-107) mmol/L BUN (7-17) mg/dL Glucose (74-99) mg/dL POC Glucose (mg/dL) 129 H (75-99) mg/dL Calcium (8.4-10.2) mg/dL Magnesium (1.6-2.3) mg/dL AST (14-36) U/L ALT (9-52) U/L Total Protein (6.3-8.2) g/dL Albumin (3.5-5.0) g/dL Crossmatch 02/18/17 02/18/17 02/18/17 Range/Units 21:03 21:59 23:08 WBC (3.8-10.6) k/uL RBC (3.80-5.40) m/uL Hgb (11.4-16.0) gm/dL Hct (34.0-46.0) % Neutrophils # (1.3-7.7) k/uL Lymphocytes # (1.0-4.8) k/uL PT (9.0-12.0) sec INR (<1.2) ABG pH (7.35-7.45) ABG pCO2 (35-45) mmHg ABG pO2 (83-108) mmHg ABG Total CO2 (19-24) mmol/L ABG O2 Saturation (94-97) % Potassium (3.5-5.1) mmol/L Chloride (98-107) mmol/L BUN (7-17) mg/dL Glucose (74-99) mg/dL POC Glucose (mg/dL) 126 H 125 H 125 H (75-99) mg/dL Calcium (8.4-10.2) mg/dL Magnesium (1.6-2.3) mg/dL AST (14-36) U/L ALT (9-52) U/L Total Protein (6.3-8.2) g/dL Albumin (3.5-5.0) g/dL Crossmatch 02/19/17 02/19/17 02/19/17 Range/Units 00:00 01:09 02:19 WBC (3.8-10.6) k/uL RBC (3.80-5.40) m/uL Hgb (11.4-16.0) gm/dL Hct (34.0-46.0) % Neutrophils # (1.3-7.7) k/uL Lymphocytes # (1.0-4.8) k/uL PT (9.0-12.0) sec INR (<1.2) ABG pH (7.35-7.45) ABG pCO2 (35-45) mmHg ABG pO2 (83-108) mmHg ABG Total CO2 (19-24) mmol/L ABG O2 Saturation (94-97) % Potassium (3.5-5.1) mmol/L Chloride (98-107) mmol/L BUN (7-17) mg/dL Glucose (74-99) mg/dL POC Glucose (mg/dL) 120 H 113 H 112 H (75-99) mg/dL Calcium (8.4-10.2) mg/dL Magnesium (1.6-2.3) mg/dL AST (14-36) U/L ALT (9-52) U/L Total Protein (6.3-8.2) g/dL Albumin (3.5-5.0) g/dL Crossmatch 02/19/17 02/19/17 02/19/17 Range/Units 03:27 04:09 05:05 WBC (3.8-10.6) k/uL RBC (3.80-5.40) m/uL Hgb (11.4-16.0) gm/dL Hct (34.0-46.0) % Neutrophils # (1.3-7.7) k/uL Lymphocytes # (1.0-4.8) k/uL PT (9.0-12.0) sec INR (<1.2) ABG pH (7.35-7.45) ABG pCO2 (35-45) mmHg ABG pO2 (83-108) mmHg ABG Total CO2 (19-24) mmol/L ABG O2 Saturation (94-97) % Potassium (3.5-5.1) mmol/L Chloride (98-107) mmol/L BUN (7-17) mg/dL Glucose (74-99) mg/dL POC Glucose (mg/dL) 130 H 109 H 129 H (75-99) mg/dL Calcium (8.4-10.2) mg/dL Magnesium (1.6-2.3) mg/dL AST (14-36) U/L ALT (9-52) U/L Total Protein (6.3-8.2) g/dL Albumin (3.5-5.0) g/dL Crossmatch 02/19/17 02/19/17 02/19/17 Range/Units 05:50 05:50 05:52 WBC 11.8 H (3.8-10.6) k/uL RBC 3.44 L (3.80-5.40) m/uL Hgb 10.5 L (11.4-16.0) gm/dL Hct 30.5 L (34.0-46.0) % Neutrophils # 10.4 H (1.3-7.7) k/uL Lymphocytes # 0.7 L (1.0-4.8) k/uL PT (9.0-12.0) sec INR (<1.2) ABG pH (7.35-7.45) ABG pCO2 (35-45) mmHg ABG pO2 (83-108) mmHg ABG Total CO2 (19-24) mmol/L ABG O2 Saturation (94-97) % Potassium 5.5 H (3.5-5.1) mmol/L Chloride (98-107) mmol/L BUN (7-17) mg/dL Glucose 158 H (74-99) mg/dL POC Glucose (mg/dL) 171 H (75-99) mg/dL Calcium 8.2 L (8.4-10.2) mg/dL Magnesium (1.6-2.3) mg/dL AST 202 H (14-36) U/L ALT 164 H (9-52) U/L Total Protein 5.1 L (6.3-8.2) g/dL Albumin 2.9 L (3.5-5.0) g/dL Crossmatch 02/19/17 02/19/17 02/19/17 Range/Units 05:55 07:02 08:03 WBC (3.8-10.6) k/uL RBC (3.80-5.40) m/uL Hgb (11.4-16.0) gm/dL Hct (34.0-46.0) % Neutrophils # (1.3-7.7) k/uL Lymphocytes # (1.0-4.8) k/uL PT (9.0-12.0) sec INR (<1.2) ABG pH (7.35-7.45) ABG pCO2 (35-45) mmHg ABG pO2 (83-108) mmHg ABG Total CO2 (19-24) mmol/L ABG O2 Saturation (94-97) % Potassium (3.5-5.1) mmol/L Chloride (98-107) mmol/L BUN (7-17) mg/dL Glucose (74-99) mg/dL POC Glucose (mg/dL) 165 H 152 H 132 H (75-99) mg/dL Calcium (8.4-10.2) mg/dL Magnesium (1.6-2.3) mg/dL AST (14-36) U/L ALT (9-52) U/L Total Protein (6.3-8.2) g/dL Albumin (3.5-5.0) g/dL Crossmatch 02/19/17 02/19/17 02/19/17 Range/Units 09:00 09:56 11:12 WBC (3.8-10.6) k/uL RBC (3.80-5.40) m/uL Hgb (11.4-16.0) gm/dL Hct (34.0-46.0) % Neutrophils # (1.3-7.7) k/uL Lymphocytes # (1.0-4.8) k/uL PT (9.0-12.0) sec INR (<1.2) ABG pH (7.35-7.45) ABG pCO2 (35-45) mmHg ABG pO2 (83-108) mmHg ABG Total CO2 (19-24) mmol/L ABG O2 Saturation (94-97) % Potassium (3.5-5.1) mmol/L Chloride (98-107) mmol/L BUN (7-17) mg/dL Glucose (74-99) mg/dL POC Glucose (mg/dL) 139 H 117 H 108 H (75-99) mg/dL Calcium (8.4-10.2) mg/dL Magnesium (1.6-2.3) mg/dL AST (14-36) U/L ALT (9-52) U/L Total Protein (6.3-8.2) g/dL Albumin (3.5-5.0) g/dL Crossmatch 02/19/17 Range/Units 11:51 WBC (3.8-10.6) k/uL RBC (3.80-5.40) m/uL Hgb (11.4-16.0) gm/dL Hct (34.0-46.0) % Neutrophils # (1.3-7.7) k/uL Lymphocytes # (1.0-4.8) k/uL PT (9.0-12.0) sec INR (<1.2) ABG pH (7.35-7.45) ABG pCO2 (35-45) mmHg ABG pO2 (83-108) mmHg ABG Total CO2 (19-24) mmol/L ABG O2 Saturation (94-97) % Potassium (3.5-5.1) mmol/L Chloride (98-107) mmol/L BUN (7-17) mg/dL Glucose (74-99) mg/dL POC Glucose (mg/dL) 107 H (75-99) mg/dL Calcium (8.4-10.2) mg/dL Magnesium (1.6-2.3) mg/dL AST (14-36) U/L ALT (9-52) U/L Total Protein (6.3-8.2) g/dL Albumin (3.5-5.0) g/dL Crossmatch Assessment and Plan Plan: Impression: 1Status post mitral valve repair postoperative day #1 2 multiple comorbidities including history of pulmonary embolism, diabetes, hypertension, thyroid cancer, history of bariatric surgery, history of partial thyroidectomy and history of left lower lobectomy. Recommendation: Continue present supportive measures, continue incentive spirometry, early ambulation, we'll follow. Time with Patient: Less than 30
[2017-02-19 14:02] LABS: Glucose,Whole Blood 181 mg/dL (75-99)
[2017-02-19 15:19] LABS: Glucose,Whole Blood 173 mg/dL (75-99)
[2017-02-19 16:04] LABS: Glucose,Whole Blood 153 mg/dL (75-99)
[2017-02-19 17:06] LABS: Glucose,Whole Blood 134 mg/dL (75-99)
[2017-02-19 18:07] LABS: Glucose,Whole Blood 125 mg/dL (75-99)
[2017-02-19 20:49] LABS: Glucose,Whole Blood 108 mg/dL (75-99)
[2017-02-19] MEDS ORDERED: MORPHINE SULFATE 2 MG/ML SYRINGE IVP PRN (22:03)
[2017-02-19] MEDS: SENNOSIDES-DOCUSATE SODIUM 1 EACH TAB PO SCH (22:14)
[2017-02-19 22:15] LABS: Glucose,Whole Blood 132 mg/dL (75-99)
[2017-02-19] MEDS: MORPHINE SULFATE 2 MG/ML SYRINGE IVP PRN ×3 (22:23→23:55)
[2017-02-19 23:15] LABS: Glucose,Whole Blood 133 mg/dL (75-99)
[2017-02-20] LABS: Glucose,Whole Blood 128 mg/dL (75-99)
[2017-02-20 01:05] LABS: Glucose,Whole Blood 118 mg/dL (75-99)
[2017-02-20 02:07] LABS: Glucose,Whole Blood 118 mg/dL (75-99)
[2017-02-20] MEDS: MORPHINE SULFATE 2 MG/ML SYRINGE IVP PRN (02:36)
[2017-02-20 03:07] LABS: Glucose,Whole Blood 112 mg/dL (75-99)
[2017-02-20 03:20] LABS: Basophils % (A) 0 %; CH 31.4; CHCM 34.7; Eosinophils # (A) 0.2 k/uL (0-0.7); Eosinophils % (A) 2 %; HCT 30.1 % (34.0-46.0); HGB 10.2 gm/dL (11.4-16.0); Luc % (Auto) 1; Lymphocytes # (A) 1.1 k/uL (1.0-4.8); Lymphocytes % (A) 10 %; MCH 30.8 pg (25.0-35.0); MCHC 33.8 g/dL (31.0-37.0); Mean Platelet Volume 7.9; Monocytes # (A) 0.6 k/uL (0-1.0); Monocytes % (A) 5 %; Neutrophils # (A) 9.3 k/uL (1.3-7.7); Neutrophils % (A) 82 %; RBC 3.31 m/uL (3.80-5.40); RDW 14.1 % (11.5-15.5); WBC 11.3 k/uL (3.8-10.6); WBC (Perox) 11.93
[2017-02-20 03:26] LABS: Ionized Calcium 4.8 mg/dL (4.5-5.3)
[2017-02-20 03:35] LABS: ALT 73 U/L (9-52); AST 87 U/L (14-36); Alkaline Phosphatase 74 U/L (38-126); Anion Gap 6 mmol/L; Blood Urea Nitrogen 19 mg/dL (7-17); Calcium 8.4 mg/dL (8.4-10.2); Carbon Dioxide 26 mmol/L (22-30); Chloride 106 mmol/L (98-107); Glucose 111 mg/dL (74-99); Magnesium 1.8 mg/dL (1.6-2.3); Non-African American GFR(MDRD) >60 (>60 ml/min/1.73 sqM); Potassium 4.8 mmol/L (3.5-5.1); Sodium 138 mmol/L (137-145); Total Bilirubin 0.5 mg/dL (0.2-1.3); Total Protein 5.3 g/dL (6.3-8.2)
[2017-02-20 04:01] LABS: Glucose,Whole Blood 120 mg/dL (75-99)
[2017-02-20 05:17] LABS: Glucose,Whole Blood 122 mg/dL (75-99)
[2017-02-20] MEDS: METOPROLOL TARTRATE 12.5 MG TAB PO SCH ×2 (05:31→08:42)
[2017-02-20] MEDS: MAGNESIUM SULFATE-D5W PMX 1 GM in DEXTROSE/WATER 1 100ML.BAG IVPB SCH ×2 (05:36→07:00)
[2017-02-20 06:12] LABS: Glucose,Whole Blood 121 mg/dL (75-99)
[2017-02-20] MEDS: INSULIN REGULAR 100 UNIT in SODIUM CHLORIDE 0.9% 100 ML IV SCH (07:08)
[2017-02-20 07:09] LABS: Glucose,Whole Blood 138 mg/dL (75-99)
--- NOTE | 2017-02-20 07:34 | XR ---
EXAMINATION TYPE: XR chest 1V portable DATE OF EXAM: 02/20/2017 HISTORY: Post Operative Cardiac Surgery. REFERENCE: Previous study dated 02/19/2017. FINDINGS: There has been a midline sternotomy. The patient's right internal jugular catheter is been removed. There is a left pleural drain in place. No definite residual pneumothorax is seen. There are areas of platelike atelectasis present bilaterally. There is more confluent consolidation a t the left lung base. The heart is upper limits of normal in size. There are small effusions, greater on the left than the right. IMPRESSION: 1. CONTINUING PLATELIKE ATELECTASIS, BOTH LUNGS. 2. LEFT BASILAR AIRSPACE DISEASE. 3. SMALL LEFT EFFUSION. 4. NO DEFINITE RESIDUAL PNEUMOTHORAX.
[2017-02-20 08:00] LABS: Glucose,Whole Blood 178 mg/dL (75-99)
[2017-02-20] MEDS: HYDROcodone/APAP 5-325MG 1 EACH TAB PO PRN (08:40)
[2017-02-20] MEDS: CLOPIDOGREL 75 MG TAB PO SCH (08:41)
[2017-02-20] MEDS: PANTOPRAZOLE 40 MG TABLET PO SCH (08:41)
[2017-02-20] MEDS: HEPARIN SODIUM,PORCINE 5,000 UNIT/ML 1 ML VIAL SQ SCH ×3 (08:41→23:37)
[2017-02-20] MEDS: LEVOTHYROXINE 100 MCG TAB PO SCH (08:42)
[2017-02-20] MEDS: MUPIROCIN 2% OINT 22 GM TUBE NASAL SCH ×2 (08:42→20:20)
[2017-02-20] MEDS: FUROSEMIDE 10 MG/ML 2 ML VIAL IV SCH ×2 (08:42→20:21)
[2017-02-20] MEDS: ASPIRIN 325 MG TAB PO SCH (08:43)
[2017-02-20] MEDS: IPRATROPIUM-ALBUTEROL 3 ML NEB INHALATION SCH ×4 (08:48→19:58)
--- NOTE | 2017-02-20 09:23 | P.PN ---
<Charlie Mathias - Last Filed: 02/20/17 09:19> Subjective Principal diagnosis: Severe mitral regurgitation, history of atrial fibrillation, congestive heart failure, diabetes mellitus type 2, gastroesophageal reflux disease, hypertension , history of pulmonary embolus, osteoarthritis, sleep apnea uses CPAP/BiPAP at home, history of lung cancer 8 years ago, history of thyroid cancer and preoperative urinary tract infection. POD #1, Complex mitral valve repair with cari-cord to A1, closure of cleft P1-P2 , and annuloplasty with randee 3-D 28 mm ring, closure of PFO, with epi-aortic ultrasonography and closure of the left atrial appendage, and EMELY by anesthesia. Patient is sitting up in a chair position in bed. No acute distress. Oriented 3. Denies any complaints of pain at this time. She is tolerating oral intake. Bedside monitor currently showing ventricular paced rhythm with occasional atrial pace, underlying rhythm is atrial fibrillation heart rate in the mid 40s and 50s. Objective - Vital Signs Vital signs: Vital Signs Temp 98.8 F 02/20/17 04:00 Pulse 60 02/20/17 07:00 Resp 20 02/20/17 07:00 BP 155/50 02/20/17 07:00 Pulse Ox 94 L 02/20/17 07:00 Intake & Output 02/19/17 02/20/17 02/20/17 18:59 06:59 18:59 Intake Total 508.926 408.750 110.731 Output Total 747 1175 60 Balance -238.074 -766.250 50.731 Weight 95.6 kg Intake: IV 474 292 6 Cardiac Output 0.9NS 60 Lactated Ringers 330 220 Pressure Bag 0.9NS 84 72 6 Intake, IV Titration 34.926 116.750 104.731 Amount Clevidipine Butyrate 25 0.033 mg In Empty Bag 1 bag @ 1 MG/HR 2 mls/hr IV .Q24H [facility] Rx#:[id number] Insulin Regular 100 unit 34.893 16.750 4.731 In Sodium Chloride 0.9% 100 ml @ Per Protocol IV .Q0M [facility] Rx#:[id number] Magnesium Sulfate-D5w Pmx 100 100 1 gm In Dextrose/Water 1 100ml.bag @ 100 mls/hr IVPB Q1H [facility] Rx#: [id number] Output: Chest Tube Drainage 130 70 30 Left Plueral X 1 90 70 30 Mediastinal X2 40 Urine 617 1105 30 Other: Voiding Method Indwelling Catheter Indwelling Catheter ABP, PAP, CO, CI - Last Documented Arterial Blood Pressure 110/42 Pulmonary Artery Pressure 36/12 Cardiac Output 3.4 Cardiac Index 1.8 - Constitutional General appearance: Present: cooperative, no acute distress, obese - EENT Eyes: Present: PERRLA, normal appearance ENT: Present: hearing grossly normal - Neck Details: No JVD, right IJ Cordis in place to continuous CVP monitoring. Current CVP is 10. - Respiratory Details: Lung sounds are essentially clear to her bilateral upper lobes, few scattered crackles to her bilateral bases. Respirations are symmetrical and unlabored. Oxygen saturations are 96% on 2 L nasal cannula. Room air oxygen saturations are 90%. She is achieving 500 mL on her incentive spirometry. Left pleural chest tube in place, no air leak. Chest tube remains to low continuous wall suction at -20 cm H2O. It is draining thin serosanguineous drainage, 30 mL output in the last 8 hours, 170 mL output in the last 24 hours. - Cardiovascular Details: Irregular rhythm and rate. S1 and S2 present, positive systolic murmur. +1 generalized edema. Sternum is stable. Heart hugger is in place and she is demonstrating appropriate use. Knee-high CATE hose and sequential compression devices in place to her bilateral lower extremities. A/V epicardial pacemaker wires in place and connected to a pacemaker generator. The pacemaker is on a DDD mode heart rate 60. Bedside telemetry showing ventricular paced with occasional atrial paced rhythm heart rate 60. Underlying rhythm is atrial fibrillation/atrial flutter heart rate in the mid 40s to 50s. - Gastrointestinal Gastrointestinal Comment(s): Abdomen is soft, nontender and nondistended. Passing flatus. Active bowel sounds all 4 abdominal quadrants. Tolerating oral intake. - Genitourinary Genitourinary Comment(s): Ortega catheter for accurate I&O. Urine is clear and yellow. - Integumentary Integumentary Comment(s): Midline sternal incision clean dry and well approximated. Dermabond dressing clean and dry. No drainage noted. - Neurologic Neurologic Comment(s): No focal deficits. Neurologic: Present: CNII-XII intact - Musculoskeletal Musculoskeletal: Present: generalized weakness, strength equal bilaterally - Psychiatric Psychiatric: Present: A&O x's 3, appropriate affect, intact judgment & insight - Allied health notes Allied health notes reviewed: nursing - Labs CBC & Chem 7: 02/20/17 03:00 02/20/17 03:00 Labs: Abnormal Lab Results - Last 24 Hours (Table) 02/19/17 02/19/17 02/19/17 Range/Units 08:03 09:00 09:56 WBC (3.8-10.6) k/uL RBC (3.80-5.40) m/uL Hgb (11.4-16.0) gm/dL Hct (34.0-46.0) % Neutrophils # (1.3-7.7) k/uL BUN (7-17) mg/dL Glucose (74-99) mg/dL POC Glucose (mg/dL) 132 H 139 H 117 H (75-99) mg/dL AST (14-36) U/L ALT (9-52) U/L Total Protein (6.3-8.2) g/dL Albumin (3.5-5.0) g/dL 02/19/17 02/19/17 02/19/17 Range/Units 11:12 11:51 14:00 WBC (3.8-10.6) k/uL RBC (3.80-5.40) m/uL Hgb (11.4-16.0) gm/dL Hct (34.0-46.0) % Neutrophils # (1.3-7.7) k/uL BUN (7-17) mg/dL Glucose (74-99) mg/dL POC Glucose (mg/dL) 108 H 107 H 181 H (75-99) mg/dL AST (14-36) U/L ALT (9-52) U/L Total Protein (6.3-8.2) g/dL Albumin (3.5-5.0) g/dL 02/19/17 02/19/17 02/19/17 Range/Units 15:18 16:03 17:03 WBC (3.8-10.6) k/uL RBC (3.80-5.40) m/uL Hgb (11.4-16.0) gm/dL Hct (34.0-46.0) % Neutrophils # (1.3-7.7) k/uL BUN (7-17) mg/dL Glucose (74-99) mg/dL POC Glucose (mg/dL) 173 H 153 H 134 H (75-99) mg/dL AST (14-36) U/L ALT (9-52) U/L Total Protein (6.3-8.2) g/dL Albumin (3.5-5.0) g/dL 02/19/17 02/19/17 02/19/17 Range/Units 18:05 20:47 22:13 WBC (3.8-10.6) k/uL RBC (3.80-5.40) m/uL Hgb (11.4-16.0) gm/dL Hct (34.0-46.0) % Neutrophils # (1.3-7.7) k/uL BUN (7-17) mg/dL Glucose (74-99) mg/dL POC Glucose (mg/dL) 125 H 108 H 132 H (75-99) mg/dL AST (14-36) U/L ALT (9-52) U/L Total Protein (6.3-8.2) g/dL Albumin (3.5-5.0) g/dL 02/19/17 02/19/17 02/20/17 Range/Units 22:56 23:59 01:02 WBC (3.8-10.6) k/uL RBC (3.80-5.40) m/uL Hgb (11.4-16.0) gm/dL Hct (34.0-46.0) % Neutrophils # (1.3-7.7) k/uL BUN (7-17) mg/dL Glucose (74-99) mg/dL POC Glucose (mg/dL) 133 H 128 H 118 H (75-99) mg/dL AST (14-36) U/L ALT (9-52) U/L Total Protein (6.3-8.2) g/dL Albumin (3.5-5.0) g/dL 02/20/17 02/20/17 02/20/17 Range/Units 02:03 03:00 03:00 WBC 11.3 H (3.8-10.6) k/uL RBC 3.31 L (3.80-5.40) m/uL Hgb 10.2 L (11.4-16.0) gm/dL Hct 30.1 L (34.0-46.0) % Neutrophils # 9.3 H (1.3-7.7) k/uL BUN 19 H (7-17) mg/dL Glucose 111 H (74-99) mg/dL POC Glucose (mg/dL) 118 H (75-99) mg/dL AST 87 H (14-36) U/L ALT 73 H (9-52) U/L Total Protein 5.3 L (6.3-8.2) g/dL Albumin 2.9 L (3.5-5.0) g/dL 02/20/17 02/20/17 02/20/17 Range/Units 03:00 04:00 05:13 WBC (3.8-10.6) k/uL RBC (3.80-5.40) m/uL Hgb (11.4-16.0) gm/dL Hct (34.0-46.0) % Neutrophils # (1.3-7.7) k/uL BUN (7-17) mg/dL Glucose (74-99) mg/dL POC Glucose (mg/dL) 112 H 120 H 122 H (75-99) mg/dL AST (14-36) U/L ALT (9-52) U/L Total Protein (6.3-8.2) g/dL Albumin (3.5-5.0) g/dL 02/20/17 02/20/17 Range/Units 06:11 07:02 WBC (3.8-10.6) k/uL RBC (3.80-5.40) m/uL Hgb (11.4-16.0) gm/dL Hct (34.0-46.0) % Neutrophils # (1.3-7.7) k/uL BUN (7-17) mg/dL Glucose (74-99) mg/dL POC Glucose (mg/dL) 121 H 138 H (75-99) mg/dL AST (14-36) U/L ALT (9-52) U/L Total Protein (6.3-8.2) g/dL Albumin (3.5-5.0) g/dL - Imaging and Cardiology Chest x-ray: report reviewed, image reviewed Assessment and Plan (1) Status post mitral valve repair Status: Acute (2) Chronic congestive heart failure Status: Acute (3) Diabetes Status: Acute (4) HTN (hypertension) Status: Acute (5) History of lobectomy of lung Status: Acute (6) History of lung cancer Status: Acute (7) History of pulmonary embolism Status: Acute (8) History of thyroid cancer Status: Acute (9) Hyperlipemia Status: Acute (10) Mitral regurgitation Status: Acute (11) Paroxysmal atrial fibrillation Status: Acute (12) Tobacco dependence in remission Status: Acute (13) History of urinary tract infection Status: Acute Plan: 1. Continue aspirin, heparin subcu, Plavix, and beta samira. We will maximize beta samira therapy as tolerated. Metoprolol was held yesterday as her heart rate is less than 60. 2. Amiodarone 150 mg bolus, followed by amiodarone 200 mg by mouth twice a day will be initiated for her atrial fibrillation. 3. Wean oxygen as tolerated. Pulmonary recommendations per Dr. Trujillo. 4. Coumadin 2 mg by mouth today, with daily PT and INRs. History of pulmonary embolus. 5. We will continue to hold her Lipitor as her liver enzymes are trending down. We will restart the Lipitor and her liver enzymes normalize. 6. We will monitor daily labs and chest x-ray. 7. Physical therapy will be consulted to assist with ambulation. Increase activity as tolerated. 8. piece worker consulted for discharge planning to rehab. 9. Dr. Thompson was consulted to evaluate for possible acceptance to [facility] rehabilitation upon discharge. 10. Encourage use of her incentive spirometry every hour while awake. 11. GI and DVT prophylaxis. 12. We will remove her left pleural chest tube 13. Further recommendations as the patient progresses and care. Time with Patient: Greater than 30 <Jerome Mason - Last Filed: 02/20/17 13:12> Objective - Vital Signs Vital signs: Vital Signs Temp 98.1 F 02/20/17 08:00 Pulse 76 02/20/17 12:21 Resp 13 02/20/17 10:00 BP 144/55 02/20/17 10:00 Pulse Ox 95 02/20/17 10:00 Intake & Output 02/19/17 02/20/17 02/20/17 18:59 06:59 18:59 Intake Total 508.926 408.750 203.216 Output Total 747 1175 330 Balance -238.074 -766.250 -126.784 Weight 95.6 kg Intake: IV 474 292 84 Cardiac Output 0.9NS 60 Lactated Ringers 330 220 60 Pressure Bag 0.9NS 84 72 24 Intake, IV Titration 34.926 116.750 119.216 Amount Clevidipine Butyrate 25 0.033 mg In Empty Bag 1 bag @ 1 MG/HR 2 mls/hr IV .Q24H [facility] Rx#:[id number] Insulin Regular 100 unit 34.893 16.750 19.216 In Sodium Chloride 0.9% 100 ml @ Per Protocol IV .Q0M [facility] Rx#:[id number] Magnesium Sulfate-D5w Pmx 100 100 1 gm In Dextrose/Water 1 100ml.bag @ 100 mls/hr IVPB Q1H [facility] Rx#: [id number] Output: Chest Tube Drainage 130 70 30 Left Plueral X 1 90 70 30 Mediastinal X2 40 Urine 617 1105 300 Other: Voiding Method Indwelling Catheter Indwelling Catheter Indwelling Catheter # Bowel Movements 0 ABP, PAP, CO, CI - Last Documented Arterial Blood Pressure 95/42 Pulmonary Artery Pressure 36/12 Cardiac Output 3.4 Cardiac Index 1.8 - Labs CBC & Chem 7: 02/20/17 03:00 02/20/17 03:00 Labs: Abnormal Lab Results - Last 24 Hours (Table) 02/19/17 02/19/17 02/19/17 Range/Units 14:00 15:18 16:03 WBC (3.8-10.6) k/uL RBC (3.80-5.40) m/uL Hgb (11.4-16.0) gm/dL Hct (34.0-46.0) % Neutrophils # (1.3-7.7) k/uL BUN (7-17) mg/dL Glucose (74-99) mg/dL POC Glucose (mg/dL) 181 H 173 H 153 H (75-99) mg/dL AST (14-36) U/L ALT (9-52) U/L Total Protein (6.3-8.2) g/dL Albumin (3.5-5.0) g/dL 02/19/17 02/19/17 02/19/17 Range/Units 17:03 18:05 20:47 WBC (3.8-10.6) k/uL RBC (3.80-5.40) m/uL Hgb (11.4-16.0) gm/dL Hct (34.0-46.0) % Neutrophils # (1.3-7.7) k/uL BUN (7-17) mg/dL Glucose (74-99) mg/dL POC Glucose (mg/dL) 134 H 125 H 108 H (75-99) mg/dL AST (14-36) U/L ALT (9-52) U/L Total Protein (6.3-8.2) g/dL Albumin (3.5-5.0) g/dL 02/19/17 02/19/17 02/19/17 Range/Units 22:13 22:56 23:59 WBC (3.8-10.6) k/uL RBC (3.80-5.40) m/uL Hgb (11.4-16.0) gm/dL Hct (34.0-46.0) % Neutrophils # (1.3-7.7) k/uL BUN (7-17) mg/dL Glucose (74-99) mg/dL POC Glucose (mg/dL) 132 H 133 H 128 H (75-99) mg/dL AST (14-36) U/L ALT (9-52) U/L Total Protein (6.3-8.2) g/dL Albumin (3.5-5.0) g/dL 02/20/17 02/20/17 02/20/17 Range/Units 01:02 02:03 03:00 WBC (3.8-10.6) k/uL RBC (3.80-5.40) m/uL Hgb (11.4-16.0) gm/dL Hct (34.0-46.0) % Neutrophils # (1.3-7.7) k/uL BUN 19 H (7-17) mg/dL Glucose 111 H (74-99) mg/dL POC Glucose (mg/dL) 118 H 118 H (75-99) mg/dL AST 87 H (14-36) U/L ALT 73 H (9-52) U/L Total Protein 5.3 L (6.3-8.2) g/dL Albumin 2.9 L (3.5-5.0) g/dL 02/20/17 02/20/17 02/20/17 Range/Units 03:00 03:00 04:00 WBC 11.3 H (3.8-10.6) k/uL RBC 3.31 L (3.80-5.40) m/uL Hgb 10.2 L (11.4-16.0) gm/dL Hct 30.1 L (34.0-46.0) % Neutrophils # 9.3 H (1.3-7.7) k/uL BUN (7-17) mg/dL Glucose (74-99) mg/dL POC Glucose (mg/dL) 112 H 120 H (75-99) mg/dL AST (14-36) U/L ALT (9-52) U/L Total Protein (6.3-8.2) g/dL Albumin (3.5-5.0) g/dL 02/20/17 02/20/17 02/20/17 Range/Units 05:13 06:11 07:02 WBC (3.8-10.6) k/uL RBC (3.80-5.40) m/uL Hgb (11.4-16.0) gm/dL Hct (34.0-46.0) % Neutrophils # (1.3-7.7) k/uL BUN (7-17) mg/dL Glucose (74-99) mg/dL POC Glucose (mg/dL) 122 H 121 H 138 H (75-99) mg/dL AST (14-36) U/L ALT (9-52) U/L Total Protein (6.3-8.2) g/dL Albumin (3.5-5.0) g/dL 02/20/17 02/20/17 02/20/17 Range/Units 07:58 09:57 11:45 WBC (3.8-10.6) k/uL RBC (3.80-5.40) m/uL Hgb (11.4-16.0) gm/dL Hct (34.0-46.0) % Neutrophils # (1.3-7.7) k/uL BUN (7-17) mg/dL Glucose (74-99) mg/dL POC Glucose (mg/dL) 178 H 157 H 129 H (75-99) mg/dL AST (14-36) U/L ALT (9-52) U/L Total Protein (6.3-8.2) g/dL Albumin (3.5-5.0) g/dL Assessment and Plan Plan: The patient was seen and examined. I agree with the above assessment and plan. She was given amiodarone for atrial fibrillation. We will resume her Coumadin. Her Plavix is discontinued. We have removed her chest tubes. She' ll be given Lasix. We will continue to encourage ambulation and incentive spirometry.
[2017-02-20] MEDS ORDERED: DEXTROSE 5% IN WATER 100 ML with AMIODARONE 150 MG IV ONE (09:30)
[2017-02-20] MEDS: AMIODARONE 200 MG TAB PO SCH ×2 (09:53→21:18)
[2017-02-20 10:18] LABS: Glucose,Whole Blood 157 mg/dL (75-99)
[2017-02-20 11:48] LABS: Glucose,Whole Blood 129 mg/dL (75-99)
--- NOTE | 2017-02-20 12:41 | P.PN ---
Subjective Principal diagnosis: Severe mitral valve regurgitation, status post mitral valve repair postoperative day #2 his is a 71-year-old female with history of multiple medical problems including wjn-[id number] diabetes, history of pulmonary embolism, chronic mitral regurgitation, and atrial fibrillation as well as hypothyroidism. Patient was recently evaluated by cardiac surgery for possible mitral valve repair, and electively the patient underwent mitral valve repair today, postoperatively she was on mechanical ventilation, and I was asked to see her on consultation. Patient is presently on mechanical ventilation, vent settings where at rest by Dr. García and he placed on a tidal volume of 600 assist control rate of 10, and FiO2 of 50%. PEEP of 5. Chest x-ray showed minimal nonspecific atelectasis at the bases. Patient was reevaluated today on 02/19/2017, underwent mitral valve repair on 2016, patient had a relatively uneventful postoperative course, extubated last night uneventfully. Doing well today, relatively asymptomatic. Chest x-ray showed mostly postoperative changes and possibly some left lower lobe atelectasis and right basilar atelectasis. Small tiny effusion is suspected on the left side. CBC was reviewed, and basic metabolic profile was also reviewed. Patient was reevaluated today on 02/20/2017, no active pulmonary symptoms, patient seems to be fully paced, she seems to have an underlying bradycardia, and looking at the rhythm strip, possible Wenckebach. Clinically however the patient is asymptomatic, no cough no wheezing no shortness of breath. CBC is normal. Electrolytes are normal. Renal profile is normal. Chest x-ray is showing mostly platelike atelectasis basically in the left lower lobe. And a small left effusion. Objective - Vital Signs Vital signs: Vital Signs Temp 98.1 F 02/20/17 08:00 Pulse 76 02/20/17 12:21 Resp 13 02/20/17 10:00 BP 144/55 02/20/17 10:00 Pulse Ox 95 02/20/17 10:00 Intake & Output 02/19/17 02/20/17 02/20/17 18:59 06:59 18:59 Intake Total 508.926 408.750 196.466 Output Total 747 1175 330 Balance -238.074 -766.250 -133.534 Weight 95.6 kg Intake: IV 474 292 84 Cardiac Output 0.9NS 60 Lactated Ringers 330 220 60 Pressure Bag 0.9NS 84 72 24 Intake, IV Titration 34.926 116.750 112.466 Amount Clevidipine Butyrate 25 0.033 mg In Empty Bag 1 bag @ 1 MG/HR 2 mls/hr IV .Q24H [facility] Rx#:[id number] Insulin Regular 100 unit 34.893 16.750 12.466 In Sodium Chloride 0.9% 100 ml @ Per Protocol IV .Q0M [facility] Rx#:[id number] Magnesium Sulfate-D5w Pmx 100 100 1 gm In Dextrose/Water 1 100ml.bag @ 100 mls/hr IVPB Q1H [facility] Rx#: [id number] Output: Chest Tube Drainage 130 70 30 Left Plueral X 1 90 70 30 Mediastinal X2 40 Urine 617 1105 300 Other: Voiding Method Indwelling Catheter Indwelling Catheter Indwelling Catheter # Bowel Movements 0 ABP, PAP, CO, CI - Last Documented Arterial Blood Pressure 95/42 Pulmonary Artery Pressure 36/12 Cardiac Output 3.4 Cardiac Index 1.8 - Exam Physical Exam: Revealed a 71-year-old female in no distress. HEENT:[Neck is supple.] [No neck masses.] [No thyromegaly.] [No JVD.] Chest: [Diminished breath sounds and crackles at the bases..] Cardiac Exam: [Normal S1 and S2, no S3 gallop, no murmur.] Abdomen: [Soft, nontender, no megaly, no rebound, no guarding, normal bowel sounds.] Extremities: [No clubbing, no edema, no cyanosis.] Neurological Exam: [No focal neurologic deficit.] - Labs CBC & Chem 7: 02/20/17 03:00 02/20/17 03:00 Labs: Abnormal Lab Results - Last 24 Hours (Table) 02/19/17 02/19/17 02/19/17 Range/Units 14:00 15:18 16:03 WBC (3.8-10.6) k/uL RBC (3.80-5.40) m/uL Hgb (11.4-16.0) gm/dL Hct (34.0-46.0) % Neutrophils # (1.3-7.7) k/uL BUN (7-17) mg/dL Glucose (74-99) mg/dL POC Glucose (mg/dL) 181 H 173 H 153 H (75-99) mg/dL AST (14-36) U/L ALT (9-52) U/L Total Protein (6.3-8.2) g/dL Albumin (3.5-5.0) g/dL 02/19/17 02/19/17 02/19/17 Range/Units 17:03 18:05 20:47 WBC (3.8-10.6) k/uL RBC (3.80-5.40) m/uL Hgb (11.4-16.0) gm/dL Hct (34.0-46.0) % Neutrophils # (1.3-7.7) k/uL BUN (7-17) mg/dL Glucose (74-99) mg/dL POC Glucose (mg/dL) 134 H 125 H 108 H (75-99) mg/dL AST (14-36) U/L ALT (9-52) U/L Total Protein (6.3-8.2) g/dL Albumin (3.5-5.0) g/dL 02/19/17 02/19/17 02/19/17 Range/Units 22:13 22:56 23:59 WBC (3.8-10.6) k/uL RBC (3.80-5.40) m/uL Hgb (11.4-16.0) gm/dL Hct (34.0-46.0) % Neutrophils # (1.3-7.7) k/uL BUN (7-17) mg/dL Glucose (74-99) mg/dL POC Glucose (mg/dL) 132 H 133 H 128 H (75-99) mg/dL AST (14-36) U/L ALT (9-52) U/L Total Protein (6.3-8.2) g/dL Albumin (3.5-5.0) g/dL 02/20/17 02/20/17 02/20/17 Range/Units 01:02 02:03 03:00 WBC (3.8-10.6) k/uL RBC (3.80-5.40) m/uL Hgb (11.4-16.0) gm/dL Hct (34.0-46.0) % Neutrophils # (1.3-7.7) k/uL BUN 19 H (7-17) mg/dL Glucose 111 H (74-99) mg/dL POC Glucose (mg/dL) 118 H 118 H (75-99) mg/dL AST 87 H (14-36) U/L ALT 73 H (9-52) U/L Total Protein 5.3 L (6.3-8.2) g/dL Albumin 2.9 L (3.5-5.0) g/dL 02/20/17 02/20/17 02/20/17 Range/Units 03:00 03:00 04:00 WBC 11.3 H (3.8-10.6) k/uL RBC 3.31 L (3.80-5.40) m/uL Hgb 10.2 L (11.4-16.0) gm/dL Hct 30.1 L (34.0-46.0) % Neutrophils # 9.3 H (1.3-7.7) k/uL BUN (7-17) mg/dL Glucose (74-99) mg/dL POC Glucose (mg/dL) 112 H 120 H (75-99) mg/dL AST (14-36) U/L ALT (9-52) U/L Total Protein (6.3-8.2) g/dL Albumin (3.5-5.0) g/dL 02/20/17 02/20/17 02/20/17 Range/Units 05:13 06:11 07:02 WBC (3.8-10.6) k/uL RBC (3.80-5.40) m/uL Hgb (11.4-16.0) gm/dL Hct (34.0-46.0) % Neutrophils # (1.3-7.7) k/uL BUN (7-17) mg/dL Glucose (74-99) mg/dL POC Glucose (mg/dL) 122 H 121 H 138 H (75-99) mg/dL AST (14-36) U/L ALT (9-52) U/L Total Protein (6.3-8.2) g/dL Albumin (3.5-5.0) g/dL 02/20/17 02/20/17 02/20/17 Range/Units 07:58 09:57 11:45 WBC (3.8-10.6) k/uL RBC (3.80-5.40) m/uL Hgb (11.4-16.0) gm/dL Hct (34.0-46.0) % Neutrophils # (1.3-7.7) k/uL BUN (7-17) mg/dL Glucose (74-99) mg/dL POC Glucose (mg/dL) 178 H 157 H 129 H (75-99) mg/dL AST (14-36) U/L ALT (9-52) U/L Total Protein (6.3-8.2) g/dL Albumin (3.5-5.0) g/dL Assessment and Plan Plan: Impression: 1Status post mitral valve repair postoperative day #2 2 multiple comorbidities including history of pulmonary embolism, diabetes, hypertension, thyroid cancer, history of bariatric surgery, history of partial thyroidectomy and history of left lower lobectomy. Recommendation: Continue present supportive measures, continue incentive spirometry, ambulation, we will follow. Cardiology to address her arrhythmia. Time with Patient: Less than 30
--- NOTE | 2017-02-20 13:22 | PN ---
PROGRESS NOTE Leona is a 71-year-old lady who underwent mitral valve repair and today is postop day #3. She is doing well. Still using permanent pacemaker. Has developed atrial fibrillation. Heart rate apparently had an episode of atrial fibrillation with heart rates in the 80s and 90s. Currently she is paced. Underlying heart rate is around 40 to 50 beats per minute. The patient had been started on amiodarone and dose of Coumadin. EXAM: On exam, comfortable at rest. Heart rate is 76 beats per minute. Blood pressure is 100/60, respirations 18. Chest exam reveals diminished air entry at the bases. Heart exam reveals first and second heart sounds. No gallop. Exam of extremities did not reveal any edema. Peripheral pulses are palpable. LABS: A creatinine of 0.9. Potassium is 4.8. AST and ALT are elevated. ASSESSMENT: 1. Status post mitral valve repair. 2. High-grade AV block, probably secondary to the perioperative trauma to the conduction system. 3. Chronic atrial fibrillation. PLAN: I will decrease the pacer rate down to 50 beats per minute. Stop the Lopressor and decide on further course of action based on how she evolves from here. MMODL / IJN: [id number] /
[2017-02-20 15:16] LABS: Glucose,Whole Blood 163 mg/dL (75-99)
[2017-02-20] MEDS: LACTATED RINGERS 1,000 ML IV SCH (15:19)
[2017-02-20 15:57] LABS: Glucose,Whole Blood 154 mg/dL (75-99)
[2017-02-20] MEDS ORDERED: WARFARIN 2 MG TAB PO ONE (18:00)
[2017-02-20 18:23] LABS: Glucose,Whole Blood 133 mg/dL (75-99)
[2017-02-20 20:07] LABS: Glucose,Whole Blood 107 mg/dL (75-99)
[2017-02-20] MEDS: SENNOSIDES-DOCUSATE SODIUM 1 EACH TAB PO SCH (20:20)
[2017-02-20 22:07] LABS: Glucose,Whole Blood 149 mg/dL (75-99)
[2017-02-21 00:40] LABS: Glucose,Whole Blood 134 mg/dL (75-99)
[2017-02-21 02:15] LABS: Glucose,Whole Blood 119 mg/dL (75-99)
[2017-02-21 04:12] LABS: Glucose,Whole Blood 117 mg/dL (75-99)
[2017-02-21 04:23] LABS: Basophils % (A) 0 %; CH 30.5; Eosinophils # (A) 0.4 k/uL (0-0.7); Eosinophils % (A) 4 %; HCT 28.1 % (34.0-46.0); HDW 2.61; HGB 9.7 gm/dL (11.4-16.0); Luc # (Auto) 0.15; Luc % (Auto) 2; Lymphocytes # (A) 2.2 k/uL (1.0-4.8); Lymphocytes % (A) 22 %; MCH 31.1 pg (25.0-35.0); MCHC 34.6 g/dL (31.0-37.0); Mean Platelet Volume 7.7; Monocytes # (A) 0.4 k/uL (0-1.0); Monocytes % (A) 4 %; Neutrophils % (A) 69 %; RBC 3.12 m/uL (3.80-5.40); RDW 13.1 % (11.5-15.5); WBC 10.2 k/uL (3.8-10.6); WBC (Perox) 10.24
[2017-02-21 04:32] LABS: Prothrombin Time 10.6 sec (9.0-12.0)
[2017-02-21 04:34] LABS: ALT 44 U/L (9-52); AST 34 U/L (14-36); Alkaline Phosphatase 64 U/L (38-126); Anion Gap 5 mmol/L; Blood Urea Nitrogen 21 mg/dL (7-17); Calcium 7.8 mg/dL (8.4-10.2); Carbon Dioxide 25 mmol/L (22-30); Chloride 103 mmol/L (98-107); Glucose 107 mg/dL (74-99); Non-African American GFR(MDRD) >60 (>60 ml/min/1.73 sqM); Phosphorous 4.1 mg/dL (2.5-4.5); Potassium 4.5 mmol/L (3.5-5.1); Sodium 133 mmol/L (137-145); Total Bilirubin 0.5 mg/dL (0.2-1.3); Total Protein 4.9 g/dL (6.3-8.2)
[2017-02-21 06:31] LABS: Glucose,Whole Blood 111 mg/dL (75-99)
[2017-02-21] MEDS: LEVOTHYROXINE 100 MCG TAB PO SCH (06:31)
--- NOTE | 2017-02-21 07:13 | XR ---
EXAMINATION TYPE: XR chest 1V portable DATE OF EXAM: 02/21/2017 COMPARISON: 02/20/2017 HISTORY: Postop cardiac surgery. Chest pain. TECHNIQUE: Single frontal view of the chest is obtained. FINDINGS: New radiopaque tubular structure overlies the right mid mediastinum and is thought to be e xternal to the patient. Median sternotomy wires and mediastinal clips are again noted. Similar retroc ardiac density demonstrates meniscus sign and relates to small layering pleural effusion with associa sharon atelectasis. Airspace disease is also noted at the right cardiophrenic angle and there is obscura tion of the right costophrenic angle with subsegmental linear atelectasis radiating from both [place]. H eart remains enlarged. Degenerative changes of the thoracic spine are again noted. No pneumothorax is seen. IMPRESSION: 1. Small layering left pleural effusion and trace right pleural effusion with scattered subsegmental bilateral atelectasis. Retrocardiac airspace disease likely relates to the pleural effusion and atele ctasis although superimposed infection is also a possibility.
--- NOTE | 2017-02-21 07:20 | P.CONS ---
History of Present Illness - Chief Complaint Cardiac debility - History of Present Illness I had the op to see patient for inpatient rehab consultation with regard to cardiac debility. She was admitted for and underwent elective MVR Dr. Ricky Perales. Seen by pulmonology in ICU. Chest x-ray demonstrates mild left pleural effusion and subsegmental atelectasis. PT reports moderate assistance for bed mobility minimal assistance for functional ability and gait 30 feet with IV pole. OT prescribed. Previous functional history as elicited from patient: 71-year-old right-handed white female who is lives in second-floor apartment alone. Retired. Independent with cooking, laundry, driving, standing shower and gait with [address] Lentz is regular doctor. Family history both parents were smokers. Review of Systems Review of systems: ENT: Denies sneezes or discharge. Eyes: Denies discharge or photophobia. Cardiac: Denies chest pain or palpitation. Pulmonary: Denies cough or shortness of breath. Breast: Denies discharge or lumps. Gastrointestinal: Denies nausea, emesis, constipation, diarrhea. Genitourinary: Denies discharge or frequency. Musculoskeletal: Denies muscle or bone aches. Neurologic: Denies motor or sensory change. Endocrine: Denies shakes or sweats. Oncology: Denies cancers. Dermatologic: Denies rash, itching, pruritus. ALLERGY/immunology: Denies sneezes, rashes. Past Medical History Past Medical History: Atrial Fibrillation, Blood Disorder, Cancer, Heart Failure , Diabetes Mellitus, GERD/Reflux, Hypertension, Osteoarthritis (OA), Pulmonary Embolus (PE), Sleep Apnea/CPAP/BIPAP Additional Past Medical History / Comment(s): Hx lung cancer-8 yrs. ago, thyroid cancer @least 10 yrs., hx. of multiple pulmonary embolisms about 8 yrs. ago-clotting disorder-not sure what it's called, unable to use CPAP, wearing life vest, finished antibiotic for UTI History of Any Multi-Drug Resistant Organisms: None Reported Past Surgical History: Bariatric Surgery, Section, Cholecystectomy, Heart Catheterization, Tubal Ligation Additional Past Surgical History / Comment(s): Pt stated that she fractured toe , left lung lower lobe removed, partial thyroidectomy, bilateral cataract surgery, rouxen y gastric bypass Past Anesthesia/Blood Transfusion Reactions: Postoperative Nausea & Vomiting ( PONV) Past Psychological History: Anxiety, Depression Additional Psychological History / Comment(s): pt lives alone, uses a walker when up for balance Smoking Status: Never smoker Past Alcohol Use History: None Reported Past Drug Use History: None Reported - Past Family History Mother Family Medical History: No Reported History Additional Family Medical History / Comment(s): age 94 from "natural causes " Father Family Medical History: Diabetes Mellitus, Myocardial Infarction (MT) Medications and Allergies Home Medications Medication Instructions Recorded Confirmed Type Cholecalciferol [Vitamin D3] 5,000 units PO BID 01/09/14 02/18/17 History Furosemide [Lasix] 40 mg PO DAILY 01/09/14 02/18/17 History Multivitamins, Thera [Multivitamin 1 tab PO DAILY 01/09/14 02/18/17 History (formulary)] Omeprazole 40 mg PO DAILY 01/09/14 02/18/17 History Warfarin [Coumadin] 1 mg PO HS 01/09/14 02/18/17 History Lisinopril [Zestril] 5 mg PO DAILY 01/07/17 02/18/17 History Acetaminophen [Tylenol Arthritis] 650 mg PO DAILY PRN 01/11/17 02/18/17 History Isosorbide Mononitrate ER [Imdur] 30 mg PO DAILY #30 tab 01/11/17 02/18/17 Rx Levothyroxine Sodium [Synthroid] 100 mcg PO DAILY 01/11/17 02/18/17 History metFORMIN HCL [Glucophage] 500 mg PO BID 01/11/17 02/18/17 History Spironolactone [Aldactone] 25 mg PO DAILY #30 tab 01/12/17 02/18/17 Rx ALPRAZolam [Xanax] 0.25 mg PO BID PRN 01/15/17 02/18/17 History Atenolol 25 mg PO BID #60 01/20/17 02/18/17 Rx Amiodarone [Cordarone] 200 mg PO BID 02/09/17 02/18/17 History Mupirocin 2% Nasal Oint [Bactroban 1 applic NASAL BID 02/17/17 02/18/17 History 2% Nasal Oint] Aspirin 325 mg PO ONCE 02/18/17 02/18/17 History Allergies Allergy/AdvReac Type Severity Reaction Status Date / Time iodine AdvReac Intermediate MOTHER IS Verified 02/18/17 06:05 ALLERGIC lactose AdvReac Diarrhea Verified 02/20/17 03:09 latex AdvReac Rash/Hives Verified 02/18/17 06:05 Physical Exam Vitals: Vital Signs Temp Pulse Resp BP Pulse Ox 02/21/17 07:00 60 20 131/53 94 L 02/21/17 06:00 68 12 135/64 99 02/21/17 05:00 67 18 138/61 100 02/21/17 04:00 98.2 F 68 18 150/60 99 02/21/17 03:00 68 19 146/58 98 02/21/17 02:00 69 18 143/56 96 02/21/17 01:00 71 20 154/64 96 02/21/17 00:00 98.7 F 74 19 153/63 95 02/20/17 23:00 79 27 H 136/59 95 02/20/17 22:00 58 L 29 H 120/51 92 L 02/20/17 21:00 68 58 H 145/55 94 L 02/20/17 20:05 55 L 02/20/17 20:00 98.8 F 54 L 18 142/49 90 L 02/20/17 19:58 54 L 02/20/17 19:00 53 L 20 128/58 90 L 02/20/17 18:00 57 L 27 H 118/48 92 L 02/20/17 17:00 66 27 H 135/51 93 L 02/20/17 16:13 57 L 02/20/17 16:00 49 L 24 124/46 94 L 02/20/17 15:00 98.4 F 50 L 26 H 127/42 95 02/20/17 14:00 50 L 22 117/46 93 L 02/20/17 13:00 53 L 22 115/55 93 L 02/20/17 12:21 76 02/20/17 12:13 62 02/20/17 12:00 98.4 F 59 L 24 103/67 88 L 02/20/17 11:00 59 L 22 147/55 95 02/20/17 10:00 82 13 144/55 95 02/20/17 09:03 66 02/20/17 09:00 59 L 16 158/58 98 02/20/17 08:50 66 02/20/17 08:00 98.1 F 104 H 25 H 159/70 95 Intake and Output 02/20/17 02/21/17 02/21/17 22:59 06:59 14:59 Intake Total 622.492 215.643 26 Output Total 140 460 50 Balance 482.492 -244.357 -24 Intake: IV 202 208 26 Lactated Ringers 160 160 20 Pressure Bag 0.9NS 42 48 6 Intake, IV Titration 20.492 7.643 Amount Insulin Regular 100 unit 20.492 7.643 In Sodium Chloride 0.9% 100 ml @ Per Protocol IV .Q0M [facility] Rx#:[id number] Oral 400 Output: Urine 140 460 50 Other: Voiding Method Indwelling Catheter Indwelling Catheter Weight 96.5 kg Skin: Good color, texture, turgor. General: Obese and comfortable appearance. Head: Normocephalic, atraumatic. Eyes: Symmetric. Pupils equal round. Ears: Symmetric. Hearing within normal limits. Mouth: Clear. Neck: Supple. Carotid without bruit. Cardiac: Regular rate and rhythm. Surgical dressing anterior chest. Lungs: Clear anteriorly and posteriorly. Abdomen: Soft active nontender. Extremities: Normal tone. Edema noted lowers. Neurological: Mental status: Alert, cooperative, pleasant. Cranial nerves: Symmetric facial tone and trapezius. Motor: Can actively elevate all limbs off of bed. Sensation: Intact throughout. DTRs: Symmetric and equal throughout. Mobility: Currently receiving a.m. dressing care. Results CBC & Chem 7: 02/21/17 04:10 02/21/17 04:10 Labs: Abnormal Lab Results - Last 24 Hours (Table) 02/20/17 02/20/17 02/20/17 Range/Units 07:58 09:57 11:45 RBC (3.80-5.40) m/uL Hgb (11.4-16.0) gm/dL Hct (34.0-46.0) % Sodium (137-145) mmol/L BUN (7-17) mg/dL Glucose (74-99) mg/dL POC Glucose (mg/dL) 178 H 157 H 129 H (75-99) mg/dL Calcium (8.4-10.2) mg/dL Total Protein (6.3-8.2) g/dL Albumin (3.5-5.0) g/dL 02/20/17 02/20/17 02/20/17 Range/Units 15:15 15:56 18:22 RBC (3.80-5.40) m/uL Hgb (11.4-16.0) gm/dL Hct (34.0-46.0) % Sodium (137-145) mmol/L BUN (7-17) mg/dL Glucose (74-99) mg/dL POC Glucose (mg/dL) 163 H 154 H 133 H (75-99) mg/dL Calcium (8.4-10.2) mg/dL Total Protein (6.3-8.2) g/dL Albumin (3.5-5.0) g/dL 02/20/17 02/20/17 02/21/17 Range/Units 20:05 22:06 00:37 RBC (3.80-5.40) m/uL Hgb (11.4-16.0) gm/dL Hct (34.0-46.0) % Sodium (137-145) mmol/L BUN (7-17) mg/dL Glucose (74-99) mg/dL POC Glucose (mg/dL) 107 H 149 H 134 H (75-99) mg/dL Calcium (8.4-10.2) mg/dL Total Protein (6.3-8.2) g/dL Albumin (3.5-5.0) g/dL 02/21/17 02/21/17 02/21/17 Range/Units 02:14 04:09 04:10 RBC (3.80-5.40) m/uL Hgb (11.4-16.0) gm/dL Hct (34.0-46.0) % Sodium 133 L (137-145) mmol/L BUN 21 H (7-17) mg/dL Glucose 107 H (74-99) mg/dL POC Glucose (mg/dL) 119 H 117 H (75-99) mg/dL Calcium 7.8 L (8.4-10.2) mg/dL Total Protein 4.9 L (6.3-8.2) g/dL Albumin 2.5 L (3.5-5.0) g/dL 02/21/17 02/21/17 Range/Units 04:10 06:30 RBC 3.12 L (3.80-5.40) m/uL Hgb 9.7 L (11.4-16.0) gm/dL Hct 28.1 L (34.0-46.0) % Sodium (137-145) mmol/L BUN (7-17) mg/dL Glucose (74-99) mg/dL POC Glucose (mg/dL) 111 H (75-99) mg/dL Calcium (8.4-10.2) mg/dL Total Protein (6.3-8.2) g/dL Albumin (3.5-5.0) g/dL Chest x-ray: report reviewed (Mild left pleural effusion and bilateral subsegmental atelectasis.) Assessment and Plan (1) Status post mitral valve repair Status: Acute Plan: Impression: 1. Cardiac debility. 2. MVR. 3. Morbidly obese. 4. History of lung cancer. 5. Atrial fibrillation. 6. Hypertension. 7. Diabetes. 8. Sleep apnea. Comments and plan: At this time PT is ongoing in demonstrates safety concerns. OT prescribed. We'll follow for possible inpatient rehab.
[2017-02-21 08:04] LABS: Glucose,Whole Blood 150 mg/dL (75-99)
[2017-02-21 08:11] LABS: ABG Base Excess -2.8 mmol/L; ABG HCO3 21 mmol/L (21-25); ABG Hematocrit 36 % (34.0-46.0); ABG Oxygen Saturation 99.9 % (94-97); ABG PCO2 35 mmHg (35-45); ABG PH 7.39 (7.35-7.45); ABG PO2 333 mmHg (83-108); ABG TCO2 22 mmol/L (19-24)
[2017-02-21 08:12] LABS: ABG HCO3 21 mmol/L (21-25); ABG Hematocrit 35 % (34.0-46.0); ABG Oxygen Saturation 99.9 % (94-97); ABG PCO2 35 mmHg (35-45); ABG PH 7.39 (7.35-7.45); ABG PO2 258 mmHg (83-108); ABG TCO2 22 mmol/L (19-24)
[2017-02-21] MEDS: IPRATROPIUM-ALBUTEROL 3 ML NEB INHALATION SCH ×4 (08:12→20:52)
[2017-02-21 08:18] LABS: ABG Base Excess -2.7 mmol/L; ABG HCO3 24 mmol/L (21-25); ABG PCO2 54 mmHg (35-45); ABG PH 7.27 (7.35-7.45); ABG PO2 294 mmHg (83-108); ABG TCO2 25 mmol/L (19-24)
[2017-02-21 08:19] LABS: ABG Hematocrit 28 % (34.0-46.0); ABG Oxygen Saturation 99.9 % (94-97)
[2017-02-21 08:19] LABS: ABG HCO3 22 mmol/L (21-25); ABG PCO2 38 mmHg (35-45); ABG PH 7.38 (7.35-7.45); ABG PO2 279 mmHg (83-108); ABG TCO2 23 mmol/L (19-24)
[2017-02-21 08:20] LABS: ABG PCO2 47 mmHg (35-45); ABG PH 7.29 (7.35-7.45); ABG PO2 315 mmHg (83-108)
[2017-02-21 08:20] LABS: ABG Base Excess -2.3 mmol/L; ABG Hematocrit 26 % (34.0-46.0); ABG Oxygen Saturation 99.9 % (94-97)
[2017-02-21 08:21] LABS: ABG PCO2 38 mmHg (35-45); ABG PH 7.36 (7.35-7.45)
[2017-02-21 08:21] LABS: ABG Base Excess -3.9 mmol/L; ABG HCO3 22 mmol/L (21-25); ABG Hematocrit 27 % (34.0-46.0); ABG Oxygen Saturation 99.9 % (94-97); ABG TCO2 23 mmol/L (19-24)
[2017-02-21 08:22] LABS: ABG Base Excess -3.9 mmol/L; ABG HCO3 21 mmol/L (21-25); ABG Hematocrit 29 % (34.0-46.0); ABG Oxygen Saturation 99.5 % (94-97); ABG PO2 177 mmHg (83-108); ABG TCO2 22 mmol/L (19-24)
[2017-02-21] MEDS: ASPIRIN 325 MG TAB PO SCH (10:04)
[2017-02-21] MEDS: AMIODARONE 200 MG TAB PO SCH (10:04)
[2017-02-21] MEDS: FUROSEMIDE 10 MG/ML 2 ML VIAL IV SCH ×2 (10:04→20:54)
[2017-02-21] MEDS: PANTOPRAZOLE 40 MG TABLET PO SCH (10:04)
[2017-02-21] MEDS: HEPARIN SODIUM,PORCINE 5,000 UNIT/ML 1 ML VIAL SQ SCH ×2 (10:04→17:02)
--- NOTE | 2017-02-21 10:04 | P.PN ---
<Myrtle Raymond - Last Filed: 02/21/17 09:55> Subjective Principal diagnosis: Severe mitral regurgitation. History of atrial fibrillation. History of congestive heart failure. Diabetes mellitus type 2. Gastroesophageal reflux disease. Hypertension. History of pulmonary embolus. Osteoarthritis. Sleep apnea with CPAP use at home. History of lung cancer approximately 8 years ago. History of thyroid cancer. Preoperative urinary tract infection. POD #3 complex mitral valve repair with cari-cord to A1, closure of cleft P1-P2, annuloplasty with randee 3-D 28 mm ring, closure of PFO, with epi-aortic ultrasonography and closure of the left atrial appendage, and EMELY by anesthesia Patient's currently sitting up in a recliner in no acute distress eating breakfast. Denies pain, shortness of breath. Ambulated in the hallway yesterday. Remains partially dependent on epicardial pacemaker. Unable to void after Ortega removal yesterday morning, Ortega reinserted last night. Objective - Vital Signs Vital signs: Vital Signs Temp 98.2 F 02/21/17 04:00 Pulse 74 02/21/17 08:20 Resp 20 02/21/17 07:00 BP 131/53 02/21/17 07:00 Pulse Ox 94 L 02/21/17 07:00 Intake & Output 02/20/17 02/21/17 02/21/17 18:59 06:59 18:59 Intake Total 421.275 724.076 26 Output Total 610 460 50 Balance -188.725 264.076 -24 Weight 96.5 kg Intake: IV 286 312 26 Lactated Ringers 220 240 20 Pressure Bag 0.9NS 66 72 6 Intake, IV Titration 135.275 12.076 Amount Insulin Regular 100 unit 35.275 12.076 In Sodium Chloride 0.9% 100 ml @ Per Protocol IV .Q0M [facility] Rx#:[id number] Magnesium Sulfate-D5w Pmx 100 1 gm In Dextrose/Water 1 100ml.bag @ 100 mls/hr IVPB Q1H [facility] Rx#: [id number] Oral 400 Output: Chest Tube Drainage 30 Left Plueral X 1 30 Urine 580 460 50 Other: Voiding Method Indwelling Catheter Indwelling Catheter # Bowel Movements 0 ABP, PAP, CO, CI - Last Documented Arterial Blood Pressure 93/41 Pulmonary Artery Pressure 36/12 Cardiac Output 3.4 Cardiac Index 1.8 - Constitutional General appearance: Present: cooperative, no acute distress - Respiratory Details: Lungs sounds diminished bilaterally. Respirations even, nonlabored. Currently on 2 L nasal cannula oxygen saturation 100%. Able to achieve 500 mL on incentive spirometry. Effective cough. - Cardiovascular Details: S1, S2 present. Currently the paced on telemetry, was sinus bradycardia in the low 50s with a long first-degree block this morning. A/V epicardial pacemaker wires remain connected to generator, currently in DDD mode with backup rate of 60. Sternum stable. Heart hugger in place with patient demonstrating appropriate use. Palpable pulses bilaterally. Edema present to bilateral upper and lower extremities. Teds/SCDs present. - Gastrointestinal Gastrointestinal Comment(s): Abdomen soft, nontender, nondistended. Active bowel sounds 4 quadrants. Tolerating diet. - Genitourinary Genitourinary Comment(s): Ortega present draining clear, yellow urine. Was reinserted last night. - Neurologic Neurologic: Present: CNII-XII intact - Musculoskeletal Musculoskeletal: Present: gait normal, strength equal bilaterally - Psychiatric Psychiatric: Present: A&O x's 3, appropriate affect, intact judgment & insight - Allied health notes Allied health notes reviewed: nursing - Labs CBC & Chem 7: 02/21/17 04:10 02/21/17 04:10 Labs: Abnormal Lab Results - Last 24 Hours (Table) 02/18/17 02/18/17 02/18/17 Range/Units 08:38 09:23 10:04 RBC (3.80-5.40) m/uL Hgb (11.4-16.0) gm/dL Hct (34.0-46.0) % ABG pH 7.27 L (7.35-7.45) ABG pCO2 54 H (35-45) mmHg ABG pO2 333 H 258 H 294 H (83-108) mmHg ABG Total CO2 25 H (19-24) mmol/L ABG O2 Saturation 99.9 H 99.9 H 99.9 H (94-97) % ABG Hematocrit 28 L (34.0-46.0) % ABG Potassium 4.8 H 4.7 H (3.4-4.5) mmol/L Sodium (137-145) mmol/L BUN (7-17) mg/dL Glucose (74-99) mg/dL POC Glucose (mg/dL) (75-99) mg/dL Calcium (8.4-10.2) mg/dL Total Protein (6.3-8.2) g/dL Albumin (3.5-5.0) g/dL Arterial Blood Potassium 4.8 H 4.7 H (3.4-4.5) mmol/L 02/18/17 02/18/17 02/18/17 Range/Units 10:38 11:16 11:41 RBC (3.80-5.40) m/uL Hgb (11.4-16.0) gm/dL Hct (34.0-46.0) % ABG pH 7.29 L (7.35-7.45) ABG pCO2 47 H (35-45) mmHg ABG pO2 279 H 315 H 177 H (83-108) mmHg ABG Total CO2 (19-24) mmol/L ABG O2 Saturation 99.9 H 99.9 H 99.5 H (94-97) % ABG Hematocrit 26 L 27 L 29 L (34.0-46.0) % ABG Potassium 4.8 H 4.9 H (3.4-4.5) mmol/L Sodium (137-145) mmol/L BUN (7-17) mg/dL Glucose (74-99) mg/dL POC Glucose (mg/dL) (75-99) mg/dL Calcium (8.4-10.2) mg/dL Total Protein (6.3-8.2) g/dL Albumin (3.5-5.0) g/dL Arterial Blood Potassium 4.8 H 4.9 H (3.4-4.5) mmol/L 02/20/17 02/20/17 02/20/17 Range/Units 09:57 11:45 15:15 RBC (3.80-5.40) m/uL Hgb (11.4-16.0) gm/dL Hct (34.0-46.0) % ABG pH (7.35-7.45) ABG pCO2 (35-45) mmHg ABG pO2 (83-108) mmHg ABG Total CO2 (19-24) mmol/L ABG O2 Saturation (94-97) % ABG Hematocrit (34.0-46.0) % ABG Potassium (3.4-4.5) mmol/L Sodium (137-145) mmol/L BUN (7-17) mg/dL Glucose (74-99) mg/dL POC Glucose (mg/dL) 157 H 129 H 163 H (75-99) mg/dL Calcium (8.4-10.2) mg/dL Total Protein (6.3-8.2) g/dL Albumin (3.5-5.0) g/dL Arterial Blood Potassium (3.4-4.5) mmol/L 02/20/17 02/20/17 02/20/17 Range/Units 15:56 18:22 20:05 RBC (3.80-5.40) m/uL Hgb (11.4-16.0) gm/dL Hct (34.0-46.0) % ABG pH (7.35-7.45) ABG pCO2 (35-45) mmHg ABG pO2 (83-108) mmHg ABG Total CO2 (19-24) mmol/L ABG O2 Saturation (94-97) % ABG Hematocrit (34.0-46.0) % ABG Potassium (3.4-4.5) mmol/L Sodium (137-145) mmol/L BUN (7-17) mg/dL Glucose (74-99) mg/dL POC Glucose (mg/dL) 154 H 133 H 107 H (75-99) mg/dL Calcium (8.4-10.2) mg/dL Total Protein (6.3-8.2) g/dL Albumin (3.5-5.0) g/dL Arterial Blood Potassium (3.4-4.5) mmol/L 02/20/17 02/21/17 02/21/17 Range/Units 22:06 00:37 02:14 RBC (3.80-5.40) m/uL Hgb (11.4-16.0) gm/dL Hct (34.0-46.0) % ABG pH (7.35-7.45) ABG pCO2 (35-45) mmHg ABG pO2 (83-108) mmHg ABG Total CO2 (19-24) mmol/L ABG O2 Saturation (94-97) % ABG Hematocrit (34.0-46.0) % ABG Potassium (3.4-4.5) mmol/L Sodium (137-145) mmol/L BUN (7-17) mg/dL Glucose (74-99) mg/dL POC Glucose (mg/dL) 149 H 134 H 119 H (75-99) mg/dL Calcium (8.4-10.2) mg/dL Total Protein (6.3-8.2) g/dL Albumin (3.5-5.0) g/dL Arterial Blood Potassium (3.4-4.5) mmol/L 02/21/17 02/21/17 02/21/17 Range/Units 04:09 04:10 04:10 RBC 3.12 L (3.80-5.40) m/uL Hgb 9.7 L (11.4-16.0) gm/dL Hct 28.1 L (34.0-46.0) % ABG pH (7.35-7.45) ABG pCO2 (35-45) mmHg ABG pO2 (83-108) mmHg ABG Total CO2 (19-24) mmol/L ABG O2 Saturation (94-97) % ABG Hematocrit (34.0-46.0) % ABG Potassium (3.4-4.5) mmol/L Sodium 133 L (137-145) mmol/L BUN 21 H (7-17) mg/dL Glucose 107 H (74-99) mg/dL POC Glucose (mg/dL) 117 H (75-99) mg/dL Calcium 7.8 L (8.4-10.2) mg/dL Total Protein 4.9 L (6.3-8.2) g/dL Albumin 2.5 L (3.5-5.0) g/dL Arterial Blood Potassium (3.4-4.5) mmol/L 02/21/17 02/21/17 Range/Units 06:30 08:03 RBC (3.80-5.40) m/uL Hgb (11.4-16.0) gm/dL Hct (34.0-46.0) % ABG pH (7.35-7.45) ABG pCO2 (35-45) mmHg ABG pO2 (83-108) mmHg ABG Total CO2 (19-24) mmol/L ABG O2 Saturation (94-97) % ABG Hematocrit (34.0-46.0) % ABG Potassium (3.4-4.5) mmol/L Sodium (137-145) mmol/L BUN (7-17) mg/dL Glucose (74-99) mg/dL POC Glucose (mg/dL) 111 H 150 H (75-99) mg/dL Calcium (8.4-10.2) mg/dL Total Protein (6.3-8.2) g/dL Albumin (3.5-5.0) g/dL Arterial Blood Potassium (3.4-4.5) mmol/L - Imaging and Cardiology Chest x-ray: report reviewed, image reviewed Assessment and Plan (1) Obstructive sleep apnea Status: Acute (2) History of urinary tract infection Status: Acute (3) Status post mitral valve repair Status: Acute (4) Chronic congestive heart failure Status: Acute (5) Diabetes Status: Acute (6) HTN (hypertension) Status: Acute (7) History of lobectomy of lung Status: Acute (8) History of lung cancer Status: Acute (9) History of pulmonary embolism Status: Acute (10) History of thyroid cancer Status: Acute (11) Hyperlipemia Status: Acute (12) Mitral regurgitation Status: Acute (13) Nonsustained ventricular tachycardia Status: Acute (14) Paroxysmal atrial fibrillation Status: Acute (15) Tobacco dependence in remission Status: Acute Plan: 1. Continue aspirin, heparin subcu, Lasix. 2. Continue amiodarone for A. fib prophylaxis. 3. Restart Lipitor as her liver enzymes have returned to normal. 4. Encourage incentive spirometry use. 5. Will restart on Coumadin 1 mg by mouth daily with daily PT/INRs. 6. GI/DVT prophylaxis. 7. Will monitor daily labs, chest x-rays. 8. Will retry Ortega removal. If retention persists we will consult urology. 9. Increase activity, ambulate in hallway. Physical therapy following. 10. We'll discuss heart rhythm with cardiology for recommendations. 11. More recommendations as patient progresses. Time with Patient: Greater than 30 <Jerome Mason - Last Filed: 02/22/17 11:22> Objective - Vital Signs Vital signs: Vital Signs Temp 97.5 F L 02/22/17 08:00 Pulse 52 L 02/22/17 09:00 Resp 23 02/22/17 09:00 BP 118/43 02/22/17 09:00 Pulse Ox 93 L 02/22/17 09:00 Intake & Output 02/21/17 02/22/17 02/22/17 18:59 06:59 18:59 Intake Total 482 373 183 Output Total 510 317 176 Balance -28 56 7 Weight 96.8 kg 96.8 kg Intake: IV 282 273 43 Lactated Ringers 240 240 40 Pressure Bag 0.9NS 42 33 3 Intake, IV Titration 20 Amount Lactated Ringers 1,000 ml 20 @ 20 mls/hr IV .Q24H [facility] Rx#:[id number] Oral 200 100 120 Output: Urine 510 317 176 Other: Voiding Method Indwelling Catheter Indwelling Catheter Indwelling Catheter # Bowel Movements 0 0 ABP, PAP, CO, CI - Last Documented Arterial Blood Pressure 93/41 Pulmonary Artery Pressure 36/12 Cardiac Output 3.4 Cardiac Index 1.8 - Labs CBC & Chem 7: 02/22/17 06:11 02/22/17 06:11 Labs: Abnormal Lab Results - Last 24 Hours (Table) 02/21/17 02/21/17 02/21/17 Range/Units 12:03 16:56 20:48 RBC (3.80-5.40) m/uL Hgb (11.4-16.0) gm/dL Hct (34.0-46.0) % PT (9.0-12.0) sec INR (<1.2) BUN (7-17) mg/dL Creatinine (0.52-1.04) mg/dL Glucose (74-99) mg/dL POC Glucose (mg/dL) 153 H 216 H 196 H (75-99) mg/dL Calcium (8.4-10.2) mg/dL Total Protein (6.3-8.2) g/dL Albumin (3.5-5.0) g/dL 02/22/17 02/22/17 02/22/17 Range/Units 06:11 06:11 06:11 RBC 3.09 L (3.80-5.40) m/uL Hgb 9.3 L (11.4-16.0) gm/dL Hct 28.7 L (34.0-46.0) % PT 12.9 H (9.0-12.0) sec INR 1.3 H (<1.2) BUN 29 H (7-17) mg/dL Creatinine 1.16 H (0.52-1.04) mg/dL Glucose 113 H (74-99) mg/dL POC Glucose (mg/dL) (75-99) mg/dL Calcium 8.0 L (8.4-10.2) mg/dL Total Protein 5.3 L (6.3-8.2) g/dL Albumin 2.7 L (3.5-5.0) g/dL 02/22/17 Range/Units 08:04 RBC (3.80-5.40) m/uL Hgb (11.4-16.0) gm/dL Hct (34.0-46.0) % PT (9.0-12.0) sec INR (<1.2) BUN (7-17) mg/dL Creatinine (0.52-1.04) mg/dL Glucose (74-99) mg/dL POC Glucose (mg/dL) 139 H (75-99) mg/dL Calcium (8.4-10.2) mg/dL Total Protein (6.3-8.2) g/dL Albumin (3.5-5.0) g/dL Assessment and Plan Plan: The patient was seen and examined. I agree with the above assessment and plan. We will discuss her rhythm issues with cardiology. Her beta samira is on hold. She may need a permanent pacemaker. In the meantime we will encourage incentive spirometry and ambulation. She is currently on amiodarone secondary to atrial fibrillation. She will be given a dose of Lasix.
[2017-02-21] MEDS: MUPIROCIN 2% OINT 22 GM TUBE NASAL SCH ×2 (10:05→20:56)
[2017-02-21] MEDS: ATORVASTATIN 40 MG TAB PO SCH (10:05)
--- NOTE | 2017-02-21 10:32 | P.PN ---
Subjective Progress note dated 02/21/2017 This is a 71-year-old female was admitted on February 18 for mitral valve repair. It was done on February 18. Currently she's not receiving any supplemental oxygen. She's on no IV fluids. She's doing well. She has had some issues with her rhythm. She may need a permanent pacemaker. Her nurse today is Moris. She sitting in the chair. She feeling well. Really has no major issues. No hemodynamic or respiratory issues at this time. Objective - Vital Signs Vital signs: Vital Signs Temp 98.2 F 02/21/17 04:00 Pulse 74 02/21/17 08:20 Resp 20 02/21/17 07:00 BP 131/53 02/21/17 07:00 Pulse Ox 94 L 02/21/17 07:00 Intake & Output 02/20/17 02/21/17 02/21/17 18:59 06:59 18:59 Intake Total 421.275 724.076 26 Output Total 610 460 50 Balance -188.725 264.076 -24 Weight 96.5 kg Intake: IV 286 312 26 Lactated Ringers 220 240 20 Pressure Bag 0.9NS 66 72 6 Intake, IV Titration 135.275 12.076 Amount Insulin Regular 100 unit 35.275 12.076 In Sodium Chloride 0.9% 100 ml @ Per Protocol IV .Q0M [facility] Rx#:[id number] Magnesium Sulfate-D5w Pmx 100 1 gm In Dextrose/Water 1 100ml.bag @ 100 mls/hr IVPB Q1H [facility] Rx#: [id number] Oral 400 Output: Chest Tube Drainage 30 Left Plueral X 1 30 Urine 580 460 50 Other: Voiding Method Indwelling Catheter Indwelling Catheter # Bowel Movements 0 ABP, PAP, CO, CI - Last Documented Arterial Blood Pressure 93/41 Pulmonary Artery Pressure 36/12 Cardiac Output 3.4 Cardiac Index 1.8 - Exam No acute distress, oriented 3. HEENT examination is grossly unremarkable. Mucous membranes are moist. No oral lesions. Neck supple. Full range of motion. No adenopathy or thyromegaly. Cardiovascular examination reveals regular rhythm rate. S1-S2 normal. There is no S3-S4 or murmur. Lungs reveal mostly clear breath sounds. No wheezes or rhonchi. No crackles. Abdomen soft bowel sounds are heard. Semis are intact. No cyanosis clubbing or edema. Skin without rash. Neurologic is nonfocal. - Labs CBC & Chem 7: 02/21/17 04:10 02/21/17 04:10 Labs: Abnormal Lab Results - Last 24 Hours (Table) 02/18/17 02/18/17 02/18/17 Range/Units 08:38 09:23 10:04 RBC (3.80-5.40) m/uL Hgb (11.4-16.0) gm/dL Hct (34.0-46.0) % ABG pH 7.27 L (7.35-7.45) ABG pCO2 54 H (35-45) mmHg ABG pO2 333 H 258 H 294 H (83-108) mmHg ABG Total CO2 25 H (19-24) mmol/L ABG O2 Saturation 99.9 H 99.9 H 99.9 H (94-97) % ABG Hematocrit 28 L (34.0-46.0) % ABG Potassium 4.8 H 4.7 H (3.4-4.5) mmol/L Sodium (137-145) mmol/L BUN (7-17) mg/dL Glucose (74-99) mg/dL POC Glucose (mg/dL) (75-99) mg/dL Calcium (8.4-10.2) mg/dL Total Protein (6.3-8.2) g/dL Albumin (3.5-5.0) g/dL Arterial Blood Potassium 4.8 H 4.7 H (3.4-4.5) mmol/L 02/18/17 02/18/17 02/18/17 Range/Units 10:38 11:16 11:41 RBC (3.80-5.40) m/uL Hgb (11.4-16.0) gm/dL Hct (34.0-46.0) % ABG pH 7.29 L (7.35-7.45) ABG pCO2 47 H (35-45) mmHg ABG pO2 279 H 315 H 177 H (83-108) mmHg ABG Total CO2 (19-24) mmol/L ABG O2 Saturation 99.9 H 99.9 H 99.5 H (94-97) % ABG Hematocrit 26 L 27 L 29 L (34.0-46.0) % ABG Potassium 4.8 H 4.9 H (3.4-4.5) mmol/L Sodium (137-145) mmol/L BUN (7-17) mg/dL Glucose (74-99) mg/dL POC Glucose (mg/dL) (75-99) mg/dL Calcium (8.4-10.2) mg/dL Total Protein (6.3-8.2) g/dL Albumin (3.5-5.0) g/dL Arterial Blood Potassium 4.8 H 4.9 H (3.4-4.5) mmol/L 02/20/17 02/20/17 02/20/17 Range/Units 11:45 15:15 15:56 RBC (3.80-5.40) m/uL Hgb (11.4-16.0) gm/dL Hct (34.0-46.0) % ABG pH (7.35-7.45) ABG pCO2 (35-45) mmHg ABG pO2 (83-108) mmHg ABG Total CO2 (19-24) mmol/L ABG O2 Saturation (94-97) % ABG Hematocrit (34.0-46.0) % ABG Potassium (3.4-4.5) mmol/L Sodium (137-145) mmol/L BUN (7-17) mg/dL Glucose (74-99) mg/dL POC Glucose (mg/dL) 129 H 163 H 154 H (75-99) mg/dL Calcium (8.4-10.2) mg/dL Total Protein (6.3-8.2) g/dL Albumin (3.5-5.0) g/dL Arterial Blood Potassium (3.4-4.5) mmol/L 02/20/17 02/20/17 02/20/17 Range/Units 18:22 20:05 22:06 RBC (3.80-5.40) m/uL Hgb (11.4-16.0) gm/dL Hct (34.0-46.0) % ABG pH (7.35-7.45) ABG pCO2 (35-45) mmHg ABG pO2 (83-108) mmHg ABG Total CO2 (19-24) mmol/L ABG O2 Saturation (94-97) % ABG Hematocrit (34.0-46.0) % ABG Potassium (3.4-4.5) mmol/L Sodium (137-145) mmol/L BUN (7-17) mg/dL Glucose (74-99) mg/dL POC Glucose (mg/dL) 133 H 107 H 149 H (75-99) mg/dL Calcium (8.4-10.2) mg/dL Total Protein (6.3-8.2) g/dL Albumin (3.5-5.0) g/dL Arterial Blood Potassium (3.4-4.5) mmol/L 02/21/17 02/21/17 02/21/17 Range/Units 00:37 02:14 04:09 RBC (3.80-5.40) m/uL Hgb (11.4-16.0) gm/dL Hct (34.0-46.0) % ABG pH (7.35-7.45) ABG pCO2 (35-45) mmHg ABG pO2 (83-108) mmHg ABG Total CO2 (19-24) mmol/L ABG O2 Saturation (94-97) % ABG Hematocrit (34.0-46.0) % ABG Potassium (3.4-4.5) mmol/L Sodium (137-145) mmol/L BUN (7-17) mg/dL Glucose (74-99) mg/dL POC Glucose (mg/dL) 134 H 119 H 117 H (75-99) mg/dL Calcium (8.4-10.2) mg/dL Total Protein (6.3-8.2) g/dL Albumin (3.5-5.0) g/dL Arterial Blood Potassium (3.4-4.5) mmol/L 02/21/17 02/21/17 02/21/17 Range/Units 04:10 04:10 06:30 RBC 3.12 L (3.80-5.40) m/uL Hgb 9.7 L (11.4-16.0) gm/dL Hct 28.1 L (34.0-46.0) % ABG pH (7.35-7.45) ABG pCO2 (35-45) mmHg ABG pO2 (83-108) mmHg ABG Total CO2 (19-24) mmol/L ABG O2 Saturation (94-97) % ABG Hematocrit (34.0-46.0) % ABG Potassium (3.4-4.5) mmol/L Sodium 133 L (137-145) mmol/L BUN 21 H (7-17) mg/dL Glucose 107 H (74-99) mg/dL POC Glucose (mg/dL) 111 H (75-99) mg/dL Calcium 7.8 L (8.4-10.2) mg/dL Total Protein 4.9 L (6.3-8.2) g/dL Albumin 2.5 L (3.5-5.0) g/dL Arterial Blood Potassium (3.4-4.5) mmol/L 02/21/17 Range/Units 08:03 RBC (3.80-5.40) m/uL Hgb (11.4-16.0) gm/dL Hct (34.0-46.0) % ABG pH (7.35-7.45) ABG pCO2 (35-45) mmHg ABG pO2 (83-108) mmHg ABG Total CO2 (19-24) mmol/L ABG O2 Saturation (94-97) % ABG Hematocrit (34.0-46.0) % ABG Potassium (3.4-4.5) mmol/L Sodium (137-145) mmol/L BUN (7-17) mg/dL Glucose (74-99) mg/dL POC Glucose (mg/dL) 150 H (75-99) mg/dL Calcium (8.4-10.2) mg/dL Total Protein (6.3-8.2) g/dL Albumin (3.5-5.0) g/dL Arterial Blood Potassium (3.4-4.5) mmol/L Assessment and Plan (1) Obstructive sleep apnea Status: Acute (2) Status post mitral valve repair Status: Acute (3) Chronic congestive heart failure Status: Acute (4) Diabetes Status: Acute (5) HTN (hypertension) Status: Acute (6) History of lobectomy of lung Status: Acute (7) History of lung cancer Status: Acute (8) History of pulmonary embolism Status: Acute (9) History of thyroid cancer Status: Acute (10) Mitral regurgitation Status: Acute (11) Nonsustained ventricular tachycardia Status: Acute (12) Paroxysmal atrial fibrillation Status: Acute (13) Ventricular tachycardia Status: Acute Plan: Plan dated 02/21/2017 The patient seemed be doing relatively well. Today is postop day #3 status post mitral valve repair. She has multiple comorbidities including pulmonary embolism diabetes hypertension thyroid cancer bariatric surgery partial thyroidectomy and left lower lobectomy. The patient's doing well. We'll continue to follow closely. Not receiving any supplemental oxygen. No IV fluids. He may need a permanent pacemaker down the road if she's having some rhythm issues. Time with Patient: Less than 30
[2017-02-21] MEDS ORDERED: INSULN ASP PRT/INSULIN ASPART 100 UNIT/ML 10 ML VIAL SQ SCH (10:45)
--- NOTE | 2017-02-21 11:02 | P.CONS ---
History of Present Illness - Reason for Consult Consult date: 02/21/17 Medical management Requesting physician: Pedro García - Chief Complaint Status post mitral valve repair - History of Present Illness This is a 71-year-old female with severe mitral valve regurgitation, non-insulin -dependent diabetes mellitus, pulmonary embolism, atrial fibrillation and hypothyroidism due to her having thyroid cancer and partial thyroidectomy. Patient presents to the hospital for mitral valve repair. Patient tolerated surgery well. She remains in the ICU. She's up and sitting at the bedside chair. She did develop atrial fibrillation started on amiodarone and Coumadin per cardiology. He also reported evidence of a high-grade AV block in which it was related to the perioperative trauma. They discontinued the Lopressor. They also adjusted the pacer rate. We have been consulted for medical management. Patient has been on insulin drip. Blood sugars have been stable. She'll be placed on a sliding scale coverage. Patient denies any chest pain or shortness of breath. Denies any nausea or vomiting. Passing gas. Last bowel movement 2 days ago. Had a episode of urinary retention which Ortega catheter had to be reinserted. Review of Systems Please refer to HPI otherwise unremarkable Past Medical History Past Medical History: Atrial Fibrillation, Blood Disorder, Cancer, Heart Failure , Diabetes Mellitus, GERD/Reflux, Hypertension, Osteoarthritis (OA), Pulmonary Embolus (PE), Sleep Apnea/CPAP/BIPAP Additional Past Medical History / Comment(s): Hx lung cancer-8 yrs. ago, thyroid cancer @least 10 yrs., hx. of multiple pulmonary embolisms about 8 yrs. ago-clotting disorder-not sure what it's called, unable to use CPAP, wearing life vest, finished antibiotic for UTI History of Any Multi-Drug Resistant Organisms: None Reported Past Surgical History: Bariatric Surgery, Section, Cholecystectomy, Heart Catheterization, Tubal Ligation Additional Past Surgical History / Comment(s): Pt stated that she fractured toe , left lung lower lobe removed, partial thyroidectomy, bilateral cataract surgery, rouxen y gastric bypass Past Anesthesia/Blood Transfusion Reactions: Postoperative Nausea & Vomiting ( PONV) Past Psychological History: Anxiety, Depression Additional Psychological History / Comment(s): pt lives alone, uses a walker when up for balance Smoking Status: Never smoker Past Alcohol Use History: None Reported Past Drug Use History: None Reported - Past Family History Mother Family Medical History: No Reported History Additional Family Medical History / Comment(s): age 94 from "natural causes " Father Family Medical History: Diabetes Mellitus, Myocardial Infarction (VT) Medications and Allergies Home Medications Medication Instructions Recorded Confirmed Type Cholecalciferol [Vitamin D3] 5,000 units PO BID 01/09/14 02/18/17 History Furosemide [Lasix] 40 mg PO DAILY 01/09/14 02/18/17 History Multivitamins, Thera [Multivitamin 1 tab PO DAILY 01/09/14 02/18/17 History (formulary)] Omeprazole 40 mg PO DAILY 01/09/14 02/18/17 History Warfarin [Coumadin] 1 mg PO HS 01/09/14 02/18/17 History Lisinopril [Zestril] 5 mg PO DAILY 01/07/17 02/18/17 History Acetaminophen [Tylenol Arthritis] 650 mg PO DAILY PRN 01/11/17 02/18/17 History Isosorbide Mononitrate ER [Imdur] 30 mg PO DAILY #30 tab 01/11/17 02/18/17 Rx Levothyroxine Sodium [Synthroid] 100 mcg PO DAILY 01/11/17 02/18/17 History metFORMIN HCL [Glucophage] 500 mg PO BID 01/11/17 02/18/17 History Spironolactone [Aldactone] 25 mg PO DAILY #30 tab 01/12/17 02/18/17 Rx ALPRAZolam [Xanax] 0.25 mg PO BID PRN 01/15/17 02/18/17 History Atenolol 25 mg PO BID #60 01/20/17 02/18/17 Rx Amiodarone [Cordarone] 200 mg PO BID 02/09/17 02/18/17 History Mupirocin 2% Nasal Oint [Bactroban 1 applic NASAL BID 02/17/17 02/18/17 History 2% Nasal Oint] Aspirin 325 mg PO ONCE 02/18/17 02/18/17 History Allergies Allergy/AdvReac Type Severity Reaction Status Date / Time iodine AdvReac Intermediate MOTHER IS Verified 02/18/17 06:05 ALLERGIC lactose AdvReac Diarrhea Verified 02/20/17 03:09 latex AdvReac Rash/Hives Verified 02/18/17 06:05 Physical Exam Vitals: Vital Signs Temp Pulse Resp BP Pulse Ox 02/21/17 10:00 50 L 23 94 L 02/21/17 09:00 75 22 130/56 92 L 02/21/17 08:20 74 02/21/17 08:12 73 02/21/17 08:00 98.4 F 72 19 110/43 93 L 02/21/17 07:00 60 20 131/53 94 L 02/21/17 06:00 68 12 135/64 99 02/21/17 05:00 67 18 138/61 100 02/21/17 04:00 98.2 F 68 18 150/60 99 02/21/17 03:00 68 19 146/58 98 02/21/17 02:00 69 18 143/56 96 02/21/17 01:00 71 20 154/64 96 02/21/17 00:00 98.7 F 74 19 153/63 95 02/20/17 23:00 79 27 H 136/59 95 02/20/17 22:00 58 L 29 H 120/51 92 L 02/20/17 21:00 68 58 H 145/55 94 L 02/20/17 20:05 55 L 02/20/17 20:00 98.8 F 54 L 18 142/49 90 L 02/20/17 19:58 54 L 02/20/17 19:00 53 L 20 128/58 90 L 02/20/17 18:00 57 L 27 H 118/48 92 L 02/20/17 17:00 66 27 H 135/51 93 L 02/20/17 16:13 57 L 02/20/17 16:00 49 L 24 124/46 94 L 02/20/17 15:00 98.4 F 50 L 26 H 127/42 95 02/20/17 14:00 50 L 22 117/46 93 L 02/20/17 13:00 53 L 22 115/55 93 L 02/20/17 12:21 76 02/20/17 12:13 62 02/20/17 12:00 98.4 F 59 L 24 103/67 88 L 02/20/17 11:00 59 L 22 147/55 95 Intake and Output 02/20/17 02/21/17 02/21/17 22:59 06:59 14:59 Intake Total 622.492 215.643 101 Output Total 140 460 160 Balance 482.492 -244.357 -59 Intake: IV 202 208 101 Lactated Ringers 160 160 80 Pressure Bag 0.9NS 42 48 21 Intake, IV Titration 20.492 7.643 Amount Insulin Regular 100 unit 20.492 7.643 In Sodium Chloride 0.9% 100 ml @ Per Protocol IV .Q0M [facility] Rx#:[id number] Oral 400 Output: Urine 140 460 160 Other: Voiding Method Indwelling Catheter Indwelling Catheter Weight 96.5 kg Head normocephalic Neck supple Lungs diminished bilaterally Heart regular rate and rhythm S1-S2, no rub or gallop Abdomen is soft nontender nondistended positive bowel sounds no hepatosplenomegaly Extremities no edema Neuro alert and orientated to 3 Results CBC & Chem 7: 02/21/17 04:10 02/21/17 04:10 Labs: Abnormal Lab Results - Last 24 Hours (Table) 02/18/17 02/18/17 02/18/17 Range/Units 08:38 09:23 10:04 RBC (3.80-5.40) m/uL Hgb (11.4-16.0) gm/dL Hct (34.0-46.0) % ABG pH 7.27 L (7.35-7.45) ABG pCO2 54 H (35-45) mmHg ABG pO2 333 H 258 H 294 H (83-108) mmHg ABG Total CO2 25 H (19-24) mmol/L ABG O2 Saturation 99.9 H 99.9 H 99.9 H (94-97) % ABG Hematocrit 28 L (34.0-46.0) % ABG Potassium 4.8 H 4.7 H (3.4-4.5) mmol/L Sodium (137-145) mmol/L BUN (7-17) mg/dL Glucose (74-99) mg/dL POC Glucose (mg/dL) (75-99) mg/dL Calcium (8.4-10.2) mg/dL Total Protein (6.3-8.2) g/dL Albumin (3.5-5.0) g/dL Arterial Blood Potassium 4.8 H 4.7 H (3.4-4.5) mmol/L 02/18/17 02/18/17 02/18/17 Range/Units 10:38 11:16 11:41 RBC (3.80-5.40) m/uL Hgb (11.4-16.0) gm/dL Hct (34.0-46.0) % ABG pH 7.29 L (7.35-7.45) ABG pCO2 47 H (35-45) mmHg ABG pO2 279 H 315 H 177 H (83-108) mmHg ABG Total CO2 (19-24) mmol/L ABG O2 Saturation 99.9 H 99.9 H 99.5 H (94-97) % ABG Hematocrit 26 L 27 L 29 L (34.0-46.0) % ABG Potassium 4.8 H 4.9 H (3.4-4.5) mmol/L Sodium (137-145) mmol/L BUN (7-17) mg/dL Glucose (74-99) mg/dL POC Glucose (mg/dL) (75-99) mg/dL Calcium (8.4-10.2) mg/dL Total Protein (6.3-8.2) g/dL Albumin (3.5-5.0) g/dL Arterial Blood Potassium 4.8 H 4.9 H (3.4-4.5) mmol/L 02/20/17 02/20/17 02/20/17 Range/Units 11:45 15:15 15:56 RBC (3.80-5.40) m/uL Hgb (11.4-16.0) gm/dL Hct (34.0-46.0) % ABG pH (7.35-7.45) ABG pCO2 (35-45) mmHg ABG pO2 (83-108) mmHg ABG Total CO2 (19-24) mmol/L ABG O2 Saturation (94-97) % ABG Hematocrit (34.0-46.0) % ABG Potassium (3.4-4.5) mmol/L Sodium (137-145) mmol/L BUN (7-17) mg/dL Glucose (74-99) mg/dL POC Glucose (mg/dL) 129 H 163 H 154 H (75-99) mg/dL Calcium (8.4-10.2) mg/dL Total Protein (6.3-8.2) g/dL Albumin (3.5-5.0) g/dL Arterial Blood Potassium (3.4-4.5) mmol/L 02/20/17 02/20/17 02/20/17 Range/Units 18:22 20:05 22:06 RBC (3.80-5.40) m/uL Hgb (11.4-16.0) gm/dL Hct (34.0-46.0) % ABG pH (7.35-7.45) ABG pCO2 (35-45) mmHg ABG pO2 (83-108) mmHg ABG Total CO2 (19-24) mmol/L ABG O2 Saturation (94-97) % ABG Hematocrit (34.0-46.0) % ABG Potassium (3.4-4.5) mmol/L Sodium (137-145) mmol/L BUN (7-17) mg/dL Glucose (74-99) mg/dL POC Glucose (mg/dL) 133 H 107 H 149 H (75-99) mg/dL Calcium (8.4-10.2) mg/dL Total Protein (6.3-8.2) g/dL Albumin (3.5-5.0) g/dL Arterial Blood Potassium (3.4-4.5) mmol/L 02/21/17 02/21/17 02/21/17 Range/Units 00:37 02:14 04:09 RBC (3.80-5.40) m/uL Hgb (11.4-16.0) gm/dL Hct (34.0-46.0) % ABG pH (7.35-7.45) ABG pCO2 (35-45) mmHg ABG pO2 (83-108) mmHg ABG Total CO2 (19-24) mmol/L ABG O2 Saturation (94-97) % ABG Hematocrit (34.0-46.0) % ABG Potassium (3.4-4.5) mmol/L Sodium (137-145) mmol/L BUN (7-17) mg/dL Glucose (74-99) mg/dL POC Glucose (mg/dL) 134 H 119 H 117 H (75-99) mg/dL Calcium (8.4-10.2) mg/dL Total Protein (6.3-8.2) g/dL Albumin (3.5-5.0) g/dL Arterial Blood Potassium (3.4-4.5) mmol/L 02/21/17 02/21/17 02/21/17 Range/Units 04:10 04:10 06:30 RBC 3.12 L (3.80-5.40) m/uL Hgb 9.7 L (11.4-16.0) gm/dL Hct 28.1 L (34.0-46.0) % ABG pH (7.35-7.45) ABG pCO2 (35-45) mmHg ABG pO2 (83-108) mmHg ABG Total CO2 (19-24) mmol/L ABG O2 Saturation (94-97) % ABG Hematocrit (34.0-46.0) % ABG Potassium (3.4-4.5) mmol/L Sodium 133 L (137-145) mmol/L BUN 21 H (7-17) mg/dL Glucose 107 H (74-99) mg/dL POC Glucose (mg/dL) 111 H (75-99) mg/dL Calcium 7.8 L (8.4-10.2) mg/dL Total Protein 4.9 L (6.3-8.2) g/dL Albumin 2.5 L (3.5-5.0) g/dL Arterial Blood Potassium (3.4-4.5) mmol/L 02/21/17 Range/Units 08:03 RBC (3.80-5.40) m/uL Hgb (11.4-16.0) gm/dL Hct (34.0-46.0) % ABG pH (7.35-7.45) ABG pCO2 (35-45) mmHg ABG pO2 (83-108) mmHg ABG Total CO2 (19-24) mmol/L ABG O2 Saturation (94-97) % ABG Hematocrit (34.0-46.0) % ABG Potassium (3.4-4.5) mmol/L Sodium (137-145) mmol/L BUN (7-17) mg/dL Glucose (74-99) mg/dL POC Glucose (mg/dL) 150 H (75-99) mg/dL Calcium (8.4-10.2) mg/dL Total Protein (6.3-8.2) g/dL Albumin (3.5-5.0) g/dL Arterial Blood Potassium (3.4-4.5) mmol/L Assessment and Plan Plan: 1. Status post mitral valve repair completed on 02/18/2017 2. High-grade AV block. Evaluated by cardiology. They felt secondary to perioperative trauma to the conduction system. And Lopressor was discontinued. Continue to monitor 3. Paroxysmal atrial fibrillation: Patient on Coumadin and subcu heparin until INR therapeutic 4. History of lung cancer status post lobectomy 5. History of thyroid cancer status post partial thyroidectomy. Continue with Synthroid 6. Diabetes mellitus type 2: Discontinue insulin drip. place patient on humalog sliding scale coverage. Usually on metformin 500 mg twice a day at home. Hold metformin while in hospital 7. Elevated LFTs now normalized. Agree with restarting statin 8. Hyperlipidemia 9. History of pulmonary embolism 10. History of obstructive sleep apnea uses CPAP at home 11. Urinary retention: Have Ortega catheter placed. They're planning to remove catheter today and monitor DVT prophylaxis subcu heparin and GI prophylaxis Protonix Thank you for this consultation. We will continue to follow along with you. Time with Patient: Greater than 30 (Greater than 50% of the total time spent in counseling and coordination of care.I performed an examination of the patient and discussed their management with the physician Lockstitch Front Maker. I have reviewed the Physician Lockstitch Front Maker's notes and agree with the documented findings and plan of care)
[2017-02-21 12:04] LABS: Glucose,Whole Blood 153 mg/dL (75-99)
[2017-02-21] MEDS: LACTATED RINGERS 1,000 ML IV SCH (12:06)
[2017-02-21] MEDS: INSULIN LISPRO (humaLOG) 300 UNIT/3 ML VIAL SQ SCH ×3 (12:06→20:57)
--- NOTE | 2017-02-21 13:09 | CDI ---
In responding to this query, please exercise your independent professional judgment. The [facility] Coding Staff and Clinical Documentation Specialists appreciate your assistance in clarifying documentation, maintaining compliance with coding guidelines, accurately documenting patients condition and capturing severity of illness. The fact that a question is asked does not imply that any particular answer is desired or expected. Communication forms are a method of clarifying documentation and are not made part of the Legal Health Record. Thank you in advance for your clarification. Last Revision, August 2016 Theodore Andino [address] [place] [address] Documentation Clarification Form Date: 02/21/2017 12:45:00 PM From: Casandra May CCS, CCDS Admit Date: 02/18/2017 5:46:00 AM Patient Name: Leona Saunders Visit Number: [id number] Discharge Date: Dr. Pedro García: CHF is documented in the attending/CVAS history & physical as a history of CHF. History/Risk Factors: Hypertension, PE, Mitral regurgitation & CHF. Hx of Lung CA w/LLL removed. Clinical Indicators: 71 yo female presented for elective mitral valve repair. Postoperative VS: T 96.5*, P 80, R 10*, BP 109/49*, Vent: PO 100 Previous ECHO: Thickened mitral valve w/evidence of eccentric mitral regurgitation. Left atrium severely enlarged. LV function appeared to be mildly impaired. Mild plaque in aorta. Chest X Ray: Diminished inspiration w/mod central vascular congestion & lt > rt bibasilar atelectasis and/or infiltrate w/suspected new left pleural effusion. Treatment: IV Albumin, ASA, IV Heparin, IV Insulin, IV MagSulf, IV Nitro, Albuterol INH, IV Kefzol. Vent to O2 2Lnc to RA. Consults: Pulmonary/Critical Care, Rehab Physiology, Cardiology. In your professional opinion, can you please clarify the acuity and type of CHF if known? Systolic Heart Failure: Acute Chronic Acute on Chronic Diastolic Heart Failure: Acute Chronic Acute on Chronic Systolic & Diastolic Heart Failure: Acute Chronic Acute on Chronic Unable to determine Other, please specify Please document in your progress notes and discharge summary in order to capture severity of illness and risk of mortality. Include clinical findings that support your diagnosis. FYI: Press F11 to launch patient chart. MTDD
--- NOTE | 2017-02-21 13:26 | PN ---
PROGRESS NOTE Leona is a 71-year-old lady with history of mitral regurgitation, status post mitral valve repair and paroxysmal atrial fibrillation who continues to be bradycardic and is using the pacemaker. She was thought to have had an episode of atrial fibrillation yesterday. We did not find any rhythm strips of it and was started on amiodarone and is on Coumadin. Currently her underlying rhythm appears like junctional bradycardia and intermittently she is in sinus rhythm with sinus bradycardia. Heart rate is in the 40s. I decreased the pacer rate down to 40 beats per minute. She is not being paced anymore. The plan at this stage is to wait and see how she does and if stable sinus rhythm does not emerge we might consider doing a permanent pacemaker on her. She sees my associate, Dr. Orourke and I am going to talk to him. Patient is currently on aspirin, Lipitor, Lasix, Synthroid and Coumadin. INR today is 1.2. PHYSICAL EXAMINATION: On exam, comfortable at rest. Heart rate is 44 beats per minute. Blood pressure is 110/70, respiratory rate 18. Chest exam reveals diminished air entry at the bases. Heart exam reveals first and second heart sounds. No gallop. Examination of extremities did not reveal any edema. Peripheral pulses are felt. ASSESSMENT: 1. Mitral regurgitation, status post mitral valve repair. 2. Bradycardia secondary to recent mitral valve repair. 3. The patient seems to be in atrial fibrillation with slow ventricular rate. We can see intermittent junctional rhythm and also episodes of sinus rhythm. I am going to stop the amiodarone, leave her in the intensive care unit and we will reassess her in the morning. If she continues to have problems resuming stable sinus rhythm. The patient might require a permanent pacemaker. MMODL / IJN: [id number] /
[2017-02-21] MEDS: HYDROcodone/APAP 5-325MG 1 EACH TAB PO PRN ×2 (15:14→22:17)
[2017-02-21 16:58] LABS: Glucose,Whole Blood 216 mg/dL (75-99)
[2017-02-21] MEDS ORDERED: INSULIN LISPRO (humaLOG) 300 UNIT/3 ML VIAL SQ SCH (17:30)
[2017-02-21] MEDS ORDERED: WARFARIN 1 MG TAB PO ONE (18:00)
[2017-02-21] MEDS ORDERED: WARFARIN 3 MG TAB PO ONE (18:00)
[2017-02-21] MEDS: metFORMIN 500 MG TAB PO SCH (18:07)
[2017-02-21 20:50] LABS: Glucose,Whole Blood 196 mg/dL (75-99)
[2017-02-21] MEDS: SENNOSIDES-DOCUSATE SODIUM 1 EACH TAB PO SCH (20:55)
[2017-02-21] MEDS ORDERED: INSULIN NPH 300 UNIT/3 ML VIAL SQ SCH (21:00)
[2017-02-22 02:18] LABS: Glucose,Whole Blood 98 mg/dL (75-99)
[2017-02-22 06:19] LABS: Basophils % (A) 0 %; CH 31.2; CHCM 33.8; Eosinophils # (A) 0.3 k/uL (0-0.7); Eosinophils % (A) 4 %; HCT 28.7 % (34.0-46.0); HDW 2.66; HGB 9.3 gm/dL (11.4-16.0); Luc # (Auto) 0.16; Luc % (Auto) 3; Lymphocytes # (A) 1.7 k/uL (1.0-4.8); Lymphocytes % (A) 27 %; MCH 30.2 pg (25.0-35.0); MCHC 32.5 g/dL (31.0-37.0); MCV 92.8 fL (80.0-100.0); Mean Platelet Volume 8.2; Monocytes # (A) 0.4 k/uL (0-1.0); Monocytes % (A) 6 %; Neutrophils # (A) 3.7 k/uL (1.3-7.7); Neutrophils % (A) 60 %; RBC 3.09 m/uL (3.80-5.40); RDW 14.2 % (11.5-15.5); WBC 6.2 k/uL (3.8-10.6); WBC (Perox) 6.67
[2017-02-22 06:23] LABS: INR 1.3 (<1.2); Prothrombin Time 12.9 sec (9.0-12.0)
[2017-02-22] MEDS: PANTOPRAZOLE 40 MG TABLET PO SCH (06:50)
[2017-02-22] MEDS: LEVOTHYROXINE 100 MCG TAB PO SCH (06:50)
[2017-02-22 07:08] LABS: Phosphorous 4.4 mg/dL (2.5-4.5); Potassium 4.5 mmol/L (3.5-5.1); Total Bilirubin 0.5 mg/dL (0.2-1.3); Total Protein 5.3 g/dL (6.3-8.2)
[2017-02-22] MEDS: IPRATROPIUM-ALBUTEROL 3 ML NEB INHALATION SCH ×4 (07:12→19:42)
[2017-02-22 08:06] LABS: Glucose,Whole Blood 139 mg/dL (75-99)
[2017-02-22] MEDS: CHOLECALCIFEROL 1,000 UNIT TAB PO SCH ×2 (08:27→20:38)
[2017-02-22] MEDS: metFORMIN 500 MG TAB PO SCH ×2 (08:27→18:27)
[2017-02-22] MEDS: FUROSEMIDE 10 MG/ML 2 ML VIAL IV SCH ×2 (08:27→18:28)
[2017-02-22] MEDS: ATORVASTATIN 40 MG TAB PO SCH (08:27)
[2017-02-22] MEDS: MULTIVITAMINS, THERA 1 EACH TAB PO SCH (08:27)
[2017-02-22] MEDS: ASPIRIN 325 MG TAB PO SCH (08:27)
[2017-02-22] MEDS: HEPARIN SODIUM,PORCINE 5,000 UNIT/ML 1 ML VIAL SQ SCH ×4 (08:27→23:23)
[2017-02-22] MEDS: INSULIN LISPRO (humaLOG) 300 UNIT/3 ML VIAL SQ SCH ×4 (08:28→20:38)
--- NOTE | 2017-02-22 09:38 | CDI ---
In responding to this query, please exercise your independent professional judgment. The [facility] Coding Staff and Clinical Documentation Specialists appreciate your assistance in clarifying documentation, maintaining compliance with coding guidelines, accurately documenting patients condition and capturing severity of illness. The fact that a question is asked does not imply that any particular answer is desired or expected. Communication forms are a method of clarifying documentation and are not made part of the Legal Health Record. Thank you in advance for your clarification. Last Revision, August 2016 Theodore Andino [address] [place] [address] Documentation Clarification Form Date: 02/21/2017 12:45:00 PM Resubmitted 02/22/2017 09:37 AM From: Casandra May Admit Date: 02/18/2017 5:46:00 AM Patient Name: Leona Saunders Visit Number: [id number] Discharge Date: Dr. Pedro García: CHF is documented in the attending/CVAS history & physical as a history of CHF. History/Risk Factors: Hypertension, PE, Mitral regurgitation & CHF. Hx of Lung CA w/LLL removed. Clinical Indicators: 71 yo female presented for elective mitral valve repair. Postoperative VS: T 96.5*, P 80, R 10*, BP 109/49*, Vent: PO 100 Previous ECHO: Thickened mitral valve w/evidence of eccentric mitral regurgitation. Left atrium severely enlarged. LV function appeared to be mildly impaired. Mild plaque in aorta. Chest X Ray: Diminished inspiration w/mod central vascular congestion & lt > rt bibasilar atelectasis and/or infiltrate w/suspected new left pleural effusion. Treatment: IV Albumin, ASA, IV Heparin, IV Insulin, IV MagSulf, IV Nitro, Albuterol INH, IV Kefzol. Vent to O2 2Lnc to RA. Consults: Pulmonary/Critical Care, Rehab Physiology, Cardiology. In your professional opinion, can you please clarify the acuity and type of CHF if known? Systolic Heart Failure: Acute Chronic Acute on Chronic Diastolic Heart Failure: Acute Chronic Acute on Chronic Systolic & Diastolic Heart Failure: Acute Chronic Acute on Chronic Unable to determine Other, please specify Please document in your progress notes and discharge summary in order to capture severity of illness and risk of mortality. Include clinical findings that support your diagnosis. FYI: Press F11 to launch patient chart. MTDD
--- NOTE | 2017-02-22 10:46 | P.PN ---
<Myrtle Raymond - Last Filed: 02/22/17 10:45> Subjective Principal diagnosis: Severe mitral regurgitation. History of atrial fibrillation. History of chronic diastolic congestive heart failure. Diabetes mellitus type 2. Gastroesophageal reflux disease. Hypertension. History of pulmonary embolus. Osteoarthritis. Sleep apnea with CPAP use at home. History of lung cancer approximately 8 years ago. History of thyroid cancer. Preoperative urinary tract infection. POD #4 complex mitral valve repair with cari-cord to A1, closure of cleft P1-P2, annuloplasty with randee 3-D 28 mm ring, closure of PFO, with epi-aortic ultrasonography and closure of the left atrial appendage, and EMELY by anesthesia Patient's currently sitting up in a recliner in no acute distress eating breakfast. Denies pain, shortness of breath. Ambulated in the hallway yesterday. Remains bradycardic. Objective - Vital Signs Vital signs: Vital Signs Temp 98.6 F 02/22/17 00:00 Pulse 100 02/22/17 07:24 Resp 16 02/22/17 07:12 BP 142/70 02/22/17 07:00 Pulse Ox 94 L 02/22/17 07:00 Intake & Output 02/21/17 02/22/17 02/22/17 18:59 06:59 18:59 Intake Total 482 373 23 Output Total 510 317 26 Balance -28 56 -3 Weight 96.8 kg Intake: IV 282 273 23 Lactated Ringers 240 240 20 Pressure Bag 0.9NS 42 33 3 Oral 200 100 Output: Urine 510 317 26 Other: Voiding Method Indwelling Catheter Indwelling Catheter # Bowel Movements 0 ABP, PAP, CO, CI - Last Documented Arterial Blood Pressure 93/41 Pulmonary Artery Pressure 36/12 Cardiac Output 3.4 Cardiac Index 1.8 - Constitutional General appearance: Present: cooperative, no acute distress, obese - Respiratory Details: Lungs sounds diminished bilaterally. Respirations even, nonlabored. Currently on room air with oxygen saturations 93%. Able to achieve 750 mL on her incentive spirometer. - Cardiovascular Details: S1, S2 present. Irregular rate and rhythm, slow A. fib on telemetry. Sternum stable. A/V epicardial pacemaker wires present, connected to generator, VVI mode with backup rate 40 bpm. Heart hugger in place with patient demonstrating appropriate use. Palpable pulses bilaterally. Generalized edema present. Right internal jugular Cordis present. - Gastrointestinal Gastrointestinal Comment(s): Abdomen soft, nontender, nondistended. Active bowel sounds 4 quadrants. Tolerating diet. Positive flatus, negative BM since surgery. - Genitourinary Genitourinary Comment(s): Ortega present draining clear, yellow urine. Output 22-30 mL/h overnight. - Integumentary Integumentary Comment(s): Anterior chest incision well approximated and covered with dry intact dressing. - Neurologic Neurologic: Present: CNII-XII intact - Musculoskeletal Musculoskeletal: Present: gait normal, strength equal bilaterally - Psychiatric Psychiatric: Present: A&O x's 3, appropriate affect, intact judgment & insight - Allied health notes Allied health notes reviewed: nursing - Labs CBC & Chem 7: 02/22/17 06:11 02/22/17 06:11 Labs: Abnormal Lab Results - Last 24 Hours (Table) 02/21/17 02/21/17 02/21/17 Range/Units 12:03 16:56 20:48 RBC (3.80-5.40) m/uL Hgb (11.4-16.0) gm/dL Hct (34.0-46.0) % PT (9.0-12.0) sec INR (<1.2) BUN (7-17) mg/dL Creatinine (0.52-1.04) mg/dL Glucose (74-99) mg/dL POC Glucose (mg/dL) 153 H 216 H 196 H (75-99) mg/dL Calcium (8.4-10.2) mg/dL Total Protein (6.3-8.2) g/dL Albumin (3.5-5.0) g/dL 02/22/17 02/22/17 02/22/17 Range/Units 06:11 06:11 06:11 RBC 3.09 L (3.80-5.40) m/uL Hgb 9.3 L (11.4-16.0) gm/dL Hct 28.7 L (34.0-46.0) % PT 12.9 H (9.0-12.0) sec INR 1.3 H (<1.2) BUN 29 H (7-17) mg/dL Creatinine 1.16 H (0.52-1.04) mg/dL Glucose 113 H (74-99) mg/dL POC Glucose (mg/dL) (75-99) mg/dL Calcium 8.0 L (8.4-10.2) mg/dL Total Protein 5.3 L (6.3-8.2) g/dL Albumin 2.7 L (3.5-5.0) g/dL 02/22/17 Range/Units 08:04 RBC (3.80-5.40) m/uL Hgb (11.4-16.0) gm/dL Hct (34.0-46.0) % PT (9.0-12.0) sec INR (<1.2) BUN (7-17) mg/dL Creatinine (0.52-1.04) mg/dL Glucose (74-99) mg/dL POC Glucose (mg/dL) 139 H (75-99) mg/dL Calcium (8.4-10.2) mg/dL Total Protein (6.3-8.2) g/dL Albumin (3.5-5.0) g/dL - Imaging and Cardiology Chest x-ray: image reviewed Assessment and Plan (1) Obstructive sleep apnea Status: Acute (2) History of urinary tract infection Status: Acute (3) Status post mitral valve repair Status: Acute (4) Chronic congestive heart failure Status: Acute (5) Diabetes Status: Acute (6) HTN (hypertension) Status: Acute (7) History of lobectomy of lung Status: Acute (8) History of lung cancer Status: Acute (9) History of pulmonary embolism Status: Acute (10) History of thyroid cancer Status: Acute (11) Hyperlipemia Status: Acute (12) Mitral regurgitation Status: Acute (13) Nonsustained ventricular tachycardia Status: Acute (14) Paroxysmal atrial fibrillation Status: Acute (15) Tobacco dependence in remission Status: Acute Plan: 1. Continue aspirin, statin, heparin subcu, Lasix. 2. Amiodarone discontinued yesterday by cardiology. 3. Encourage incentive spirometry use. 5. Coumadin to be dosed daily with daily PT/INRs. 6. GI/DVT prophylaxis. 7. Will monitor daily labs, chest x-rays. 8. Will retry Ortega removal. If retention persists we will consult urology. 9. Increase activity, ambulate in hallway. Physical therapy following. 10. Patient may require permanent pacemaker. Will defer to cardiology for recommendations. 11. More recommendations as patient progresses. Time with Patient: Greater than 30 <Jerome Mason - Last Filed: 02/22/17 11:03> Objective - Vital Signs Vital signs: Vital Signs Temp 97.5 F L 02/22/17 08:00 Pulse 52 L 02/22/17 09:00 Resp 23 02/22/17 09:00 BP 118/43 02/22/17 09:00 Pulse Ox 93 L 02/22/17 09:00 Intake & Output 02/21/17 02/22/17 02/22/17 18:59 06:59 18:59 Intake Total 482 373 183 Output Total 510 317 176 Balance -28 56 7 Weight 96.8 kg 96.8 kg Intake: IV 282 273 43 Lactated Ringers 240 240 40 Pressure Bag 0.9NS 42 33 3 Intake, IV Titration 20 Amount Lactated Ringers 1,000 ml 20 @ 20 mls/hr IV .Q24H [facility] Rx#:[id number] Oral 200 100 120 Output: Urine 510 317 176 Other: Voiding Method Indwelling Catheter Indwelling Catheter Indwelling Catheter # Bowel Movements 0 0 ABP, PAP, CO, CI - Last Documented Arterial Blood Pressure 93/41 Pulmonary Artery Pressure 36/12 Cardiac Output 3.4 Cardiac Index 1.8 - Labs CBC & Chem 7: 02/22/17 06:11 02/22/17 06:11 Labs: Abnormal Lab Results - Last 24 Hours (Table) 02/21/17 02/21/17 02/21/17 Range/Units 12:03 16:56 20:48 RBC (3.80-5.40) m/uL Hgb (11.4-16.0) gm/dL Hct (34.0-46.0) % PT (9.0-12.0) sec INR (<1.2) BUN (7-17) mg/dL Creatinine (0.52-1.04) mg/dL Glucose (74-99) mg/dL POC Glucose (mg/dL) 153 H 216 H 196 H (75-99) mg/dL Calcium (8.4-10.2) mg/dL Total Protein (6.3-8.2) g/dL Albumin (3.5-5.0) g/dL 02/22/17 02/22/17 02/22/17 Range/Units 06:11 06:11 06:11 RBC 3.09 L (3.80-5.40) m/uL Hgb 9.3 L (11.4-16.0) gm/dL Hct 28.7 L (34.0-46.0) % PT 12.9 H (9.0-12.0) sec INR 1.3 H (<1.2) BUN 29 H (7-17) mg/dL Creatinine 1.16 H (0.52-1.04) mg/dL Glucose 113 H (74-99) mg/dL POC Glucose (mg/dL) (75-99) mg/dL Calcium 8.0 L (8.4-10.2) mg/dL Total Protein 5.3 L (6.3-8.2) g/dL Albumin 2.7 L (3.5-5.0) g/dL 02/22/17 Range/Units 08:04 RBC (3.80-5.40) m/uL Hgb (11.4-16.0) gm/dL Hct (34.0-46.0) % PT (9.0-12.0) sec INR (<1.2) BUN (7-17) mg/dL Creatinine (0.52-1.04) mg/dL Glucose (74-99) mg/dL POC Glucose (mg/dL) 139 H (75-99) mg/dL Calcium (8.4-10.2) mg/dL Total Protein (6.3-8.2) g/dL Albumin (3.5-5.0) g/dL Assessment and Plan Plan: The patient was seen and examined. I agree with the above assessment and plan. Overall she looks good. We will discontinue her Cordis sheath and her Ortega catheter. She has had a good response to Lasix. She is being evaluated by cardiology for possible placement of a permanent pacemaker tomorrow. She remains on Coumadin secondary to a history of atrial fibrillation. We will continue to encourage incentive spirometry and ambulation.
--- NOTE | 2017-02-22 10:52 | XR ---
EXAMINATION TYPE: XR chest 1V portable DATE OF EXAM: 02/22/2017 COMPARISON: Prior chest x-ray 02/21/2017 HISTORY: Postop cardiac surgery TECHNIQUE: Single frontal view of the chest is obtained. FINDINGS: Similar findings to previous exam. Bilateral patchy basilar density. There is a scoliosis, patient is post median sternotomy. No sizable pneumothorax or pleural effusion. There are overlying cardiac leads. Heart is enlarged. Central vascularity and interstitium are somewhat prominent. There is evidence of old granulomatous disease. Exam is expiratory. IMPRESSION: Similar to previous exam. Correlate for possible volume overload, pulmonary venous hyper tension and interstitial edema, basilar atelectasis versus pneumonia, there may be small effusions. F ollow-up recommended.
--- NOTE | 2017-02-22 11:10 | P.PN ---
Subjective This is a 71-year-old female was admitted on February 18 for mitral valve repair. It was done on February 18. Currently she's not receiving any supplemental oxygen. She's on no IV fluids. She's doing well. She has had some issues with her rhythm. She may need a permanent pacemaker. She sitting in the chair. She feeling well. Really has no major issues. No hemodynamic or respiratory issues at this time. The patient is seen again today 02/22/2017 in follow-up. She is status post mitral valve repair. This is postoperative day #4. She is seen in the intensive care unit. She is currently sitting up in the chair at the bedside. She is awake and alert in no acute distress. She denies any worsening shortness of breath, cough or congestion. Her chest x-ray does show increased bibasilar atelectatic changes in the lung bases. She is only: Approximately 500 mL's on her incentive spirometer. She is maintaining good O2 saturations in the 90s on room air. She has a 0.9 normal saline at KVO. She has had ongoing issues with bradycardia and may need permanent pacemaker implantation. She is currently in atrial fibrillation. She is anticoagulated with warfarin. Current INR 1.3. Objective - Vital Signs Vital signs: Vital Signs Temp 97.5 F L 02/22/17 08:00 Pulse 52 L 02/22/17 09:00 Resp 23 02/22/17 09:00 BP 118/43 02/22/17 09:00 Pulse Ox 93 L 02/22/17 09:00 Intake & Output 02/21/17 02/22/17 02/22/17 18:59 06:59 18:59 Intake Total 482 373 183 Output Total 510 317 176 Balance -28 56 7 Weight 96.8 kg 96.8 kg Intake: IV 282 273 43 Lactated Ringers 240 240 40 Pressure Bag 0.9NS 42 33 3 Intake, IV Titration 20 Amount Lactated Ringers 1,000 ml 20 @ 20 mls/hr IV .Q24H [facility] Rx#:[id number] Oral 200 100 120 Output: Urine 510 317 176 Other: Voiding Method Indwelling Catheter Indwelling Catheter Indwelling Catheter # Bowel Movements 0 0 ABP, PAP, CO, CI - Last Documented Arterial Blood Pressure 93/41 Pulmonary Artery Pressure 36/12 Cardiac Output 3.4 Cardiac Index 1.8 - Exam No acute distress, oriented 3. HEENT examination is grossly unremarkable. Mucous membranes are moist. No oral lesions. Neck supple. Full range of motion. No adenopathy or thyromegaly. Cardiovascular examination reveals regular rhythm rate. S1-S2 normal. There is no S3-S4 or murmur. Lungs reveal mostly clear breath sounds. No wheezes or rhonchi. No crackles. Abdomen soft bowel sounds are heard. Semis are intact. No cyanosis clubbing or edema. Skin without rash. Neurologic is nonfocal. - Labs CBC & Chem 7: 02/22/17 06:11 02/22/17 06:11 Labs: Abnormal Lab Results - Last 24 Hours (Table) 02/21/17 02/21/17 02/21/17 Range/Units 12:03 16:56 20:48 RBC (3.80-5.40) m/uL Hgb (11.4-16.0) gm/dL Hct (34.0-46.0) % PT (9.0-12.0) sec INR (<1.2) BUN (7-17) mg/dL Creatinine (0.52-1.04) mg/dL Glucose (74-99) mg/dL POC Glucose (mg/dL) 153 H 216 H 196 H (75-99) mg/dL Calcium (8.4-10.2) mg/dL Total Protein (6.3-8.2) g/dL Albumin (3.5-5.0) g/dL 02/22/17 02/22/17 02/22/17 Range/Units 06:11 06:11 06:11 RBC 3.09 L (3.80-5.40) m/uL Hgb 9.3 L (11.4-16.0) gm/dL Hct 28.7 L (34.0-46.0) % PT 12.9 H (9.0-12.0) sec INR 1.3 H (<1.2) BUN 29 H (7-17) mg/dL Creatinine 1.16 H (0.52-1.04) mg/dL Glucose 113 H (74-99) mg/dL POC Glucose (mg/dL) (75-99) mg/dL Calcium 8.0 L (8.4-10.2) mg/dL Total Protein 5.3 L (6.3-8.2) g/dL Albumin 2.7 L (3.5-5.0) g/dL 02/22/17 Range/Units 08:04 RBC (3.80-5.40) m/uL Hgb (11.4-16.0) gm/dL Hct (34.0-46.0) % PT (9.0-12.0) sec INR (<1.2) BUN (7-17) mg/dL Creatinine (0.52-1.04) mg/dL Glucose (74-99) mg/dL POC Glucose (mg/dL) 139 H (75-99) mg/dL Calcium (8.4-10.2) mg/dL Total Protein (6.3-8.2) g/dL Albumin (3.5-5.0) g/dL Assessment and Plan Plan: Impression: #1 Severe mitral regurgitation status post mitral valve repair. This postoperative day #4. #2 Atrial fibrillation with bradycardia, and occasionally with warfarin,current INR 1.4. #3 Bibasilar atelectasis as an expected outcome of thoracotomy. #4 History of lung cancer. #5 History of chronic diastolic congestive heart failure. #6 Diabetes mellitus, type II. #7 Gastroesophageal reflux disease. #8 Hypertension, history of. #9 History of pulmonary embolism. #10 History of obstructive sleep apnea. #11 History of thyroid cancer. #12 History of chronic tobacco dependence. Plan: The patient was seen and evaluated by Dr. Donis. Her chest x-ray and labs were reviewed. We've again encourage increased use of the incentive spirometer and cough and deep breathing exercises. Continue bronchodilators. Continue diuretics. Increase activity as tolerated. She is currently being monitored in regards to her bradycardia and possible need for permanent pacemaker implantation. We will continue to follow and make further recommendations based on her clinical status.
--- NOTE | 2017-02-22 11:38 | P.PN ---
Subjective Principal diagnosis: Mitral regurgitation status post mitral valve repair Postoperative bradycardia Patient is doing well. Remains in atrial fibrillation with slow ventricular rate. Heart rate has dropped into 38 last night. She is using the pacemaker intermittently. She is off amiodarone. She is off beta blockers. Patient will need either a permanent pacemaker are AICD given the prior history of ventricular tachycardia. I will talk to Dr. Orourke her primary information systems security developer and hopefully this can be accomplished tomorrow in the meantime patient will stay in the intensive care unit Objective - Vital Signs Vital signs: Vital Signs Temp 97.5 F L 02/22/17 08:00 Pulse 100 02/22/17 11:30 Resp 16 02/22/17 11:19 BP 118/43 02/22/17 09:00 Pulse Ox 93 L 02/22/17 09:00 Intake & Output 02/21/17 02/22/17 02/22/17 18:59 06:59 18:59 Intake Total 482 373 183 Output Total 510 317 176 Balance -28 56 7 Weight 96.8 kg 96.8 kg Intake: IV 282 273 43 Lactated Ringers 240 240 40 Pressure Bag 0.9NS 42 33 3 Intake, IV Titration 20 Amount Lactated Ringers 1,000 ml 20 @ 20 mls/hr IV .Q24H [facility] Rx#:[id number] Oral 200 100 120 Output: Urine 510 317 176 Other: Voiding Method Indwelling Catheter Indwelling Catheter Indwelling Catheter # Bowel Movements 0 0 ABP, PAP, CO, CI - Last Documented Arterial Blood Pressure 93/41 Pulmonary Artery Pressure 36/12 Cardiac Output 3.4 Cardiac Index 1.8 - Exam Patient is comfortable at rest vital signs are stable chest exam reveals diminished air entry at the bases heart exam reveals first and second heart sounds no gallop abdomen is soft exemption extremities did not reveal any edema per for pulses are felt - Labs CBC & Chem 7: 02/22/17 06:11 02/22/17 06:11 Labs: Abnormal Lab Results - Last 24 Hours (Table) 02/21/17 02/21/17 02/21/17 Range/Units 12:03 16:56 20:48 RBC (3.80-5.40) m/uL Hgb (11.4-16.0) gm/dL Hct (34.0-46.0) % PT (9.0-12.0) sec INR (<1.2) BUN (7-17) mg/dL Creatinine (0.52-1.04) mg/dL Glucose (74-99) mg/dL POC Glucose (mg/dL) 153 H 216 H 196 H (75-99) mg/dL Calcium (8.4-10.2) mg/dL Total Protein (6.3-8.2) g/dL Albumin (3.5-5.0) g/dL 02/22/17 02/22/17 02/22/17 Range/Units 06:11 06:11 06:11 RBC 3.09 L (3.80-5.40) m/uL Hgb 9.3 L (11.4-16.0) gm/dL Hct 28.7 L (34.0-46.0) % PT 12.9 H (9.0-12.0) sec INR 1.3 H (<1.2) BUN 29 H (7-17) mg/dL Creatinine 1.16 H (0.52-1.04) mg/dL Glucose 113 H (74-99) mg/dL POC Glucose (mg/dL) (75-99) mg/dL Calcium 8.0 L (8.4-10.2) mg/dL Total Protein 5.3 L (6.3-8.2) g/dL Albumin 2.7 L (3.5-5.0) g/dL 02/22/17 Range/Units 08:04 RBC (3.80-5.40) m/uL Hgb (11.4-16.0) gm/dL Hct (34.0-46.0) % PT (9.0-12.0) sec INR (<1.2) BUN (7-17) mg/dL Creatinine (0.52-1.04) mg/dL Glucose (74-99) mg/dL POC Glucose (mg/dL) 139 H (75-99) mg/dL Calcium (8.4-10.2) mg/dL Total Protein (6.3-8.2) g/dL Albumin (3.5-5.0) g/dL Assessment and Plan Plan: Mitral regurgitation status post mitral valve repair Chronic atrial fibrillation with slow ventricular rate History of ventricular tachycardia Patient may have a permanent pacemaker or AICD tomorrow morning.
[2017-02-22] MEDS: HYDROcodone/APAP 5-325MG 1 EACH TAB PO PRN ×2 (13:37→23:23)
[2017-02-22 15:54] LABS: Glucose,Whole Blood 117 mg/dL (75-99)
[2017-02-22] MEDS: LACTATED RINGERS 1,000 ML IV SCH (16:24)
[2017-02-22 18:13] LABS: Glucose,Whole Blood 161 mg/dL (75-99)
--- NOTE | 2017-02-22 19:51 | P.PN ---
Subjective This is a 71-year-old female with severe mitral valve regurgitation, non-insulin -dependent diabetes mellitus, pulmonary embolism, atrial fibrillation and hypothyroidism due to her having thyroid cancer and partial thyroidectomy. Patient presents to the hospital for mitral valve repair. Patient tolerated surgery well. She remains in the ICU. She's up and sitting at the bedside chair. She did develop atrial fibrillation started on amiodarone and Coumadin per cardiology. He also reported evidence of a high-grade AV block in which it was related to the perioperative trauma. They discontinued the Lopressor. They also adjusted the pacer rate. We have been consulted for medical management. Patient has been on insulin drip. Blood sugars have been stable. She'll be placed on a sliding scale coverage. Patient denies any chest pain or shortness of breath. Denies any nausea or vomiting. Passing gas. Last bowel movement 2 days ago. Had a episode of urinary retention which Ortega catheter had to be reinserted. On 02/22/2017 patient was seen and examined in intensive care unit she is doing well she denies any chest pain or shortness of breath no nausea or vomiting no abdominal pain no diarrhea or constipation. Ortega catheter has been removed she has not been able to urinate yet it has been about 7 hours since Ortega catheter was removed. Objective - Vital Signs Vital signs: Vital Signs Temp 98.0 F 02/22/17 16:00 Pulse 52 L 02/22/17 19:42 Resp 20 02/22/17 18:00 BP 138/59 02/22/17 18:00 Pulse Ox 90 L 02/22/17 18:00 Intake & Output 02/22/17 02/22/17 02/23/17 06:59 18:59 06:59 Intake Total 373 603 Output Total 317 676 Balance 56 -73 Weight 96.8 kg 96.8 kg Intake: IV 273 223 Lactated Ringers 240 220 Pressure Bag 0.9NS 33 3 Intake, IV Titration 20 Amount Lactated Ringers 1,000 ml 20 @ 20 mls/hr IV .Q24H [facility] Rx#:[id number] Oral 100 360 Output: Urine 317 676 Other: Voiding Method Indwelling Catheter Bedside Commode # Bowel Movements 0 ABP, PAP, CO, CI - Last Documented Arterial Blood Pressure 93/41 Pulmonary Artery Pressure 36/12 Cardiac Output 3.4 Cardiac Index 1.8 - Exam In general patient is alert and oriented 3 in no apparent distress HEENT head normocephalic and atraumatic Neck is supple no JVD no goiter no lymphadenopathy Chest is clear to auscultation no wheezing Cardiac exam reveals regular heart sounds no murmurs Abdomen is soft nontender no organomegaly Extremity exam reveals no edema no cyanosis or clubbing - Labs CBC & Chem 7: 02/22/17 06:11 02/22/17 06:11 Labs: Abnormal Lab Results - Last 24 Hours (Table) 02/21/17 02/22/17 02/22/17 Range/Units 20:48 06:11 06:11 RBC 3.09 L (3.80-5.40) m/uL Hgb 9.3 L (11.4-16.0) gm/dL Hct 28.7 L (34.0-46.0) % PT 12.9 H (9.0-12.0) sec INR 1.3 H (<1.2) BUN (7-17) mg/dL Creatinine (0.52-1.04) mg/dL Glucose (74-99) mg/dL POC Glucose (mg/dL) 196 H (75-99) mg/dL Calcium (8.4-10.2) mg/dL Total Protein (6.3-8.2) g/dL Albumin (3.5-5.0) g/dL 02/22/17 02/22/17 02/22/17 Range/Units 06:11 08:04 11:58 RBC (3.80-5.40) m/uL Hgb (11.4-16.0) gm/dL Hct (34.0-46.0) % PT (9.0-12.0) sec INR (<1.2) BUN 29 H (7-17) mg/dL Creatinine 1.16 H (0.52-1.04) mg/dL Glucose 113 H (74-99) mg/dL POC Glucose (mg/dL) 139 H 117 H (75-99) mg/dL Calcium 8.0 L (8.4-10.2) mg/dL Total Protein 5.3 L (6.3-8.2) g/dL Albumin 2.7 L (3.5-5.0) g/dL 02/22/17 Range/Units 18:11 RBC (3.80-5.40) m/uL Hgb (11.4-16.0) gm/dL Hct (34.0-46.0) % PT (9.0-12.0) sec INR (<1.2) BUN (7-17) mg/dL Creatinine (0.52-1.04) mg/dL Glucose (74-99) mg/dL POC Glucose (mg/dL) 161 H (75-99) mg/dL Calcium (8.4-10.2) mg/dL Total Protein (6.3-8.2) g/dL Albumin (3.5-5.0) g/dL Assessment and Plan Plan: 1. Status post mitral valve repair completed on 02/18/2017 2. High-grade AV block. Evaluated by cardiology. They felt secondary to perioperative trauma to the conduction system. And Lopressor was discontinued. Continue to monitor 3. Paroxysmal atrial fibrillation: Patient on Coumadin and subcu heparin until INR therapeutic 4. History of lung cancer status post lobectomy 5. History of thyroid cancer status post partial thyroidectomy. Continue with Synthroid 6. Diabetes mellitus type 2: Discontinue insulin drip. place patient on humalog sliding scale coverage. Usually on metformin 500 mg twice a day at home. Hold metformin while in hospital 7. Elevated LFTs now normalized. Agree with restarting statin 8. Hyperlipidemia 9. History of pulmonary embolism 10. History of obstructive sleep apnea uses CPAP at home 11. Urinary retention: Have Ortega catheter placed. They're planning to remove catheter today and monitor DVT prophylaxis subcu heparin and GI prophylaxis Protonix
[2017-02-22 20:34] LABS: Glucose,Whole Blood 197 mg/dL (75-99)
[2017-02-22] MEDS: SENNOSIDES-DOCUSATE SODIUM 1 EACH TAB PO SCH (20:38)
[2017-02-23 03:07] LABS: Glucose,Whole Blood 124 mg/dL (75-99)
[2017-02-23 05:08] LABS: Basophils % (A) 1 %; CH 31.4; CHCM 34.1; Eosinophils # (A) 0.3 k/uL (0-0.7); Eosinophils % (A) 4 %; HCT 27.1 % (34.0-46.0); HDW 2.74; Luc # (Auto) 0.16; Luc % (Auto) 3; Lymphocytes # (A) 1.8 k/uL (1.0-4.8); Lymphocytes % (A) 29 %; MCH 30.8 pg (25.0-35.0); MCHC 33.2 g/dL (31.0-37.0); MCV 92.8 fL (80.0-100.0); Mean Platelet Volume 8.4; Monocytes # (A) 0.4 k/uL (0-1.0); Monocytes % (A) 7 %; Neutrophils # (A) 3.5 k/uL (1.3-7.7); Neutrophils % (A) 57 %; RBC 2.93 m/uL (3.80-5.40); WBC 6.2 k/uL (3.8-10.6); WBC (Perox) 6.15
[2017-02-23 05:15] LABS: ALT 32 U/L (9-52); AST 22 U/L (14-36); Alkaline Phosphatase 62 U/L (38-126); Anion Gap 9 mmol/L; Blood Urea Nitrogen 31 mg/dL (7-17); Calcium 7.9 mg/dL (8.4-10.2); Carbon Dioxide 23 mmol/L (22-30); Chloride 102 mmol/L (98-107); Glucose 102 mg/dL (74-99); Magnesium 1.8 mg/dL (1.6-2.3); Non-African American GFR(MDRD) 55 (>60 ml/min/1.73 sqM); Phosphorous 4.7 mg/dL (2.5-4.5); Potassium 4.7 mmol/L (3.5-5.1); Sodium 134 mmol/L (137-145); Total Bilirubin 0.6 mg/dL (0.2-1.3); Total Protein 4.9 g/dL (6.3-8.2)
[2017-02-23 05:37] LABS: INR 1.7 (<1.2); Prothrombin Time 16.3 sec (9.0-12.0)
[2017-02-23] MEDS: PANTOPRAZOLE 40 MG TABLET PO SCH (06:41)
[2017-02-23] MEDS: LEVOTHYROXINE 100 MCG TAB PO SCH (06:41)
[2017-02-23] MEDS: IPRATROPIUM-ALBUTEROL 3 ML NEB INHALATION SCH ×4 (07:50→21:01)
[2017-02-23 08:09] LABS: Glucose,Whole Blood 116 mg/dL (75-99)
[2017-02-23] MEDS: metFORMIN 500 MG TAB PO SCH ×2 (08:26→18:44)
[2017-02-23] MEDS: ASPIRIN 325 MG TAB PO SCH (08:26)
[2017-02-23] MEDS: ATORVASTATIN 40 MG TAB PO SCH (08:26)
[2017-02-23] MEDS: FUROSEMIDE 10 MG/ML 2 ML VIAL IV SCH ×2 (08:27→22:06)
[2017-02-23] MEDS: HEPARIN SODIUM,PORCINE 5,000 UNIT/ML 1 ML VIAL SQ SCH ×2 (08:27→18:43)
[2017-02-23] MEDS: CHOLECALCIFEROL 1,000 UNIT TAB PO SCH ×2 (08:30→22:06)
--- NOTE | 2017-02-23 08:50 | P.PN ---
<Myrtle Raymond - Last Filed: 02/23/17 08:43> Subjective Principal diagnosis: Severe mitral regurgitation. History of atrial fibrillation. History of chronic diastolic congestive heart failure. Diabetes mellitus type 2. Gastroesophageal reflux disease. Hypertension. History of pulmonary embolus. Osteoarthritis. Sleep apnea with CPAP use at home. History of lung cancer approximately 8 years ago. History of thyroid cancer. Preoperative urinary tract infection. POD #5 complex mitral valve repair with cari-cord to A1, closure of cleft P1-P2, annuloplasty with randee 3-D 28 mm ring, closure of PFO, with epi-aortic ultrasonography and closure of the left atrial appendage, and EMELY by anesthesia Patient's currently sitting up in a recliner in no acute distress eating breakfast. Denies pain, shortness of breath. Ambulated in the hallway yesterday. Remains bradycardic with slow atrial fibrillation, heart rate in the 50s. Objective - Vital Signs Vital signs: Vital Signs Temp 98 F 02/23/17 08:00 Pulse 76 02/23/17 08:01 Resp 21 02/23/17 08:00 BP 145/59 02/23/17 08:00 Pulse Ox 96 02/23/17 08:00 Intake & Output 02/22/17 02/23/17 02/23/17 18:59 06:59 18:59 Intake Total 603 220 40 Output Total 676 450 50 Balance -73 -230 -10 Weight 96.8 kg Intake: IV 223 220 40 Lactated Ringers 220 220 40 Pressure Bag 0.9NS 3 Intake, IV Titration 20 Amount Lactated Ringers 1,000 ml 20 @ 20 mls/hr IV .Q24H [facility] Rx#:[id number] Oral 360 Output: Urine 676 450 50 Other: Voiding Method Bedside Commode Bedside Commode # Voids 1 # Bowel Movements 0 0 ABP, PAP, CO, CI - Last Documented Arterial Blood Pressure 93/41 Pulmonary Artery Pressure 36/12 Cardiac Output 3.4 Cardiac Index 1.8 - Constitutional General appearance: Present: cooperative, no acute distress - Respiratory Details: Lungs sounds diminished bilaterally. Respirations even, nonlabored. Currently on room air with oxygen saturation 95%. Able to achieve 750 mL on incentive spirometry. - Cardiovascular Details: S1, S2 present. Irregular rate and rhythm, slow atrial fibrillation. Sternum stable. A/V epicardial pacemaker wires present, connected to generator, VVI mode with backup rate 40 bpm. Palpable pulses bilaterally. Generalized edema still present. Right internal jugular Cordis present. Heart hugger in place with patient demonstrating appropriate use. Teds/SCDs present. - Gastrointestinal Gastrointestinal Comment(s): Abdomen soft, nontender, nondistended. Hypoactive bowel sounds present 4 quadrants. Tolerating diet. She reports small bowel movement this morning. - Genitourinary Genitourinary Comment(s): Ortega discontinued yesterday. Voiding clear, yellow urine. - Integumentary Integumentary Comment(s): Anterior chest incision well approximated and covered with dry intact dressing. - Neurologic Neurologic: Present: CNII-XII intact - Musculoskeletal Musculoskeletal: Present: gait normal, strength equal bilaterally - Psychiatric Psychiatric: Present: A&O x's 3, appropriate affect, intact judgment & insight - Allied health notes Allied health notes reviewed: nursing - Labs CBC & Chem 7: 02/23/17 04:30 02/23/17 04:30 Labs: Abnormal Lab Results - Last 24 Hours (Table) 02/22/17 02/22/17 02/22/17 Range/Units 11:58 18:11 20:33 RBC (3.80-5.40) m/uL Hgb (11.4-16.0) gm/dL Hct (34.0-46.0) % PT (9.0-12.0) sec INR (<1.2) Sodium (137-145) mmol/L BUN (7-17) mg/dL Glucose (74-99) mg/dL POC Glucose (mg/dL) 117 H 161 H 197 H (75-99) mg/dL Calcium (8.4-10.2) mg/dL Phosphorus (2.5-4.5) mg/dL Total Protein (6.3-8.2) g/dL Albumin (3.5-5.0) g/dL 02/23/17 02/23/17 02/23/17 Range/Units 02:54 04:30 04:30 RBC 2.93 L (3.80-5.40) m/uL Hgb 9.0 L (11.4-16.0) gm/dL Hct 27.1 L (34.0-46.0) % PT 16.3 H (9.0-12.0) sec INR 1.7 H (<1.2) Sodium (137-145) mmol/L BUN (7-17) mg/dL Glucose (74-99) mg/dL POC Glucose (mg/dL) 124 H (75-99) mg/dL Calcium (8.4-10.2) mg/dL Phosphorus (2.5-4.5) mg/dL Total Protein (6.3-8.2) g/dL Albumin (3.5-5.0) g/dL 02/23/17 02/23/17 Range/Units 04:30 08:07 RBC (3.80-5.40) m/uL Hgb (11.4-16.0) gm/dL Hct (34.0-46.0) % PT (9.0-12.0) sec INR (<1.2) Sodium 134 L (137-145) mmol/L BUN 31 H (7-17) mg/dL Glucose 102 H (74-99) mg/dL POC Glucose (mg/dL) 116 H (75-99) mg/dL Calcium 7.9 L (8.4-10.2) mg/dL Phosphorus 4.7 H (2.5-4.5) mg/dL Total Protein 4.9 L (6.3-8.2) g/dL Albumin 2.6 L (3.5-5.0) g/dL Assessment and Plan (1) Obstructive sleep apnea Status: Acute (2) History of urinary tract infection Status: Acute (3) Status post mitral valve repair Status: Acute (4) Chronic congestive heart failure Status: Acute (5) Diabetes Status: Acute (6) HTN (hypertension) Status: Acute (7) History of lobectomy of lung Status: Acute (8) History of lung cancer Status: Acute (9) History of pulmonary embolism Status: Acute (10) History of thyroid cancer Status: Acute (11) Hyperlipemia Status: Acute (12) Mitral regurgitation Status: Acute (13) Nonsustained ventricular tachycardia Status: Acute (14) Paroxysmal atrial fibrillation Status: Acute (15) Tobacco dependence in remission Status: Acute Plan: 1. Continue aspirin, statin, heparin subcu, Lasix. 2. No permanent pacemaker today per Dr. Orourke. May discontinue epicardial pacemaker wires. 3. Encourage incentive spirometry use. 4. Coumadin to be dosed daily with daily PT/INRs. 5. GI/DVT prophylaxis. 6. Will monitor daily labs, chest x-rays. 7. Increase activity, ambulate in hallway. Physical therapy following. 8. More recommendations as patient progresses. Will transfer to [facility] later this afternoon once pacemaker wires are removed. Time with Patient: Greater than 30 <Jerome Mason - Last Filed: 02/23/17 12:27> Objective - Vital Signs Vital signs: Vital Signs Temp 98.4 F 02/23/17 12:00 Pulse 61 02/23/17 12:00 Resp 15 02/23/17 12:00 BP 160/71 02/23/17 12:00 Pulse Ox 96 02/23/17 12:00 Intake & Output 02/22/17 02/23/17 02/23/17 18:59 06:59 18:59 Intake Total 603 220 520 Output Total 676 450 750 Balance -73 -230 -230 Weight 96.8 kg Intake: IV 223 220 80 Lactated Ringers 220 220 80 Pressure Bag 0.9NS 3 Intake, IV Titration 20 Amount Lactated Ringers 1,000 ml 20 @ 20 mls/hr IV .Q24H [facility] Rx#:[id number] Oral 360 440 Output: Urine 676 450 750 Other: Voiding Method Bedside Commode Bedside Commode Bedside Commode # Voids 1 # Bowel Movements 0 0 ABP, PAP, CO, CI - Last Documented Arterial Blood Pressure 93/41 Pulmonary Artery Pressure 36/12 Cardiac Output 3.4 Cardiac Index 1.8 - Labs CBC & Chem 7: 02/23/17 04:30 02/23/17 04:30 Labs: Abnormal Lab Results - Last 24 Hours (Table) 02/22/17 02/22/17 02/22/17 Range/Units 11:58 18:11 20:33 RBC (3.80-5.40) m/uL Hgb (11.4-16.0) gm/dL Hct (34.0-46.0) % PT (9.0-12.0) sec INR (<1.2) Sodium (137-145) mmol/L BUN (7-17) mg/dL Glucose (74-99) mg/dL POC Glucose (mg/dL) 117 H 161 H 197 H (75-99) mg/dL Calcium (8.4-10.2) mg/dL Phosphorus (2.5-4.5) mg/dL Total Protein (6.3-8.2) g/dL Albumin (3.5-5.0) g/dL 02/23/17 02/23/17 02/23/17 Range/Units 02:54 04:30 04:30 RBC 2.93 L (3.80-5.40) m/uL Hgb 9.0 L (11.4-16.0) gm/dL Hct 27.1 L (34.0-46.0) % PT 16.3 H (9.0-12.0) sec INR 1.7 H (<1.2) Sodium (137-145) mmol/L BUN (7-17) mg/dL Glucose (74-99) mg/dL POC Glucose (mg/dL) 124 H (75-99) mg/dL Calcium (8.4-10.2) mg/dL Phosphorus (2.5-4.5) mg/dL Total Protein (6.3-8.2) g/dL Albumin (3.5-5.0) g/dL 02/23/17 02/23/17 Range/Units 04:30 08:07 RBC (3.80-5.40) m/uL Hgb (11.4-16.0) gm/dL Hct (34.0-46.0) % PT (9.0-12.0) sec INR (<1.2) Sodium 134 L (137-145) mmol/L BUN 31 H (7-17) mg/dL Glucose 102 H (74-99) mg/dL POC Glucose (mg/dL) 116 H (75-99) mg/dL Calcium 7.9 L (8.4-10.2) mg/dL Phosphorus 4.7 H (2.5-4.5) mg/dL Total Protein 4.9 L (6.3-8.2) g/dL Albumin 2.6 L (3.5-5.0) g/dL Assessment and Plan Plan: The patient was seen and examined. I agree with the above assessment and plan. Her cardiac rhythm was evaluated by Dr. Orourke this morning. She will not need a permanent pacemaker. We will discontinue her epicardial wires. She' ll be given 1 mg of Coumadin this evening. We'll remove her Cordis once a peripheral IV is established. We will continue to encourage ambulation. She remains on Lasix. She was able to void spontaneously once her Ortega catheter was removed yesterday. She will be transferred to [facility] this afternoon.
[2017-02-23] MEDS: INSULIN LISPRO (humaLOG) 300 UNIT/3 ML VIAL SQ SCH ×4 (08:51→22:07)
--- NOTE | 2017-02-23 10:20 | P.PN ---
Subjective This is a 71-year-old female was admitted on February 18 for mitral valve repair. It was done on February 18. Currently she's not receiving any supplemental oxygen. She's on no IV fluids. She's doing well. She has had some issues with her rhythm. She may need a permanent pacemaker. She sitting in the chair. She feeling well. Really has no major issues. No hemodynamic or respiratory issues at this time. The patient is seen again today 02/22/2017 in follow-up. She is status post mitral valve repair. This is postoperative day #4. She is seen in the intensive care unit. She is currently sitting up in the chair at the bedside. She is awake and alert in no acute distress. She denies any worsening shortness of breath, cough or congestion. Her chest x-ray does show increased bibasilar atelectatic changes in the lung bases. She is only: Approximately 500 mL's on her incentive spirometer. She is maintaining good O2 saturations in the 90s on room air. She has a 0.9 normal saline at KVO. She has had ongoing issues with bradycardia and may need permanent pacemaker implantation. She is currently in atrial fibrillation. She is anticoagulated with warfarin. Current INR 1.3. The patient is seen again today 02/23/2017 in follow-up in the intensive care unit. She is status post mitral valve repair. This is postoperative day #5. She is currently sitting up in chair at the bedside. She is awake and alert in no acute distress. Cardiology is been following and there is no plans for permanent pacemaker implantation at this time. She does remain in atrial fibrillation with periodic episodes of bradycardia. Asymptomatic. She is maintaining good O2 saturations in the 90s on room air. Her IV is KVO. No complaints currently. Hemoglobin 9.0. INR 1.7. Objective - Vital Signs Vital signs: Vital Signs Temp 98 F 02/23/17 08:00 Pulse 59 L 02/23/17 10:00 Resp 23 02/23/17 10:00 BP 159/76 02/23/17 10:00 Pulse Ox 95 02/23/17 10:00 Intake & Output 02/22/17 02/23/17 02/23/17 18:59 06:59 18:59 Intake Total 603 220 520 Output Total 676 450 200 Balance -73 -230 320 Weight 96.8 kg Intake: IV 223 220 80 Lactated Ringers 220 220 80 Pressure Bag 0.9NS 3 Intake, IV Titration 20 Amount Lactated Ringers 1,000 ml 20 @ 20 mls/hr IV .Q24H [facility] Rx#:[id number] Oral 360 440 Output: Urine 676 450 200 Other: Voiding Method Bedside Commode Bedside Commode Bedside Commode # Voids 1 # Bowel Movements 0 0 ABP, PAP, CO, CI - Last Documented Arterial Blood Pressure 93/41 Pulmonary Artery Pressure 36/12 Cardiac Output 3.4 Cardiac Index 1.8 - Exam No acute distress, oriented 3. HEENT examination is grossly unremarkable. Mucous membranes are moist. No oral lesions. Neck supple. Full range of motion. No adenopathy or thyromegaly. Cardiovascular examination reveals regular rhythm rate. S1-S2 normal. There is no S3-S4 or murmur. Lungs reveal mostly clear breath sounds. No wheezes or rhonchi. No crackles. Abdomen soft bowel sounds are heard. Semis are intact. No cyanosis clubbing or edema. Skin without rash. Neurologic is nonfocal. - Labs CBC & Chem 7: 02/23/17 04:30 02/23/17 04:30 Labs: Abnormal Lab Results - Last 24 Hours (Table) 02/22/17 02/22/17 02/22/17 Range/Units 11:58 18:11 20:33 RBC (3.80-5.40) m/uL Hgb (11.4-16.0) gm/dL Hct (34.0-46.0) % PT (9.0-12.0) sec INR (<1.2) Sodium (137-145) mmol/L BUN (7-17) mg/dL Glucose (74-99) mg/dL POC Glucose (mg/dL) 117 H 161 H 197 H (75-99) mg/dL Calcium (8.4-10.2) mg/dL Phosphorus (2.5-4.5) mg/dL Total Protein (6.3-8.2) g/dL Albumin (3.5-5.0) g/dL 02/23/17 02/23/17 02/23/17 Range/Units 02:54 04:30 04:30 RBC 2.93 L (3.80-5.40) m/uL Hgb 9.0 L (11.4-16.0) gm/dL Hct 27.1 L (34.0-46.0) % PT 16.3 H (9.0-12.0) sec INR 1.7 H (<1.2) Sodium (137-145) mmol/L BUN (7-17) mg/dL Glucose (74-99) mg/dL POC Glucose (mg/dL) 124 H (75-99) mg/dL Calcium (8.4-10.2) mg/dL Phosphorus (2.5-4.5) mg/dL Total Protein (6.3-8.2) g/dL Albumin (3.5-5.0) g/dL 02/23/17 02/23/17 Range/Units 04:30 08:07 RBC (3.80-5.40) m/uL Hgb (11.4-16.0) gm/dL Hct (34.0-46.0) % PT (9.0-12.0) sec INR (<1.2) Sodium 134 L (137-145) mmol/L BUN 31 H (7-17) mg/dL Glucose 102 H (74-99) mg/dL POC Glucose (mg/dL) 116 H (75-99) mg/dL Calcium 7.9 L (8.4-10.2) mg/dL Phosphorus 4.7 H (2.5-4.5) mg/dL Total Protein 4.9 L (6.3-8.2) g/dL Albumin 2.6 L (3.5-5.0) g/dL Assessment and Plan Plan: Impression: #1 Severe mitral regurgitation status post mitral valve repair. This postoperative day #5. #2 Atrial fibrillation with bradycardia, and occasionally with warfarin,current INR 1.7. #3 Bibasilar atelectasis as an expected outcome of thoracotomy. #4 History of lung cancer. #5 History of chronic diastolic congestive heart failure. #6 Diabetes mellitus, type II. #7 Gastroesophageal reflux disease. #8 Hypertension, history of. #9 History of pulmonary embolism. #10 History of obstructive sleep apnea. #11 History of thyroid cancer. #12 History of chronic tobacco dependence. Plan: The patient was seen and evaluated by Dr. Donis. We've again encourage increased use of the incentive spirometer and cough and deep breathing exercises. Continue bronchodilators. Continue diuretics. Increase activity as tolerated. We will continue to follow and make further recommendations based on her clinical status.
--- NOTE | 2017-02-23 10:50 | P.PN ---
Subjective Principal diagnosis: Mitral regurgitation status post mitral valve repair Atrial fibrillation with slow ventricular rate Patient is doing well. Remains in atrial fibrillation with slow ventricular rate. Patient is doing better. Heart rate has improved into the 50s. 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 We will continue to watch her on telemetry. Once the temporary pacer wires her out we can resume the Coumadin. Patient is stable to be transferred out of ICU. Patient is not on beta blockers or amiodarone at this time Objective - Vital Signs Vital signs: Vital Signs Temp 98 F 02/23/17 08:00 Pulse 59 L 02/23/17 10:00 Resp 23 02/23/17 10:00 BP 159/76 02/23/17 10:00 Pulse Ox 95 02/23/17 10:00 Intake & Output 02/22/17 02/23/17 02/23/17 18:59 06:59 18:59 Intake Total 603 220 520 Output Total 676 450 500 Balance -73 -230 20 Weight 96.8 kg Intake: IV 223 220 80 Lactated Ringers 220 220 80 Pressure Bag 0.9NS 3 Intake, IV Titration 20 Amount Lactated Ringers 1,000 ml 20 @ 20 mls/hr IV .Q24H [facility] Rx#:[id number] Oral 360 440 Output: Urine 676 450 500 Other: Voiding Method Bedside Commode Bedside Commode Bedside Commode # Voids 1 # Bowel Movements 0 0 ABP, PAP, CO, CI - Last Documented Arterial Blood Pressure 93/41 Pulmonary Artery Pressure 36/12 Cardiac Output 3.4 Cardiac Index 1.8 - Exam Patient is comfortable at rest remains in atrial fibrillation with a heart rate of 54 bpm blood pressure is 138/89 respirators 18 chest exam reveals diminished air entry at the bases heart exam reveals first and second heart sounds are regular rhythm exemption extremities reveals bilateral 1+ pitting edema - Labs CBC & Chem 7: 02/23/17 04:30 02/23/17 04:30 Labs: Abnormal Lab Results - Last 24 Hours (Table) 02/22/17 02/22/17 02/22/17 Range/Units 11:58 18:11 20:33 RBC (3.80-5.40) m/uL Hgb (11.4-16.0) gm/dL Hct (34.0-46.0) % PT (9.0-12.0) sec INR (<1.2) Sodium (137-145) mmol/L BUN (7-17) mg/dL Glucose (74-99) mg/dL POC Glucose (mg/dL) 117 H 161 H 197 H (75-99) mg/dL Calcium (8.4-10.2) mg/dL Phosphorus (2.5-4.5) mg/dL Total Protein (6.3-8.2) g/dL Albumin (3.5-5.0) g/dL 02/23/17 02/23/17 02/23/17 Range/Units 02:54 04:30 04:30 RBC 2.93 L (3.80-5.40) m/uL Hgb 9.0 L (11.4-16.0) gm/dL Hct 27.1 L (34.0-46.0) % PT 16.3 H (9.0-12.0) sec INR 1.7 H (<1.2) Sodium (137-145) mmol/L BUN (7-17) mg/dL Glucose (74-99) mg/dL POC Glucose (mg/dL) 124 H (75-99) mg/dL Calcium (8.4-10.2) mg/dL Phosphorus (2.5-4.5) mg/dL Total Protein (6.3-8.2) g/dL Albumin (3.5-5.0) g/dL 02/23/17 02/23/17 Range/Units 04:30 08:07 RBC (3.80-5.40) m/uL Hgb (11.4-16.0) gm/dL Hct (34.0-46.0) % PT (9.0-12.0) sec INR (<1.2) Sodium 134 L (137-145) mmol/L BUN 31 H (7-17) mg/dL Glucose 102 H (74-99) mg/dL POC Glucose (mg/dL) 116 H (75-99) mg/dL Calcium 7.9 L (8.4-10.2) mg/dL Phosphorus 4.7 H (2.5-4.5) mg/dL Total Protein 4.9 L (6.3-8.2) g/dL Albumin 2.6 L (3.5-5.0) g/dL Assessment and Plan Plan: Mitral regurgitation status post mitral valve repair Chronic atrial fibrillation with slow ventricular rate History of ventricular tachycardia Will hold off pacemaker at this time. Patient will be transferred out of ICU. Her heart rate has improved.
[2017-02-23 12:29] LABS: Glucose,Whole Blood 143 mg/dL (75-99)
[2017-02-23] MEDS: MULTIVITAMINS, THERA 1 EACH TAB PO SCH (12:32)
[2017-02-23] MEDS: LISINOPRIL 5 MG TAB PO SCH (12:32)
[2017-02-23 13:19] LABS: Glucose,Whole Blood 145 mg/dL (75-99)
[2017-02-23] MEDS: HYDROcodone/APAP 5-325MG 1 EACH TAB PO PRN ×2 (13:20→22:10)
--- NOTE | 2017-02-23 17:50 | P.PN ---
Subjective This is a 71-year-old female with severe mitral valve regurgitation, non-insulin -dependent diabetes mellitus, pulmonary embolism, atrial fibrillation and hypothyroidism due to her having thyroid cancer and partial thyroidectomy. Patient presents to the hospital for mitral valve repair. Patient tolerated surgery well. She remains in the ICU. She's up and sitting at the bedside chair. She did develop atrial fibrillation started on amiodarone and Coumadin per cardiology. He also reported evidence of a high-grade AV block in which it was related to the perioperative trauma. They discontinued the Lopressor. They also adjusted the pacer rate. We have been consulted for medical management. Patient has been on insulin drip. Blood sugars have been stable. She'll be placed on a sliding scale coverage. Patient denies any chest pain or shortness of breath. Denies any nausea or vomiting. Passing gas. Last bowel movement 2 days ago. Had a episode of urinary retention which Ortega catheter had to be reinserted. On 02/22/2017 patient was seen and examined in intensive care unit she is doing well she denies any chest pain or shortness of breath no nausea or vomiting no abdominal pain no diarrhea or constipation. Ortega catheter has been removed she has not been able to urinate yet it has been about 7 hours since Ortega catheter was removed. Objective - Vital Signs Vital signs: Vital Signs Temp 98.4 F 02/23/17 12:00 Pulse 55 L 02/23/17 16:00 Resp 21 02/23/17 16:00 BP 138/63 02/23/17 16:00 Pulse Ox 96 02/23/17 16:00 Intake & Output 02/22/17 02/23/17 02/23/17 18:59 06:59 18:59 Intake Total 583 457 1406 Output Total 402 938 2231 Balance -73 -230 0 Weight 96.8 kg Intake: IV 223 220 80 Lactated Ringers 220 220 80 Pressure Bag 0.9NS 3 Intake, IV Titration 20 Amount Lactated Ringers 1,000 ml 20 @ 20 mls/hr IV .Q24H [facility] Rx#:[id number] Oral 360 920 Output: Urine 058 090 7355 Other: Voiding Method Bedside Commode Bedside Commode Bedside Commode # Voids 1 # Bowel Movements 0 0 0 ABP, PAP, CO, CI - Last Documented Arterial Blood Pressure 93/41 Pulmonary Artery Pressure 36/12 Cardiac Output 3.4 Cardiac Index 1.8 - Exam In general patient is alert and oriented 3 in no apparent distress HEENT head normocephalic and atraumatic Neck is supple no JVD no goiter no lymphadenopathy Chest is clear to auscultation no wheezing Cardiac exam reveals regular heart sounds no murmurs Abdomen is soft nontender no organomegaly Extremity exam reveals no edema no cyanosis or clubbing - Labs CBC & Chem 7: 02/23/17 04:30 02/23/17 04:30 Labs: Abnormal Lab Results - Last 24 Hours (Table) 02/22/17 02/22/17 02/23/17 Range/Units 18:11 20:33 02:54 RBC (3.80-5.40) m/uL Hgb (11.4-16.0) gm/dL Hct (34.0-46.0) % PT (9.0-12.0) sec INR (<1.2) Sodium (137-145) mmol/L BUN (7-17) mg/dL Glucose (74-99) mg/dL POC Glucose (mg/dL) 161 H 197 H 124 H (75-99) mg/dL Calcium (8.4-10.2) mg/dL Phosphorus (2.5-4.5) mg/dL Total Protein (6.3-8.2) g/dL Albumin (3.5-5.0) g/dL 02/23/17 02/23/17 02/23/17 Range/Units 04:30 04:30 04:30 RBC 2.93 L (3.80-5.40) m/uL Hgb 9.0 L (11.4-16.0) gm/dL Hct 27.1 L (34.0-46.0) % PT 16.3 H (9.0-12.0) sec INR 1.7 H (<1.2) Sodium 134 L (137-145) mmol/L BUN 31 H (7-17) mg/dL Glucose 102 H (74-99) mg/dL POC Glucose (mg/dL) (75-99) mg/dL Calcium 7.9 L (8.4-10.2) mg/dL Phosphorus 4.7 H (2.5-4.5) mg/dL Total Protein 4.9 L (6.3-8.2) g/dL Albumin 2.6 L (3.5-5.0) g/dL 02/23/17 02/23/17 02/23/17 Range/Units 08:07 12:24 13:06 RBC (3.80-5.40) m/uL Hgb (11.4-16.0) gm/dL Hct (34.0-46.0) % PT (9.0-12.0) sec INR (<1.2) Sodium (137-145) mmol/L BUN (7-17) mg/dL Glucose (74-99) mg/dL POC Glucose (mg/dL) 116 H 143 H 145 H (75-99) mg/dL Calcium (8.4-10.2) mg/dL Phosphorus (2.5-4.5) mg/dL Total Protein (6.3-8.2) g/dL Albumin (3.5-5.0) g/dL Assessment and Plan Plan: 1. Status post mitral valve repair completed on 02/18/2017 2. High-grade AV block. Evaluated by cardiology. They felt secondary to perioperative trauma to the conduction system. And Lopressor was discontinued. Continue to monitor. Per cardiology Dr. Mendoza they are holding off pacemaker placement at this time heart rate has improved 3. Paroxysmal atrial fibrillation: Patient on Coumadin and subcu heparin until INR therapeutic 4. History of lung cancer status post lobectomy 5. History of thyroid cancer status post partial thyroidectomy. Continue with Synthroid 6. Diabetes mellitus type 2: Discontinue insulin drip. place patient on humalog sliding scale coverage. Usually on metformin 500 mg twice a day at home. Hold metformin while in hospital 7. Elevated LFTs now normalized. Agree with restarting statin 8. Hyperlipidemia 9. History of pulmonary embolism 10. History of obstructive sleep apnea uses CPAP at home 11. Urinary retention: Have Ortega catheter placed. They're planning to remove catheter today and monitor DVT prophylaxis subcu heparin and GI prophylaxis Protonix
[2017-02-23] MEDS ORDERED: WARFARIN 1 MG TAB PO ONE (18:00)
[2017-02-23 21:18] LABS: Glucose,Whole Blood 167 mg/dL (75-99)
[2017-02-23] MEDS: SENNOSIDES-DOCUSATE SODIUM 1 EACH TAB PO SCH (22:06)
[2017-02-23 22:07] LABS: Glucose,Whole Blood 149 mg/dL (75-99)
[2017-02-24] MEDS: HEPARIN SODIUM,PORCINE 5,000 UNIT/ML 1 ML VIAL SQ SCH ×3 (01:15→17:01)
[2017-02-24 02:47] LABS: Glucose,Whole Blood 127 mg/dL (75-99)
[2017-02-24] MEDS: metFORMIN 500 MG TAB PO SCH ×2 (06:05→17:07)
[2017-02-24] MEDS ORDERED: MUPIROCIN 2% OINT 22 GM TUBE NASAL SCH (06:50)
[2017-02-24 07:32] LABS: Basophils % (A) 1 %; CH 31.6; CHCM 34.6; Eosinophils # (A) 0.3 k/uL (0-0.7); Eosinophils % (A) 6 %; HCT 27.9 % (34.0-46.0); HDW 2.89; HGB 9.3 gm/dL (11.4-16.0); Luc # (Auto) 0.09; Luc % (Auto) 2; Lymphocytes # (A) 1.3 k/uL (1.0-4.8); Lymphocytes % (A) 24 %; MCH 30.7 pg (25.0-35.0); MCHC 33.4 g/dL (31.0-37.0); MCV 91.9 fL (80.0-100.0); Mean Platelet Volume 8.3; Monocytes # (A) 0.5 k/uL (0-1.0); Monocytes % (A) 10 %; Neutrophils # (A) 3.2 k/uL (1.3-7.7); Neutrophils % (A) 58 %; RBC 3.03 m/uL (3.80-5.40); RDW 15.1 % (11.5-15.5); WBC 5.5 k/uL (3.8-10.6); WBC (Perox) 6.13
[2017-02-24] MEDS: LEVOTHYROXINE 100 MCG TAB PO SCH (07:35)
[2017-02-24] MEDS: PANTOPRAZOLE 40 MG TABLET PO SCH (07:35)
[2017-02-24 07:42] LABS: ALT 38 U/L (9-52); AST 26 U/L (14-36); Alkaline Phosphatase 66 U/L (38-126); Anion Gap 10 mmol/L; Blood Urea Nitrogen 32 mg/dL (7-17); Calcium 8.1 mg/dL (8.4-10.2); Carbon Dioxide 23 mmol/L (22-30); Chloride 104 mmol/L (98-107); Glucose 130 mg/dL (74-99); INR 1.6 (<1.2); Magnesium 1.8 mg/dL (1.6-2.3); Non-African American GFR(MDRD) 55 (>60 ml/min/1.73 sqM); Potassium 4.5 mmol/L (3.5-5.1); Prothrombin Time 15.7 sec (9.0-12.0); Sodium 137 mmol/L (137-145); Total Bilirubin 0.6 mg/dL (0.2-1.3); Total Protein 5.3 g/dL (6.3-8.2)
[2017-02-24 07:50] LABS: Glucose,Whole Blood 140 mg/dL (75-99)
[2017-02-24] MEDS: INSULIN LISPRO (humaLOG) 300 UNIT/3 ML VIAL SQ SCH ×3 (07:54→17:06)
--- NOTE | 2017-02-24 08:23 | P.PN ---
<Myrtle Raymond - Last Filed: 02/24/17 08:18> Subjective Principal diagnosis: Severe mitral regurgitation. History of atrial fibrillation. History of chronic diastolic congestive heart failure. Diabetes mellitus type 2. Gastroesophageal reflux disease. Hypertension. History of pulmonary embolus. Osteoarthritis. Sleep apnea with CPAP use at home. History of lung cancer approximately 8 years ago. History of thyroid cancer. Preoperative urinary tract infection. POD #6 complex mitral valve repair with cari-cord to A1, closure of cleft P1-P2, annuloplasty with randee 3-D 28 mm ring, closure of PFO, with epi-aortic ultrasonography and closure of the left atrial appendage, and EMELY by anesthesia Patient's currently sitting up in a recliner in no acute distress. Denies pain , shortness of breath. Only complaint is of the edema she still has in her hands. Ambulated in the hallway yesterday. Remains bradycardic with slow atrial fibrillation, heart rate in the 50s. Objective - Vital Signs Vital signs: Vital Signs Temp 97.2 F L 02/24/17 04:00 Pulse 54 L 02/24/17 04:00 Resp 18 02/24/17 04:00 BP 108/49 02/24/17 04:00 Pulse Ox 97 02/24/17 04:00 Intake & Output 02/23/17 02/24/17 02/24/17 18:59 06:59 18:59 Intake Total 1180 120 Output Total 1000 300 Balance 180 -180 Weight 97.8 kg Intake: IV 80 Lactated Ringers 80 Oral 1100 120 Output: Urine 1000 300 Other: Voiding Method Bedside Commode Toilet # Voids 1 # Bowel Movements 0 1 ABP, PAP, CO, CI - Last Documented Arterial Blood Pressure 93/41 Pulmonary Artery Pressure 36/12 Cardiac Output 3.4 Cardiac Index 1.8 - Constitutional General appearance: Present: cooperative, no acute distress, obese - Respiratory Details: Lungs sounds diminished bilaterally. Respirations even, nonlabored. Currently on room air infection saturation 97%. Able to achieve 1000 mL on her incentive spirometry. - Cardiovascular Details: S1, S2 present. Irregular rate and rhythm, slow atrial fibrillation on telemetry. Sternum stable. Heart hugger in place with patient demonstrating appropriate use. Palpable pulses bilaterally. Generalized edema still present. Teds/SCDs present. - Gastrointestinal Gastrointestinal Comment(s): Abdomen soft, nontender, nondistended. Active bowel sounds 4 quadrants. Tolerating diet. - Genitourinary Genitourinary Comment(s): Continues to void clear, yellow urine. - Integumentary Integumentary Comment(s): Anterior chest incision well approximated and covered with dry intact dressing. - Neurologic Neurologic: Present: CNII-XII intact - Musculoskeletal Musculoskeletal: Present: gait normal, strength equal bilaterally - Psychiatric Psychiatric: Present: A&O x's 3, appropriate affect, intact judgment & insight - Allied health notes Allied health notes reviewed: nursing - Labs CBC & Chem 7: 02/24/17 06:00 02/24/17 06:00 Labs: Abnormal Lab Results - Last 24 Hours (Table) 02/23/17 02/23/17 02/23/17 Range/Units 12:24 13:06 16:56 RBC (3.80-5.40) m/uL Hgb (11.4-16.0) gm/dL Hct (34.0-46.0) % PT (9.0-12.0) sec INR (<1.2) BUN (7-17) mg/dL Glucose (74-99) mg/dL POC Glucose (mg/dL) 143 H 145 H 149 H (75-99) mg/dL Calcium (8.4-10.2) mg/dL Total Protein (6.3-8.2) g/dL Albumin (3.5-5.0) g/dL 02/23/17 02/24/17 02/24/17 Range/Units 21:16 02:42 06:00 RBC 3.03 L (3.80-5.40) m/uL Hgb 9.3 L (11.4-16.0) gm/dL Hct 27.9 L (34.0-46.0) % PT (9.0-12.0) sec INR (<1.2) BUN (7-17) mg/dL Glucose (74-99) mg/dL POC Glucose (mg/dL) 167 H 127 H (75-99) mg/dL Calcium (8.4-10.2) mg/dL Total Protein (6.3-8.2) g/dL Albumin (3.5-5.0) g/dL 02/24/17 02/24/17 02/24/17 Range/Units 06:00 06:00 06:05 RBC (3.80-5.40) m/uL Hgb (11.4-16.0) gm/dL Hct (34.0-46.0) % PT 15.7 H (9.0-12.0) sec INR 1.6 H (<1.2) BUN 32 H (7-17) mg/dL Glucose 130 H (74-99) mg/dL POC Glucose (mg/dL) 140 H (75-99) mg/dL Calcium 8.1 L (8.4-10.2) mg/dL Total Protein 5.3 L (6.3-8.2) g/dL Albumin 2.8 L (3.5-5.0) g/dL Assessment and Plan (1) Obstructive sleep apnea Status: Acute (2) History of urinary tract infection Status: Acute (3) Status post mitral valve repair Status: Acute (4) Chronic congestive heart failure Status: Acute (5) Diabetes Status: Acute (6) HTN (hypertension) Status: Acute (7) History of lobectomy of lung Status: Acute (8) History of lung cancer Status: Acute (9) History of pulmonary embolism Status: Acute (10) History of thyroid cancer Status: Acute (11) Hyperlipemia Status: Acute (12) Mitral regurgitation Status: Acute (13) Nonsustained ventricular tachycardia Status: Acute (14) Paroxysmal atrial fibrillation Status: Acute (15) Tobacco dependence in remission Status: Acute Plan: 1. Continue aspirin, statin, heparin subcu, Lasix. 2. Encourage incentive spirometry use. 3. Coumadin to be dosed daily with daily PT/INRs. 4. GI/DVT prophylaxis. 5. Will monitor daily labs, chest x-rays. 6. Increase activity, ambulate in hallway. Physical therapy following. 7. More recommendations as patient progresses. Likely will discharge to inpatient rehab in the next 24-48 hours. Time with Patient: Greater than 30 <Jerome Mason - Last Filed: 02/25/17 14:22> Objective - Vital Signs Vital signs: Vital Signs Temp 97.8 F 02/24/17 16:00 Pulse 66 02/24/17 16:05 Resp 16 02/24/17 16:00 BP 107/54 02/24/17 16:00 Pulse Ox 98 02/24/17 16:00 Intake & Output 02/24/17 02/25/17 02/25/17 18:59 06:59 18:59 Intake Total 920 Balance 920 Weight 97.8 kg Intake: Oral 920 Other: Voiding Method Toilet # Voids 1 ABP, PAP, CO, CI - Last Documented Arterial Blood Pressure 93/41 Pulmonary Artery Pressure 36/12 Cardiac Output 3.4 Cardiac Index 1.8 - Labs CBC & Chem 7: 02/24/17 06:00 02/24/17 06:00 Labs: Abnormal Lab Results - Last 24 Hours (Table) 02/24/17 Range/Units 16:30 POC Glucose (mg/dL) 141 H (75-99) mg/dL Assessment and Plan Plan: The patient was seen and examined. Agree with the above assessment and plan. Overall she looks good. Rhythm is stable. She is on room air. Her chest tubes have been removed. She continues to receive Coumadin. She is stable for discharge to inpatient rehab once a bed is available.
[2017-02-24] MEDS: IPRATROPIUM-ALBUTEROL 3 ML NEB INHALATION SCH ×3 (08:51→15:46)
--- NOTE | 2017-02-24 08:54 | XR ---
EXAMINATION TYPE: XR chest 2V DATE OF EXAM: 02/24/2017 COMPARISON: 02/22/2017 HISTORY: Shortness of breath TECHNIQUE: Frontal and lateral views of the chest are obtained. FINDINGS: Scattered senescent parenchymal changes noted. Persistent small pleural effusions and basilar pleural-parenchymal opacity somewhat improved from curry or examination. There is also improved pulmonary venous congestion. Heart size is stable. Mediastinal structures are stable and grossly unremarkable. No evidence for hilar prominence. Degenerative changes dorsal spine. IMPRESSION: 1. Persistent small pleural effusions and basilar pleural-parenchymal opacity somewhat improved from prior examination. There is also improved pulmonary venous congestion.
[2017-02-24 09:28] VITALS: RESP 16
[2017-02-24] MEDS: ASPIRIN 325 MG TAB PO SCH (09:34)
[2017-02-24] MEDS: CHOLECALCIFEROL 1,000 UNIT TAB PO SCH (09:35)
[2017-02-24] MEDS: ATORVASTATIN 40 MG TAB PO SCH (09:35)
[2017-02-24] MEDS ORDERED: FUROSEMIDE 20 MG TAB PO STA (09:36)
[2017-02-24] MEDS: FUROSEMIDE 10 MG/ML 2 ML VIAL IV SCH (09:37)
[2017-02-24] MEDS: MULTIVITAMINS, THERA 1 EACH TAB PO SCH (09:37)
--- NOTE | 2017-02-24 10:26 | P.PN ---
Subjective Principal diagnosis: Mitral valve repair, PFO closure This is a 71-year-old female who is status post mitral valve repair and closure of PFO. She has chronic persistent atrial fibrillation, diabetes, hypertension, hyperlipidemia, sleep apnea, history of lung cancer and thyroid cancer as well as history of prior pulmonary embolism. She was seen and examined on the telemetry unit today, sitting up in a chair, no acute distress. Denies any chest pain, breathing is stable. Ambulated without difficulty. Remains in atrial fibrillation, heart rate in the 50s. INR 1.6 today. Objective - Vital Signs Vital signs: Vital Signs Temp 97.3 F L 02/24/17 08:00 Pulse 59 L 02/24/17 09:04 Resp 16 02/24/17 08:00 BP 108/47 02/24/17 08:49 Pulse Ox 95 02/24/17 08:51 Intake & Output 02/23/17 02/24/17 02/24/17 18:59 06:59 18:59 Intake Total 1180 120 360 Output Total 1000 300 Balance 180 -180 360 Weight 97.8 kg Intake: IV 80 Lactated Ringers 80 Oral 1100 120 360 Output: Urine 1000 300 Other: Voiding Method Bedside Commode Toilet Toilet # Voids 1 # Bowel Movements 0 1 ABP, PAP, CO, CI - Last Documented Arterial Blood Pressure 93/41 Pulmonary Artery Pressure 36/12 Cardiac Output 3.4 Cardiac Index 1.8 - Exam PHYSICAL EXAMINATION: HEENT: Head is atraumatic, normocephalic. Pupils equal, round. Neck is supple. There is no elevated jugular venous pressure. HEART EXAMINATION: Heart S1 and S2 irregularly irregular CHEST EXAMINATION: Lungs reveal diminished air entry to bilateral bases. ABDOMEN: Soft, nontender. Bowel sounds are heard. No organomegaly noted. EXTREMITIES: 2+ peripheral pulses with evidence of peripheral edema and no calf tenderness noted. Bilateral hand swelling noted NEUROLOGIC patient is awake, alert and oriented -3.] . - Labs CBC & Chem 7: 02/24/17 06:00 02/24/17 06:00 Labs: Abnormal Lab Results - Last 24 Hours (Table) 02/23/17 02/23/17 02/23/17 Range/Units 12:24 13:06 16:56 RBC (3.80-5.40) m/uL Hgb (11.4-16.0) gm/dL Hct (34.0-46.0) % PT (9.0-12.0) sec INR (<1.2) BUN (7-17) mg/dL Glucose (74-99) mg/dL POC Glucose (mg/dL) 143 H 145 H 149 H (75-99) mg/dL Calcium (8.4-10.2) mg/dL Total Protein (6.3-8.2) g/dL Albumin (3.5-5.0) g/dL 02/23/17 02/24/17 02/24/17 Range/Units 21:16 02:42 06:00 RBC 3.03 L (3.80-5.40) m/uL Hgb 9.3 L (11.4-16.0) gm/dL Hct 27.9 L (34.0-46.0) % PT (9.0-12.0) sec INR (<1.2) BUN (7-17) mg/dL Glucose (74-99) mg/dL POC Glucose (mg/dL) 167 H 127 H (75-99) mg/dL Calcium (8.4-10.2) mg/dL Total Protein (6.3-8.2) g/dL Albumin (3.5-5.0) g/dL 02/24/17 02/24/17 02/24/17 Range/Units 06:00 06:00 06:05 RBC (3.80-5.40) m/uL Hgb (11.4-16.0) gm/dL Hct (34.0-46.0) % PT 15.7 H (9.0-12.0) sec INR 1.6 H (<1.2) BUN 32 H (7-17) mg/dL Glucose 130 H (74-99) mg/dL POC Glucose (mg/dL) 140 H (75-99) mg/dL Calcium 8.1 L (8.4-10.2) mg/dL Total Protein 5.3 L (6.3-8.2) g/dL Albumin 2.8 L (3.5-5.0) g/dL Assessment and Plan (1) S/P mitral valve repair Status: Acute (2) Chronic a-fib Status: Acute (3) Obstructive sleep apnea Status: Acute (4) Diabetes Status: Acute (5) HTN (hypertension) Status: Acute (6) History of lung cancer Status: Acute (7) History of pulmonary embolism Status: Acute (8) History of thyroid cancer Status: Acute (9) Hyperlipemia Status: Acute Plan: From cardiology's perspective, patient has been encouraged regarding the use of her incentive spirometry. She is being dosed daily with Coumadin maintaining a therapeutic INR. Other current medications. DNP note has been reviewed, I agree with a documented findings and plan of care. Patient was seen and examined.
--- NOTE | 2017-02-24 10:42 | P.PN ---
Subjective This is a 71-year-old female with severe mitral valve regurgitation, non-insulin -dependent diabetes mellitus, pulmonary embolism, atrial fibrillation and hypothyroidism due to her having thyroid cancer and partial thyroidectomy. Patient presents to the hospital for mitral valve repair. Patient tolerated surgery well. She remains in the ICU. She's up and sitting at the bedside chair. She did develop atrial fibrillation started on amiodarone and Coumadin per cardiology. He also reported evidence of a high-grade AV block in which it was related to the perioperative trauma. They discontinued the Lopressor. They also adjusted the pacer rate. We have been consulted for medical management. Patient has been on insulin drip. Blood sugars have been stable. She'll be placed on a sliding scale coverage. Patient denies any chest pain or shortness of breath. Denies any nausea or vomiting. Passing gas. Last bowel movement 2 days ago. Had a episode of urinary retention which Ortega catheter had to be reinserted. 02/24/2017 patient was transferred out of the ICU yesterday. She sitting up in the bedside chair. She denies any chest pain or shortness of breath. Denies any nausea or vomiting. She is urinating without difficulty. She reports having a small bowel movement this morning. Hemoglobin 9.3, INR 1.6 blood sugar was 140 Objective - Vital Signs Vital signs: Vital Signs Temp 97.3 F L 02/24/17 08:00 Pulse 59 L 02/24/17 09:04 Resp 16 02/24/17 08:00 BP 108/47 02/24/17 08:49 Pulse Ox 95 02/24/17 08:51 Intake & Output 02/23/17 02/24/17 02/24/17 18:59 06:59 18:59 Intake Total 1180 120 360 Output Total 1000 300 Balance 180 -180 360 Weight 97.8 kg Intake: IV 80 Lactated Ringers 80 Oral 1100 120 360 Output: Urine 1000 300 Other: Voiding Method Bedside Commode Toilet Toilet # Voids 1 # Bowel Movements 0 1 ABP, PAP, CO, CI - Last Documented Arterial Blood Pressure 93/41 Pulmonary Artery Pressure 36/12 Cardiac Output 3.4 Cardiac Index 1.8 - Exam Head normocephalic Neck supple Lungs clear to auscultation bilaterally no wheezing or crackles Heart regular rate and rhythm S1-S2, no rub or gallop Abdomen is soft nontender nondistended positive bowel sounds no hepatosplenomegaly Extremities edema present in the upper and lower extremities. Showing some improvement Neuro alert and orientated to 3 - Labs CBC & Chem 7: 02/24/17 06:00 02/24/17 06:00 Labs: Abnormal Lab Results - Last 24 Hours (Table) 02/23/17 02/23/17 02/23/17 Range/Units 12:24 13:06 16:56 RBC (3.80-5.40) m/uL Hgb (11.4-16.0) gm/dL Hct (34.0-46.0) % PT (9.0-12.0) sec INR (<1.2) BUN (7-17) mg/dL Glucose (74-99) mg/dL POC Glucose (mg/dL) 143 H 145 H 149 H (75-99) mg/dL Calcium (8.4-10.2) mg/dL Total Protein (6.3-8.2) g/dL Albumin (3.5-5.0) g/dL 02/23/17 02/24/17 02/24/17 Range/Units 21:16 02:42 06:00 RBC 3.03 L (3.80-5.40) m/uL Hgb 9.3 L (11.4-16.0) gm/dL Hct 27.9 L (34.0-46.0) % PT (9.0-12.0) sec INR (<1.2) BUN (7-17) mg/dL Glucose (74-99) mg/dL POC Glucose (mg/dL) 167 H 127 H (75-99) mg/dL Calcium (8.4-10.2) mg/dL Total Protein (6.3-8.2) g/dL Albumin (3.5-5.0) g/dL 02/24/17 02/24/17 02/24/17 Range/Units 06:00 06:00 06:05 RBC (3.80-5.40) m/uL Hgb (11.4-16.0) gm/dL Hct (34.0-46.0) % PT 15.7 H (9.0-12.0) sec INR 1.6 H (<1.2) BUN 32 H (7-17) mg/dL Glucose 130 H (74-99) mg/dL POC Glucose (mg/dL) 140 H (75-99) mg/dL Calcium 8.1 L (8.4-10.2) mg/dL Total Protein 5.3 L (6.3-8.2) g/dL Albumin 2.8 L (3.5-5.0) g/dL Assessment and Plan Plan: 1. Status post mitral valve repair completed on 02/18/2017 2. High-grade AV block. Evaluated by cardiology. They felt secondary to perioperative trauma to the conduction system. And Lopressor was discontinued. Continue to monitor. Per cardiology no need for pacemaker 3. Paroxysmal atrial fibrillation: Patient on Coumadin and subcu heparin until INR therapeutic 4. History of lung cancer status post lobectomy 5. History of thyroid cancer status post partial thyroidectomy. Continue with Synthroid 6. Diabetes mellitus type 2: Discontinue insulin drip. place patient on humalog sliding scale coverage. Usually on metformin 500 mg twice a day at home. Hold metformin while in hospital 7. Elevated LFTs now normalized. Agree with restarting statin 8. Hyperlipidemia 9. History of pulmonary embolism 10. History of obstructive sleep apnea uses CPAP at home 11. Urinary retention: Resolved DVT prophylaxis subcu heparin and GI prophylaxis Protonix Anticipating discharge within the next 24-48 hours I performed an examination of the patient and discussed their management with the physician Oyster Grader. I have reviewed the Physician Oyster Grader's notes and agree with the documented findings and plan of care
[2017-02-24 12:12] LABS: Glucose,Whole Blood 147 mg/dL (75-99)
[2017-02-24] MEDS: LISINOPRIL 5 MG TAB PO SCH (12:45)
[2017-02-24 14:44] VITALS: BMI 40.7
--- NOTE | 2017-02-24 14:47 | P.PN ---
Subjective Progress note dated 02/21/2017 This is a 71-year-old female was admitted on February 18 for mitral valve repair. It was done on February 18. Currently she's not receiving any supplemental oxygen. She's on no IV fluids. She's doing well. She has had some issues with her rhythm. She may need a permanent pacemaker. Her nurse today is Moris. She sitting in the chair. She feeling well. Really has no major issues. No hemodynamic or respiratory issues at this time. Progress note dated 02/24/2017 71-year-old female status post mitral valve repair. She doing very well. She was admitted on February 18. Will likely go home in a couple of days. There was question as to whether or not she would need a permanent pacemaker. Apparently they decided that she does not need one. She doing very very well. She is postop day #6. Feeling well. Getting about 1000 mL on her incentive spirometer. Still on nasal oxygen. Objective - Vital Signs Vital signs: Vital Signs Temp 96.8 F L 02/24/17 12:00 Pulse 69 02/24/17 12:46 Resp 16 02/24/17 12:00 BP 128/59 02/24/17 12:00 Pulse Ox 98 02/24/17 12:00 Intake & Output 02/23/17 02/24/17 02/24/17 18:59 06:59 18:59 Intake Total 1180 120 360 Output Total 1000 300 Balance 180 -180 360 Weight 97.8 kg 97.8 kg Intake: IV 80 Lactated Ringers 80 Oral 1100 120 360 Output: Urine 1000 300 Other: Voiding Method Bedside Commode Toilet Toilet # Voids 1 # Bowel Movements 0 1 ABP, PAP, CO, CI - Last Documented Arterial Blood Pressure 93/41 Pulmonary Artery Pressure 36/12 Cardiac Output 3.4 Cardiac Index 1.8 - Exam No acute distress, oriented 3. HEENT examination is grossly unremarkable. Mucous membranes are moist. No oral lesions. Neck supple. Full range of motion. No adenopathy or thyromegaly. Cardiovascular examination reveals regular rhythm rate. S1-S2 normal. There is no S3-S4 or murmur. Lungs reveal mostly clear breath sounds. No wheezes or rhonchi. No crackles. Abdomen soft bowel sounds are heard. Semis are intact. No cyanosis clubbing or edema. Skin without rash. Neurologic is nonfocal. - Labs CBC & Chem 7: 02/24/17 06:00 02/24/17 06:00 Labs: Abnormal Lab Results - Last 24 Hours (Table) 02/23/17 02/23/17 02/24/17 Range/Units 16:56 21:16 02:42 RBC (3.80-5.40) m/uL Hgb (11.4-16.0) gm/dL Hct (34.0-46.0) % PT (9.0-12.0) sec INR (<1.2) BUN (7-17) mg/dL Glucose (74-99) mg/dL POC Glucose (mg/dL) 149 H 167 H 127 H (75-99) mg/dL Calcium (8.4-10.2) mg/dL Total Protein (6.3-8.2) g/dL Albumin (3.5-5.0) g/dL 02/24/17 02/24/17 02/24/17 Range/Units 06:00 06:00 06:00 RBC 3.03 L (3.80-5.40) m/uL Hgb 9.3 L (11.4-16.0) gm/dL Hct 27.9 L (34.0-46.0) % PT 15.7 H (9.0-12.0) sec INR 1.6 H (<1.2) BUN 32 H (7-17) mg/dL Glucose 130 H (74-99) mg/dL POC Glucose (mg/dL) (75-99) mg/dL Calcium 8.1 L (8.4-10.2) mg/dL Total Protein 5.3 L (6.3-8.2) g/dL Albumin 2.8 L (3.5-5.0) g/dL 02/24/17 02/24/17 Range/Units 06:05 11:58 RBC (3.80-5.40) m/uL Hgb (11.4-16.0) gm/dL Hct (34.0-46.0) % PT (9.0-12.0) sec INR (<1.2) BUN (7-17) mg/dL Glucose (74-99) mg/dL POC Glucose (mg/dL) 140 H 147 H (75-99) mg/dL Calcium (8.4-10.2) mg/dL Total Protein (6.3-8.2) g/dL Albumin (3.5-5.0) g/dL Assessment and Plan (1) Obstructive sleep apnea Status: Acute (2) Status post mitral valve repair Status: Acute (3) Chronic congestive heart failure Status: Acute (4) Diabetes Status: Acute (5) HTN (hypertension) Status: Acute (6) History of lobectomy of lung Status: Acute (7) History of lung cancer Status: Acute (8) History of pulmonary embolism Status: Acute (9) History of thyroid cancer Status: Acute (10) Mitral regurgitation Status: Acute (11) Nonsustained ventricular tachycardia Status: Acute (12) Paroxysmal atrial fibrillation Status: Acute (13) Ventricular tachycardia Status: Acute Plan: Plan dated 02/21/2017 The patient seemed be doing relatively well. Today is postop day #3 status post mitral valve repair. She has multiple comorbidities including pulmonary embolism diabetes hypertension thyroid cancer bariatric surgery partial thyroidectomy and left lower lobectomy. The patient's doing well. We'll continue to follow closely. Not receiving any supplemental oxygen. No IV fluids. He may need a permanent pacemaker down the road if she's having some rhythm issues. Plan dated 02/24/2017 Leona is doing well. She is postop day #6. Were expecting that she might be discharged here in the next day or so. In addition to her mitral valve repair she has a history of pulmonary embolus him obesity diabetes hypertension thyroid cancer previous bariatric surgery partial thyroidectomy and left lower lobectomy. Again the patient's doing well respiratory status is stable. No pacemaker needed. Discharge hopefully within the next day or so. Time with Patient: Less than 30
--- NOTE | 2017-02-24 15:59 | P.DS ---
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 Consult: post cardiac surgery Do you want consulting provider notified?: Yes Consult Physician Routine Consulting Provider: John Garrido Consult Reason/Comments: Medical management Do you want consulting provider notified?: Yes 02/20/17 09:23 Consult Physician Routine Consulting Provider: Leonardo Thompson Consult Reason/Comments: Inpatient rehab placement Do you want consulting provider notified?: Yes, Notify in am Primary care physician: Yanira Jeffries - Discharge Diagnosis(es) (1) Obstructive sleep apnea Current Visit: Yes Status: Acute (2) History of urinary tract infection Current Visit: Yes Status: Acute (3) Status post mitral valve repair Current Visit: Yes Status: Acute (4) Chronic congestive heart failure Current Visit: No Status: Acute (5) Diabetes Current Visit: No Status: Acute (6) HTN (hypertension) Current Visit: No Status: Acute (7) History of lobectomy of lung Current Visit: No Status: Acute (8) History of lung cancer Current Visit: No Status: Acute (9) History of pulmonary embolism Current Visit: No Status: Acute (10) History of thyroid cancer Current Visit: No Status: Acute (11) Hyperlipemia Current Visit: No Status: Acute (12) Mitral regurgitation Current Visit: No Status: Acute (13) Nonsustained ventricular tachycardia Current Visit: No Status: Acute (14) Paroxysmal atrial fibrillation Current Visit: No Status: Acute (15) Tobacco dependence in remission Current Visit: No Status: Acute Hospital Course: FINAL DIAGNOSIS: 1. Severe mitral regurgitation 2. History of atrial fibrillation 3. History of chronic diastolic congestive heart failure 4. Diabetes mellitus type 2 5. Gastroesophageal reflux disease 6. Hypertension 7. History of pulmonary embolus 8. Osteoarthritis 9. Sleep apnea with CPAP use at home 10. History of lung cancer 11. History of thyroid cancer 12. Preoperative urinary tract infection PRINCIPAL PROCEDURE: [] 1. Elective complex mitral valve repair with a cari-cord to A1, closure of the cleft P1-P2, annuloplasty with randee 3-D 28 mm ring 2. Closure of PFO 3. Epi-aortic ultrasonography 4. Closure of left atrial appendage 5. Intraoperative transesophageal echocardiogram performed by anesthesia HISTORY OF PRESENT ILLNESS: This 71-year-old female had been followed by Dr. Orourke for hypertension, pulmonary embolism, mitral regurgitation, and congestive heart failure. She was having increasing complaints of shortness of breath as well as lower extremity edema. She had been treated with diuretics. She had an echocardiogram in Dr. Orourke's office demonstrating moderate to severe mitral regurgitation and evidence of pulmonary hypertension. She was advised to have a cardiac catheterization as well as EMELY. Her cardiac catheterization on 01/11/2017 demonstrated moderate ostial stenosis of the right coronary artery, otherwise no significant coronary artery disease. Transesophageal echocardiogram demonstrated a thickened mitral valve with evidence of eccentric mitral regurgitation which seemed to be projected posterolaterally. Left atrium was severely enlarged. There was no evidence of clot in the left atrial appendage. There was no shunt across the intra- arterial septum or PFO. LV function appeared to be mildly impaired. There was mild plaque in the aorta. In addition she had several runs of nonsustained ventricular tachycardia which were captured on a 24-hour event monitor. Dr. García from cardiothoracic surgery was consulted for her mitral valve regurgitation. Recommendation was made for surgery to repair her mitral valve. An extensive discussion was had with the patient and her family, all risks and benefits were described in detail, and the patient agreed to proceed with surgery. HOSPITAL COURSE: The patient was admitted to the hospital on 02/18/2017, taken to the preoperative area where she was prepared in usual fashion, and then taken to the operating room where Dr. García performed a complex mitral valve repair with a cari-cord to A1, closure of the cleft P1-P2, annuloplasty with randee 3-D 28 mm ring, closure of PFO, epi-aortic ultrasonography, and closure of left atrial appendage with transesophageal echocardiogram performed by anesthesia. Upon completion of surgery she was transferred to the cardiovascular intensive care unit where she was recovered, monitored hemodynamically, and where she progressed to cardiac rehabilitation phase 1. She was extubated, all lines, tubes, and drips were discontinued when appropriate, and she was transferred to [address] [place] [address] for further monitoring and rehabilitation. She continued to work with physical therapy, her oxygen was titrated down, and she was ready to be discharged to inpatient rehabilitation on postop day #6. She received verbal and written instruction regarding activity limitations, medications, signs and symptoms requiring physician notification, and discharge appointments. COMPLICATIONS: She experienced no postoperative complications. DISCHARGE INSTRUCTIONS: 1. No driving for 4 weeks, or until physician gives their ok. 2. The patient should sleep in their own bed, no medical bed needed. 3. Stairs are not an issue. If the bedroom is upstairs, it is advised that the patient go up at night and down in the morning for the first week. Go slowly, using handrail and take 1 step at a time. 4. CATE hose are to be worn for 30 days or until physician discontinues. 5. Heart hugger is to be worn 100% of the time until physician discontinues.( except when showering) 6. No lifting, pushing, or pulling more than 10 pounds for 12 weeks. The physician will advise of any restriction changes. 7. The patient is expected to continue the prescribed walking program. 8. Continue pain control per as needed orders. 9. Continue with incentive spirometry and splinting/heart hugger until otherwise directed by the physician. 10. Must shower daily using liquid antibacterial soap and a separate white washcloth for each individual incision. 11. Routine sternal incision care. No powders, lotions, ointments on incisions. 12. Please call surgeon/REHABILITATION TEACHER for temp greater than 101 F or purulent drainage from incisions. 13. All prescriptions given by surgeon for 30 days. Refills need to be filled through freezing room worker/primary care physician. REHAB FACILITY/HOME HEALTH SERVICES TO PROVIDE: RN SKILLED HOME CARE SERVICES FOR POST-OP SURGICAL PATIENTS WITH THE FOLLOWING: Coronary Artery Bypass Surgery (CABG), Mitral Valve Replacement/ Repair ( MVR), Aortic Valve Replacement/Repair (AVR) RN TO CONTINUE EDUCATION FROM ``ROAD TO A HEALTH HEART PATIENT EDUCATION MANUAL (GIVEN TO PATIENT IN THE HOSPITAL) MEDICATION RECONCILIATION WITH EDUCATION NEEDED ON FIRST HOME VISIT EMPHASIZE IMPORTANCE OF WEARING BREAST SUPPORT/HEART HUGGER ENCOURAGE USE OF INCENTIVE SPIROMETER 10 X EVERY HOUR WHILE AWAKE ENCOURAGE UTILIZATION OF LOWER EXTREMITY COMPRESSION STOCKINGS/CATE HOSE and ELEVATE LEGS ABOVE LEVEL OF HEART WHILE AT REST. ENCOURAGE AMBULATION 3-5x/day INCREASING TOLERATES, WHILE AVOID EXTREMES IN TEMPERATURE FREQUENCY: RN TO OPEN THE PATIENT WITHIN 24 HOURS OF DISCHARGE FROM THE HOSPITAL WITH TELEHEALTH INSTALLED AT [facility] [place], RN TO VISIT 2-3 X A WEEK FOR 4 WEEKS ESTABLISHED BY PATIENT NEEDS. LABORATORY: CBC, CMP TO BE DRAWN ON THE THIRD DAY HOME, Tuesday02/28/2016 (RAN STAT) FAX RESULTS TO [phone]. For patients on Coumadin, PT/INR to be drawn on third day home, ran as STAT, and results faxed to [facility] at [phone] for Coumadin dosing. TELEHEALTH PARAMETERS: WEIGHT: NOTIFY MD OF WEIGHT GAIN OF 2 LBS IN 24 HOURS OR 5 LBS IN ONE WEEK HR: NOTIFY MD OF HR <55 BPM OR HR>100 BPM BP: NOTIFY MD IF BP <90/55 OR BP>140/100 O2 SAT: NOTIFY MD IF PO2<93% ON ROOM AIR SEND TELEHEALTH REPORT TO FUTURES TRADER AND CARDIOVASCULAR SURGEON THE FIRST WEEK OF CARE AND THEN BI-WEEKLY. PLEASE ADDITIONALLY COMMUNICATE ANY ABNORMALS AND NEW FINDINGS TO THE SURGEONS OFFICE. A Red armband has been placed on the patient. It should be worn for 30 days post surgery and will be removed by the cardiac surgeons. If an ER visit is necessary, please make sure the number on the Red armband is called. Discharge to [facility]. Plan - Discharge Summary New Discharge Prescriptions: New Aspirin 325 mg PO DAILY tab Atorvastatin [Lipitor] 40 mg PO DAILY tab Heparin Sodium,Porcine [Heparin Sodium] 5,000 unit SQ Q8HR vial HYDROcodone/APAP 5-325MG [[place] 5-325] 1 each PO Q4HR PRN tab PRN Reason: Moderate Pain HYDROcodone/APAP 5-325MG [[place] 5-325] 2 each PO Q4HR PRN tab PRN Reason: Severe Pain Ipratropium-Albuterol Nebulize [Duoneb 0.5 mg-3 mg/3 ml Soln] 3 ml INHALATION RT-QID neb Ipratropium-Albuterol Nebulize [Duoneb 0.5 mg-3 mg/3 ml Soln] 3 ml INHALATION RT-Q2H PRN neb PRN Reason: Shortness Of Breath Or Wheezing metFORMIN HCL [Glucophage] 500 mg PO BID-W/MEALS tab Pantoprazole [Protonix] 40 mg PO AC-BRKFST tab Sennosides-Docusate Sodium [Senokot-S] 2 each PO HS tab Continue Furosemide [Lasix] 40 mg PO DAILY Multivitamins, Thera [Multivitamin (formulary)] 1 tab PO DAILY Warfarin [Coumadin] 1 mg PO HS Cholecalciferol [Vitamin D3] 5,000 units PO BID Lisinopril [Zestril] 5 mg PO DAILY Levothyroxine Sodium [Synthroid] 100 mcg PO DAILY Discontinued Omeprazole 40 mg PO DAILY Isosorbide Mononitrate ER [Imdur] 30 mg PO DAILY #30 tab metFORMIN HCL [Glucophage] 500 mg PO BID Acetaminophen [Tylenol Arthritis] 650 mg PO DAILY PRN PRN Reason: Mild To Moderate Pain Spironolactone [Aldactone] 25 mg PO DAILY #30 tab ALPRAZolam [Xanax] 0.25 mg PO BID PRN PRN Reason: Anxiety Atenolol 25 mg PO BID #60 Amiodarone [Cordarone] 200 mg PO BID Mupirocin 2% Nasal Oint [Bactroban 2% Nasal Oint] 1 applic NASAL BID Aspirin 325 mg PO ONCE Discharge Medication List Cholecalciferol [Vitamin D3] 5,000 units PO BID 01/09/14 [History] Furosemide [Lasix] 40 mg PO DAILY 01/09/14 [History] Multivitamins, Thera [Multivitamin (formulary)] 1 tab PO DAILY 01/09/14 [History ] Warfarin [Coumadin] 1 mg PO HS 01/09/14 [History] Lisinopril [Zestril] 5 mg PO DAILY 01/07/17 [History] Levothyroxine Sodium [Synthroid] 100 mcg PO DAILY 01/11/17 [History] Aspirin 325 mg PO DAILY tab 02/24/17 [Rx] Atorvastatin [Lipitor] 40 mg PO DAILY tab 02/24/17 [Rx] HYDROcodone/APAP 5-325MG [[place] 5-325] 1 each PO Q4HR PRN tab 02/24/17 [Rx] HYDROcodone/APAP 5-325MG [[place] 5-325] 2 each PO Q4HR PRN tab 02/24/17 [Rx] Heparin Sodium,Porcine [Heparin Sodium] 5,000 unit SQ Q8HR vial 02/24/17 [Rx] Ipratropium-Albuterol Nebulize [Duoneb 0.5 mg-3 mg/3 ml Soln] 3 ml INHALATION RT -Q2H PRN neb 02/24/17 [Rx] Ipratropium-Albuterol Nebulize [Duoneb 0.5 mg-3 mg/3 ml Soln] 3 ml INHALATION RT -QID neb 02/24/17 [Rx] Pantoprazole [Protonix] 40 mg PO AC-BRKFST tab 02/24/17 [Rx] Sennosides-Docusate Sodium [Senokot-S] 2 each PO HS tab 02/24/17 [Rx] metFORMIN HCL [Glucophage] 500 mg PO BID-W/MEALS tab 02/24/17 [Rx] Follow up Appointment(s)/Referral(s): Ricardo Orourke MD [STAFF PHYSICIAN] - 03/03/17 3:15 pm Cristopher Reyes MD [STAFF PHYSICIAN] - 03/10/17 2:15 pm Pedro García MD [STAFF PHYSICIAN] - 03/21/17 1:00 pm Yanira Jeffries MD [Primary Care Provider] - 2 Weeks (Please have patient make appointment upon discharge from rehab.) Ambulatory/Diagnostic Orders: Complete Blood Count w/diff [LAB.AMB] Time Frame: 3 Days, Location: Determined By Patient Comprehensive Metabolic Panel [LAB.AMB] Time Frame: 3 Days, Location: Determined By Patient Discharge Disposition: DC/TRNS INTERMEDIATE CARE FAC
[2017-02-24 16:46] LABS: Glucose,Whole Blood 141 mg/dL (75-99)
[2017-02-24 17:21] VITALS: BP 107/54; PULSE 59; TEMP 97.8
[2017-02-24] MEDS ORDERED: WARFARIN 2 MG TAB PO ONE (18:00)
[2017-02-25] MEDS ORDERED: FUROSEMIDE 40 MG TAB PO SCH (09:00)
== END 2017-02-24 18:56 | DRG 220 ==
LOC: 2ORMAIN 05:46 → 6ICU 12:26 → 6SEL 02-23 16:33
PROVIDERS: ADMIT Thoracic Surgery (Cardiothoracic Vascular Surgery); ATTEND Thoracic Surgery (Cardiothoracic Vascular Surgery)
PROC: 02Q50ZZ Repair Atrial Septum, Open Approach (ICD-10-PCS; 2017-02-18)
PROC: 5A1213Z Performance of Cardiac Pacing, Intermittent (ICD-10-PCS; 2017-02-18)
PROC: 02BG0ZZ Excision of Mitral Valve, Open Approach (ICD-10-PCS; 2017-02-18)
PROC: 5A1221Z Performance of Cardiac Output, Continuous (ICD-10-PCS; 2017-02-18)
PROC: 30243R1 Transfusion of Nonautologous Platelets into Central Vein, Percutaneous Approach (ICD-10-PCS; 2017-02-18)
PROC: 30243K1 Transfusion of Nonautologous Frozen Plasma into Central Vein, Percutaneous Approach (ICD-10-PCS; 2017-02-18)
PROC: B246ZZ4 Ultrasonography of Right and Left Heart, Transesophageal (ICD-10-PCS; 2017-02-18)
PROC: 02UG0JZ Supplement Mitral Valve with Synthetic Substitute, Open Approach (ICD-10-PCS; principal; 2017-02-18 08:00)
PROC: 0T9B70Z Drainage of Bladder with Drainage Device, Via Natural or Artificial Opening (ICD-10-PCS; 2017-02-20)
DX: I34.0 Nonrheumatic mitral (valve) insufficiency (principal); I47.2 Ventricular tachycardia; I48.1 Persistent atrial fibrillation; I27.2 Other secondary pulmonary hypertension; I11.0 Hypertensive heart disease with heart failure; I50.32 Chronic diastolic (congestive) heart failure; Q21.1 Atrial septal defect; E66.01 Morbid (severe) obesity due to excess calories; I48.0 Paroxysmal atrial fibrillation; I44.30 Unspecified atrioventricular block; I25.10 Atherosclerotic heart disease of native coronary artery without angina pectoris; E11.9 Type 2 diabetes mellitus without complications; I48.2 Chronic atrial fibrillation; G47.33 Obstructive sleep apnea (adult) (pediatric); R33.8 Other retention of urine; K21.9 Gastro-esophageal reflux disease without esophagitis; F32.9 Major depressive disorder, single episode, unspecified; M19.90 Unspecified osteoarthritis, unspecified site; E78.5 Hyperlipidemia, unspecified; E89.0 Postprocedural hypothyroidism; F41.9 Anxiety disorder, unspecified; F17.201 Nicotine dependence, unspecified, in remission; Z71.3 Dietary counseling and surveillance; Z87.81 Personal history of (healed) traumatic fracture; Z91.041 Radiographic dye allergy status; Z87.440 Personal history of urinary (tract) infections; Z90.2 Acquired absence of lung [part of]; Z79.82 Long term (current) use of aspirin; Z79.84 Long term (current) use of oral hypoglycemic drugs; Z86.711 Personal history of pulmonary embolism; Z85.850 Personal history of malignant neoplasm of thyroid; Z85.118 Personal history of other malignant neoplasm of bronchus and lung; Z98.84 Bariatric surgery status; Z79.899 Other long term (current) drug therapy; Z79.01 Long term (current) use of anticoagulants; Z82.49 Family history of ischemic heart disease and other diseases of the circulatory system; Z83.3 Family history of diabetes mellitus; Z91.040 Latex allergy status; Z91.011 Allergy to milk products; Z86.2 Personal history of diseases of the blood and blood-forming organs and certain disorders involving the immune mechanism; Z90.49 Acquired absence of other specified parts of digestive tract; Z98.51 Tubal ligation status; Z98.42 Cataract extraction status, left eye; Z98.41 Cataract extraction status, right eye
CPT/HCPCS: 36430; 36620; 71010; 71020; 80048; 80053; 82330; 82805; 83735; 84100; 85025; 85520; 85610; 85730; 86850; 86891; 86900; 86901; 86920; 94002; 94640; 94760

== ENCOUNTER → 2017-08-26 | Outpatient (CLI) | payer MEDICARE ==
[2017-08-26 12:12] LABS: Calcium 9.1 mg/dL (8.4-10.2); Potassium 4.6 mmol/L (3.5-5.1)
== END | disposition home or self-care (01) ==
LOC: LABWHC1 11:19
PROVIDERS: ATTEND Nurse Practitioner Adult Health
DX: I47.2 Ventricular tachycardia (principal)
CPT/HCPCS: 36415; 80048

== ENCOUNTER → 2017-10-27 | Outpatient (CLI) | payer MEDICARE ==
--- NOTE | 2017-10-28 10:46 | MM ---
Reason for exam: screening (asymptomatic). Last mammogram was performed 1 year and 1 month ago. History: Patient is postmenopausal and history of other cancer. Physical Findings: A clinical breast exam by your physician is recommended on an annual basis and results should be correlated with mammographic findings. MG 3D Screening Mammo W/Cad Bilateral CC and MLO view(s) were taken. Prior study comparison: September 28, 2016, bilateral MG screening mammo w CAD. January 31, 2015, bilateral MG screening mammo w CAD. There are scattered fibroglandular densities. Finding: There are typically benign diffuse/scattered calcifications in both breasts. No suspicious abnormality. No significant changes in finding since September 28, 2016 and January 31, 2015. ASSESSMENT: Benign, BI-RAD 2 RECOMMENDATION: Routine screening mammogram of both breasts in 1 year.
== END | disposition home or self-care (01) ==
LOC: RADMAMWWP 10:26
PROVIDERS: ATTEND Family Medicine
DX: Z12.31 Encounter for screening mammogram for malignant neoplasm of breast (principal); E03.9 Hypothyroidism, unspecified; I48.2 Chronic atrial fibrillation; E11.22 Type 2 diabetes mellitus with diabetic chronic kidney disease; N18.3 Chronic kidney disease, stage 3 (moderate); Z12.11 Encounter for screening for malignant neoplasm of colon
CPT/HCPCS: 77063; 77067

== ENCOUNTER → 2019-01-10 | Outpatient (CLI) | payer MEDICARE ==
--- NOTE | 2019-01-11 13:55 | MM ---
Reason for exam: screening (asymptomatic). Last mammogram was performed 1 year and 2 months ago. History: Patient is postmenopausal and history of other cancer. Physical Findings: A clinical breast exam by your physician is recommended on an annual basis and results should be correlated with mammographic findings. MG 3D Screening Mammo W/Cad Bilateral CC and MLO view(s) were taken. Prior study comparison: October 27, 2017, bilateral MG 3d screening mammo w/cad. September 28, 2016, bilateral MG screening mammo w CAD. The breast tissue is heterogeneously dense. This may lower the sensitivity of mammography. Benign appearing bilateral calcifications. No suspicious abnormality. Chronic bilateral skin thickening, consider fluid overload status. No significant changes when compared with prior studies. ASSESSMENT: Benign, BI-RAD 2 RECOMMENDATION: Routine screening mammogram of both breasts in 1 year.
== END | disposition home or self-care (01) ==
LOC: RADMAMWWP 12:49
PROVIDERS: ATTEND Family Medicine
DX: Z12.31 Encounter for screening mammogram for malignant neoplasm of breast (principal)
CPT/HCPCS: 77063; 77067

== ENCOUNTER 2019-01-30 06:00 | Inpatient (IN) | payer MEDICARE ==
--- NOTE | 2019-01-30 06:05 | ED ---
SOB HPI - General Stated Complaint: Diff Breathing Time Seen by Provider: 01/30/19 06:03 - History of Present Illness Initial Comments: 73yo female with extensive PMH including DM, HTN, lung cancer, thyroid cancer, pulmonary embolism and valve replacement on warfarin presenting today for cc of shortness of breath x 2 days. Patient states that for the last two days she has been short of breath. She states that she has had the feeling like she cant take a deep breath and shortness of breath for the past two days, she states she does not really have chest pain, its more the shortness of breath and sensation that she cannot take a deep breath. She states that throughout the night her SOB was worsening especially when lying flat and she noted her legs have been swelling b/l. Denies calf pain. Patient states her allergies have been acting up, she has had a dry cough. Denies hemoptysis or fevers. Due to increasing SOB this evening patient called EMS and presented to the hospital for further evaluation and treatment. Upon arrival patient is on 4L, HR elevated, BP stable. She is speaking complete sentences and does not appear in distress. - Related Data Home Medications Medication Instructions Recorded Confirmed ALPRAZolam [Xanax] 0.25 mg PO DAILY PRN 01/30/19 01/30/19 Allopurinol [Zyloprim] 100 mg PO DAILY 01/30/19 01/30/19 Amiodarone HCl [Pacerone] 200 mg PO DAILY 01/30/19 01/30/19 Cholecalciferol (Vitamin D3) 2,000 unit PO DAILY 01/30/19 01/30/19 [Vitamin D3] Furosemide [Lasix] 40 mg PO DAILY 01/30/19 01/30/19 Levothyroxine Sodium 112 mcg PO DAILY 01/30/19 01/30/19 Lisinopril [Prinivil] 5 mg PO DAILY 01/30/19 01/30/19 Metoprolol Tartrate [Lopressor] 12.5 mg PO DAILY 01/30/19 01/30/19 Omeprazole 40 mg PO DAILY 01/30/19 01/30/19 Sertraline HCl [Zoloft] 100 mg PO HS 01/30/19 01/30/19 Spironolactone 12.5 mg PO DAILY 01/30/19 01/30/19 Warfarin Sodium 1.5 mg PO PC-SUPPER 01/30/19 01/30/19 metFORMIN HCL 1,000 mg PO BID 01/30/19 01/30/19 Allergies Allergy/AdvReac Type Severity Reaction Status Date / Time No Known Allergies Allergy Verified 01/30/19 07:24 Review of Systems ROS Statement: Those systems with pertinent positive or pertinent negative responses have been documented in the HPI. ROS Other: All systems not noted in ROS Statement are negative. Past Medical History Past Medical History: Cancer, Pulmonary Embolus (PE) Additional Past Medical History / Comment(s): Valve replacement, CHF General Exam - General Exam Comments Initial Comments: General: The patient is awake and alert, in no distress Eye: +3 mm pupils are equal, round and reactive to light, extra-ocular movements are intact. No nystagmus. There is normal conjunctiva bilaterally. No signs of icterus. Ears, nose, mouth and throat: There are moist mucous membranes and no oral lesions. Neck: The neck is supple, there is no tenderness or JVD. Cardiovascular: There is a regular rate and rhythm. No murmur, rub or gallop is appreciated. Respiratory: Lungs base crackles are noted, respirations are non-labored, breath sounds are equal. No retraction, or abdominal breathing. No wheezes, stridor, or rhonchi. Increased respiration rate noted. Gastrointestinal: Soft, non-distended, non-tender abdomen without masses or organomegaly noted. There is no rebound or guarding present. Musculoskeletal: Normal ROM, no tenderness. Strength 5/5. Sensation intact. Radial pulses equal bilaterally 2+. Neurological: A&O x 3. CN II-XII intact grossly, There are no obvious motor or sensory deficits. Coordination appears grossly intact. Speech is normal. Skin: Skin is warm and dry and no rashes or lesions are noted. B/l LE pitting edema. Psychiatric: Cooperative, appropriate mood & affect, normal judgment. Course Vital Signs 01/30/19 01/30/19 01/30/19 06:02 06:30 07:13 Temperature 98.2 F Pulse Rate 92 93 Respiratory 18 18 Rate Blood Pressure 156/76 156/76 148/56 O2 Sat by Pulse 96 98 Oximetry 01/30/19 01/30/19 01/30/19 07:35 08:04 08:29 Temperature Pulse Rate 92 98 Respiratory 18 18 22 Rate Blood Pressure 134/71 149/71 O2 Sat by Pulse 96 88 L Oximetry 01/30/19 08:33 Temperature Pulse Rate 90 Respiratory 18 Rate Blood Pressure O2 Sat by Pulse 98 Oximetry Medical Decision Making - Medical Decision Making 73yo female presenting for SOB x 2 days. History of CHF, signs of fluid overload noted on exam. Pt admits to increased SOB with lying flat, ambulation. Patient takes spironolactone and lasix daily. Patient is compliant with her warfarin. Denies chest pain. Dimer WNL. Trace pleural effusions on CXR, crackles on lung exam. Patient becomes hypoxic at mid 80% with any type of simple ambulation. Patient Trop (-). BNP elevated with no comparison of previous. Patient takes iron for anemia hgb 9.6 however patient does not appears pale, HR WNL. Patient given 40mg IV lasix. Given patient continues to appears sob, hypoxic with ambulation, increased BNP/leg swelling with CXR changes I feel it is appropriate to admit patient for IV lasix and telemetry. I discussed the case with Dr. Ham who spoke with admitting provider. Patient agreeable with admission. - Lab Data Result diagrams: 01/30/19 06:16 01/30/19 06:16 Lab Results 01/30/19 01/30/19 01/30/19 Range/Units 06:16 06:16 06:16 WBC 7.2 (3.8-10.6) k/uL RBC 3.05 L (3.80-5.40) m/uL Hgb 9.4 L (11.4-16.0) gm/dL Hct 29.2 L (34.0-46.0) % MCV 95.8 (80.0-100.0) fL MCH 30.7 (25.0-35.0) pg MCHC 32.1 (31.0-37.0) g/dL RDW 16.1 H (11.5-15.5) % Plt Count 311 (150-450) k/uL Neutrophils % 59 % Lymphocytes % 32 % Monocytes % 4 % Eosinophils % 4 % Basophils % 1 % Neutrophils # 4.2 (1.3-7.7) k/uL Lymphocytes # 2.3 (1.0-4.8) k/uL Monocytes # 0.3 (0-1.0) k/uL Eosinophils # 0.3 (0-0.7) k/uL Basophils # 0.1 (0-0.2) k/uL Anisocytosis Slight PT 20.6 H (9.0-12.0) sec INR 2.1 H (<1.2) APTT 32.1 H (22.0-30.0) sec D-Dimer 0.34 (<0.60) mg/L FEU Sodium 139 (137-145) mmol/L Potassium 4.6 (3.5-5.1) mmol/L Chloride 112 H (98-107) mmol/L Carbon Dioxide 20 L (22-30) mmol/L Anion Gap 7 mmol/L BUN 25 H (7-17) mg/dL Creatinine 1.17 H (0.52-1.04) mg/dL Est GFR (CKD-EPI)AfAm 54 (>60 ml/min/1.73 sqM) Est GFR (CKD-EPI)NonAf 47 (>60 ml/min/1.73 sqM) Glucose 103 H (74-99) mg/dL Calcium 8.3 L (8.4-10.2) mg/dL Magnesium 1.7 (1.6-2.3) mg/dL Total Bilirubin 0.4 (0.2-1.3) mg/dL AST 23 (14-36) U/L ALT 28 (9-52) U/L Alkaline Phosphatase 70 (38-126) U/L Troponin I (0.000-0.034) ng/mL NT-Pro-B Natriuret Pep pg/mL Total Protein 5.5 L (6.3-8.2) g/dL Albumin 2.9 L (3.5-5.0) g/dL Urine Color Urine Appearance (Clear) Urine pH (5.0-8.0) Ur Specific [place] (1.001-1.035) Urine Protein (Negative) Urine Glucose (UA) (Negative) Urine Ketones (Negative) Urine Blood (Negative) Urine Nitrite (Negative) Urine Bilirubin (Negative) Urine Urobilinogen (<2.0) mg/dL Ur Leukocyte Esterase (Negative) Urine RBC (0-5) /hpf Urine WBC (0-5) /hpf Ur Squamous Epith Cells (0-4) /hpf Urine Bacteria (None) /hpf Hyaline Casts (0-2) /lpf Urine Mucus (None) /hpf 01/30/19 01/30/19 01/30/19 Range/Units 06:16 06:16 08:10 WBC (3.8-10.6) k/uL RBC (3.80-5.40) m/uL Hgb (11.4-16.0) gm/dL Hct (34.0-46.0) % MCV (80.0-100.0) fL MCH (25.0-35.0) pg MCHC (31.0-37.0) g/dL RDW (11.5-15.5) % Plt Count (150-450) k/uL Neutrophils % % Lymphocytes % % Monocytes % % Eosinophils % % Basophils % % Neutrophils # (1.3-7.7) k/uL Lymphocytes # (1.0-4.8) k/uL Monocytes # (0-1.0) k/uL Eosinophils # (0-0.7) k/uL Basophils # (0-0.2) k/uL Anisocytosis PT (9.0-12.0) sec INR (<1.2) APTT (22.0-30.0) sec D-Dimer (<0.60) mg/L FEU Sodium (137-145) mmol/L Potassium (3.5-5.1) mmol/L Chloride (98-107) mmol/L Carbon Dioxide (22-30) mmol/L Anion Gap mmol/L BUN (7-17) mg/dL Creatinine (0.52-1.04) mg/dL Est GFR (CKD-EPI)AfAm (>60 ml/min/1.73 sqM) Est GFR (CKD-EPI)NonAf (>60 ml/min/1.73 sqM) Glucose (74-99) mg/dL Calcium (8.4-10.2) mg/dL Magnesium (1.6-2.3) mg/dL Total Bilirubin (0.2-1.3) mg/dL AST (14-36) U/L ALT (9-52) U/L Alkaline Phosphatase (38-126) U/L Troponin I <0.012 (0.000-0.034) ng/mL NT-Pro-B Natriuret Pep 3230 pg/mL Total Protein (6.3-8.2) g/dL Albumin (3.5-5.0) g/dL Urine Color Light Yellow Urine Appearance Clear (Clear) Urine pH 5.0 (5.0-8.0) Ur Specific [place] 1.007 (1.001-1.035) Urine Protein Negative (Negative) Urine Glucose (UA) Negative (Negative) Urine Ketones Negative (Negative) Urine Blood Negative (Negative) Urine Nitrite Negative (Negative) Urine Bilirubin Negative (Negative) Urine Urobilinogen <2.0 (<2.0) mg/dL Ur Leukocyte Esterase Small H (Negative) Urine RBC 1 (0-5) /hpf Urine WBC 5 (0-5) /hpf Ur Squamous Epith Cells <1 (0-4) /hpf Urine Bacteria Rare H (None) /hpf Hyaline Casts 4 H (0-2) /lpf Urine Mucus Rare H (None) /hpf - EKG Data EKG Comments: Ventricular rate 97 bpm, OK interval 186 ms, QRS addition 128 ms. QT/QTC 390/495 ms. Sinus rhythm with noted fusion complexes. RBBB presnted. EKG personally interpretted and reviewed initially by attending Dr. Hernandez Disposition Clinical Impression: Dyspnea, Hypoxia, Pleural effusion, CHF (congestive heart failure), CHF exacerbation Disposition: ADMITTED IP TO THIS HOSP Condition: Stable Is patient prescribed a controlled substance at d/c from ED?: No Referrals: None,Stated [REFERRING] - 1-2 days Time of Disposition: 08:35 Decision to Admit Reason: Admit from EC Decision Date: 01/30/19 Decision Time: 08:35
[2019-01-30 06:26] LABS: Anisocytosis Slight; Basophils # (A) 0.1 k/uL (0-0.2); Basophils % (A) 1 %; Eosinophils # (A) 0.3 k/uL (0-0.7); Eosinophils % (A) 4 %; HCT 29.2 % (34.0-46.0); HGB 9.4 gm/dL (11.4-16.0); Lymphocytes # (A) 2.3 k/uL (1.0-4.8); Lymphocytes % (A) 32 %; MCH 30.7 pg (25.0-35.0); MCHC 32.1 g/dL (31.0-37.0); MCV 95.8 fL (80.0-100.0); Mean Platelet Volume 7.5; Monocytes # (A) 0.3 k/uL (0-1.0); Monocytes % (A) 4 %; Neutrophils # (A) 4.2 k/uL (1.3-7.7); Neutrophils % (A) 59 %; Platelet Count 311 k/uL (150-450); RBC 3.05 m/uL (3.80-5.40); RDW 16.1 % (11.5-15.5); WBC 7.2 k/uL (3.8-10.6)
[2019-01-30 06:33] LABS: Albumin 2.9 g/dL (3.5-5.0); Calcium 8.3 mg/dL (8.4-10.2); Magnesium 1.7 mg/dL (1.6-2.3); Potassium 4.6 mmol/L (3.5-5.1); Total Bilirubin 0.4 mg/dL (0.2-1.3); Total Protein 5.5 g/dL (6.3-8.2)
[2019-01-30 06:39] LABS: D-Dimer 0.34 mg/L FEU (<0.60); INR 2.1 (<1.2); Partial Thromboplastin Time 32.1 sec (22.0-30.0); Prothrombin Time 20.6 sec (9.0-12.0)
--- NOTE | 2019-01-30 06:39 | XR ---
EXAM: XR Chest, 2 Views CLINICAL HISTORY: ITS.REASON XR Reason: difficulty breathing TECHNIQUE: Frontal and lateral views of the chest. COMPARISON: No relevant prior studies available. IMPRESSION: Cardiomegaly. Moderate vascular congestion. Trace bilateral pleural effusions.
[2019-01-30] MEDS ORDERED: FUROSEMIDE 10 MG/ML 4 ML VIAL IV STA (07:09)
[2019-01-30 08:32] LABS: Appearance,Urine Clear (Clear); Bacteria,Urine Rare /hpf; Bilirubin,Urine Negative (Negative); Blood,Urine Negative (Negative); Color,Urine Light Yellow; Glucose,Urine (UA) Negative (Negative); Hyaline Casts,Urine 4 /lpf (0-2); Ketones,Urine Negative (Negative); Leukocyte Esterase,Urine Small (Negative); Mucus,Urine Rare /hpf; Nitrite,Urine Negative (Negative); Protein,Urine Negative (Negative); RBC,Urine 1 /hpf (0-5); Specific Gravity,Urine 1.007 (1.001-1.035); Squamous Epithelial Cell,Urine <1 /hpf (0-4); Urobilinogen,Urine <2.0 mg/dL (<2.0); WBC,Urine 5 /hpf (0-5)
[2019-01-30] MEDS ORDERED: ALPRAZolam 0.25 MG TAB PO PRN (10:44)
--- NOTE | 2019-01-30 10:50 | P.CRDCN ---
History of Present Illness Consult date: 01/30/19 Requesting physician: Ed Kay Consult reason: congestive heart failure Chief complaint: Shortness of breath History of present illness: This is a pleasant 73-year-old female with history of diabetes, hypertension, prior history of lung CA, thyroid cancer, paroxysmal atrial fi brillation history of pulmonary embolism, patient also had history of mitral valve repair, , she takes warfarin at home. Follows with Dr. dasia Rogers in the office. Presents to the hospital with symptoms of progressively worsening shortness of breath and bilateral lower extremity edema of approximately 3 day duration. Positive PND and orthopnea, patient has been sleeping on 2 or 3 pillows or in her recliner. Chest x-ray shows cardiomegaly with moderate vascular congestion. Trace bilateral pleural effusions. EKG shows a normal sinus rhythm with a right bundle branch block pattern and nonspecific ST-T wave changes. I pressure on arrival here 156/70 with a heart rate in the 90s, 96% on 4 L of oxygen. Blood pressure 136/60 with a heart rate in the 80s, 97% on 2 L of oxygen. White blood cell count 7.2, hemoglobin 9.4, platelet count 311. D-dimer 0.3, INR 2.1, sodium 139, potassium 4.6, BUN 25 and creatinine 1.1. Magnesium 1.7. BNP level 3230. At the time of my examination, the patient is sitting up in the chair at bedside, still is somewhat short of breath, she was initiated on IV Lasix in the emergency room, none of the home medications have yet been resumed. Past Medical History Past Medical History: Cancer, Heart Failure, Diabetes Mellitus, Deep Vein Thrombosis (DVT), GERD/Reflux, Hypertension, Osteoarthritis (OA), Pulmonary E mbolus (PE) Additional Past Medical History / Comment(s): NIDDM type II, 2004 L lung cancer with surgery, 2000 thyroid cancer with surgery/hypothyroid, bilateral PEs, DVT R leg, hiatal hernia, hemorrhoids, DDD, occasional low back pain, gait disturbance, sinus problems. History of Any Multi-Drug Resistant Organisms: None Reported Past Surgical History: Cardiac Valve Replacement, Section, Cholecystectomy, Tonsillectomy, Tubal Ligation Additional Past Surgical History / Comment(s): L lower lobe resection, parathyroidectomy, cardiac valve repair, EGD, colonoscopy, lap ewa en Y with lysis of adhesions, D&C, bilateral cataract removals/lens implants. Past Anesthesia/Blood Transfusion Reactions: No Reported Reaction, Motion Sickness Smoking Status: Never smoker - Past Family History Mother Family Medical History: No Reported History Additional Family Medical History / Comment(s): Mother lived to be 94yrs old. Father Family Medical History: Diabetes Mellitus Additional Family Medical History / Comment(s): Father at the age of 65yrs from diabetic complications. Medications and Allergies Home Medications Medication Instructions Recorded Confirmed Type ALPRAZolam [Xanax] 0.25 mg PO DAILY PRN 01/30/19 01/30/19 History Allopurinol [Zyloprim] 100 mg PO DAILY 01/30/19 01/30/19 History Amiodarone HCl [Pacerone] 200 mg PO DAILY 01/30/19 01/30/19 History Cholecalciferol (Vitamin D3) 2,000 unit PO DAILY 01/30/19 01/30/19 History [Vitamin D3] Furosemide [Lasix] 40 mg PO DAILY 01/30/19 01/30/19 History Levothyroxine Sodium 112 mcg PO DAILY 01/30/19 01/30/19 History Lisinopril [Prinivil] 5 mg PO DAILY 01/30/19 01/30/19 History Metoprolol Tartrate [Lopressor] 12.5 mg PO DAILY 01/30/19 01/30/19 History Omeprazole 40 mg PO DAILY 01/30/19 01/30/19 History Sertraline HCl [Zoloft] 100 mg PO HS 01/30/19 01/30/19 History Spironolactone 12.5 mg PO DAILY 01/30/19 01/30/19 History Warfarin Sodium 1.5 mg PO PC-SUPPER 01/30/19 01/30/19 History metFORMIN HCL 1,000 mg PO BID 01/30/19 01/30/19 History Allergies Allergy/AdvReac Type Severity Reaction Status Date / Time No Known Allergies Allergy Verified 01/30/19 07:24 Physical Exam Vitals: Vital Signs Temp Pulse Pulse Resp BP BP Pulse Ox 01/30/19 10:09 97.7 F 89 18 136/62 97 01/30/19 09:54 86 16 140/68 99 01/30/19 08:33 90 18 98 01/30/19 08:29 98 22 149/71 88 L 01/30/19 08:04 92 18 134/71 96 01/30/19 07:35 18 01/30/19 07:13 93 18 148/56 98 01/30/19 06:30 156/76 01/30/19 06:02 98.2 F 92 18 156/76 96 Intake and Output 01/29/19 01/30/19 01/30/19 22:59 06:59 14:59 Other: Weight 81.647 kg 84.7 kg PHYSICAL EXAMINATION: GENERAL: 89-year-old female in no acute distress at the time of my examination HEENT: Head is atraumatic, normocephalic. Pupils equal, round. Sclera anicteric. Conjunctiva are clear. Mucous membranes of the mouth are moist. Neck is supple. There is elevated jugular venous pressure. No carotid] bruit is heard. HEART EXAMINATION: Heart S1-S2 systolic murmur is heard in the mitral and aortic area CHEST EXAMINATION: His reveal diminished air entry to bilateral bases ABDOMEN: Soft, nontender. Bowel sounds are heard. No organomegaly noted. EXTREMITIES: 2+ peripheral pulses with 2+ evidence of peripheral edema and no calf tenderness noted. NEUROLOGIC patient is awake, alert and oriented 3 . . Results 01/30/19 06:16 01/30/19 06:16 Cardiac Enzymes 01/30/19 01/30/19 Range/Units 06:16 06:16 AST 23 (14-36) U/L Troponin I <0.012 (0.000-0.034) ng/mL Coagulation 01/30/19 Range/Units 06:16 PT 20.6 H (9.0-12.0) sec APTT 32.1 H (22.0-30.0) sec CBC 01/30/19 Range/Units 06:16 WBC 7.2 (3.8-10.6) k/uL RBC 3.05 L (3.80-5.40) m/uL Hgb 9.4 L (11.4-16.0) gm/dL Hct 29.2 L (34.0-46.0) % Plt Count 311 (150-450) k/uL Comprehensive Metabolic Panel 01/30/19 Range/Units 06:16 Sodium 139 (137-145) mmol/L Potassium 4.6 (3.5-5.1) mmol/L Chloride 112 H (98-107) mmol/L Carbon Dioxide 20 L (22-30) mmol/L BUN 25 H (7-17) mg/dL Creatinine 1.17 H (0.52-1.04) mg/dL Glucose 103 H (74-99) mg/dL Calcium 8.3 L (8.4-10.2) mg/dL AST 23 (14-36) U/L ALT 28 (9-52) U/L Alkaline Phosphatase 70 (38-126) U/L Total Protein 5.5 L (6.3-8.2) g/dL Albumin 2.9 L (3.5-5.0) g/dL Current Medications Generic Name Dose Route Start Last Admin Trade Name Freq PRN Reason Stop Dose Admin Furosemide 40 mg 01/30/19 19:00 Lasix IV BID KEYLA Intake and Output 01/29/19 01/30/19 01/30/19 22:59 06:59 14:59 Other: Weight 81.647 kg 84.7 kg Patient Weight 01/31/19 06:59 Weight 84.7 kg 01/30/19 06:16 01/30/19 06:16 EKG Interpretations (text) EKG shows a normal sinus rhythm with a right bundle branch block pattern. Assessment and Plan Plan: Assessment and plan #1 congestive heart failure, likely diastolic in nature, acute on chronic, last documented ejection fraction was 50%. #2 history of mitral valve repair #3 hypertension #4 paroxysmal atrial fibrillation #5 diabetes #6 hyperlipidemia #7 history of nonsustained ventricular tachycardia #8 history of pulmonary embolism #9 hypothyroidism #10 anemia Plan We will obtain an echocardiogram with Doppler study, continue IV Lasix, resume amiodarone, lisinopril, metoprolol, Aldactone, and Coumadin. Further recommendations to follow. DNP note has been reviewed, I agree with a documented findings and plan of care. Patient was seen and examined.
[2019-01-30] MEDS: SPIRONOLACTONE 25 MG TAB PO SCH (12:06)
[2019-01-30] MEDS: LEVOTHYROXINE 112 MCG TAB PO SCH (12:06)
[2019-01-30] MEDS: LISINOPRIL 5 MG TAB PO SCH (12:06)
[2019-01-30] MEDS: ALLOPURINOL 100 MG TAB PO SCH (12:07)
[2019-01-30] MEDS: METOPROLOL TARTRATE 12.5 MG TAB PO SCH (12:07)
[2019-01-30] MEDS: AMIODARONE 200 MG TAB PO SCH (12:07)
[2019-01-30] MEDS: PANTOPRAZOLE 40 MG TABLET PO SCH (12:07)
[2019-01-30 12:38] LABS: Glucose,Whole Blood 121 mg/dL (75-99)
--- NOTE | 2019-01-30 15:28 | P.HPIM ---
History of Present Illness H&P Date: 01/30/19 Chief Complaint: shortness of breath 73-year-old female with PMH of CHF, atrial fibrillation, diabetes mellitus and hypothyroidism presents the ED for shortness of breath. Patient has been experiencing exertional shortness of breath that has been worsening over the past 3 days. She also reports increase in her lower extremity swelling over this time. Patient reports 2 pillow orthopnea. Patient denies any changes in her diet, but states that she eats a lot of TV dinners. Patient attempts to limit her water intake when she can. Patient reports mild nausea in the morning but attributes it to her gastric bypass surgery. She denies any headache or vomiting. Patient denies any fever or chills, cough, chest pain, palpitations, changes in urination or bowel habits. No changes in appetite or weight. Patient denies any dizziness, numbness/weakness/tingling of the extremities. Patient denies smoking cigarettes. She does not drink alcohol. In the ED, patient was noted to have an O2 saturation of 88% on room air. Vital signs were otherwise stable.CBC showed hemoglobin of 9.4. Coagulation panel showed INR of 2.1. D-dimer was negative, low concerns for PE. CMP showed chloride of 112, bicarbonate of 20, BUN of 25 and creatinine 1.17. BNP was 3230 with chest x-ray showing cardiomegaly and pulmonary vascular congestion. Troponin was less than 0.0122 with EKGshowing sinus rhythm with fusion complexes and RBBB, ruling out ACS. Patient is admitted for CHF exacerbation with cardiology on consult. Review of Systems Pertinent positives and negatives as discussed in HPI, a complete review of systems was performed and all other systems are negative. Past Medical History Past Medical History: Cancer, Heart Failure, Diabetes Mellitus, Deep Vein Thrombosis (DVT), GERD/Reflux, Hypertension, Osteoarthritis (OA), Pulmonary Embolus (PE) Additional Past Medical History / Comment(s): NIDDM type II, 2004 L lung cancer with surgery, 2000 thyroid cancer with surgery/hypothyroid, bilateral PEs, DVT R leg, hiatal hernia, hemorrhoids, DDD, occasional low back pain, gait disturbance, sinus problems. History of Any Multi-Drug Resistant Organisms: None Reported Past Surgical History: Cardiac Valve Replacement, Section, Cholecystectomy, Tonsillectomy, Tubal Ligation Additional Past Surgical History / Comment(s): L lower lobe resection, parathyroidectomy, cardiac valve repair, EGD, colonoscopy, lap ewa en Y with lysis of adhesions, D&C, bilateral cataract removals/lens implants. Past Anesthesia/Blood Transfusion Reactions: No Reported Reaction, Motion Sickness Smoking Status: Never smoker - Past Family History Mother Family Medical History: No Reported History Additional Family Medical History / Comment(s): Mother lived to be 94yrs old. Father Family Medical History: Diabetes Mellitus Additional Family Medical History / Comment(s): Father at the age of 65yrs from diabetic complications. Medications and Allergies Home Medications Medication Instructions Recorded Confirmed Type ALPRAZolam [Xanax] 0.25 mg PO DAILY PRN 01/30/19 01/30/19 History Allopurinol [Zyloprim] 100 mg PO DAILY 01/30/19 01/30/19 History Amiodarone HCl [Pacerone] 200 mg PO DAILY 01/30/19 01/30/19 History Cholecalciferol (Vitamin D3) 2,000 unit PO DAILY 01/30/19 01/30/19 History [Vitamin D3] Furosemide [Lasix] 40 mg PO DAILY 01/30/19 01/30/19 History Levothyroxine Sodium 112 mcg PO DAILY 01/30/19 01/30/19 History Lisinopril [Prinivil] 5 mg PO DAILY 01/30/19 01/30/19 History Metoprolol Tartrate [Lopressor] 12.5 mg PO DAILY 01/30/19 01/30/19 History Omeprazole 40 mg PO DAILY 01/30/19 01/30/19 History Sertraline HCl [Zoloft] 100 mg PO HS 01/30/19 01/30/19 History Spironolactone 12.5 mg PO DAILY 01/30/19 01/30/19 History Warfarin Sodium 1.5 mg PO PC-SUPPER 01/30/19 01/30/19 History metFORMIN HCL 1,000 mg PO BID 01/30/19 01/30/19 History Allergies Allergy/AdvReac Type Severity Reaction Status Date / Time No Known Allergies Allergy Verified 01/30/19 07:24 Physical Exam Vitals: Vital Signs Temp Pulse Pulse Resp BP BP Pulse Ox 01/30/19 12:00 98.1 F 83 18 147/64 99 01/30/19 10:09 97.7 F 89 18 136/62 97 01/30/19 09:54 86 16 140/68 99 01/30/19 08:33 90 18 98 01/30/19 08:29 98 22 149/71 88 L 01/30/19 08:04 92 18 134/71 96 01/30/19 07:35 18 01/30/19 07:13 93 18 148/56 98 01/30/19 06:30 156/76 01/30/19 06:02 98.2 F 92 18 156/76 96 Intake and Output 01/29/19 01/30/19 01/30/19 22:59 06:59 14:59 Other: Weight 81.647 kg 84.7 kg General: [non toxic], [no distress], [appears at stated age] Derm: [warm], [dry] Head: [atraumatic], [normocephalic], [symmetric] Eyes: [EOMI], [no lid lag], [anicteric sclera] Mouth: [no lip lesion], [mucus membranes moist] Cardiovascular: [S1S2 reg], [systolic murmur], [positive posterior tibial pulse bilateral], [positive JVD] Lungs: [decreased breath sounds bilateral], [no rhonchi, no rales] , [no acc essory muscle use] Abdominal: [soft], [ nontender to palpation], [no guarding], [no appreciable organomegaly] Ext: [no gross muscle atrophy], [2+ pitting lower extremity edema], [no contractures] Neuro: [ CN II-XI grossly intact], [no focal neuro deficits] Psych: [Alert], [oriented], [appropriate affect] Results CBC & Chem 7: 01/30/19 06:16 01/30/19 06:16 Labs: Abnormal Lab Results - Last 24 Hours (Table) 01/30/19 01/30/19 01/30/19 Range/Units 06:16 06:16 06:16 RBC 3.05 L (3.80-5.40) m/uL Hgb 9.4 L (11.4-16.0) gm/dL Hct 29.2 L (34.0-46.0) % RDW 16.1 H (11.5-15.5) % PT 20.6 H (9.0-12.0) sec INR 2.1 H (<1.2) APTT 32.1 H (22.0-30.0) sec Chloride 112 H (98-107) mmol/L Carbon Dioxide 20 L (22-30) mmol/L BUN 25 H (7-17) mg/dL Creatinine 1.17 H (0.52-1.04) mg/dL Glucose 103 H (74-99) mg/dL POC Glucose (mg/dL) (75-99) mg/dL Calcium 8.3 L (8.4-10.2) mg/dL Total Protein 5.5 L (6.3-8.2) g/dL Albumin 2.9 L (3.5-5.0) g/dL Ur Leukocyte Esterase (Negative) Urine Bacteria (None) /hpf Hyaline Casts (0-2) /lpf Urine Mucus (None) /hpf 01/30/19 01/30/19 Range/Units 08:10 12:21 RBC (3.80-5.40) m/uL Hgb (11.4-16.0) gm/dL Hct (34.0-46.0) % RDW (11.5-15.5) % PT (9.0-12.0) sec INR (<1.2) APTT (22.0-30.0) sec Chloride (98-107) mmol/L Carbon Dioxide (22-30) mmol/L BUN (7-17) mg/dL Creatinine (0.52-1.04) mg/dL Glucose (74-99) mg/dL POC Glucose (mg/dL) 121 H (75-99) mg/dL Calcium (8.4-10.2) mg/dL Total Protein (6.3-8.2) g/dL Albumin (3.5-5.0) g/dL Ur Leukocyte Esterase Small H (Negative) Urine Bacteria Rare H (None) /hpf Hyaline Casts 4 H (0-2) /lpf Urine Mucus Rare H (None) /hpf Thrombosis Risk Factor Assmnt - Choose All That Apply Any of the Below Risk Factors Present?: Yes Each Factor Represents 1 point: Heart failure (<1month), Obesity (BMI >25), Swollen legs (current) Other Risk Factors: Yes Each Risk Factor Represents 2 Points: Age 61-74 years, Malignancy Each Risk Factor Represents 3 Points: History of DVT/PE Other congenital or acquired thrombophilia - If yes, enter type in comment: No Thrombosis Risk Factor Assessment Total Risk Factor Score: 10 Thrombosis Risk Factor Assessment Level: High Risk Assessment and Plan Assessment: Assessment and Plan Acute hypoxic respiratory failure due to CHF exacerbation CHF exacerbation, unknown EF Anemia Acute kidney injury Atrial fibrillation History of DVT and PE Diabetes mellitus Hypothyroidism Hypertension Saturated 88% on room air in the ED. BNP 3230. Chest x-ray showing cardiomegaly and moderate vascular congestion with trace bilateral pleural effusion. Plans: Start diuresis with Lasix 40 mg IV twice a day. Strict intake and output. Daily weights. Telemetry monitoring. Low-salt diet and fluid restriction. Restart beta samira and ROHINI inhibitor along with spironolactone. Follow echocardiogram. Follow-up cardiology consultation. Plans: Management as above. Hemoglobin 9.4, normocytic. Plans: Follow iron studies, B12 and folate. Transfuse if hemoglobin less than 7. Stable. Plans: Continue Coumadin to maintain INR 2-3. Continue beta samira for rate control. Plans: Continue Coumadin to maintain INR 2-3. [id number] glucose 121. Plans: Insulin sliding scale. Regular Accu-Cheks. Hypoglycemic precautions. Plans: Continue Synthroid. Plans: Continue lisinopril and date of samira. Monitor vitals, adjust medications as necessary. DVT prophylaxis: [warfarin] Discussed with: [patient] Anticipated discharge: [home] Anticipated discharge place: [2-3 days] A total of [45] minutes was spent on the care of this complex patient more than 50% of the time was spent in counseling and care coordination.
[2019-01-30] MEDS: WARFARIN 1.5 MG TAB PO SCH (17:18)
[2019-01-30] MEDS: INSULIN ASPART (NovoLOG) 100 UNIT/ML VIAL SQ SCH ×2 (17:18→21:00)
[2019-01-30 17:21] LABS: Glucose,Whole Blood 154 mg/dL (75-99)
[2019-01-30] MEDS: FUROSEMIDE 10 MG/ML 4 ML VIAL IV SCH (17:54)
[2019-01-30 20:46] LABS: Glucose,Whole Blood 156 mg/dL (75-99)
[2019-01-30] MEDS: SERTRALINE 100 MG TAB PO SCH (22:54)
[2019-01-31 06:24] LABS: Glucose,Whole Blood 136 mg/dL (75-99)
[2019-01-31 06:37] LABS: INR 2.4 (<1.2)
[2019-01-31 06:38] LABS: Prothrombin Time 23.2 sec (9.0-12.0)
[2019-01-31] MEDS: PANTOPRAZOLE 40 MG TABLET PO SCH (07:00)
[2019-01-31] MEDS: LEVOTHYROXINE 112 MCG TAB PO SCH (07:00)
[2019-01-31] MEDS: INSULIN ASPART (NovoLOG) 100 UNIT/ML VIAL SQ SCH ×4 (07:00→21:51)
[2019-01-31 08:30] LABS: Calcium 8.4 mg/dL (8.4-10.2); Magnesium 1.5 mg/dL (1.6-2.3); Potassium 4.6 mmol/L (3.5-5.1)
[2019-01-31] MEDS: METOPROLOL TARTRATE 12.5 MG TAB PO SCH (08:40)
[2019-01-31] MEDS: ALLOPURINOL 100 MG TAB PO SCH (08:40)
[2019-01-31] MEDS: LISINOPRIL 5 MG TAB PO SCH (08:40)
[2019-01-31 08:41] LABS: Basophils % (A) 1 %; Eosinophils # (A) 0.2 k/uL (0-0.7); Eosinophils % (A) 4 %; HGB 9.3 gm/dL (11.4-16.0); Hypochromasia Slight; Lymphocytes # (A) 1.4 k/uL (1.0-4.8); Lymphocytes % (A) 26 %; MCH 30.9 pg (25.0-35.0); MCV 96.7 fL (80.0-100.0); Mean Platelet Volume 7.3; Monocytes # (A) 0.3 k/uL (0-1.0); Monocytes % (A) 6 %; Neutrophils # (A) 3.3 k/uL (1.3-7.7); Neutrophils % (A) 62 %; Platelet Count 287 k/uL (150-450); WBC 5.4 k/uL (3.8-10.6)
[2019-01-31] MEDS: SPIRONOLACTONE 25 MG TAB PO SCH (08:41)
[2019-01-31] MEDS: FUROSEMIDE 10 MG/ML 4 ML VIAL IV SCH ×2 (08:41→21:20)
[2019-01-31] MEDS: AMIODARONE 200 MG TAB PO SCH (08:42)
--- NOTE | 2019-01-31 10:10 | ECHOF ---
Referral Reason:SO MEASUREMENTS -------- HEIGHT: 154.9 cm WEIGHT: 84.4 kg BP: 147/64 RVIDd: 3.1 cm (< 3.3) IVSd: 1.0 cm (0.6 - 1.1) LVIDd: 5.3 cm (3.9 - 5.3) LVPWd: 1.1 cm (0.6 - 1.1) IVSs: 1.5 cm LVIDs: 3.9 cm LVPWs: 1.6 cm LA Diam: 4.6 cm (2.7 - 3.8) LAESV Index (A-L): 44.12 ml/m Ao Diam: 3.1 cm (2.0 - 3.7) MV EXCURSION: 13.991 mm (> 18.000) MV EF SLOPE: 29 mm/s (70 - 150) EPSS: 1.2 cm MV E Vikash: 1.87 m/s MV DecT: 201 ms MV A Vikash: 0.97 m/s MV E/A Ratio: 1.91 AV maxP.25 mmHg AV meanP.47 mmHg RAP: 5.00 mmHg RVSP: 56.59 mmHg FINDINGS -------- Sinus rhythm. This was a technically adequate study. The left ventricular size is normal. There is borderline concentric left ventricular hypertrophy. Overall left ventricular systolic function is normal with, an EF between 60 - 65 %. The right ventricle is normal in size. LA is severely dilated >40 ml/m2 The right atrium is normal in size. Interatrial and interventricular septum intact. Aortic valve is trileaflet and is mildly thickened. The mitral valve leaflets are moderate to severely thickened. Moderate mitral annular calcification present. [id number] mitral regurgitation is present. Moderate mitral stenosis. The peak and mean MV gradients are 22.45mmHg 9.53mmHg as measured by doppler. MV repair Moderate tricuspid regurgitation present. There is severe pulmonary hypertension. The right ventr icular systolic pressure, as measured by Doppler, is 56.59mmHg. Trace/mild (physiologic) pulmonic regurgitation. The aortic root size is normal. Normal inferior vena cava with normal inspiratory collapse consistent with estimated right atrial pre ssure of 5 mmHg. There is no pericardial effusion. Pleural Effusion with Fibrin. CONCLUSIONS -------- 1. Sinus rhythm. 2. This was a technically adequate study. 3. The left ventricular size is normal. 4. There is borderline concentric left ventricular hypertrophy. 5. Overall left ventricular systolic function is normal with, an EF between 60 - 65 %. 6. The right ventricle is normal in size. 7. LA is severely dilated >40 ml/m2 8. The right atrium is normal in size. 9. Interatrial and interventricular septum intact. 10. Aortic valve is trileaflet and is mildly thickened. 11. The mitral valve leaflets are moderate to severely thickened. 12. Moderate mitral annular calcification present. 13. [id number] mitral regurgitation is present. 14. The peak and mean MV gradients are 22.45mmHg 9.53mmHg as measured by doppler. 15. Moderate mitral stenosis. 16. MV repair 17. Moderate tricuspid regurgitation present. 18. There is severe pulmonary hypertension. 19. The right ventricular systolic pressure, as measured by Doppler, is 56.59mmHg. 20. Trace/mild (physiologic) pulmonic regurgitation. 21. The aortic root size is normal. 22. Normal inferior vena cava with normal inspiratory collapse consistent with estimated right atrial pressure of 5 mmHg. 23. There is no pericardial effusion. 24. Pleural Effusion with Fibrin. OFFICE SERVICES REPRESENTATIVE: Neha Meeks RDCS
[2019-01-31 11:55] LABS: Glucose,Whole Blood 177 mg/dL (75-99)
[2019-01-31 13:29] LABS: Iron Saturation 8.59 (12.00-45.00)
[2019-01-31 13:40] LABS: Ferritin 37.4 ng/mL (10.0-291.0)
[2019-01-31 13:43] LABS: Folate, Serum 13.6 ng/mL
--- NOTE | 2019-01-31 14:42 | P.PN ---
Subjective Progress Note Date: 01/31/19 This is a pleasant 73-year-old female with history of diabetes, hypertension, prior history of lung CA, thyroid cancer, paroxysmal atrial fibrillation history of pulmonary embolism, patient also had history of mitral valve repair, , she takes warfarin at home. Follows with Dr. dasia Rogers in the office. Presents to the hospital with symptoms of progressively worsening shortness of breath and bilateral lower extremity edema of approximately 3 day duration. Positive PND and orthopnea, patient has been sleeping on 2 or 3 pillows or in her recliner. Chest x-ray shows cardiomegaly with moderate vascular congestion. Trace bilateral pleural effusions. EKG shows a normal sinus rhythm with a right bundle branch block pattern and nonspecific ST-T wave changes. I pressure on arrival here 156/70 with a heart rate in the 90s, 96% on 4 L of oxygen. Blood pressure 136/60 with a heart rate in the 80s, 97% on 2 L of oxygen. White blood cell count 7.2, hemoglobin 9.4, platelet count 311. D-dimer 0.3, INR 2.1, sodium 139, potassium 4.6, BUN 25 and creatinine 1.1. Magnesium 1.7. BNP level 3230. At the time of my examination, the patient is sitting up in the chair at bedside, still is somewhat short of breath, she was initiated on IV Lasix in the emergency room, none of the home medications have yet been resumed. 01/31/2019 Patient was seen and examined today, sitting up in her chair at bedside, weight is down 2 kg today, blood pressure 108/40, INR 2.4, BUN 29, creatinine 1.4, magnesium 1.5. Echocardiogram with Doppler study was performed which revealed an ejection fraction of 60-65%, moderate mitral regurgitation and moderate mitral stenosis with moderate tricuspid regurg. Objective - Vital Signs Vital signs: Vital Signs Temp 98.5 F 01/31/19 12:00 Pulse 77 01/31/19 12:00 Resp 16 01/31/19 12:00 BP 114/51 01/31/19 12:00 Pulse Ox 97 01/31/19 12:00 Intake & Output 01/30/19 01/31/19 01/31/19 18:59 06:59 18:59 Intake Total 100 358 Output Total 900 Balance -800 358 Weight 84.7 kg 82.7 kg Intake: Oral 100 358 Output: Urine 900 Other: # Voids 1 - Exam PHYSICAL EXAMINATION: GENERAL: 89-year-old female in no acute distress at the time of my examination HEENT: Head is atraumatic, normocephalic. Pupils equal, round. Sclera anicteric. Conjunctiva are clear. Mucous membranes of the mouth are moist. Neck is supple. There is elevated jugular venous pressure. No carotid] bruit is heard. HEART EXAMINATION: Heart S1-S2 systolic murmur is heard in the mitral and aortic area CHEST EXAMINATION: His reveal diminished air entry to bilateral bases ABDOMEN: Soft, nontender. Bowel sounds are heard. No organomegaly noted. EXTREMITIES: 2+ peripheral pulses with 2+ evidence of peripheral edema and no calf tenderness noted. NEUROLOGIC patient is awake, alert and oriented 3 . - Labs CBC & Chem 7: 01/31/19 05:35 01/31/19 05:35 Labs: Abnormal Lab Results - Last 24 Hours (Table) 01/30/19 01/30/19 01/31/19 Range/Units 17:14 20:43 05:35 RBC (3.80-5.40) m/uL Hgb (11.4-16.0) gm/dL Hct (34.0-46.0) % PT (9.0-12.0) sec INR (<1.2) BUN (7-17) mg/dL Creatinine (0.52-1.04) mg/dL Glucose (74-99) mg/dL POC Glucose (mg/dL) 154 H 156 H (75-99) mg/dL Magnesium (1.6-2.3) mg/dL Iron 31 L (50-170) ug/dL Iron Saturation 8.59 L (12.00-45.00) 01/31/19 01/31/19 01/31/19 Range/Units 05:35 05:35 05:35 RBC 3.00 L (3.80-5.40) m/uL Hgb 9.3 L (11.4-16.0) gm/dL Hct 29.0 L (34.0-46.0) % PT 23.2 H (9.0-12.0) sec INR 2.4 H (<1.2) BUN 29 H (7-17) mg/dL Creatinine 1.45 H (0.52-1.04) mg/dL Glucose 125 H (74-99) mg/dL POC Glucose (mg/dL) (75-99) mg/dL Magnesium 1.5 L (1.6-2.3) mg/dL Iron (50-170) ug/dL Iron Saturation (12.00-45.00) 01/31/19 01/31/19 Range/Units 06:22 11:53 RBC (3.80-5.40) m/uL Hgb (11.4-16.0) gm/dL Hct (34.0-46.0) % PT (9.0-12.0) sec INR (<1.2) BUN (7-17) mg/dL Creatinine (0.52-1.04) mg/dL Glucose (74-99) mg/dL POC Glucose (mg/dL) 136 H 177 H (75-99) mg/dL Magnesium (1.6-2.3) mg/dL Iron (50-170) ug/dL Iron Saturation (12.00-45.00) Assessment and Plan Plan: Assessment and plan #1 congestive heart failure, likely diastolic in nature, acute on chronic, last documented ejection fraction was 50%. #2 history of mitral valve repair #3 hypertension #4 paroxysmal atrial fibrillation #5 diabetes #6 hyperlipidemia #7 history of nonsustained ventricular tachycardia #8 history of pulmonary embolism #9 hypothyroidism #10 anemia Plan From cardiology's perspective, we will recommend to continue this patient on current dose of IV Lasix. Continue to monitor the intake and output along with daily weights and daily lytes BUN and creatinine. DNP note has been reviewed, I agree with a documented findings and plan of care. Patient was seen and examined.
[2019-01-31 15:31] VITALS: BMI 34.4
--- NOTE | 2019-01-31 15:58 | P.PN ---
Subjective Progress Note Date: 01/31/19 Principal diagnosis: CHF exacerbation Patient was seen and examined. No acute events overnight. Patient reports significant improvement in her breathing since yesterday. Also states that the swelling in her legs has gone down slightly but is still persistent. She denies any chest pain, shortness of breath or palpitations. No nausea or vomiting. No fever or chills. Currently saturating 97% on room air. Patient has gone from 84.7 kg on 01/30/2019 to 82.7 kg today. Objective - Vital Signs Vital signs: Vital Signs Temp 98.5 F 01/31/19 12:00 Pulse 77 01/31/19 12:00 Resp 16 01/31/19 12:00 BP 114/51 01/31/19 12:00 Pulse Ox 97 01/31/19 12:00 Intake & Output 01/30/19 01/31/19 01/31/19 18:59 06:59 18:59 Intake Total 100 358 Output Total 900 Balance -800 358 Weight 84.7 kg 82.7 kg 82.7 kg Intake: Oral 100 358 Output: Urine 900 Other: # Voids 1 - Exam General: [non toxic], [no distress], [appears at stated age] Derm: [warm], [dry] Head: [atraumatic], [normocephalic], [symmetric] Eyes: [EOMI], [no lid lag], [anicteric sclera] Mouth: [no lip lesion], [mucus membranes moist] Cardiovascular: [S1S2 reg], [systolic murmur], [positive DP pulse bilateral] Lungs: [decreased breath sounds bilateral], [no rhonchi, no rales] , [no accessory muscle use] Abdominal: [soft], [ nontender to palpation], [no guarding], [no appreciable organomegaly] Ext: [no gross muscle atrophy], [2+ pitting lower extremity edema], [no contractures] Neuro: [ CN II-XI grossly intact], [no focal neuro deficits] Psych: [Alert], [oriented], [appropriate affect] - Labs CBC & Chem 7: 01/31/19 05:35 01/31/19 05:35 Labs: Abnormal Lab Results - Last 24 Hours (Table) 08/20/19 08/20/19 08/21/19 Range/Units 17:14 20:43 05:35 RBC (3.80-5.40) m/uL Hgb (11.4-16.0) gm/dL Hct (34.0-46.0) % PT (9.0-12.0) sec INR (<1.2) BUN (7-17) mg/dL Creatinine (0.52-1.04) mg/dL Glucose (74-99) mg/dL POC Glucose (mg/dL) 154 H 156 H (75-99) mg/dL Magnesium (1.6-2.3) mg/dL Iron 31 L (50-170) ug/dL Iron Saturation 8.59 L (12.00-45.00) 01/31/19 01/31/19 01/31/19 Range/Units 05:35 05:35 05:35 RBC 3.00 L (3.80-5.40) m/uL Hgb 9.3 L (11.4-16.0) gm/dL Hct 29.0 L (34.0-46.0) % PT 23.2 H (9.0-12.0) sec INR 2.4 H (<1.2) BUN 29 H (7-17) mg/dL Creatinine 1.45 H (0.52-1.04) mg/dL Glucose 125 H (74-99) mg/dL POC Glucose (mg/dL) (75-99) mg/dL Magnesium 1.5 L (1.6-2.3) mg/dL Iron (50-170) ug/dL Iron Saturation (12.00-45.00) 01/31/19 01/31/19 Range/Units 06:22 11:53 RBC (3.80-5.40) m/uL Hgb (11.4-16.0) gm/dL Hct (34.0-46.0) % PT (9.0-12.0) sec INR (<1.2) BUN (7-17) mg/dL Creatinine (0.52-1.04) mg/dL Glucose (74-99) mg/dL POC Glucose (mg/dL) 136 H 177 H (75-99) mg/dL Magnesium (1.6-2.3) mg/dL Iron (50-170) ug/dL Iron Saturation (12.00-45.00) Assessment and Plan Assessment: Assessment and Plan Acute hypoxic respiratory failure due to CHF exacerbation CHF exacerbation, diastolic, EF 60-65% Anemia Acute kidney injury Atrial fibrillation History of DVT and PE Diabetes mellitus Hypothyroidism Hypertension Saturated 88% on room air in the ED. BNP 3230. Chest x-ray showing cardiomegaly and moderate vascular congestion with trace bilateral pleural effusion. Echocardiogram shows mild concentric LVH with EF 60-65%. Plans: Continue diuresis with Lasix 40 mg IV twice a day. Strict intake and output. Daily weights. Telemetry monitoring. Low-salt diet and fluid restriction. Continue beta samira and ROHINI inhibitor along with spironolactone. Replace magnesium. Follow-up cardiology consultation. Plans: Management as above. Hemoglobin 9.3, normocytic. Iron study shows iron deficiency. Plans: Transfuse if hemoglobin less than 7. Creatinine 1.17-1.45. Unknown baseline. Likely secondary to Lasix. Plans: Av oid nephrotoxins. Daily BMP. INR 2.4. Stable. Plans: Continue Coumadin to maintain INR 2-3. Continue beta samira for rate control. INR 2.4. Plans: Continue Coumadin to maintain INR 2-3. Vjmwj-kz-erly glucose 177. Plans: Insulin sliding scale. Regular Accu-Cheks. Hypoglycemic precautions. Plans: Continue Synthroid. Plans: Continue lisinopril and date of samira. Monitor vitals, adjust med ications as necessary. [Patient admitted for CHF exacerbation. Has shown improvement, continue diu resis as per cardiology recommendations. Possible DC tomorrow.]
[2019-01-31] MEDS: MAGNESIUM SULFATE-D5W PMX 1 GM in DEXTROSE/WATER 1 100ML.BAG IVPB SCH ×2 (16:30→18:28)
[2019-01-31 16:56] LABS: Glucose,Whole Blood 138 mg/dL (75-99)
[2019-01-31] MEDS: WARFARIN 1.5 MG TAB PO SCH (17:12)
[2019-01-31] MEDS: SERTRALINE 100 MG TAB PO SCH (21:21)
[2019-01-31 21:22] LABS: Glucose,Whole Blood 207 mg/dL (75-99)
[2019-02-01 05:50] LABS: Glucose,Whole Blood 151 mg/dL (75-99)
[2019-02-01 06:46] LABS: INR 2.4 (<1.2); Prothrombin Time 22.9 sec (9.0-12.0)
[2019-02-01 06:48] LABS: Calcium 8.6 mg/dL (8.4-10.2); Magnesium 1.9 mg/dL (1.6-2.3)
[2019-02-01] MEDS: INSULIN ASPART (NovoLOG) 100 UNIT/ML VIAL SQ SCH ×4 (07:45→19:58)
[2019-02-01] MEDS: LEVOTHYROXINE 112 MCG TAB PO SCH (07:45)
[2019-02-01] MEDS: PANTOPRAZOLE 40 MG TABLET PO SCH (07:50)
[2019-02-01] MEDS: AMIODARONE 200 MG TAB PO SCH (09:51)
[2019-02-01] MEDS: METOPROLOL TARTRATE 12.5 MG TAB PO SCH (09:51)
[2019-02-01] MEDS: ALLOPURINOL 100 MG TAB PO SCH (09:51)
[2019-02-01] MEDS: FUROSEMIDE 10 MG/ML 4 ML VIAL IV SCH ×2 (09:52→19:57)
[2019-02-01 12:27] LABS: Glucose,Whole Blood 184 mg/dL (75-99)
--- NOTE | 2019-02-01 12:52 | P.PN ---
Subjective Progress Note Date: 02/01/19 Principal diagnosis: CHF exacerbation 73-year-old female with PMH of CHF, atrial fibrillation, diabetes mellitus and hypothyroidism presents the ED for shortness of breath. Patient has been experiencing exertional shortness of breath that has been worsening over the past 3 days. She also reports increase in her lower extremity swelling over this time. In the ED, patient was noted to have an O2 saturation of 88% on room air. Vital signs were otherwise stable. D-dimer was negative, low concerns for PE. BNP was 3230 with chest x-ray showing cardiomegaly and pulmonary vascular congestion. Troponin was less than 0.0122 with EKG showing sinus rhythm with fusion complexes and RBBB, ruling out ACS. Patient is admitted for CHF exacerbation with cardiology on consult. Patient was seen and examined. No acute events overnight. Patient reports conservative improvement in her breathing since admission. States that her breathing feels back at baseline. Continues to complain of lower extremity swelling, though improved. She denies any chest pain or palpitations. No nausea or vomiting. No fever or chills. Lives alone at [facility]. Objective - Vital Signs Vital signs: Vital Signs Temp 97.7 F 02/01/19 11:35 Pulse 82 02/01/19 11:35 Resp 16 02/01/19 11:35 BP 114/56 02/01/19 11:35 Pulse Ox 95 02/01/19 11:35 Intake & Output 01/31/19 02/01/19 02/01/19 18:59 06:59 18:59 Intake Total 598 240 Output Total 300 400 Balance 598 -300 -160 Weight 82.7 kg 81.2 kg Intake: Oral 598 240 Output: Urine 300 400 Other: Voiding Method Toilet Toilet # Voids 1 - Exam General: [non toxic], [no distress], [appears at stated age] Derm: [warm], [dry] Head: [atraumatic], [normocephalic], [symmetric] Eyes: [EOMI], [no lid lag], [anicteric sclera] Mouth: [no lip lesion], [mucus membranes moist] Cardiovascular: [S1S2 reg], [systolic murmur], [positive DP pulse bilateral] Lungs: [decreased breath sounds bilateral], [no rhonchi, no rales] , [no accessory muscle use] Abdominal: [soft], [ nontender to palpation], [no guarding], [no appreciable organomegaly] Ext: [no gross muscle atrophy], [1+ pitting lower extremity edema], [no contractures] Neuro: [no focal neuro deficits] Psych: [Alert], [oriented], [appropriate affect] - Labs CBC & Chem 7: 01/31/19 05:35 02/01/19 06:04 Labs: Abnormal Lab Results - Last 24 Hours (Table) 01/31/19 01/31/19 01/31/19 Range/Units 05:35 16:55 21:08 PT (9.0-12.0) sec INR (<1.2) BUN (7-17) mg/dL Creatinine (0.52-1.04) mg/dL Glucose (74-99) mg/dL POC Glucose (mg/dL) 138 H 207 H (75-99) mg/dL Iron 31 L (50-170) ug/dL Iron Saturation 8.59 L (12.00-45.00) 02/01/19 02/01/19 02/01/19 Range/Units 05:48 06:04 06:04 PT 22.9 H (9.0-12.0) sec INR 2.4 H (<1.2) BUN 31 H (7-17) mg/dL Creatinine 1.36 H (0.52-1.04) mg/dL Glucose 147 H (74-99) mg/dL POC Glucose (mg/dL) 151 H (75-99) mg/dL Iron (50-170) ug/dL Iron Saturation (12.00-45.00) 02/01/19 Range/Units 11:46 PT (9.0-12.0) sec INR (<1.2) BUN (7-17) mg/dL Creatinine (0.52-1.04) mg/dL Glucose (74-99) mg/dL POC Glucose (mg/dL) 184 H (75-99) mg/dL Iron (50-170) ug/dL Iron Saturation (12.00-45.00) Assessment and Plan Assessment: Assessment and Plan Acute hypoxic respiratory failure due to CHF exacerbation CHF exacerbation, diastolic, EF 60-65% Anemia Acute kidney injury Atrial fibrillation History of DVT and PE Diabetes mellitus Hypothyroidism Hypertension Saturated 88% on room air in the ED. BNP 3230. Chest x-ray showing cardiomegaly and moderate vascular congestion with trace bilateral pleural effusion. Echocardiogram shows mild concentric LVH with EF 60-65%. Plans: Continue diuresis with Lasix 40 mg IV twice a day. Strict intake and output. Daily tab ghts. Telemetry monitoring. Low-salt diet and fluid restriction. Continue beta samira and ROHINI inhibitor along with spironolactone. Follow-up cardiology consultation. Plans: Management as above. Hemoglobin 9.3, normocytic. Iron study shows iron deficiency. Plans: Transfuse if hemoglobin less than 7. Creatinine 1.17-1.45-1.36. Unknown baseline. Likely secondary to Lasix. Plans: Avoid nephrotoxins. Daily BMP. Seems to be worsening, possible underlying chronic kidney disease, obtain kidney ultrasound, urine electrolytes and FeUrea, can be followed in the outpatient setting. INR 2.4. Stable. Plans: Continue Coumadin to maintain INR 2-3. Continue beta samira for rate control. INR 2.4. Plans: Continue Coumadin to maintain INR 2-3. Mttqz-ys-mrra glucose 184. Plans: Insulin sliding scale. Regular Accu-Cheks. Hypoglycemic precautions. Plans: Continue Synthroid. Plans: Continue lisinopril and date of samira. Monitor vitals, adjust medications as necessary. [Patient admitted for CHF exacerbation. Has shown improvement, 1 more day of diuresis as per cardiology recommendations. Possible DC tomorrow.]
--- NOTE | 2019-02-01 13:55 | US ---
EXAMINATION TYPE: US kidneys/renal and bladder DATE OF EXAM: 02/01/2019 COMPARISON: NONE CLINICAL HISTORY: Elevated Cr. Diabetic EXAM MEASUREMENTS: Right Kidney: 9.4 x 4.1 x 3.6 cm Left Kidney: 9.6 x 4.7 x 4.5 cm Post Void Residual Volume: not assessed on inpatient Right Kidney: No hydronephrosis or masses seen Left Kidney: No hydronephrosis or masses seen; hyperechoic parallel vessel browne are seen superiorly and inferiorly. Bladder: wnl Bilateral Jets seen: yes IMPRESSION: 1. Some vascular calcification may be present. No renal ultrasound is otherwise unremarkable.
--- NOTE | 2019-02-01 13:57 | P.PN ---
Subjective Progress Note Date: 02/01/19 This is a pleasant 73-year-old female with history of diabetes, hypertension, prior history of lung CA, thyroid cancer, paroxysmal atrial fibrillation history of pulmonary embolism, patient also had history of mitral valve repair, , she takes warfarin at home. Follows with Dr. dasia Rogers in the office. Presents to the hospital with symptoms of progressively worsening shortness of breath and bilateral lower extremity edema of approximately 3 day duration. Positive PND and orthopnea, patient has been sleeping on 2 or 3 pillows or in her recliner. Chest x-ray shows cardiomegaly with moderate vascular congestion. Trace bilateral pleural effusions. EKG shows a normal sinus rhythm with a right bundle branch block pattern and nonspecific ST-T wave changes. I pressure on arrival here 156/70 with a heart rate in the 90s, 96% on 4 L of oxygen. Blood pressure 136/60 with a heart rate in the 80s, 97% on 2 L of oxygen. White blood cell count 7.2, hemoglobin 9.4, platelet count 311. D-dimer 0.3, INR 2.1, sodium 139, potassium 4.6, BUN 25 and creatinine 1.1. Magnesium 1.7. BNP level 3230. At the time of my examination, the patient is sitting up in the chair at bedside, still is somewhat short of breath, she was initiated on IV Lasix in the emergency room, none of the home medications have yet been resumed. 01/31/2019 Patient was seen and examined today, sitting up in her chair at bedside, weight is down 2 kg today, blood pressure 108/40, INR 2.4, BUN 29, creatinine 1.4, magnesium 1.5. Echocardiogram with Doppler study was performed which revealed an ejection fraction of 60-65%, moderate mitral regurgitation and moderate mitral stenosis with moderate tricuspid regurg. 02/01/2019 Patient was seen and examined this morning, sitting up in her chair at bedside, her weight today is down 1 kg from yesterday, she still continues to have some peripheral edema however significantly improving, her BUN today is 31 and creatinine 1.3. Objective - Vital Signs Vital signs: Vital Signs Temp 97.7 F 02/01/19 11:35 Pulse 82 02/01/19 11:35 Resp 16 02/01/19 11:35 BP 114/56 02/01/19 11:35 Pulse Ox 95 02/01/19 11:35 Intake & Output 01/31/19 02/01/19 02/01/19 18:59 06:59 18:59 Intake Total 598 480 Output Total 300 400 Balance 598 -300 80 Weight 82.7 kg 81.2 kg Intake: Oral 598 480 Output: Urine 300 400 Other: Voiding Method Toilet Toilet # Voids 1 - Exam PHYSICAL EXAMINATION: GENERAL: 89-year-old female in no acute distress at the time of my examination HEENT: Head is atraumatic, normocephalic. Pupils equal, round. Sclera anicteric. Conjunctiva are clear. Mucous membranes of the mouth are moist. Neck is supple. There is elevated jugular venous pressure. No carotid] bruit is heard. HEART EXAMINATION: Heart S1-S2 systolic murmur is heard in the mitral and aortic area CHEST EXAMINATION: LungsHis reveal diminished air entry to bilateral bases ABDOMEN: Soft, nontender. Bowel sounds are heard. No organomegaly noted. EXTREMITIES: 2+ peripheral pulses with 2+ evidence of peripheral edema and no calf tenderness noted. NEUROLOGIC patient is awake, alert and oriented 3 . - Labs CBC & Chem 7: 01/31/19 05:35 02/01/19 06:04 Labs: Abnormal Lab Results - Last 24 Hours (Table) 01/31/19 01/31/19 02/01/19 Range/Units 16:55 21:08 05:48 PT (9.0-12.0) sec INR (<1.2) BUN (7-17) mg/dL Creatinine (0.52-1.04) mg/dL Glucose (74-99) mg/dL POC Glucose (mg/dL) 138 H 207 H 151 H (75-99) mg/dL 02/01/19 02/01/19 02/01/19 Range/Units 06:04 06:04 11:46 PT 22.9 H (9.0-12.0) sec INR 2.4 H (<1.2) BUN 31 H (7-17) mg/dL Creatinine 1.36 H (0.52-1.04) mg/dL Glucose 147 H (74-99) mg/dL POC Glucose (mg/dL) 184 H (75-99) mg/dL Assessment and Plan Plan: Assessment and plan #1 congestive heart failure, likely diastolic in nature, acute on chronic, last documented ejection fraction was 50%. #2 history of mitral valve repair #3 hypertension #4 paroxysmal atrial fibrillation #5 diabetes #6 hyperlipidemia #7 history of nonsustained ventricular tachycardia #8 history of pulmonary embolism #9 hypothyroidism #10 anemia Plan From cardiology's perspective, we will recommend to continue this patient on current dose of IV Lasix. Continue to monitor the intake and output along with daily weights and daily lytes BUN and creatinine. Repeat chest x-ray DNP note has been reviewed, I agree with a documented findings and plan of care. Patient was seen and examined.
[2019-02-01] MEDS: LISINOPRIL 5 MG TAB PO SCH (16:03)
--- NOTE | 2019-02-01 16:48 | XR ---
EXAMINATION TYPE: XR chest 2V DATE OF EXAM: 02/01/2019 COMPARISON: 01/30/2019 HISTORY: Follow-up heart failure TECHNIQUE: Frontal and lateral views of the chest are obtained. FINDINGS: Heart is normal. There are sternal wires. There is blunting of costophrenic angles. There is mild pulmonary congestion. There are chest leads. IMPRESSION: Mild congestive heart failure with pleural effusions. Heart failure much improved compar ed to last exam.
[2019-02-01 17:00] LABS: Glucose,Whole Blood 164 mg/dL (75-99)
[2019-02-01] MEDS: WARFARIN 1.5 MG TAB PO SCH (17:33)
[2019-02-01 19:50] LABS: Glucose,Whole Blood 236 mg/dL (75-99)
[2019-02-01] MEDS: SERTRALINE 100 MG TAB PO SCH (19:57)
[2019-02-02 03:39] VITALS: TEMP 98
[2019-02-02 06:01] LABS: Glucose,Whole Blood 163 mg/dL (75-99)
[2019-02-02] MEDS: INSULIN ASPART (NovoLOG) 100 UNIT/ML VIAL SQ SCH ×2 (06:09→12:34)
[2019-02-02] MEDS: PANTOPRAZOLE 40 MG TABLET PO SCH (06:10)
[2019-02-02 06:36] LABS: INR 2.2 (<1.2); Prothrombin Time 21.6 sec (9.0-12.0)
[2019-02-02 06:39] LABS: Calcium 8.4 mg/dL (8.4-10.2); Potassium 4.3 mmol/L (3.5-5.1)
[2019-02-02 08:25] VITALS: RESP 20
[2019-02-02] MEDS: AMIODARONE 200 MG TAB PO SCH (09:03)
[2019-02-02] MEDS: ALLOPURINOL 100 MG TAB PO SCH (09:03)
[2019-02-02 09:54] VITALS: BP 104/58; PULSE 82
[2019-02-02] MEDS: METOPROLOL TARTRATE 12.5 MG TAB PO SCH (09:55)
--- NOTE | 2019-02-02 10:52 | P.DS ---
Providers Date of admission: 01/30/19 08:55 Expected date of discharge: 02/02/19 Attending physician: Ed Kay MD Consults: 01/30/19 08:57 Consult Physician Routine Consulting Provider: Rah Lin Consult Reason/Comments: chf exacerbation Do you want consulting provider notified?: Yes Primary care [facility] Course: Discharge Diagnosis: Acute exacerbation of diastolic congestive heart failure with pulmonary hypertension Acute hypoxic respiratory failure Acute kidney injury on chronic kidney disease, probable stage III Diabetes mellitus type 2, controlled on oral medications Iron deficiency anemia History of DVT and pulmonary embolism with Coumadin coagulopathy Hypothyroidism Hypertension Hospital Course: Patient is a 73-year-old female with past medical history of congestive heart failure, GERD, hypertension, and prior pulmonary embolism as well as multiple other morbid conditions who presented to the emergency department with shortness of breath. In the ER she was found have an oxygen saturation of 88% on room air. Her vital signs were otherwise stable. Initial laboratory analysis showed an anemia with hemoglobin of 9.4, therapeutic INR of 2.1, BUN 25, creatinine 1.17, and normal troponin. Her BNP was elevated at 3230. Chest x-ray showed moderate vascular congestion. She was started on IV Lasix and admitted. Cardiology was consulted. Echocardiogram revealed ejection fraction of 60-65% with borderline LVH as well as moderate mitral stenosis and mitral valve repair. She has severe pulmonary hypertension with an RVSP of 56.59. During diuresis her creatinine elevated to 1.7, we spoke with her primary care physician's office and her baseline creatinine appears to be 1.5. She underwent a renal ultrasound which was unremarkable other than vascular calcifications. Her volume status improved with the use of IV diuretics. She is determined stable for discharge. Her home Lasix has been increased to twice daily, and she has been taken off of Aldactone. She was also noted to have iron deficiency anemia with ferritin of 36.7. She was started on ferrous sulfate 325 mg twice daily. She will require further evaluation of this in the outpatient setting. She will follow up with Dr. Orourke next week and Rangel Alexis of visiting physicians. We have recommended a repeat basic metabolic profile in one week. She will also have home health with [facility]. Patient seen and examined at bedside. She feels that her breathing is back to baseline. She denies any wheezing or shortness of breath at this time. She states that her edema is much better when she came in. She denies any nausea or vomiting. Vital signs reviewed and stable. General: non toxic, no distress, appears at stated age Derm: warm, dry Head: atraumatic, normocephalic, symmetric Eyes: EOMI, no lid lag, anicteric sclera Mouth: no lip lesion, mucus membranes moist Cardiovascular: S1S2 reg, no murmur, positive posterior tibial pulse bilateral, Lungs: Decreased breath sounds bilateral, no rhonchi, no rales , no accessory muscle use Abdominal: soft, nontender to palpation, no guarding, no appreciable organomegaly Ext: no gross muscle atrophy, 1+ edema, no contractures Neuro: CN II-XI grossly intact, no focal neuro deficits Psych: Alert, oriented, appropriate affect A total of 35 minutes of time were spent preparing this complex discharge summary . Pertinent Studies: echocardiogram revealed ejection fraction of 60-65% with borderline LVH as well as moderate mitral stenosis and mitral valve repair. She has severe pulmonary hypertension with an RVSP of 56.59. Renal ultrasound showed vascular calcification but was otherwise normal. Patient Condition at Discharge: Stable Plan - Discharge Summary Discharge Rx Participant: No New Discharge Prescriptions: New Ferrous Sulfate [Iron] 325 mg PO BID #60 tablet Furosemide [Lasix] 40 mg PO BID@0900,1600 #60 tab Continue Omeprazole 40 mg PO DAILY Cholecalciferol (Vitamin D3) [Vitamin D3] 2,000 unit PO DAILY Warfarin Sodium 1.5 mg PO PC-SUPPER Sertraline HCl [Zoloft] 100 mg PO HS Lisinopril [Prinivil] 5 mg PO DAILY Levothyroxine Sodium 112 mcg PO DAILY Amiodarone HCl [Pacerone] 200 mg PO DAILY Metoprolol Tartrate [Lopressor] 12.5 mg PO DAILY Allopurinol [Zyloprim] 100 mg PO DAILY metFORMIN HCL 1,000 mg PO BID ALPRAZolam [Xanax] 0.25 mg PO DAILY PRN PRN Reason: Anxiety Discontinued Furosemide [Lasix] 40 mg PO DAILY Spironolactone 12.5 mg PO DAILY Discharge Medication List ALPRAZolam [Xanax] 0.25 mg PO DAILY PRN 01/30/19 [History] Allopurinol [Zyloprim] 100 mg PO DAILY 01/30/19 [History] Amiodarone HCl [Pacerone] 200 mg PO DAILY 01/30/19 [History] Cholecalciferol (Vitamin D3) [Vitamin D3] 2,000 unit PO DAILY 01/30/19 [History] Levothyroxine Sodium 112 mcg PO DAILY 01/30/19 [History] Lisinopril [Prinivil] 5 mg PO DAILY 01/30/19 [History] Metoprolol Tartrate [Lopressor] 12.5 mg PO DAILY 01/30/19 [History] Omeprazole 40 mg PO DAILY 01/30/19 [History] Sertraline HCl [Zoloft] 100 mg PO HS 01/30/19 [History] Warfarin Sodium 1.5 mg PO PC-SUPPER 01/30/19 [History] metFORMIN HCL 1,000 mg PO BID 01/30/19 [History] Ferrous Sulfate [Iron] 325 mg PO BID #60 tablet 02/02/19 [Rx] Furosemide [Lasix] 40 mg PO BID@0900,1600 #60 tab 02/02/19 [Rx] Follow up Appointment(s)/Referral(s): Bernabe Ivey MD [Primary Care Provider] - 1 Week Ricardo Orourke MD [STAFF PHYSICIAN] - 02/08/19 1:45 pm () [facility] Visiting Nurse, [NON-STAFF] - Ambulatory/Diagnostic Orders: Basic Metabolic Panel [LAB.AMB] Time Frame: 1 Week, Location: None Selected Basic Metabolic Panel [LAB.AMB] Time Frame: 1 Week, Location: None Selected Patient Instructions/Handouts: Warfarin (By mouth), Heart Failure (DC), Heart Healthy Diet (DC) Activity/Diet/Wound Care/Special Instructions: Next dose of lisinopril 02/03/19
--- NOTE | 2019-02-02 11:01 | P.PN ---
Subjective Progress Note Date: 02/02/19 This is a pleasant 73-year-old female with a history of diabetes, hypertension, prior history of lung CA, thyroid cancer, paroxysmal atrial fibrillation, PE, mitral valve repair, and is anticoagulated on warfarin at home. She follows with Dr. Orourke in the office. He presented to the hospital with symptoms of progressively worsening shortness of breath and bilateral lower extremity edema for approximately 3 days. Also had PND and orthopnea which she's been sleeping in a recliner or in bed with 2-3 pillows. Chest x-ray showed hepatomegaly with moderate vascular congestion and trace bilateral pleural effusions. EKG showed normal sinus rhythm with right bundle branch block pattern and nonspecific ST-T wave abnormalities. She was initiated on IV Lasix and has been diuresing well. Her weight is down about 4.5 kg since admission. Her cardiogram did show normal LV systolic function with an ejection fraction between 60-65% with moderate MR and moderate MS with moderate TR. He is currently on amiodarone 200 mg daily, Lasix 40 mg IV push every 12 hours, metoprolol tartrate 12.5 mg daily and warfarin. INR is therapeutic at 2.2. On examination, patient is resting comfortably in a chair at the bedside. Her feet are elevated. She does notice significant improvement in her edema as well as her breathing. Labs this morning showed a BUN of 38 and creatinine 1.59 which are up slightly from yesterday. Objective - Vital Signs Vital signs: Vital Signs Temp 98 F 02/02/19 08:00 Pulse 82 02/02/19 09:53 Resp 20 02/02/19 08:00 BP 104/58 02/02/19 09:53 Pulse Ox 97 02/02/19 08:00 Intake & Output 02/01/19 02/02/19 02/02/19 18:59 06:59 18:59 Intake Total 840 360 Output Total 700 1300 Balance 140 -1300 360 Weight 80.1 kg Intake: Oral 840 360 Output: Urine 700 1300 Other: Voiding Method Toilet Toilet # Voids 3 - Exam PHYSICAL EXAMINATION: HEENT: Head is atraumatic, normocephalic. Pupils equal, round. Neck is supple. There is no elevated jugular venous pressure. HEART EXAMINATION: Heart sounds regular, S1 and S2 with a systolic murmur both at the base and apex. CHEST EXAMINATION: Lungs are clear to auscultation and precussion. No chest wall tenderness is noted on palpation or with deep breathing. ABDOMEN: Soft, nontender. Bowel sounds are heard. No organomegaly noted. EXTREMITIES: 2+ peripheral pulses with evidence of trace right lower extremity edema and no calf tenderness noted. NEUROLOGIC patient is awake, alert and oriented x3. . - Labs CBC & Chem 7: 01/31/19 05:35 02/02/19 06:06 Labs: Abnormal Lab Results - Last 24 Hours (Table) 02/01/19 02/01/19 02/01/19 Range/Units 11:46 16:53 19:49 PT (9.0-12.0) sec INR (<1.2) Carbon Dioxide (22-30) mmol/L BUN (7-17) mg/dL Creatinine (0.52-1.04) mg/dL Glucose (74-99) mg/dL POC Glucose (mg/dL) 184 H 164 H 236 H (75-99) mg/dL 02/02/19 02/02/19 02/02/19 Range/Units 06:00 06:06 06:06 PT 21.6 H (9.0-12.0) sec INR 2.2 H (<1.2) Carbon Dioxide 32 H (22-30) mmol/L BUN 38 H (7-17) mg/dL Creatinine 1.59 H (0.52-1.04) mg/dL Glucose 152 H (74-99) mg/dL POC Glucose (mg/dL) 163 H (75-99) mg/dL Assessment and Plan Assessment: #1 congestive heart failure, diastolic, acute on chronic #2 history of mitral valve repair with mild to moderate MR and moderate MS on recent echo #3 hypertension #4 paroxysmal atrial fibrillation, anticoagulated on coumadin #5 diabetes #6 hyperlipidemia #7 history of nonsustained ventricular tachycardia #8 history of pulmonary embolism #9 hypothyroidism #10 anemia Plan: From Cardiology's perspective, we'll switch to by mouth Lasix. From our standpoint, patient may be discharged home today. Will have a BMP and follow up with Dr. Orourke in one week. 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 Patient was seen and examined.
[2019-02-02 12:03] LABS: Glucose,Whole Blood 144 mg/dL (75-99)
[2019-02-02] MEDS ORDERED: FUROSEMIDE 40 MG TAB PO SCH (16:00)
== END 2019-02-02 13:28 | disposition home health service (06) | DRG 291 ==
LOC: EC 06:00 → 3SCARD 08:55 → MERGE 08:55 → 3SCARD 09:59
PROVIDERS: ADMIT Family Medicine; ATTEND Family Medicine
DX: I13.0 Hypertensive heart and chronic kidney disease with heart failure and stage 1 through stage 4 chronic kidney disease, or unspecified chronic kidney disease (principal); J96.01 Acute respiratory failure with hypoxia; I50.33 Acute on chronic diastolic (congestive) heart failure; N17.9 Acute kidney failure, unspecified; I48.0 Paroxysmal atrial fibrillation; E11.9 Type 2 diabetes mellitus without complications; D50.9 Iron deficiency anemia, unspecified; E03.9 Hypothyroidism, unspecified; E11.22 Type 2 diabetes mellitus with diabetic chronic kidney disease; E78.5 Hyperlipidemia, unspecified; I08.1 Rheumatic disorders of both mitral and tricuspid valves; I27.20 Pulmonary hypertension, unspecified; I45.10 Unspecified right bundle-branch block; K21.9 Gastro-esophageal reflux disease without esophagitis; N18.3 Chronic kidney disease, stage 3 (moderate); Z96.1 Presence of intraocular lens; T50.1X5A Adverse effect of loop [high-ceiling] diuretics, initial encounter; M19.90 Unspecified osteoarthritis, unspecified site; Z79.01 Long term (current) use of anticoagulants; Z79.890 Hormone replacement therapy; Z79.899 Other long term (current) drug therapy; Z79.84 Long term (current) use of oral hypoglycemic drugs; Z83.3 Family history of diabetes mellitus; Z85.850 Personal history of malignant neoplasm of thyroid; Z85.118 Personal history of other malignant neoplasm of bronchus and lung; Z86.718 Personal history of other venous thrombosis and embolism; Z86.711 Personal history of pulmonary embolism; Z95.2 Presence of prosthetic heart valve; Z98.84 Bariatric surgery status; Z98.891 History of uterine scar from previous surgery
CPT/HCPCS: 36415; 71046; 76770; 80048; 80053; 81001; 82570; 82607; 82728; 82746; 83540; 83550; 83735; 83880; 84484; 84540; 85025; 85379; 85610; 85730; 93005; 93306; 96374; 99285

== ENCOUNTER 2019-02-19 13:52 | Emergency (ER) | payer MEDICARE ==
[2019-02-19 13:57] VITALS: TEMP 98
[2019-02-19 14:27] VITALS: PULSE 70
--- NOTE | 2019-02-19 14:29 | ED ---
General Adult HPI - General Chief complaint: Shortness of Breath Stated complaint: SOB Time Seen by Provider: 02/19/19 14:06 Source: patient Mode of arrival: ambulatory Limitations: no limitations - History of Present Illness Initial comments: 73-year-old female patient with past medical history significant for pulmonary embolism, diabetes, left lung cancer in 2004, recent admission for heart failure presents to the emergency department today for evaluation of shortness of breath. Patient states over the last 24 hours she has had increasing difficulty breathing. Patient states her breathing is worse with ambulation. States she does have a cough with green sputum production. States she is unable to lie flat. States she did not sleep last night. States she did have a 2 pound gain in weight since yesterday. Patient has been taking her medications as directed. States she is having some pressure over her chest. States she feels weak and d torey. Patient denies any recent rash, fever, chills, abdominal pain, nausea, vomiting, diarrhea, constipation, back pain, numbness, tingling, hematuria, dysuria, urinary urgency, urinary frequency, headache, visual changes, or any other complaints. - Related Data Home Medications Medication Instructions Recorded Confirmed Multivitamins, Thera [Multivitamin 1 tab PO DAILY 01/09/14 02/19/19 (formulary)] ALPRAZolam [Xanax] 0.25 mg PO DAILY PRN 01/30/19 02/19/19 Allopurinol [Zyloprim] 100 mg PO DAILY 01/30/19 02/19/19 Amiodarone HCl [Pacerone] 200 mg PO DAILY 01/30/19 02/19/19 Cholecalciferol (Vitamin D3) 2,000 unit PO DAILY 01/30/19 02/19/19 [Vitamin D3] Levothyroxine Sodium 112 mcg PO DAILY 01/30/19 02/19/19 Lisinopril [Prinivil] 5 mg PO DIRECTED 01/30/19 02/19/19 Metoprolol Tartrate [Lopressor] 12.5 mg PO DAILY 01/30/19 02/19/19 Omeprazole 40 mg PO DAILY 01/30/19 02/19/19 Sertraline HCl [Zoloft] 100 mg PO HS 01/30/19 02/19/19 Warfarin Sodium 1.5 mg PO PC-SUPPER 01/30/19 02/19/19 Furosemide [Lasix] 40 mg PO DIRECTED 02/19/19 02/19/19 Previous Rx's Medication Instructions Recorded Aspirin 325 mg PO DAILY tab 02/24/17 Atorvastatin [Lipitor] 40 mg PO DAILY tab 02/24/17 Ferrous Sulfate [Iron] 325 mg PO BID #60 tablet 02/02/19 Azithromycin [Zithromax Z-pack] 0 mg PO DIRECTED #6 tab 02/19/19 Allergies Allergy/AdvReac Type Severity Reaction Status Date / Time latex Allergy Rash/Hives Verified 02/19/19 14:35 iodine AdvReac Intermediate MOTHER IS Verified 02/19/19 14:35 ALLERGIC lactose AdvReac Diarrhea Verified 02/19/19 14:35 Review of Systems ROS Statement: Those systems with pertinent positive or pertinent negative responses have been documented in the HPI. ROS Other: All systems not noted in ROS Statement are negative. Past Medical History Past Medical History: Blood Disorder, Cancer, Heart Failure, Diabetes Mellitus, Deep Vein Thrombosis (DVT), GERD/Reflux, Hypertension, Osteoarthritis (OA), Pulmonary Embolus (PE) Additional Past Medical History / Comment(s): NIDDM type II, 2004 L lung cancer with surgery, 2000 thyroid cancer with surgery/hypothyroid, bilateral PEs, DVT R leg, hiatal hernia, hemorrhoids, DDD, occasional low back pain, gait disturbance, sinus problems. History of Any Multi-Drug Resistant Organisms: None Reported Past Surgical History: Bariatric Surgery, Cardiac Valve Replacement, Section, Cholecystectomy, Tonsillectomy, Tubal Ligation Additional Past Surgical History / Comment(s): L lower lobe resection, parathyroidectomy, cardiac valve repair, EGD, colonoscopy, lap ewa en Y with lysis of adhesions, D&C, bilateral cataract removals/lens implants. Past Anesthesia/Blood Transfusion Reactions: Motion Sickness, No Reported Reaction Past Psychological History: Anxiety, Depression Smoking Status: Never smoker Past Alcohol Use History: None Reported Past Drug Use History: None Reported - Past Family History Mother Family Medical History: No Reported History Father Family Medical History: Diabetes Mellitus, Myocardial Infarction (CO) General Exam Limitations: no limitations General appearance: alert, in no apparent distress, other (This is a well- developed, well-nourished adult female patient in no acute distress. Vital signs upon presentation are temperature 98.0F, pulse 79, respirations 20, blood pressure 142/60, pulse ox 97% on room air.) Eye exam: Present: normal appearance, PERRL, EOMI. Absent: scleral icterus, conjunctival injection, periorbital swelling ENT exam: Present: normal exam, normal oropharynx, mucous membranes moist Respiratory exam: Present: normal lung sounds bilaterally. Absent: respiratory distress, wheezes, rales, rhonchi, stridor Cardiovascular Exam: Present: regular rate, normal rhythm, normal heart sounds. Absent: systolic murmur, diastolic murmur, rubs, gallop, clicks GI/Abdominal exam: Present: soft, normal bowel sounds. Absent: distended, tenderness, guarding, rebound, rigid Extremities exam: Present: pedal edema, other (Bilateral lower extremity edema) Neurological exam: Present: alert, oriented X3, CN II-XII intact Psychiatric exam: Present: normal affect, normal mood Skin exam: Present: warm, dry, intact, normal color. Absent: rash Course Vital Signs 02/19/19 02/19/19 02/19/19 13:55 14:04 14:26 Temperature 98.0 F Pulse Rate 79 70 Respiratory 20 20 20 Rate Blood Pressure 142/6 114/40 O2 Sat by Pulse 97 96 Oximetry 02/19/19 15:13 Temperature Pulse Rate 70 Respiratory 18 Rate Blood Pressure 128/45 O2 Sat by Pulse 97 Oximetry EKG Findings - EKG Comments: EKG Findings:: EKG obtained at 1412 shows normal sinus rhythm with right bundle branch block. Ventricular rate is 81, IA interval 200, QRS duration 136, QT 446, QTc 518. No evidence of ST elevation or depression. Medical Decision Making - Medical Decision Making 73-year-old female patient presents to the emergency department today for evaluation of shortness of breath and a 2 pound weight gain since yesterday. Physical examination reveals clear lung sounds. There is 1+ pitting edema to the bilateral lower extremities. Labs reviewed and did reveal improving BNP. Improving kidney function. Chest x-ray showed bilateral pleural effusions with possibility for pneumonia. Patient exhibits good oxygen saturation on room air while here. She is resting comfortably in no acute distress. We will give an additional dose of IV Lasix and start patient on azithromycin for possibility of pneumonia as she is having green sputum production. She will be discharged to follow-up with her primary care physician. She does have an appointment with him javonorrow. Return parameters were discussed in detail. She verbalizes understanding and agrees with this plan. - Lab Data Result diagrams: 02/19/19 14:25 02/19/19 14:25 Lab Results 02/19/19 02/19/19 02/19/19 Range/Units 14:25 14:25 14:25 WBC 5.6 (3.8-10.6) k/uL RBC 3.34 L (3.80-5.40) m/uL Hgb 9.9 L (11.4-16.0) gm/dL Hct 32.0 L (34.0-46.0) % MCV 95.7 (80.0-100.0) fL MCH 29.5 (25.0-35.0) pg MCHC 30.9 L (31.0-37.0) g/dL RDW 15.4 (11.5-15.5) % Plt Count 302 (150-450) k/uL Neutrophils % 67 % Lymphocytes % 23 % Monocytes % 5 % Eosinophils % 3 % Basophils % 1 % Neutrophils # 3.8 (1.3-7.7) k/uL Lymphocytes # 1.3 (1.0-4.8) k/uL Monocytes # 0.3 (0-1.0) k/uL Eosinophils # 0.2 (0-0.7) k/uL Basophils # 0.1 (0-0.2) k/uL PT (9.0-12.0) sec INR (<1.2) APTT (22.0-30.0) sec Sodium 139 (137-145) mmol/L Potassium 3.9 (3.5-5.1) mmol/L Chloride 104 (98-107) mmol/L Carbon Dioxide 27 (22-30) mmol/L Anion Gap 8 mmol/L BUN 31 H (7-17) mg/dL Creatinine 1.25 H (0.52-1.04) mg/dL Est GFR (CKD-EPI)AfAm 50 (>60 ml/min/1.73 sqM) Est GFR (CKD-EPI)NonAf 43 (>60 ml/min/1.73 sqM) Glucose 165 H (74-99) mg/dL Calcium 8.7 (8.4-10.2) mg/dL Magnesium 1.9 (1.6-2.3) mg/dL Total Bilirubin 0.8 (0.2-1.3) mg/dL AST 34 (14-36) U/L ALT 29 (9-52) U/L Alkaline Phosphatase 79 (38-126) U/L Troponin I (0.000-0.034) ng/mL NT-Pro-B Natriuret Pep 2630 pg/mL Total Protein 6.3 (6.3-8.2) g/dL Albumin 3.8 (3.5-5.0) g/dL Urine Color Urine Appearance (Clear) Urine pH (5.0-8.0) Ur Specific [place] (1.001-1.035) Urine Protein (Negative) Urine Glucose (UA) (Negative) Urine Ketones (Negative) Urine Blood (Negative) Urine Nitrite (Negative) Urine Bilirubin (Negative) Urine Urobilinogen (<2.0) mg/dL Ur Leukocyte Esterase (Negative) 02/19/19 02/19/19 02/19/19 Range/Units 14:25 14:25 14:44 WBC (3.8-10.6) k/uL RBC (3.80-5.40) m/uL Hgb (11.4-16.0) gm/dL Hct (34.0-46.0) % MCV (80.0-100.0) fL MCH (25.0-35.0) pg MCHC (31.0-37.0) g/dL RDW (11.5-15.5) % Plt Count (150-450) k/uL Neutrophils % % Lymphocytes % % Monocytes % % Eosinophils % % Basophils % % Neutrophils # (1.3-7.7) k/uL Lymphocytes # (1.0-4.8) k/uL Monocytes # (0-1.0) k/uL Eosinophils # (0-0.7) k/uL Basophils # (0-0.2) k/uL PT 19.0 H (9.0-12.0) sec INR 1.9 H (<1.2) APTT 27.8 (22.0-30.0) sec Sodium (137-145) mmol/L Potassium (3.5-5.1) mmol/L Chloride (98-107) mmol/L Carbon Dioxide (22-30) mmol/L Anion Gap mmol/L BUN (7-17) mg/dL Creatinine (0.52-1.04) mg/dL Est GFR (CKD-EPI)AfAm (>60 ml/min/1.73 sqM) Est GFR (CKD-EPI)NonAf (>60 ml/min/1.73 sqM) Glucose (74-99) mg/dL Calcium (8.4-10.2) mg/dL Magnesium (1.6-2.3) mg/dL Total Bilirubin (0.2-1.3) mg/dL AST (14-36) U/L ALT (9-52) U/L Alkaline Phosphatase (38-126) U/L Troponin I 0.013 (0.000-0.034) ng/mL NT-Pro-B Natriuret Pep pg/mL Total Protein (6.3-8.2) g/dL Albumin (3.5-5.0) g/dL Urine Color Light Yellow Urine Appearance Clear (Clear) Urine pH 5.5 (5.0-8.0) Ur Specific [place] 1.006 (1.001-1.035) Urine Protein Negative (Negative) Urine Glucose (UA) Negative (Negative) Urine Ketones Negative (Negative) Urine Blood Negative (Negative) Urine Nitrite Negative (Negative) Urine Bilirubin Negative (Negative) Urine Urobilinogen <2.0 (<2.0) mg/dL Ur Leukocyte Esterase Negative (Negative) - Radiology Data Radiology results: report reviewed, image reviewed Two-view x-ray of the chest is obtained. Report was reviewed in its entirety. Impression by Dr. Donovan shows bilateral infiltrate and pleural effusion, correlate for CHF otherwise consider pneumonia. Disposition Clinical Impression: Pneumonia, Shortness of breath, Heart failure Disposition: HOME SELF-CARE Condition: Good Instructions (If sedation given, give patient instructions): Heart Failure (ER), Dyspnea (ED), Pneumonia (ED) Additional Instructions: Complete antibiotic prescription in full. Follow-up through primary care physician tomorrow as you have planned. Return to the emergency department immediately for any new, worsening, or concerning symptoms. Your prescription was sent to [facility] on [facility]. Prescriptions: Azithromycin [Zithromax Z-pack] 0 mg PO DIRECTED #6 tab Is patient prescribed a controlled substance at d/c from ED?: No Referrals: Bernabe Ivey MD [Primary Care Provider] - 1-2 days Time of Disposition: 15:58
[2019-02-19 14:49] LABS: Appearance,Urine Clear (Clear); Bilirubin,Urine Negative (Negative); Blood,Urine Negative (Negative); Color,Urine Light Yellow; Glucose,Urine (UA) Negative (Negative); Ketones,Urine Negative (Negative); Leukocyte Esterase,Urine Negative (Negative); Nitrite,Urine Negative (Negative); PH, Urine 5.5 (5.0-8.0); Protein,Urine Negative (Negative); Specific Gravity,Urine 1.006 (1.001-1.035); Urobilinogen,Urine <2.0 mg/dL (<2.0)
--- NOTE | 2019-02-19 14:51 | XR ---
EXAMINATION TYPE: XR chest 2V DATE OF EXAM: 02/19/2019 COMPARISON: 02/01/2019 TECHNIQUE: PA and lateral views submitted. HISTORY: Shortness of breath FINDINGS: Heart is enlarged and is bilateral consolidation small effusion. Postsurgical changes noted. Atherosc lerotic change aorta. Diffuse osteopenia. Hypertrophic and degenerative change of the spine noted. IMPRESSION: 1. Bilateral infiltrate and pleural effusion correlate for CHF otherwise consider pneumonia.
[2019-02-19 14:59] LABS: Basophils # (A) 0.1 k/uL (0-0.2); Basophils % (A) 1 %; Eosinophils # (A) 0.2 k/uL (0-0.7); Eosinophils % (A) 3 %; HGB 9.9 gm/dL (11.4-16.0); Lymphocytes # (A) 1.3 k/uL (1.0-4.8); Lymphocytes % (A) 23 %; MCH 29.5 pg (25.0-35.0); MCHC 30.9 g/dL (31.0-37.0); MCV 95.7 fL (80.0-100.0); Mean Platelet Volume 6.9; Monocytes # (A) 0.3 k/uL (0-1.0); Monocytes % (A) 5 %; Neutrophils # (A) 3.8 k/uL (1.3-7.7); Neutrophils % (A) 67 %; Platelet Count 302 k/uL (150-450); RBC 3.34 m/uL (3.80-5.40); RDW 15.4 % (11.5-15.5); WBC 5.6 k/uL (3.8-10.6)
[2019-02-19 15:07] LABS: INR 1.9 (<1.2); Partial Thromboplastin Time 27.8 sec (22.0-30.0)
[2019-02-19 15:09] LABS: Albumin 3.8 g/dL (3.5-5.0); Calcium 8.7 mg/dL (8.4-10.2); Magnesium 1.9 mg/dL (1.6-2.3); Potassium 3.9 mmol/L (3.5-5.1); Total Bilirubin 0.8 mg/dL (0.2-1.3); Total Protein 6.3 g/dL (6.3-8.2)
[2019-02-19 15:13] VITALS: RESP 18
[2019-02-19] MEDS ORDERED: FUROSEMIDE 10 MG/ML 4 ML VIAL IV STA (15:55)
[2019-02-19] MEDS ORDERED: AZITHROMYCIN 500 MG TAB PO STA (15:55)
[2019-02-19 16:11] VITALS: BP 143/40
== END 2019-02-19 16:11 | disposition home or self-care (01) ==
LOC: EC 13:52
DX: J18.9 Pneumonia, unspecified organism (principal); I11.0 Hypertensive heart disease with heart failure; I50.9 Heart failure, unspecified; J90 Pleural effusion, not elsewhere classified; K21.9 Gastro-esophageal reflux disease without esophagitis; E03.9 Hypothyroidism, unspecified; F41.9 Anxiety disorder, unspecified; F32.9 Major depressive disorder, single episode, unspecified; Z86.718 Personal history of other venous thrombosis and embolism; Z86.711 Personal history of pulmonary embolism; Z85.850 Personal history of malignant neoplasm of thyroid; Z85.118 Personal history of other malignant neoplasm of bronchus and lung; Z95.2 Presence of prosthetic heart valve; Z82.49 Family history of ischemic heart disease and other diseases of the circulatory system; Z79.890 Hormone replacement therapy; Z79.01 Long term (current) use of anticoagulants; Z79.899 Other long term (current) drug therapy; Z91.040 Latex allergy status; Z91.048 Other nonmedicinal substance allergy status; Z91.011 Allergy to milk products
CPT/HCPCS: 36415; 93005; 83880; 80053; 83735; 84484; 85025; 85610; 85730; 81003; 71046; 99285; 96374; J1940

== ENCOUNTER → 2019-05-15 | Outpatient (CLI) | payer MEDICARE ==
[2019-05-15 12:30] LABS: Basophils % (A) 1 %; Eosinophils # (A) 0.1 k/uL (0-0.7); Eosinophils % (A) 2 %; HCT 37.9 % (34.0-46.0); HGB 12.2 gm/dL (11.4-16.0); Lymphocytes % (A) 15 %; MCH 30.1 pg (25.0-35.0); MCHC 32.1 g/dL (31.0-37.0); MCV 93.8 fL (80.0-100.0); Monocytes # (A) 0.4 k/uL (0-1.0); Monocytes % (A) 6 %; Neutrophils # (A) 4.9 k/uL (1.3-7.7); Neutrophils % (A) 75 %; Platelet Count 266 k/uL (150-450); RBC 4.04 m/uL (3.80-5.40); RDW 13.5 % (11.5-15.5); WBC 6.5 k/uL (3.8-10.6)
[2019-05-15 13:41] LABS: Appearance,Urine Clear (Clear); Bacteria,Urine Rare /hpf; Bilirubin,Urine Negative (Negative); Blood,Urine Negative (Negative); Color,Urine Yellow; Glucose,Urine (UA) Negative (Negative); Hyaline Casts,Urine 3 /lpf (0-2); Ketones,Urine Negative (Negative); Leukocyte Esterase,Urine Large (Negative); Mucus,Urine Rare /hpf; Nitrite,Urine Negative (Negative); PH, Urine 5.5 (5.0-8.0); Protein,Urine Negative (Negative); RBC,Urine 3 /hpf (0-5); Specific Gravity,Urine 1.007 (1.001-1.035); Squamous Epithelial Cell,Urine 1 /hpf (0-4); WBC,Urine 15 /hpf (0-5)
[2019-05-16 00:07] LABS: % Iron Saturation 16.93 (12.00-45.00); African American GFR (CKD) 39.9 (60.0-200.0); Albumin 4.2 g/dL (3.80-4.90); Anion Gap 13.6 mmol/L (4.00-12.00); BUN/Creat Ratio 23.33 Ratio (12.00-20.00); Calcium 9.1 mg/dL (8.7-10.3); Carbon Dioxide 27.4 mmol/L (21.6-31.8); Magnesium 1.9 mg/dL (1.5-2.4); Non-African American GFR(CKD) 34.4 (60.0-200.0); Phosphorus 4.6 mg/dL (2.4-5.1); Uric Acid 7.1 mg/dL (2.9-7.7)
[2019-05-16 05:23] LABS: Creatinine,Urine Random 41.6 mg/dL
[2019-05-16 05:24] LABS: Total Protein,Urine Random 6.2 mg/dL (0.0-13.5)
== END | disposition home or self-care (01) ==
LOC: LABWHC1 11:29
PROVIDERS: ATTEND Nurse Practitioner Family
DX: E55.9 Vitamin D deficiency, unspecified (principal); N25.81 Secondary hyperparathyroidism of renal origin; N18.4 Chronic kidney disease, stage 4 (severe); D63.1 Anemia in chronic kidney disease; N39.0 Urinary tract infection, site not specified; M10.9 Gout, unspecified; R80.9 Proteinuria, unspecified
CPT/HCPCS: 36415; 80048; 81001; 82040; 82306; 82570; 82728; 83540; 83550; 83735; 83970; 84100; 84156; 84550; 85025

== ENCOUNTER → 2019-07-02 | Outpatient (CLI) | payer MEDICARE ==
[2019-07-02 12:31] LABS: HCT 33.4 % (34.0-46.0); HGB 11.3 gm/dL (11.4-16.0); MCH 31.3 pg (25.0-35.0); MCV 92.2 fL (80.0-100.0); Mean Platelet Volume 7.5; Platelet Count 268 k/uL (150-450); RBC 3.62 m/uL (3.80-5.40); RDW 14.3 % (11.5-15.5); WBC 5.8 k/uL (3.8-10.6)
[2019-07-02 14:34] LABS: Potassium 3.1 mmol/L (3.5-5.1)
== END | disposition home or self-care (01) ==
LOC: LABPAT 11:22
PROVIDERS: ATTEND Internal Medicine Interventional Cardiology
DX: Z01.812 Encounter for preprocedural laboratory examination (principal); I25.10 Atherosclerotic heart disease of native coronary artery without angina pectoris
CPT/HCPCS: 36415; 80051; 82565; 84520; 85027

== ENCOUNTER 2019-07-12 05:52 | Day surgery (SDC) | payer MEDICARE ==
[2019-07-11 10:56] VITALS: BMI 34.0
[~2019-07-12 05:52] MED LIST changes: -ALBUMIN HUMAN 25% 50 ML IV ONE; -ALBUMIN HUMAN 5% 500 ML IVPB ONE; +ALPRAZolam 0.25 MG TAB PO PRN; +ALPRAZolam 0.5 MG TAB PO PRN; -AMINOCAPROIC ACID 5,000 MG in DEXTROSE 5% IN WATER 50 ML IV ONE; -ASPIRIN 325 MG TAB PO ONE; +ASPIRIN 325 MG TAB PO STA; -ATORVASTATIN 10 MG TAB PO ONE; +ATORVASTATIN 80 MG TAB PO STA; -CALCIUM CHLORIDE 100 MG/ML 10 ML SYRINGE IV ONE; -CARDIOPLEGIC SOLN (K+ 16 MEQ/L 1,000 ML with SODIUM BICARB (1 MEQ/ML) 20 ML, LIDOCAINE ... PERFUSION ONE; -CHLORHEXIDINE GLUCONATE 15 ML CUP MUCOUS MEM ONE; -HEPARIN SODIUM 1,000 UN/ML (10ML VL) IV ONE; -HEPARIN SODIUM,PORCINE 5,000 UNIT in SODIUM CHLORIDE 0.9% 500 ML IV ONE; +HYDROmorphone 0.5 MG/0.5 ML SYRINGE IVP STA; -INSULIN REGULAR 100 UNIT in SODIUM CHLORIDE 0.9% 100 ML IV ONE; -LACTATED RINGERS 1,000 ML IV ONE; -MAGNESIUM SULFATE MG 500 MG/ML VIAL IV ONE; -MANNITOL 25% 12.5 GM/50 ML VIAL IV ONE; -METOPROLOL TARTRATE 12.5 MG TAB PO ONE; -MUPIROCIN 2% OINT 22 GM TUBE NASAL ONE; +NITROGLYCERIN SL TABS 0.4 MG TAB SUBLINGUAL PRN; -NITROGLYCERIN-D5W PMX 25 MG/250 ML BTL IV ONE; -NITROGLYCERIN-D5W PMX 50 MG in DEXTROSE/WATER 1 250ML.BAG IV ONE; -NOREPINEPHRIN 4 MG-0.9% NS PMX 4 MG/250 ML ML IV ONE; -PAPAVERINE 360 MG in SODIUM CHLORIDE 0.9% 90 ML IV ONE; -PHENYLEPHRINE 40 MG in SODIUM CHLORIDE 0.9% 250 ML IV ONE; -PHENYLEPHRINE-0.9% NACL SYG 1 MG/10 ML SYRINGE IV ONE; -PROPOFOL 1,000 MG/100 ML VIAL IV ONE; -PROTAMINE SULFATE 10 MG/ML 25 ML VIAL IV ONE; -PROTAMINE SULFATE 250 MG in EMPTY BAG 1 BAG IV ONE; -SODIUM BICARB 8.4% 50 ML SYR (1 MEQ/ML) IV ONE; -SODIUM CHLORIDE 0.9% 1,000 ML IV ONE; +SODIUM CHLORIDE 0.9% 1,000 ML in EMPTY BAG 1 BAG IV ONE; -ceFAZolin 1,000 MG in SODIUM CHLORIDE 0.9% IRRIGATIO 1,000 ML IRRIGATION ONE; -ceFAZolin 2,000 MG in SODIUM CHLORIDE 0.9% 30 ML IVPB ONE; +hydrALAZINE HCL 20 MG/ML 1 ML VIAL IVP STA
[2019-07-12 06:30] VITALS: RESP 16; TEMP 98.5
[2019-07-12 06:32] LABS: INR 1.2 (<1.2); Prothrombin Time 12.1 sec (9.0-12.0)
[2019-07-12] MEDS ORDERED: fentaNYL (PF) 50 MCG/ML 2 ML AMP ONE (07:43)
[2019-07-12] MEDS: BENZOCAINE SPRAY 1 CAN TOPICAL ONE ×2 (08:02→08:07)
[2019-07-12] MEDS ORDERED: IV FLUID CONTINUATION 1,000 ML IV ONE (08:03)
[2019-07-12] MEDS ORDERED: MIDAZOLAM 2 MG/2 ML VIAL IV ONE (08:05)
[2019-07-12] MEDS ORDERED: fentaNYL (PF) 50 MCG/ML 2 ML AMP IV ONE (08:05)
[2019-07-12] MEDS ORDERED: LIDOCAINE 1% INJ 10MG/ML (20 ML MDV) ONE ×2 (08:26→08:48)
[2019-07-12] MEDS ORDERED: LIDOCAINE 1% INJ 10MG/ML (20 ML MDV) SQ ONE ×2 (08:47→08:49)
[2019-07-12] MEDS ORDERED: IOPAMIDOL-370 125ML BTL INJ ONE (09:05)
[2019-07-12] MEDS ORDERED: RX INFO: IV CONTRAST WAS GIVEN 1 EACH MISC MISCELLANE PRN (09:11)
[2019-07-12] MEDS ORDERED: SODIUM CHLORIDE 0.9% 1,000 ML IV SCH (09:15)
--- NOTE | 2019-07-12 09:16 | ECHOT ---
TRANSESOPHAGEAL ECHOCARDIOGRAM DATE OF SERVICE: July 12, 2019. PERFORMING PHYSICIAN: Rah Lin MD. PROCEDURE PERFORMED: Transesophageal echocardiogram. INDICATION: This is a very pleasant 74-year-old female patient with history of coronary artery disease, valvular heart disease and status post complex mitral valve repair was performed in 2017, as well as long-standing persistent atrial fibrillation, was experiencing increasing in the shortness of breath. Her symptoms were similar to what she had before her mitral valve repair. Recently she was admitted to the hospital and underwent an echocardiogram and that revealed mild to moderate mitral regurgitation with moderate tricuspid regurgitation and severe pulmonary hypertension. She was brought today to undergo a EMELY and heart catheterization. COMPLICATION: None. LEVEL OF SEDATION: Moderate with sedation length of 15 minutes. PROCEDURE DESCRIPTION: After obtaining informed consent, the patient was brought to the cardiac fish farm laborer. Pulse oximetry and heart rate monitors were attached to the patient. Subsequently the patient was turned into left lateral position. The bite guard was placed after the patient's throat was sprayed using lidocaine. Subsequently the transesophageal echocardiogram probe was advanced to the mid esophagus where 2D echocardiogram images as well as color Doppler images as well as pulse and continuous-wave images were obtained from multiple windows. After that, the procedure was completed without any complication. FINDINGS: The left ventricular dimension and systolic function appeared to be within normal limits. There was mild to moderate concentric left ventricular hypertrophy. The right ventricle appeared to be mildly dilated. The left atrium is severely dilated and right atrium is moderately dilated. The left atrial appendage was not well opacified. The interatrial septum appeared to be intact, but it seems to be bouncing towards the right side indicating elevated left atrial pressure. The aortic valve appeared to be trileaflet valve and appeared to be thickened and calcified. There is no aortic insufficiency. There was evidence of mild aortic stenosis with a mean gradient of 12 mmHg. The mitral valve appeared to be repaired valve with evidence of moderate to severe mitral regurgitation with very eccentric jet. The tricuspid valve appeared to be thickened with evidence also of moderate to severe tricuspid regurgitation. I could not get a pulmonary artery systolic pressure across the tricuspid valve. CONCLUSION: 1. Normal left ventricular dimension and systolic function. 2. Mildly dilated right ventricle with a normal function. 3. Severe left atrial and moderate right atrial dilatation. 4. Intact interatrial septum without any evidence of shunt. Please note that the septum is bouncing toward the right indicating elevated left atrial pressure. 5. The left atrial appendage was not well visualized. 6. Repaired mitral valve with evidence of moderate to severe mitral regurgitation with very eccentric jet. No perivalvular leak. 7. Aortic sclerosis with mild aortic stenosis and mean gradient of 12 mmHg. 8. Moderate to severe tricuspid regurgitation seen. 9. No evidence of pericardial effusion. MMODL / IJN: [id number] /
--- NOTE | 2019-07-12 09:43 | CC ---
CARDIAC CATHETERIZATION REPORT DATE OF SERVICE: July 12, 2019 PERFORMING PHYSICIAN: Rah Lin MD. PROCEDURE PERFORMED: 1. Right heart catheterization. 2. Left heart catheterization. 3. Selective right and left coronary angiogram. INDICATION: This is a 74-year-old female patient who was diagnosed recently with history of mitral valve repair, who was diagnosed recently with moderate to severe mitral regurgitation and severe pulmonary hypertension. APPROACH: Right common femoral vein and right common femoral artery. COMPLICATION: None. LEVEL OF SEDATION: Moderate with a sedation length of 22 minutes. PROCEDURE DESCRIPTION: After obtaining an informed consent, the patient was brought to the cardiac lab courier. The right common femoral vein and right common femoral artery were cannulated using micropuncture technique under ultrasound guidance, the micropuncture wire passed easily then I placed an 8-Libyan sheath in the vein and 6-Libyan sheath in the artery. After that I did right heart catheterization then I did left heart catheterization and coronary angiogram. That was performed using JR4 and JL4 catheter. The procedure was completed without any complication. SELECTIVE CORONARY ANGIOGRAM: 1. The right coronary artery is a large caliber vessel and is a dominant vessel. The ostial right has a lesion appeared to be in the range of 70% with significant pressure dampening when I engaged the right coronary artery. The mid and distal RCA appeared to have mild disease only. 2. The left main is angiographically normal. It bifurcates into LCX and LAD. 3. The LCX is a large caliber vessel. It is a codominant vessel and appeared to be angiographically normal. 4. The LAD appeared to be a large caliber vessel and seems to be angiographically normal. It gives rise into a diagonal branch. The diagonal branch in the in the midportion and diagonal branch in the proximal portion, both appeared to be normal. HEMODYNAMICS: 1. The right atrial pressure was 8 mmHg. 2. RV pressures were as follows: Systolic 57 and end-diastolic of 10 mmHg. 3. Pulmonary artery systolic pressure was 60 mmHg using an artery pressure as a surrogate. 4. The LVEDP was 10 to 12 mmHg. CONCLUSION: 1. Severe pulmonary hypertension. 2. Severe disease involving the ostial right coronary artery. POSTPROCEDURE MANAGEMENT: 1. Medical treatment at this point. 2. Follow up with the patient. MMODL / IJN: [id number] /
[2019-07-12 16:41] VITALS: BP 119/73; PULSE 74
== END 2019-07-12 16:32 | disposition home or self-care (01) ==
LOC: CATHCVL 05:52
PROVIDERS: ATTEND Internal Medicine Interventional Cardiology
DX: I25.10 Atherosclerotic heart disease of native coronary artery without angina pectoris (principal); I08.3 Combined rheumatic disorders of mitral, aortic and tricuspid valves; I27.20 Pulmonary hypertension, unspecified; I48.11 Longstanding persistent atrial fibrillation; I11.0 Hypertensive heart disease with heart failure; I50.33 Acute on chronic diastolic (congestive) heart failure; E66.09 Other obesity due to excess calories; E11.9 Type 2 diabetes mellitus without complications; E78.00 Pure hypercholesterolemia, unspecified; F41.9 Anxiety disorder, unspecified; Z79.01 Long term (current) use of anticoagulants; Z79.84 Long term (current) use of oral hypoglycemic drugs; Z79.890 Hormone replacement therapy; Z79.899 Other long term (current) drug therapy; Z91.048 Other nonmedicinal substance allergy status; Z68.35 Body mass index [BMI] 35.0-35.9, adult; Z85.850 Personal history of malignant neoplasm of thyroid; Z98.890 Other specified postprocedural states; Z86.711 Personal history of pulmonary embolism
CPT/HCPCS: 93312; 93320; 93325; 93460; 76937; 85610; C1751; C1894 ×2; C1769 ×2; J2250; J2001; J3010; Q9967

== ENCOUNTER 2019-08-05 06:39 | Inpatient (IN) | payer MEDICARE ==
[2019-08-05 06:49] LABS: Glucose,Whole Blood 55 mg/dL (75-99)
[2019-08-05 07:07] LABS: Glucose,Whole Blood 75 mg/dL (75-99)
[2019-08-05] MEDS ORDERED: FUROSEMIDE 10 MG/ML 10 ML VIAL IV STA (07:38)
--- NOTE | 2019-08-05 08:00 | ED ---
General Adult HPI - General Chief complaint: Recheck/Abnormal Lab/Rx Stated complaint: Hypoglycemia Time Seen by Provider: 08/05/19 07:00 Source: EMS, RN notes reviewed, old records reviewed Mode of arrival: EMS Limitations: no limitations - History of Present Illness Initial comments: This is a 74-year-old female who presents emergency stating that her sugars been down since last night. Patient states last night she felt shaky she took her sugar was 55. Patient states she called EMS they gave her something to eat and her sugar came back into the 90s. Patient states she gets shaky again around midnight but did not take her sugar. Patient states at 10/11/2019 she gets shaky again and took her sugar was 64 so she came in to the emergency depar tment. Patient states she recently 2 days ago started glyburide. Patient states she seems like every time she starts pneumatic she has issues with hypoglycemia. Patient denies being sick recently. Patient denies any fever chills or cough per patient denies any vomiting or diarrhea. Patient denies any dysuria hematuria urinary frequency. Patient denies any cough. Patient denies any chest pain difficulty breathing or shortness of breath. - Related Data Home Medications Medication Instructions Recorded Confirmed Multivitamins, Thera [Multivitamin 1 tab PO DAILY 01/09/14 07/12/19 (formulary)] ALPRAZolam [Xanax] 0.25 mg PO DAILY PRN 01/30/19 07/12/19 Allopurinol [Zyloprim] 100 mg PO DAILY 01/30/19 07/12/19 Amiodarone HCl [Pacerone] 200 mg PO QAM 01/30/19 07/12/19 Cholecalciferol (Vitamin D3) 2,000 unit PO DAILY 01/30/19 07/12/19 [Vitamin D3] Levothyroxine Sodium 112 mcg PO DAILY 01/30/19 07/12/19 Metoprolol Tartrate [Lopressor] 12.5 mg PO DAILY 01/30/19 07/12/19 Omeprazole 40 mg PO DAILY 01/30/19 07/12/19 Sertraline HCl [Zoloft] 100 mg PO HS 01/30/19 07/12/19 Warfarin Sodium 1.5 mg PO PC-SUPPER 01/30/19 07/11/19 Furosemide [Lasix] 40 mg PO BID 02/19/19 07/12/19 Calcitriol [Rocaltrol] 0.25 mcg PO ORNELAS 07/11/19 07/12/19 Loratadine [Claritin] 10 mg PO DAILY 07/11/19 07/12/19 Metolazone [Zaroxolyn] 2.5 mg PO Q48H 07/11/19 07/12/19 Allergies Allergy/AdvReac Type Severity Reaction Status Date / Time latex Allergy Rash/Hives Verified 08/05/19 07:00 iodine AdvReac Intermediate MOTHER IS Verified 08/05/19 07:00 ALLERGIC lactose AdvReac Diarrhea Verified 08/05/19 07:00 Review of Systems ROS Statement: Those systems with pertinent positive or pertinent negative responses have been documented in the HPI. ROS Other: All systems not noted in ROS Statement are negative. Past Medical History Past Medical History: Blood Disorder, Cancer, Heart Failure, Diabetes Mellitus, Deep Vein Thrombosis (DVT), GERD/Reflux, Hypertension, Osteoarthritis (OA), Pulmonary Embolus (PE) Additional Past Medical History / Comment(s): NIDDM type II, 2004 L lung cancer with surgery, 2000 thyroid cancer with surgery/hypothyroid, bilateral PEs, DVT R leg, hiatal hernia, hemorrhoids, DDD, occasional low back pain, gait disturbance, sinus problems. History of Any Multi-Drug Resistant Organisms: None Reported Past Surgical History: Bariatric Surgery, Cardiac Valve Replacement, Section, Cholecystectomy, Tonsillectomy, Tubal Ligation Additional Past Surgical History / Comment(s): L lower lobe resection, parathyroidectomy, cardiac valve repair, EGD, colonoscopy, lap ewa en Y with lysis of adhesions, D&C, bilateral cataract removals/lens implants. Past Anesthesia/Blood Transfusion Reactions: Motion Sickness, No Reported Reaction Past Psychological History: Anxiety, Depression Smoking Status: Never smoker Past Alcohol Use History: None Reported Past Drug Use History: None Reported - Past Family History Mother Family Medical History: No Reported History Father Family Medical History: Diabetes Mellitus, Myocardial Infarction (NM) General Exam - General Exam Comments Initial Comments: GENERAL: Patient is well-developed and well-nourished. Patient is nontoxic and well- hydrated and is in no acute distress. ENT: Neck is soft and supple. No significant lymphadenopathy is noted. Oropharynx is clear. Moist mucous membranes. Neck has full range of motion without eliciting any pain. EYES: The sclera were anicteric and conjunctiva were pink and moist. Extraocular movements were intact and pupils were equal round and reactive to light. Eyelids were unremarkable. PULMONARY: Unlabored respirations. Good breath sounds bilaterally. No audible rales rhonchi or wheezing was noted. CARDIOVASCULAR: There is a regular rate and rhythm without any murmurs gallops or rubs. ABDOMEN: Soft and nontender with normal bowel sounds. SKIN: Skin is clear with no lesions or rashes and otherwise unremarkable. NEUROLOGIC: Patient is alert and oriented x3. Cranial nerves II through XII are grossly intact. Motor and sensory are also intact. Normal speech, volume and content. Symmetrical smile. MUSCULOSKELETAL: Normal extremities with adequate strength and full range of motion. LYMPHATICS: No significant lymphadenopathy is noted PSYCHIATRIC: Normal psychiatric evaluation. Limitations: no limitations Course Vital Signs 08/05/19 08/05/19 06:54 10:25 Temperature 98.2 F Pulse Rate 82 66 Respiratory 20 18 Rate Blood Pressure 144/59 135/68 O2 Sat by Pulse 98 95 Oximetry Medical Decision Making - Medical Decision Making EKG shows a sinus rhythm at 71 bpm [place] interval is 244 QRS is 146 QT interval is 494 QTC is 536. Patient is ST segment depression in leads 1 and 2 patient has some T-wave inversions in lead 3 and aVF and all precordial leads some of which were seen on previous EKG G some work. Patient is in no symptoms whatsoever. Patient's blood sugar was tested in the emergency department and after eating c andree back to 75. Patient felt that her baseline. Chest prior to the patient's discharge she was feeling shaky so we took her sugar comes down to 55. Patient lives alone she felt uncomfortable going home so we will admit her for 23 observation. I spoke with several physicians. I spoke with Dr. Reynoso he agreed to admit the patient admitted the patient wrote admitting orders. - Lab Data Result diagrams: 08/05/19 07:21 08/05/19 07:21 Lab Results 08/05/19 08/05/19 08/05/19 Range/Units 06:47 07:04 07:21 WBC 7.1 (3.8-10.6) k/uL RBC 3.56 L (3.80-5.40) m/uL Hgb 10.7 L (11.4-16.0) gm/dL Hct 32.4 L (34.0-46.0) % MCV 91.0 (80.0-100.0) fL MCH 30.1 (25.0-35.0) pg MCHC 33.1 (31.0-37.0) g/dL RDW 14.2 (11.5-15.5) % Plt Count 289 (150-450) k/uL Neutrophils % 81 % Lymphocytes % 12 % Monocytes % 5 % Eosinophils % 1 % Basophils % 0 % Neutrophils # 5.8 (1.3-7.7) k/uL Lymphocytes # 0.9 L (1.0-4.8) k/uL Monocytes # 0.3 (0-1.0) k/uL Eosinophils # 0.1 (0-0.7) k/uL Basophils # 0.0 (0-0.2) k/uL Sodium (137-145) mmol/L Potassium (3.5-5.1) mmol/L Chloride (98-107) mmol/L Carbon Dioxide (22-30) mmol/L Anion Gap mmol/L BUN (7-17) mg/dL Creatinine (0.52-1.04) mg/dL Est GFR (CKD-EPI)AfAm (>60 ml/min/1.73 sqM) Est GFR (CKD-EPI)NonAf (>60 ml/min/1.73 sqM) Glucose (74-99) mg/dL POC Glucose (mg/dL) 55 L 75 (75-99) mg/dL POC Glu Soccer Coach ID Anita Sunni Tuesday, Saira Calcium (8.4-10.2) mg/dL Total Bilirubin (0.2-1.3) mg/dL AST (14-36) U/L ALT (4-34) U/L Alkaline Phosphatase (38-126) U/L Troponin I (0.000-0.034) ng/mL Total Protein (6.3-8.2) g/dL Albumin (3.5-5.0) g/dL Urine Color Urine Appearance (Clear) Urine pH (5.0-8.0) Ur Specific [place] (1.001-1.035) Urine Protein (Negative) Urine Glucose (UA) (Negative) Urine Ketones (Negative) Urine Blood (Negative) Urine Nitrite (Negative) Urine Bilirubin (Negative) Urine Urobilinogen (<2.0) mg/dL Ur Leukocyte Esterase (Negative) Urine RBC (0-5) /hpf Urine WBC (0-5) /hpf 08/05/19 08/05/19 08/05/19 Range/Units 07:21 07:21 07:21 WBC (3.8-10.6) k/uL RBC (3.80-5.40) m/uL Hgb (11.4-16.0) gm/dL Hct (34.0-46.0) % MCV (80.0-100.0) fL MCH (25.0-35.0) pg MCHC (31.0-37.0) g/dL RDW (11.5-15.5) % Plt Count (150-450) k/uL Neutrophils % % Lymphocytes % % Monocytes % % Eosinophils % % Basophils % % Neutrophils # (1.3-7.7) k/uL Lymphocytes # (1.0-4.8) k/uL Monocytes # (0-1.0) k/uL Eosinophils # (0-0.7) k/uL Basophils # (0-0.2) k/uL Sodium 133 L (137-145) mmol/L Potassium 3.7 (3.5-5.1) mmol/L Chloride 88 L (98-107) mmol/L Carbon Dioxide 38 H (22-30) mmol/L Anion Gap 7 mmol/L BUN 72 H (7-17) mg/dL Creatinine 1.57 H (0.52-1.04) mg/dL Est GFR (CKD-EPI)AfAm 37 (>60 ml/min/1.73 sqM) Est GFR (CKD-EPI)NonAf 33 (>60 ml/min/1.73 sqM) Glucose 70 L (74-99) mg/dL POC Glucose (mg/dL) (75-99) mg/dL POC Glu Soccer Coach ID Calcium 8.7 (8.4-10.2) mg/dL Total Bilirubin 0.7 (0.2-1.3) mg/dL AST 49 H (14-36) U/L ALT 21 (4-34) U/L Alkaline Phosphatase 109 (38-126) U/L Troponin I <0.012 (0.000-0.034) ng/mL Total Protein 6.6 (6.3-8.2) g/dL Albumin 4.0 (3.5-5.0) g/dL Urine Color Light Yellow Urine Appearance Clear (Clear) Urine pH 7.0 (5.0-8.0) Ur Specific [place] 1.008 (1.001-1.035) Urine Protein Negative (Negative) Urine Glucose (UA) Negative (Negative) Urine Ketones Negative (Negative) Urine Blood Negative (Negative) Urine Nitrite Negative (Negative) Urine Bilirubin Negative (Negative) Urine Urobilinogen <2.0 (<2.0) mg/dL Ur Leukocyte Esterase Trace H (Negative) Urine RBC <1 (0-5) /hpf Urine WBC 3 (0-5) /hpf 08/05/19 08/05/19 08/05/19 Range/Units 08:26 09:01 10:45 WBC (3.8-10.6) k/uL RBC (3.80-5.40) m/uL Hgb (11.4-16.0) gm/dL Hct (34.0-46.0) % MCV (80.0-100.0) fL MCH (25.0-35.0) pg MCHC (31.0-37.0) g/dL RDW (11.5-15.5) % Plt Count (150-450) k/uL Neutrophils % % Lymphocytes % % Monocytes % % Eosinophils % % Basophils % % Neutrophils # (1.3-7.7) k/uL Lymphocytes # (1.0-4.8) k/uL Monocytes # (0-1.0) k/uL Eosinophils # (0-0.7) k/uL Basophils # (0-0.2) k/uL Sodium (137-145) mmol/L Potassium (3.5-5.1) mmol/L Chloride (98-107) mmol/L Carbon Dioxide (22-30) mmol/L Anion Gap mmol/L BUN (7-17) mg/dL Creatinine (0.52-1.04) mg/dL Est GFR (CKD-EPI)AfAm (>60 ml/min/1.73 sqM) Est GFR (CKD-EPI)NonAf (>60 ml/min/1.73 sqM) Glucose (74-99) mg/dL POC Glucose (mg/dL) 67 L 75 55 L (75-99) mg/dL POC Glu Soccer Coach ID Kenny Sullivan Raelyn Chandler, Andrew Calcium (8.4-10.2) mg/dL Total Bilirubin (0.2-1.3) mg/dL AST (14-36) U/L ALT (4-34) U/L Alkaline Phosphatase (38-126) U/L Troponin I (0.000-0.034) ng/mL Total Protein (6.3-8.2) g/dL Albumin (3.5-5.0) g/dL Urine Color Urine Appearance (Clear) Urine pH (5.0-8.0) Ur Specific [place] (1.001-1.035) Urine Protein (Negative) Urine Glucose (UA) (Negative) Urine Ketones (Negative) Urine Blood (Negative) Urine Nitrite (Negative) Urine Bilirubin (Negative) Urine Urobilinogen (<2.0) mg/dL Ur Leukocyte Esterase (Negative) Urine RBC (0-5) /hpf Urine WBC (0-5) /hpf Disposition Clinical Impression: Hypoglycemia Disposition: ADMITTED IP TO THIS HOSP Condition: Good Instructions (If sedation given, give patient instructions): Hypoglycemia in a Person with Diabetes (ED) Additional Instructions: Patient should hold her glyburide. Patient follow-up with her primary medical care doctor on Tuesday Is patient prescribed a controlled substance at d/c from ED?: No Referrals: Temo Multani [facility] [Primary Care Provider] - 1-2 days Time of Disposition: 10:13
[2019-08-05 08:33] LABS: Glucose,Whole Blood 67 mg/dL (75-99)
[2019-08-05 08:51] LABS: Basophils % (A) 0 %; Eosinophils # (A) 0.1 k/uL (0-0.7); Eosinophils % (A) 1 %; HCT 32.4 % (34.0-46.0); HGB 10.7 gm/dL (11.4-16.0); Lymphocytes # (A) 0.9 k/uL (1.0-4.8); Lymphocytes % (A) 12 %; MCH 30.1 pg (25.0-35.0); MCHC 33.1 g/dL (31.0-37.0); Mean Platelet Volume 7.4; Monocytes # (A) 0.3 k/uL (0-1.0); Monocytes % (A) 5 %; Neutrophils # (A) 5.8 k/uL (1.3-7.7); Neutrophils % (A) 81 %; Platelet Count 289 k/uL (150-450); RBC 3.56 m/uL (3.80-5.40); RDW 14.2 % (11.5-15.5); WBC 7.1 k/uL (3.8-10.6)
[2019-08-05 08:55] LABS: Appearance,Urine Clear (Clear); Bilirubin,Urine Negative (Negative); Blood,Urine Negative (Negative); Color,Urine Light Yellow; Glucose,Urine (UA) Negative (Negative); Ketones,Urine Negative (Negative); Leukocyte Esterase,Urine Trace (Negative); Nitrite,Urine Negative (Negative); Protein,Urine Negative (Negative); RBC,Urine <1 /hpf (0-5); Specific Gravity,Urine 1.008 (1.001-1.035); Urobilinogen,Urine <2.0 mg/dL (<2.0); WBC,Urine 3 /hpf (0-5)
[2019-08-05 09:00] LABS: Calcium 8.7 mg/dL (8.4-10.2); Potassium 3.7 mmol/L (3.5-5.1); Total Bilirubin 0.7 mg/dL (0.2-1.3); Total Protein 6.6 g/dL (6.3-8.2)
[2019-08-05 09:06] LABS: Glucose,Whole Blood 75 mg/dL (75-99)
[2019-08-05 10:47] LABS: Glucose,Whole Blood 55 mg/dL (75-99)
[2019-08-05] MEDS ORDERED: SODIUM CHLORIDE 0.9% 1,000 ML IV ONE (10:51)
[2019-08-05] MEDS ORDERED: GLUCAGON 1 MG/ML VIAL IVP STA (11:07)
[2019-08-05 11:09] LABS: Glucose,Whole Blood 87 mg/dL (75-99)
[2019-08-05] MEDS ORDERED: DEXTROSE 5%-0.45% NACL 1,000 ML IV SCH (11:15)
[2019-08-05 12:14] LABS: Glucose,Whole Blood 72 mg/dL (75-99)
[2019-08-05] MEDS ORDERED: ALPRAZolam 0.25 MG TAB PO PRN (12:34)
[2019-08-05] MEDS: AMIODARONE 200 MG TAB PO SCH (13:15)
[2019-08-05] MEDS: ALLOPURINOL 100 MG TAB PO SCH (13:15)
[2019-08-05 13:31] LABS: Glucose,Whole Blood 83 mg/dL (75-99)
[2019-08-05 14:25] LABS: Glucose,Whole Blood 64 mg/dL (75-99)
[2019-08-05] MEDS: LEVOTHYROXINE 112 MCG TAB PO SCH (14:28)
[2019-08-05 14:30] LABS: Glucose,Whole Blood 85 mg/dL (75-99)
[2019-08-05] MEDS ORDERED: CALCITRIOL 0.25 MCG CAP PO SCH (15:00)
--- NOTE | 2019-08-05 15:13 | P.HPIM ---
History of Present Illness H&P Date: 08/05/19 Chief Complaint: Weak tired History of presenting complaint: This is a very pleasant 74-year-old patient followed by visiting physician. Chronic stable medical conditions include CHF, diabetes, GERD, hypertension, osteoarthritis, history of DVT PE, hiatal hernia, hemorrhoids, osteoarthritis this is a walker. Patient had previously been on metformin but because of her kidney function it was discontinued. 2 days ago patient was started off on glyburide 5 mg a day. Yesterday patient became weak tired starting him tremors EMS was called out. Sugar was found to be low the 50s given.. Peanut butter jelly sandwich and orange juice. Patient again dropped her sugars today. And presented to the ER. Even though she was eating a sugar Dropping. Has dysuria suspected better. Patient also got swelling of the lower extremity. 3 weeks ago she underwent cardiac catheterization by Dr. Mendez and was found to have 70% RCA lesion. Also 40 reported to severe mitral and tricuspid regurgitation. 2-D echo in January 2019 showed EF of 60-65%, severe pulmonary hypertension. Patient does feel tired rundown. Patient's 2 daughters the bedside. Past medical history to include: Coronary artery disease with RCA lesion 70%, moderate to severe mitral and tricuspid regurgitation, severe pulmonary hypertension, CHF with diastolic dysfunction, diabetes, chronic DVT and PE, GERD, hypertension, osteoarthritis, lung cancer surgery 2004, thyroid cancer with surgery 2000, osteoarthritis- hernia kidney dysfunction uses a walker anxiety depression. Social history: No history of smoking or alcohol. Lives in [facility]. Does use a walker Physical examination: VITAL SIGNS: 97.5, 76, 16, 122/75, 99% on room air GENERAL: BMI 34.2, sitting upon a chair, tired. EYES: Pupils equal. Conjunctiva normal. HEENT: External appearance of nose and ears normal, oral cavity grossly normal. NECK: JVD possibly raise; masses not palpable. HEART: First and second heart sounds are normal; edema present, pansystolic murmur. LUNGS:[ Respiratory rate increased; decreased breath sounds bases. ABDOMEN: Soft, nontender, liver spleen not palpable, no masses palpable. PSYCH: Alert and oriented x3; mood and affect normal. NEUROLOGICAL: Cranial nerves grossly intact; no facial asymmetry, power and sensation grossly intact. LYMPHATICS: No lymph nodes palpable in the axilla and neck INVESTIGATIONS, reviewed in the clinical context: White count 7.1 hemoglobin 10.7 potassium 3.7 bun 72 pressure 1.57 EKG tracing personally reviewed by me-T wave changes some ST segment changes, sinus rhythm Assessment: -Persistent hypoglycemia from glyburide. It has a long half life -Diabetes mellitus type 2, uncontrolled with hypoglycemia -Acute on chronic congestive heart failure exacerbation from diastolic dysfunction EF 60-65% -Coronary artery disease with 70% RCA ostial lesion -Moderate assist severe mitral and tricuspid regurgitation -Chronic kidney disease stage III from combination of diabetic nephropathy and hypertensive nephrosclerosis -Chronic gait dysfunction uses a walker -Chronic DVT and PE for which patient is on Coumadin -Coumadin monitoring -History of lung cancer and thyroid cancer with surgery treated-primary osteoarthritis Plan: Patient will be having Accu-Cheks every 2 hours. Used to hypoglycemia protocol. Initially the patient was put on D5W. Given the fluid overload we'll DC the same. Start the patient and IV Lasix 80 mg every 12. We'll get a checks x-ray PA lateral also get a cardiology and nephrology opinion. Given patient's age mu ltiple comorbidities patient will need more than 2 night stay in the hospital.. Past Medical History Past Medical History: Blood Disorder, Cancer, Heart Failure, Diabetes Mellitus, Deep Vein Thrombosis (DVT), GERD/Reflux, Hypertension, Osteoarthritis (OA), Pu lmonary Embolus (PE) Additional Past Medical History / Comment(s): NIDDM type II, 2004 L lung cancer with surgery, 2000 thyroid cancer with surgery/hypothyroid, bilateral PEs, DVT R leg, hiatal hernia, hemorrhoids, DDD, occasional low back pain, gait disturbance, sinus problems. History of Any Multi-Drug Resistant Organisms: None Reported Past Surgical History: Bariatric Surgery, Cardiac Valve Replacement, Section, Cholecystectomy, Tonsillectomy, Tubal Ligation Additional Past Surgical History / Comment(s): L lower lobe resection, parathyroidectomy, cardiac valve repair, EGD, colonoscopy, lap ewa en Y with lysis of adhesions, D&C, bilateral cataract removals/lens implants. Past Anesthesia/Blood Transfusion Reactions: Motion Sickness, No Reported Reaction Past Psychological History: Anxiety, Depression Additional Psychological History / Comment(s): Pt resides alone in [facility]. She uses a walker to ambulate. She drives minimally. Smoking Status: Never smoker Past Alcohol Use History: None Reported Past Drug Use History: None Reported - Past Family History Mother Family Medical History: No Reported History Father Family Medical History: Diabetes Mellitus, Myocardial Infarction (OR) Medications and Allergies Home Medications Medication Instructions Recorded Confirmed Type Multivitamins, Thera [Multivitamin 1 tab PO DAILY 01/09/14 08/05/19 History (formulary)] ALPRAZolam [Xanax] 0.25 mg PO HS 01/30/19 08/05/19 History Allopurinol [Zyloprim] 100 mg PO DAILY 01/30/19 08/05/19 History Amiodarone HCl [Pacerone] 200 mg PO DAILY 01/30/19 08/05/19 History Levothyroxine Sodium 112 mcg PO DAILY 01/30/19 08/05/19 History Metoprolol Tartrate [Lopressor] 12.5 mg PO DAILY 01/30/19 08/05/19 History Omeprazole 40 mg PO DAILY 01/30/19 08/05/19 History Sertraline HCl [Zoloft] 100 mg PO DAILY 01/30/19 08/05/19 History Warfarin Sodium 1.5 mg PO HS 01/30/19 08/05/19 History Furosemide [Lasix] 40 mg PO BID 02/19/19 08/05/19 History Calcitriol [Rocaltrol] 0.25 mcg PO ORNELAS 07/11/19 08/05/19 History Loratadine [Claritin] 10 mg PO HS 07/11/19 08/05/19 History Metolazone [Zaroxolyn] 2.5 mg PO Q48H 07/11/19 08/05/19 History Cholecalciferol [Vitamin D3 (25 5,000 unit PO DAILY 08/05/19 08/05/19 History Mcg = 1000 Iu)] Ferrous Sulfate [Feosol] 325 mg PO BID 08/05/19 08/05/19 History Hairskin And Nails Gummie 3 tab PO DAILY 08/05/19 08/05/19 History glyBURIDE [Diabeta] 5 mg PO DAILY 08/05/19 08/05/19 History Allergies Allergy/AdvReac Type Severity Reaction Status Date / Time latex Allergy Rash/Hives Verified 08/05/19 12:42 iodine AdvReac Intermediate MOTHER IS Verified 02/23/20 12:42 ALLERGIC lactose AdvReac Diarrhea Verified 08/05/19 12:42 Physical Exam Vitals: Vital Signs Temp Pulse Pulse Resp BP BP Pulse Ox 08/05/19 14:51 98.0 F 76 16 121/68 96 08/05/19 11:53 97.5 F L 76 16 122/75 99 08/05/19 10:25 66 18 135/68 95 08/05/19 06:54 98.2 F 82 20 144/59 98 Intake and Output 08/05/19 08/05/19 08/05/19 06:59 14:59 22:59 Other: # Voids 1 Weight 79.379 kg 79.379 kg Results CBC & Chem 7: 08/05/19 07:21 08/05/19 07:21 Labs: Abnormal Lab Results - Last 24 Hours (Table) 08/05/19 08/05/19 08/05/19 Range/Units 06:47 07:21 07:21 RBC 3.56 L (3.80-5.40) m/uL Hgb 10.7 L (11.4-16.0) gm/dL Hct 32.4 L (34.0-46.0) % Lymphocytes # 0.9 L (1.0-4.8) k/uL Sodium 133 L (137-145) mmol/L Chloride 88 L (98-107) mmol/L Carbon Dioxide 38 H (22-30) mmol/L BUN 72 H (7-17) mg/dL Creatinine 1.57 H (0.52-1.04) mg/dL Glucose 70 L (74-99) mg/dL POC Glucose (mg/dL) 55 L (75-99) mg/dL AST 49 H (14-36) U/L Ur Leukocyte Esterase (Negative) 08/05/19 08/05/19 08/05/19 Range/Units 07:21 08:26 10:45 RBC (3.80-5.40) m/uL Hgb (11.4-16.0) gm/dL Hct (34.0-46.0) % Lymphocytes # (1.0-4.8) k/uL Sodium (137-145) mmol/L Chloride (98-107) mmol/L Carbon Dioxide (22-30) mmol/L BUN (7-17) mg/dL Creatinine (0.52-1.04) mg/dL Glucose (74-99) mg/dL POC Glucose (mg/dL) 67 L 55 L (75-99) mg/dL AST (14-36) U/L Ur Leukocyte Esterase Trace H (Negative) 08/05/19 08/05/19 Range/Units 12:07 14:13 RBC (3.80-5.40) m/uL Hgb (11.4-16.0) gm/dL Hct (34.0-46.0) % Lymphocytes # (1.0-4.8) k/uL Sodium (137-145) mmol/L Chloride (98-107) mmol/L Carbon Dioxide (22-30) mmol/L BUN (7-17) mg/dL Creatinine (0.52-1.04) mg/dL Glucose (74-99) mg/dL POC Glucose (mg/dL) 72 L 64 L (75-99) mg/dL AST (14-36) U/L Ur Leukocyte Esterase (Negative) Thrombosis Risk Factor Assmnt - Choose All That Apply Each Risk Factor Represents 2 Points: Age 61-74 years Thrombosis Risk Factor Assessment Total Risk Factor Score: 2 Thrombosis Risk Factor Assessment Level: Low Risk
[2019-08-05 15:25] LABS: INR 3.1 (<1.2); Prothrombin Time 30.1 sec (9.0-12.0)
--- NOTE | 2019-08-05 15:25 | XR ---
EXAMINATION TYPE: XR chest 2V DATE OF EXAM: 08/05/2019 COMPARISON: 02/19/2019 HISTORY: Short of breath. Lung cancer. TECHNIQUE: FINDINGS: Heart is enlarged. There is some pulmonary vascular congestion. There is slight blunting of the costophrenic angles. There are sternal wires. IMPRESSION: Mild congestive heart failure with some improvement in the pleural effusions compared to last exam.
[2019-08-05 15:43] LABS: Glucose,Whole Blood 62 mg/dL (75-99)
[2019-08-05] MEDS ORDERED: FUROSEMIDE 80 MG TAB PO SCH (16:00)
[2019-08-05 16:03] LABS: Glucose,Whole Blood 86 mg/dL (75-99)
[2019-08-05 17:28] LABS: Glucose,Whole Blood 79 mg/dL (75-99)
[2019-08-05] MEDS ORDERED: WARFARIN 1.5 MG TAB PO SCH (18:00)
[2019-08-05 19:19] LABS: Glucose,Whole Blood 83 mg/dL (75-99)
[2019-08-05] MEDS: FUROSEMIDE 10 MG/ML 10 ML VIAL IV SCH (20:11)
[2019-08-05] MEDS: FERROUS SULFATE 325 MG TAB PO SCH (20:12)
[2019-08-05] MEDS ORDERED: FUROSEMIDE 40 MG TAB PO SCH (21:00)
[2019-08-05 21:27] LABS: Glucose,Whole Blood 62 mg/dL (75-99)
[2019-08-05 21:41] LABS: Glucose,Whole Blood 64 mg/dL (75-99)
[2019-08-05 21:57] LABS: Glucose,Whole Blood 98 mg/dL (75-99)
[2019-08-05 23:43] LABS: Glucose,Whole Blood 88 mg/dL (75-99)
[2019-08-06 02:01] LABS: Glucose,Whole Blood 66 mg/dL (75-99)
[2019-08-06 02:17] LABS: Glucose,Whole Blood 55 mg/dL (75-99)
[2019-08-06 02:31] LABS: Glucose,Whole Blood 89 mg/dL (75-99)
[2019-08-06] MEDS: LEVOTHYROXINE 112 MCG TAB PO SCH (05:00)
[2019-08-06 05:05] LABS: Glucose,Whole Blood 77 mg/dL (75-99)
[2019-08-06 06:53] LABS: Glucose,Whole Blood 70 mg/dL (75-99)
[2019-08-06 08:45] LABS: INR 4.1 (<1.2); Prothrombin Time 40.5 sec (9.0-12.0)
[2019-08-06 08:48] LABS: Calcium 8.8 mg/dL (8.4-10.2); Potassium 3.5 mmol/L (3.5-5.1)
[2019-08-06] MEDS ORDERED: METOLAZONE 2.5 MG TAB PO SCH (09:00)
[2019-08-06 09:09] LABS: Glucose,Whole Blood 196 mg/dL (75-99)
[2019-08-06] MEDS: MULTIVITAMINS, THERA 1 EACH TAB PO SCH (10:05)
[2019-08-06] MEDS: CHOLECALCIFEROL 1,000 UNIT TAB PO SCH (10:05)
[2019-08-06] MEDS: METOPROLOL TARTRATE 12.5 MG TAB PO SCH (10:05)
[2019-08-06] MEDS: FERROUS SULFATE 325 MG TAB PO SCH ×2 (10:05→19:59)
[2019-08-06] MEDS: AMIODARONE 200 MG TAB PO SCH (10:06)
[2019-08-06] MEDS: PANTOPRAZOLE 40 MG TABLET PO SCH (10:06)
[2019-08-06] MEDS: SERTRALINE 100 MG TAB PO SCH (10:06)
[2019-08-06] MEDS: ALLOPURINOL 100 MG TAB PO SCH (10:06)
[2019-08-06] MEDS: FUROSEMIDE 10 MG/ML 10 ML VIAL IV SCH (10:51)
[2019-08-06 11:02] LABS: Glucose,Whole Blood 119 mg/dL (75-99)
[2019-08-06] MEDS: FUROSEMIDE 10 MG/ML 4 ML VIAL IV SCH ×2 (12:14→19:59)
[2019-08-06 13:03] LABS: Glucose,Whole Blood 159 mg/dL (75-99)
--- NOTE | 2019-08-06 14:59 | CONS ---
CONSULTATION REASON FOR CONSULT: Chronic kidney disease. HISTORY OF PRESENT ILLNESS: Patient is a 74-year-old female who was admitted to the hospital yesterday with complaints of increasing shortness of breath and lower extremity edema. Patient is scheduled for a cardiac catheterization later on this week and she is concerned about her renal function. Blood sugar was noted to be low yesterday when the EMS was called. She is currently maintained on IV Lasix. Overall, patient states she is feeling better. Her edema has improved. Shortness of breath has improved as well. She has CKD stage III, with previous creatinine around 1.3-1.2 mg/dL as of February of 2019 and a creatinine of 1.5 in May of 2019. Etiology is nephrosclerosis. PAST MEDICAL HISTORY: Significant for type 2 diabetes, DVT, hypertension, osteoarthritis, history of PE, history of lung cancer status post surgery, history of thyroid cancer status post surgery, hemorrhoids, chronic low back pain, chronic sinusitis. PAST SURGICAL HISTORY: Bariatric surgery, , cholecystectomy, tonsillectomy, tubal ligation, left lower lobe resection, parathyroidectomy, EGD, heart valve repair, D and C, cataract surgery. SOCIAL HISTORY: Negative for smoking, drug abuse or alcohol abuse. MEDICATIONS: Prior to admission included multivitamin, Xanax, Zyloprim, Pacerone, Lopressor, Synthroid, omeprazole, Zoloft, Lasix, Rocaltrol, Claritin, Zaroxolyn, iron, DiaBeta. ALLERGIES: LATEX, IODINE, LACTOSE. REVIEW OF SYSTEMS: As per HPI. Other systems negative. PHYSICAL EXAMINATION: On examination, patient is comfortable, awake, alert, oriented x3, not in any acute distress. Blood pressure was 128/72, heart rate 78 per minute, she is afebrile. Examination of the heart S1, S2. Examination of the lungs, bilateral breath sounds are heard. Abdomen is soft, non-tender. Examination of the lower extremities shows edema with chronic skin changes. COTTON AGENT exam grossly intact. LABS: Show sodium 131, potassium 3.5, chloride 84, CO2 is 39. BUN 57, creatinine 1.43. ASSESSMENT: 1. Chronic kidney disease stage III. Baseline creatinine about 1.3-1.4 mg/dL secondary to nephrosclerosis. 2. Acute kidney injury mainly cardiorenal, currently slightly improved. 3. Hypervolemic, hyponatremia, expect improvement with ongoing diuresis. 4. Coronary artery disease with critical lesion in the RCA which needs intervention later on this week. 5. Metabolic alkalosis secondary to diuresis. 6. CKD mineral bone disorder, maintained on Rocaltrol. PLAN: 1. Decrease IV Lasix. Hopefully renal function will return to baseline in the next day or so and patient can proceed with cardiac catheterization. 2. Avoid hypotension. 3. Volume overload, currently improved. 4. Atrial fibrillation with controlled ventricular response. 5. Gastritis, esophageal reflux disease. PLAN: Decrease Lasix. Repeat labs in a.m. Avoid hypotension. Continue off of IV fluids. MMODL / IJN: [id number] /
--- NOTE | 2019-08-06 15:20 | P.CRDCN ---
History of Present Illness History of present illness: HISTORY OF PRESENTING ILLNESS This is a pleasant 74-year-old female past medical history significant for coronary artery disease, valvular heart disease s/p complex mitral valve re pair with annuloplasty and ring 2017, diabetes mellitus, hypertension, paroxysmal atrial fibrillation and chronic diastolic heart failure. She follows in the office with Dr. Lin. We have been asked to see in consultation for heart failure. She recently underwent cardiac catheterization and EMELY revealing normal LV systolic function with moderate to severe mitral regurgitation with a previously repaired mitral valve and moderate to severe tricuspid regurgitation. She had a 70% lesion noted at the ostial RCA. After lengthy discussions with the patient and her daughters it was decided that she would not like to pursue further valve repair and would like to undergo stenting of the RCA lesion. This has been scheduled for August 15. She has recently been making some adjustments to her diabetic regimen with her PCP and has been struggling with hypoglycemia. Twice over the weekend while at home her sugar would drop into the 50's and she would become quite symptomatic. EMS had to come out to help her on Tuesday due to weakness, fatigue, shortness of breath and feeling jittery when her sugar was 56. The second episode occurred yesterday morning. Her BS at that time was 55. She was also noted to be mildly short of breath at times with some associated lower extremity edema. She states she has chronic lower extremity edema but it has been worse over the last few days. She was started on IV lasix and has noticed a decrease in her swelling. No output documented. She denies chest pain, shortness of breath, dizziness or palpitations. DIAGNOSTICS EKG reveals sinus mechanism with first degree AV block, right bundle branch block, precordial T-wave inversion and mild ST depression int eh high lateral leads. Chest xray reveals some pulmonary vascular congestion and blunting of costrophrenic angles. Laboratory reviewed, WBC 7.1, hgb 10.7, plt 289, INR 4.1, sodium 131, potassium 3.5, creatinine on admission 1.57 repeat today 1.43 and cardiac enzymes negative x1. Current cardiac medications include coumadin 1.5 mg daily, lopressor 12.5 mg daily, zaroxolyn 2.5 mg every other day, lasix 40 mg BID and amiodarone 200 mg daily. REVIEW OF SYSTEMS At the time of my exam: CONSTITUTIONAL: Denies fever or chills. CARDIOVASCULAR: Denies chest pain, shortness of breath, orthopnea, PND or palp itations. RESPIRATORY: Denies cough. GASTROINTESTINAL: Denies abdominal pain, diarrhea, constipation, nausea or vomiting. MUSCULOSKELETAL: Denies myalgias. NEUROLOGIC: Denies numbness, tingling or weakness. ENDOCRINE: Denies fatigue, weight change, polydipsia or polyurina. GENITOURINARY: Denies burning, hematuria or urgency with micturation. HEMATOLOGIC: Denies history of anemia or bleeding. PHYSICAL EXAMINATION Blood pressure 103/49 heart rate 73 afebrile and maintaining oxygen saturation o n room air. CONSTITUTIONAL: No apparent distress. HEENT: Head is normocephalic. Pupils are equal, round. Sclerae anicteric. Mucous membranes of the mouth are moist. No JVD. No carotid bruit. CHEST EXAMINATION: Lungs are clear to auscultation. No chest wall tenderness is noted on palpation or with deep breathing. Diminished bilaterally. HEART EXAMINATION: Regular rate and rhythm. S1, S2 heard. Systolic ejection murmur at the left sternal border, no gallops or rub. ABDOMEN: Soft, nontender. Positive bowel sounds. EXTREMITIES: 2+ peripheral pulses, 1+ bilateral lower extremity edema and no calf tenderness. NEUROLOGIC EXAMINATION: Patient is awake, alert and oriented x3. ASSESSMENT Fluid volume overload Acute on chronic diastolic heart failure, mild Hypoglycemia Valvular heart disease s/p complex annuloplasy and ring repair Coronary artery disease, stable. Scheduled for PCI 08/16/2019 Chronic renal failure Diabetes mellitus Hypertension Paroxysmal atrial fibrillation on buttermaker anti-coagulation PLAN Continue IV diuresis, management per nephrology. Breathing is stable and lungs are clear, however she has ongoing fluid retention in the legs. Thank you kindly for this consultation. Nurse Practitioner note has been reviewed, I agree with a documented findings and plan of care. Patient was seen and examined. Past Medical History Past Medical History: Blood Disorder, Cancer, Heart Failure, Diabetes Mellitus, Deep Vein Thrombosis (DVT), GERD/Reflux, Hypertension, Osteoarthritis (OA), Pulmonary Embolus (PE) Additional Past Medical History / Comment(s): NIDDM type II, 2004 L lung cancer with surgery, 2000 thyroid cancer with surgery/hypothyroid, bilateral PEs, DVT R leg, hiatal hernia, hemorrhoids, DDD, occasional low back pain, gait disturbance, sinus problems. History of Any Multi-Drug Resistant Organisms: None Reported Past Surgical History: Bariatric Surgery, Cardiac Valve Replacement, Section, Cholecystectomy, Tonsillectomy, Tubal Ligation Additional Past Surgical History / Comment(s): L lower lobe resection, par athyroidectomy, cardiac valve repair, EGD, colonoscopy, lap ewa en Y with lysis of adhesions, D&C, bilateral cataract removals/lens implants. Past Anesthesia/Blood Transfusion Reactions: Motion Sickness, No Reported Reaction Past Psychological History: Anxiety, Depression Additional Psychological History / Comment(s): Pt resides alone in [facility]. She uses a walker to ambulate. She drives minimally. Smoking Status: Never smoker Past Alcohol Use History: None Reported Past Drug Use History: None Reported - Past Family History Mother Family Medical History: No Reported History Father Family Medical History: Diabetes Mellitus, Myocardial Infarction (SC) Medications and Allergies Home Medications Medication Instructions Recorded Confirmed Type Multivitamins, Thera [Multivitamin 1 tab PO DAILY 01/09/14 08/05/19 History (formulary)] ALPRAZolam [Xanax] 0.25 mg PO HS 01/30/19 08/05/19 History Allopurinol [Zyloprim] 100 mg PO DAILY 01/30/19 08/05/19 History Amiodarone HCl [Pacerone] 200 mg PO DAILY 01/30/19 08/05/19 History Levothyroxine Sodium 112 mcg PO DAILY 01/30/19 08/05/19 History Metoprolol Tartrate [Lopressor] 12.5 mg PO DAILY 01/30/19 08/05/19 History Omeprazole 40 mg PO DAILY 01/30/19 08/05/19 History Sertraline HCl [Zoloft] 100 mg PO DAILY 01/30/19 08/05/19 History Warfarin Sodium 1.5 mg PO HS 01/30/19 08/05/19 History Furosemide [Lasix] 40 mg PO BID 02/19/19 08/05/19 History Calcitriol [Rocaltrol] 0.25 mcg PO ORNELAS 07/11/19 08/05/19 History Loratadine [Claritin] 10 mg PO HS 07/11/19 08/05/19 History Metolazone [Zaroxolyn] 2.5 mg PO Q48H 07/11/19 08/05/19 History Cholecalciferol [Vitamin D3 (25 5,000 unit PO DAILY 08/05/19 08/05/19 History Mcg = 1000 Iu)] Ferrous Sulfate [Feosol] 325 mg PO BID 08/05/19 08/05/19 History Hairskin And Nails Gummie 3 tab PO DAILY 08/05/19 08/05/19 History glyBURIDE [Diabeta] 5 mg PO DAILY 08/05/19 08/05/19 History Allergies Allergy/AdvReac Type Severity Reaction Status Date / Time latex Allergy Rash/Hives Verified 08/05/19 12:42 iodine AdvReac Intermediate MOTHER IS Verified 08/05/19 12:42 ALLERGIC lactose AdvReac Diarrhea Verified 08/05/19 12:42 Physical Exam Vitals: Vital Signs Temp Pulse Pulse Resp BP BP Pulse Ox 08/06/19 13:05 98.4 F 73 16 103/49 98 08/06/19 05:00 97.9 F 76 18 106/55 98 08/05/19 21:00 97.0 F L 78 20 128/72 99 08/05/19 16:51 86 16 141/65 96 08/05/19 14:51 98.0 F 76 16 121/68 96 Intake and Output 08/05/19 08/06/19 08/06/19 22:59 06:59 14:59 Intake Total 475 500 Balance 475 500 Intake: Oral 475 500 Other: # Voids 2 3 2 # Bowel Movements 2 Results 08/05/19 07:21 08/06/19 08:15 Coagulation 08/05/19 08/06/19 Range/Units 07:21 08:15 PT 30.1 H 40.5 H (9.0-12.0) sec Comprehensive Metabolic Panel 08/06/19 Range/Units 08:15 Sodium 131 L (137-145) mmol/L Potassium 3.5 (3.5-5.1) mmol/L Chloride 84 L (98-107) mmol/L Carbon Dioxide 39 H (22-30) mmol/L BUN 57 H (7-17) mg/dL Creatinine 1.43 H (0.52-1.04) mg/dL Glucose 109 H (74-99) mg/dL Calcium 8.8 (8.4-10.2) mg/dL Current Medications Generic Name Dose Route Start Last Admin Trade Name Freq PRN Reason Stop Dose Admin Allopurinol 100 mg 08/05/19 12:45 08/06/19 10:06 Zyloprim PO 100 mg DAILY KEYLA Administration Alprazolam 0.25 mg 08/05/19 12:34 Xanax PO DAILY PRN Anxiety Amiodarone HCl 200 mg 08/05/19 12:45 08/06/19 10:06 Cordarone PO 200 mg QAM KEYLA Administration Calcitriol 0.25 mcg 08/05/19 15:00 08/05/19 15:59 Rocaltrol PO 0.25 mcg ORNELAS KEYLA Administration Cholecalciferol 5,000 unit 08/06/19 09:00 08/06/19 10:05 Vitamin D3 (25 Mcg = 1000 Iu) PO 5,000 unit DAILY KEYLA Administration Ferrous Sulfate 325 mg 08/05/19 21:00 08/06/19 10:05 Feosol PO 325 mg BID KEYLA Administration Furosemide 40 mg 08/06/19 10:45 08/06/19 12:14 Lasix IV 40 mg Q12HR KEYLA Administration Levothyroxine Sodium 112 mcg 08/05/19 12:45 08/06/19 05:00 Synthroid PO 112 mcg DAILY@0630 KEYLA Administration Metolazone 2.5 mg 08/06/19 09:00 08/06/19 10:07 Zaroxolyn PO 2.5 mg Q48H KEYLA Administration Metoprolol Tartrate 12.5 mg 08/06/19 09:00 08/06/19 10:05 Lopressor PO 12.5 mg DAILY KEYLA Administration Miscellaneous Information 0 each 08/06/19 09:00 Coumadin Per Pharmacy MISCELLANE DIRECTED PRN PHARMACY DOSING WARFARIN Multivitamins 1 each 08/06/19 12:00 08/06/19 10:05 Theragran PO 1 each DAILY@1200 KEYLA Administration Pantoprazole Sodium 40 mg 08/06/19 07:30 08/06/19 10:06 Protonix PO 40 mg AC-BRKFST KEYLA Administration Sertraline HCl 100 mg 08/06/19 09:00 08/06/19 10:06 Zoloft PO 100 mg DAILY KEYLA Administration Warfarin Sodium 0 mg 08/06/19 18:00 Coumadin PO 08/06/19 18:01 ONCE@1800 ONE Intake and Output 08/05/19 08/06/19 08/06/19 22:59 06:59 14:59 Intake Total 475 500 Balance 475 500 Intake: Oral 475 500 Other: # Voids 2 3 2 # Bowel Movements 2 08/05/19 07:21 08/06/19 08:15
[2019-08-06 15:32] LABS: Glucose,Whole Blood 105 mg/dL (75-99)
[2019-08-06 16:58] LABS: Glucose,Whole Blood 134 mg/dL (75-99)
--- NOTE | 2019-08-06 17:31 | P.PN ---
Progress Note - Text Progress Note Date: 08/06/19 Chief Complaint: Weak tired History of presenting complaint: This is a very pleasant 74-year-old patient followed by visiting physician. Chronic stable medical conditions include CHF, diabetes, GERD, hypertension, osteoarthritis, history of DVT PE, hiatal hernia, hemorrhoids, osteoarthritis this is a walker. Patient had previously been on metformin but because of her kidney function it was discontinued. 2 days ago patient was started off on glyburide 5 mg a day. Yesterday patient became weak tired starting him tremors EMS was called out. Sugar was found to be low the 50s given.. Peanut butter jelly sandwich and orange juice. Patient again dropped her sugars today. And presented to the ER. Even though she was eating a sugar Dropping. Has dysuria suspected better. Patient also got swelling of the lower extremity. 3 weeks ago she underwent cardiac catheterization by Dr. Mendez and was found to have 70% RCA lesion. Also 40 reported to severe mitral and tricuspid regurgitation. 2-D echo in January 2019 showed EF of 60-65%, severe pulmonary hypertension. Patient does feel tired rundown. Admitted with-acute on chronic congestive heart failure. Started on IV Lasix. Glyburide induced hypoglycemia. Today-responded well to IV Lasix breathing a bit better. Accu-Cheks coming up. Review of systems: Was done for constitutional, cardiovascular, GI, pulmonary. relevant finding as above Active Medications Allopurinol (Zyloprim) 100 mg PO DAILY [facility] Last Admin: 08/06/19 10:06 Dose: 100 mg Documented by: Alprazolam (Xanax) 0.25 mg PO DAILY PRN PRN Reason: Anxiety Amiodarone HCl (Cordarone) 200 mg PO QAM [facility] Last Admin: 08/06/19 10:06 Dose: 200 mg Documented by: Calcitriol (Rocaltrol) 0.25 mcg PO ORNELAS [facility] Last Admin: 08/05/19 15:59 Dose: 0.25 mcg Documented by: Cholecalciferol (Vitamin D3 (25 Mcg = 1000 Iu)) 5,000 unit PO DAILY [facility] Last Admin: 08/06/19 10:05 Dose: 5,000 unit Documented by: Ferrous Sulfate (Feosol) 325 mg PO BID [facility] Last Admin: 08/06/19 10:05 Dose: 325 mg Documented by: Furosemide (Lasix) 40 mg IV Q12HR [facility] Last Admin: 08/06/19 12:14 Dose: 40 mg Documented by: Levothyroxine Sodium (Synthroid) 112 mcg PO DAILY@0630 [facility] Last Admin: 08/06/19 05:00 Dose: 112 mcg Documented by: Metolazone (Zaroxolyn) 2.5 mg PO Q48H [facility] Last Admin: 08/06/19 10:07 Dose: 2.5 mg Documented by: Metoprolol Tartrate (Lopressor) 12.5 mg PO DAILY [facility] Last Admin: 08/06/19 10:05 Dose: 12.5 mg Documented by: Miscellaneous Information (Coumadin Per Pharmacy) 0 each MISCELLANE DIRECTED PRN PRN Reason: PHARMACY DOSING WARFARIN Multivitamins (Theragran) 1 each PO DAILY@1200 [facility] Last Admin: 08/06/19 10:05 Dose: 1 each Documented by: Pantoprazole Sodium (Protonix) 40 mg PO AC-BRKFST [facility] Last Admin: 08/06/19 10:06 Dose: 40 mg Documented by: Sertraline HCl (Zoloft) 100 mg PO DAILY [facility] Last Admin: 08/06/19 10:06 Dose: 100 mg Documented by: Warfarin Sodium (Coumadin) 0 mg PO ONCE@1800 ONE Stop: 08/06/19 18:01 Physical examination: VITAL SIGNS: 97.9, 76, 18, 106/55, 98% on 2 L GENERAL: BMI 34.2, sitting upon a chair, tired. EYES: Pupils equal. Conjunctiva normal. HEENT: External appearance of nose and ears normal, oral cavity grossly normal. NECK: JVD possibly raise; masses not palpable. HEART: First and second heart sounds are normal; edema present, pansystolic murmur. LUNGS:[ Respiratory rate increased; decreased breath sounds bases. ABDOMEN: Soft, nontender, liver spleen not palpable, no masses palpable. PSYCH: Alert and oriented x3; mood and affect normal. INVESTIGATIONS, reviewed in the clinical context: Chest x-ray film personally reviewed by me-pulmonary edema Potassium 3.5 bun 57 creatinine 1.43 [id number], 119, 159 Previous testing White count 7.1 hemoglobin 10.7 potassium 3.7 bun 72. Creatinine 1.57 EKG tracing personally reviewed by me-T wave changes some ST segment changes, sinus rhythm Assessment: -Persistent hypoglycemia from glyburide. It has a long half life, POA, improving -Diabetes mellitus type 2, uncontrolled with hypoglycemia -Acute on chronic congestive heart failure exacerbation from diastolic dysfunction EF 60-65%, POA, slow to respond -Coronary artery disease with 70% RCA ostial lesion -Moderate assist severe mitral and tricuspid regurgitation -Chronic kidney disease stage III from combination of diabetic nephropathy and hypertensive nephrosclerosis -Chronic gait dysfunction uses a walker -Chronic DVT and PE for which patient is on Coumadin -Coumadin monitoring -History of lung cancer and thyroid cancer with surgery treated-primary osteoarthritis Plan: Continue with IV Lasix. Follow renal function closely. At this point hold off starting any hypoglycemic. Discussed with the patient daughter the bedside. Dose of Lasix Back to 40 mg every 12. Repeat labs in the morning.
[2019-08-06] MEDS ORDERED: WARFARIN 0.5 MG TAB PO ONE (18:00)
[2019-08-06 19:03] LABS: Glucose,Whole Blood 282 mg/dL (75-99)
[2019-08-06 19:06] LABS: Hemoglobin A1C 5.8 % (4.0-6.0)
[2019-08-06 21:30] LABS: Glucose,Whole Blood 200 mg/dL (75-99)
[2019-08-06 23:17] LABS: Glucose,Whole Blood 135 mg/dL (75-99)
[2019-08-07 01:07] LABS: Glucose,Whole Blood 124 mg/dL (75-99)
[2019-08-07 03:06] LABS: Glucose,Whole Blood 123 mg/dL (75-99)
[2019-08-07] MEDS: LEVOTHYROXINE 112 MCG TAB PO SCH (05:34)
[2019-08-07 05:42] LABS: Glucose,Whole Blood 127 mg/dL (75-99)
[2019-08-07 07:17] VITALS: RESP 16
[2019-08-07 07:52] LABS: Glucose,Whole Blood 131 mg/dL (75-99)
[2019-08-07] MEDS: AMIODARONE 200 MG TAB PO SCH (08:57)
[2019-08-07] MEDS: PANTOPRAZOLE 40 MG TABLET PO SCH (08:57)
[2019-08-07] MEDS: METOPROLOL TARTRATE 12.5 MG TAB PO SCH (08:57)
[2019-08-07] MEDS: ALLOPURINOL 100 MG TAB PO SCH (08:58)
[2019-08-07] MEDS: CHOLECALCIFEROL 1,000 UNIT TAB PO SCH (08:58)
[2019-08-07] MEDS: SERTRALINE 100 MG TAB PO SCH (08:58)
[2019-08-07] MEDS: FUROSEMIDE 10 MG/ML 4 ML VIAL IV SCH (08:58)
[2019-08-07] MEDS: FERROUS SULFATE 325 MG TAB PO SCH (08:58)
[2019-08-07] MEDS: MULTIVITAMINS, THERA 1 EACH TAB PO SCH (08:58)
[2019-08-07 09:28] LABS: INR 3.8 (<1.2)
[2019-08-07 10:37] LABS: Calcium 8.6 mg/dL (8.4-10.2); Potassium 3.9 mmol/L (3.5-5.1)
[2019-08-07 12:04] LABS: Glucose,Whole Blood 138 mg/dL (75-99)
[2019-08-07 14:39] VITALS: BP 105/65; PULSE 75; TEMP 98
[2019-08-07] MEDS ORDERED: WARFARIN 0.5 MG TAB PO ONE (18:00)
--- NOTE | 2019-08-07 22:11 | PN ---
PROGRESS NOTE DATE OF SERVICE: 08/07/2019 The patient is seen for follow up for acute kidney injury on top of chronic kidney disease. The patient is comfortable, awake. She is not in any acute distress. There are plans for possible discharge today. PHYSICAL EXAMINATION: On examination, blood pressure was 107/64, heart rate 79 per minute. She is afebrile. EXAMINATION OF THE HEART: S1 and S2. EXAMINATION OF THE LUNGS: Bilateral breath sounds are heard. ABDOMEN: Soft, nontender. Examination of lower extremities shows chronic skin changes, edema 1+ bilaterally. DOCK MANAGER exam grossly intact. LABS: Show sodium 130, potassium 3.9, chloride 81, CO2 is 37, BUN 57, serum creatinine 1.5 mg/dl. ASSESSMENT: 1. Acute kidney injury, mainly cardiorenal, currently improved. Serum creatinine is staying 1.4 to 1.5 mg/dl. 2. Congestive heart failure, acute on top of chronic, mainly diastolic, currently improved. 3. Volume overload, improved. 4. Coronary artery disease with critical lesion in the RCA with plans for intervention some time next week or during this admission, awaiting Cardiology decision. PLAN: If patient is not having cardiac catheterization this admission, we can proceed with discharge. She will continue with the current dose of Lasix at home, but we will increase the Zaroxolyn to daily from twice a week. Follow up as an outpatient in about one week's time. ISAAC / ALYSE: [id number] /
--- NOTE | 2019-08-07 22:46 | P.PN ---
Progress Note - Text Progress Note Date: 08/07/19 Chief Complaint: Weak tired History of presenting complaint: This is a very pleasant 74-year-old patient followed by visiting physician. Chronic stable medical conditions include CHF, diabetes, GERD, hypertension, osteoarthritis, history of DVT PE, hiatal hernia, hemorrhoids, osteoarthritis this is a walker. Patient had previously been on metformin but because of her kidney function it was discontinued. 2 days ago patient was started off on glyburide 5 mg a day. Yesterday patient became weak tired starting him tremors EMS was called out. Sugar was found to be low the 50s given.. Peanut butter jelly sandwich and orange juice. Patient again dropped her sugars today. And presented to the ER. Even though she was eating a sugar Dropping. Has dysuria suspected better. Patient also got swelling of the lower extremity. 3 weeks ago she underwent cardiac catheterization by Dr. Mendez and was found to have 70% RCA lesion. Also 40 reported to severe mitral and tricuspid regurgitation. 2-D echo in January 2019 showed EF of 60-65%, severe pulmonary hypertension. Patient does feel tired rundown. Admitted with-acute on chronic congestive heart failure. Started on IV Lasix. Glyburide induced hypoglycemia. Patient not to go back on glyburide. Today- Discussed with Dr. Morgan from nephrology. Discharge on home dose of diuretics. Care was discussed the patient daughter the bedside. Questions were answered. Edema was gone down. Breathing improved. Cleared by cardiology.: To be held as per cardiology depending on the scheduling of cardiac catheterization Discussion and discharge planning more than 35 minutes Consultation: Dr. Morgan from nephrology Dr. Arnav Ochoa from cardiology Physical examination: VITAL SIGNS: 98, 75, 16, 105/65, 94% on room air GENERAL: BMI 34.2, sitting upon a chair, tired. EYES: Pupils equal. Conjunctiva normal. HEENT: External appearance of nose and ears normal, oral cavity grossly normal. NECK: JVD possibly raise; masses not palpable. HEART: First and second heart sounds are normal; decreased edema, pansystolic murmur. LUNGS:[ Respiratory rate increased; decreased breath sounds bases. ABDOMEN: Soft, nontender, liver spleen not palpable, no masses palpable. PSYCH: Alert and oriented x3; mood and affect normal. INVESTIGATIONS, reviewed in the clinical context: INR 3.8 potassium 3.9 bun 57 creatinine 1.5 to Accu-Cheks 138 Previous testing White count 7.1 hemoglobin 10.7 potassium 3.7 bun 72. Creatinine 1.57 EKG tracing personally reviewed by me-T wave changes some ST segment changes, sinus rhythm Chest x-ray film personally reviewed by me-pulmonary edema Assessment: -Persistent hypoglycemia from glyburide. It has a long half life, POA, -Diabetes mellitus type 2, uncontrolled with hypoglycemia -Acute on chronic congestive heart failure exacerbation from diastolic dysfunction EF 60-65%, POA, -Coronary artery disease with 70% RCA ostial lesion -Moderate assist severe mitral and tricuspid regurgitation -Chronic kidney disease stage III from combination of diabetic nephropathy and hypertensive nephrosclerosis -Chronic gait dysfunction uses a walker -Chronic DVT and PE for which patient is on Coumadin -Coumadin monitoring -History of lung cancer and thyroid cancer with surgery treated-primary osteoarthritis Disposition: Home
== END 2019-08-07 16:18 | disposition home health service (06) | DRG 637 ==
LOC: EC 06:39 → 6NMEDSUR 10:51 → OBSVTOIN 15:14
PROVIDERS: ADMIT Hospitalist; ATTEND Hospitalist
DX: E11.649 Type 2 diabetes mellitus with hypoglycemia without coma (principal); I50.33 Acute on chronic diastolic (congestive) heart failure; E87.1 Hypo-osmolality and hyponatremia; E87.3 Alkalosis; I13.0 Hypertensive heart and chronic kidney disease with heart failure and stage 1 through stage 4 chronic kidney disease, or unspecified chronic kidney disease; N17.9 Acute kidney failure, unspecified; I27.20 Pulmonary hypertension, unspecified; N18.3 Chronic kidney disease, stage 3 (moderate); E11.22 Type 2 diabetes mellitus with diabetic chronic kidney disease; T38.3X5A Adverse effect of insulin and oral hypoglycemic [antidiabetic] drugs, initial encounter; E89.0 Postprocedural hypothyroidism; I08.1 Rheumatic disorders of both mitral and tricuspid valves; I25.10 Atherosclerotic heart disease of native coronary artery without angina pectoris; I44.0 Atrioventricular block, first degree; I45.10 Unspecified right bundle-branch block; I48.0 Paroxysmal atrial fibrillation; K21.9 Gastro-esophageal reflux disease without esophagitis; M89.9 Disorder of bone, unspecified; T50.2X5A Adverse effect of carbonic-anhydrase inhibitors, benzothiadiazides and other diuretics, initial encounter; G89.29 Other chronic pain; M54.5 Low back pain; J32.9 Chronic sinusitis, unspecified; K44.9 Diaphragmatic hernia without obstruction or gangrene; K64.9 Unspecified hemorrhoids; M19.91 Primary osteoarthritis, unspecified site; R26.9 Unspecified abnormalities of gait and mobility; F41.9 Anxiety disorder, unspecified; F32.9 Major depressive disorder, single episode, unspecified; Z79.01 Long term (current) use of anticoagulants; Z79.84 Long term (current) use of oral hypoglycemic drugs; Z79.890 Hormone replacement therapy; Z79.899 Other long term (current) drug therapy; Z88.8 Allergy status to other drugs, medicaments and biological substances; Z91.041 Radiographic dye allergy status; Z91.040 Latex allergy status; Z95.2 Presence of prosthetic heart valve; Z85.850 Personal history of malignant neoplasm of thyroid; Z85.118 Personal history of other malignant neoplasm of bronchus and lung; Z86.718 Personal history of other venous thrombosis and embolism; Z86.711 Personal history of pulmonary embolism; Z90.49 Acquired absence of other specified parts of digestive tract; Z98.84 Bariatric surgery status; Z98.51 Tubal ligation status; Z90.2 Acquired absence of lung [part of]; Z98.42 Cataract extraction status, left eye; Z98.41 Cataract extraction status, right eye; Z96.1 Presence of intraocular lens; Z82.49 Family history of ischemic heart disease and other diseases of the circulatory system; Z83.3 Family history of diabetes mellitus
CPT/HCPCS: 36415; 71046; 80048; 80053; 81001; 83036; 84484; 85025; 85610; 93005; 96374; 99285

== ENCOUNTER 2019-08-16 05:52 | Observation (INO) | payer MEDICARE ==
[2019-08-14 16:11] VITALS: BMI 33.5
[~2019-08-16 05:52] MED LIST changes: -ALPRAZolam 0.25 MG TAB PO PRN; -ASPIRIN 325 MG TAB PO STA; -ATORVASTATIN 80 MG TAB PO STA; -HYDROmorphone 0.5 MG/0.5 ML SYRINGE IVP STA; -hydrALAZINE HCL 20 MG/ML 1 ML VIAL IVP STA
[2019-08-16] MEDS ORDERED: SODIUM CHLORIDE 0.9% 1,000 ML IV ONE (06:35)
[2019-08-16 06:37] LABS: Basophils % (A) 0 %; Eosinophils # (A) 0.2 k/uL (0-0.7); Eosinophils % (A) 3 %; HCT 34.1 % (34.0-46.0); HGB 11.8 gm/dL (11.4-16.0); Lymphocytes % (A) 15 %; MCH 29.9 pg (25.0-35.0); MCHC 34.5 g/dL (31.0-37.0); MCV 86.6 fL (80.0-100.0); Mean Platelet Volume 7.5; Monocytes # (A) 0.3 k/uL (0-1.0); Monocytes % (A) 5 %; Neutrophils # (A) 4.7 k/uL (1.3-7.7); Neutrophils % (A) 75 %; Platelet Count 287 k/uL (150-450); RBC 3.94 m/uL (3.80-5.40); RDW 14.3 % (11.5-15.5); WBC 6.3 k/uL (3.8-10.6)
[2019-08-16 06:40] LABS: INR 1.1 (<1.2); Prothrombin Time 11.4 sec (9.0-12.0)
[2019-08-16 06:48] LABS: Calcium 8.8 mg/dL (8.4-10.2); Potassium 2.8 mmol/L (3.5-5.1)
[2019-08-16] MEDS ORDERED: ATORVASTATIN 80 MG TAB PO ONE (07:00)
[2019-08-16] MEDS ORDERED: ASPIRIN 325 MG TAB PO ONE (07:00)
[2019-08-16] MEDS: ALPRAZolam 0.25 MG TAB PO PRN (07:26)
[2019-08-16 09:29] LABS: Glucose,Whole Blood 220 mg/dL (75-99)
[2019-08-16 11:32] LABS: Glucose,Whole Blood 191 mg/dL (75-99)
[2019-08-16 12:48] LABS: Calcium 8.2 mg/dL (8.4-10.2); Potassium 2.8 mmol/L (3.5-5.1)
[2019-08-16] MEDS: SODIUM CHLORIDE TAB 1 GM TAB PO SCH ×2 (14:44→20:52)
[2019-08-16] MEDS ORDERED: POTASSIUM CHLORIDE 20 MEQ in WATER FOR INJECTION 1 100ML.BAG IVPB ONE ×2 (15:00→17:00)
[2019-08-16] MEDS ORDERED: POTASSIUM CHLORIDE ER 20 MEQ TAB.ER PO ONE ×2 (15:00→17:00)
[2019-08-16 17:05] LABS: Glucose,Whole Blood 200 mg/dL (75-99)
[2019-08-16 18:33] LABS: Albumin 3.8 g/dL (3.5-5.0); Calcium 8.1 mg/dL (8.4-10.2); Potassium 3.5 mmol/L (3.5-5.1); Total Bilirubin 0.7 mg/dL (0.2-1.3); Total Protein 6.5 g/dL (6.3-8.2)
--- NOTE | 2019-08-16 18:55 | CONS ---
CONSULTATION REASON FOR CONSULT: Renal failure. HISTORY OF PRESENT ILLNESS: Patient is a 74-year-old female who was admitted to the hospital initially for cardiac catheterization. However, she was found to have abnormal labs with severe hyponatremia, sodium of 121, potassium was low at 2.8, and therefore patient was admitted to the hospital with plans for hydration and possible catheterization in a.m. Her baseline creatinine has been about 1.3 mg/dL. She has CKD stage 3 secondary to nephrosclerosis. Previous creatinine was 1.5 in May of 2019. The patient was just admitted to the hospital end of July with volume overload. She was diuresed and she was sent home on metolazone 2.5 mg daily along with the Lasix at 40 mg b.i.d. It appears that the patient has diuresed very well. She currently has no swelling, however she is volume depleted with serum creatinine of 1.59 on initial admission. Blood pressure has been on the lower side with systolic around 101-120 mmHg. The patient is currently maintained on IV fluids. She states she feels fairly well. No diarrhea, nausea, vomiting, abdominal pain. PAST MEDICAL HISTORY: Chronic kidney disease stage 3, paroxysmal atrial fibrillation, valvular heart disease status post complex mitral valve repair and annuloplasty, chronic diastolic heart failure, type 2 diabetes, history of PE, gastroesophageal reflux disease, osteoarthritis, history of lung cancer, status post surgery, history of thyroid cancer with status post surgery, hemorrhoids, chronic back pain. PAST SURGICAL HISTORY: Bariatric surgery, mitral valve repair, , cholecystectomy, tonsillectomy, tubal ligation, left lower lobe resection of the lung, parathyroidectomy, EGD, colonoscopies, lysis of adhesions, and laparoscopic [id number]-[id number] surgery, D and C, cataract surgery and lens implants. SOCIAL HISTORY: Negative for smoking, drug abuse or alcohol abuse. Patient does have history of anxiety, depression. MEDICATIONS: Medications prior to admission included metolazone, Lasix loratadine, Coumadin, omeprazole, Zoloft, Rocaltrol, iron, Lasix, Synthroid, metoprolol, Zyloprim, Xanax, Pacerone. REVIEW OF SYSTEMS: As per HPI. Other systems negative. PHYSICAL EXAMINATION: On examination, patient is comfortable, awake, alert, oriented x3, not in any acute distress. Blood pressure this morning was 101/46, heart rate of 61 per minute. Patient is afebrile. Examination of the heart S1, S2. Examination of the lungs, bilateral breath sounds are heard. ABDOMEN: Soft, nontender. Examination of lower extremities shows no evidence of edema. LIFE SKILLS COORDINATOR exam grossly intact. LABS: Show sodium 121, potassium 2.8, chloride 68, BUN 74, creatinine 1.59. CO2 is 40. Hemoglobin 11.8 g/dL. ASSESSMENT: 1. Acute kidney injury, prerenal, currently maintained on IV hydration. 2. Hyponatremia, hypovolemic and secondary to thiazide diuretics as patient was recently started on metolazone since the last admission. We will hold off on all diuretics and maintain IV fluids in the form of normal saline. 3. Metabolic alkalosis secondary to diuretics, expect improvement with normal saline. 4. Hypokalemia secondary to diuretics. 5. History of diastolic heart failure. 6. Coronary artery disease with plans for cardiac catheterization most likely in a.m. if labs have improved. 7. Chronic kidney disease stage 3 secondary to nephrosclerosis. Baseline creatinine about 1.3 previously with recent acute kidney injury with peak creatinine of around 2 mg/dL. 8. History of lung cancer. 9. History of thyroid cancer status post surgery for both. 10.Valvular heart disease with history of mitral valve repair. PLAN: Maintain IV fluids in the form of normal saline. Repeat labs later on today. Hold off on all diuretics for now. Replace potassium aggressively and check magnesium levels as well. Thank you for this consultation. We will continue to follow the patient with you during her hospitalization. MMODL / IJN: [id number] /
[2019-08-16 20:07] LABS: Glucose,Whole Blood 171 mg/dL (75-99)
[2019-08-17 06:30] LABS: Basophils % (A) 0 %; Eosinophils # (A) 0.1 k/uL (0-0.7); Eosinophils % (A) 2 %; HCT 32.2 % (34.0-46.0); HGB 10.9 gm/dL (11.4-16.0); Lymphocytes # (A) 0.6 k/uL (1.0-4.8); Lymphocytes % (A) 10 %; MCH 30.3 pg (25.0-35.0); MCHC 33.8 g/dL (31.0-37.0); MCV 89.6 fL (80.0-100.0); Mean Platelet Volume 7.4; Monocytes # (A) 0.3 k/uL (0-1.0); Monocytes % (A) 5 %; Neutrophils # (A) 5.1 k/uL (1.3-7.7); Neutrophils % (A) 82 %; Platelet Count 215 k/uL (150-450); RDW 14.6 % (11.5-15.5); WBC 6.3 k/uL (3.8-10.6)
[2019-08-17 06:47] LABS: Glucose,Whole Blood 142 mg/dL (75-99)
[2019-08-17 06:50] LABS: Albumin 3.3 g/dL (3.5-5.0); Magnesium 2.1 mg/dL (1.6-2.3); Potassium 3.5 mmol/L (3.5-5.1)
[2019-08-17] MEDS ORDERED: IV FLUID CONTINUATION 1,000 ML IV ONE (07:40)
[2019-08-17] MEDS ORDERED: ASPIRIN 325 MG TAB PO ONE (07:40)
[2019-08-17] MEDS ORDERED: LIDOCAINE 1% INJ 10MG/ML (20 ML MDV) SQ ONE (07:56)
[2019-08-17] MEDS ORDERED: MIDAZOLAM 2 MG/2 ML VIAL IV ONE (07:56)
[2019-08-17] MEDS ORDERED: BIVALIRUDIN BOLUS 250 MG/50 ML IV ONE (08:00)
[2019-08-17] MEDS ORDERED: BIVALIRUDIN 250 MG in SODIUM CHLORIDE 0.9% 50 ML IV ONE (08:01)
[2019-08-17] MEDS ORDERED: ATROPINE SULFATE 0.1 MG/ML 10ML SYRINGE IV PRN (08:18)
[2019-08-17] MEDS ORDERED: IOPAMIDOL-370 125ML BTL INJ ONE (08:18)
[2019-08-17] MEDS ORDERED: CLOPIDOGREL 75 MG TAB PO ONE (08:18)
[2019-08-17] MEDS ORDERED: ZOLPIDEM 5 MG TAB PO PRN (08:18)
[2019-08-17] MEDS ORDERED: NITROGLYCERIN SL TABS 0.4 MG TAB SUBLINGUAL PRN (08:18)
[2019-08-17] MEDS ORDERED: RX INFO: IV CONTRAST WAS GIVEN 1 EACH MISC MISCELLANE PRN (08:18)
[2019-08-17] MEDS ORDERED: MAG HYDROX/AL HYDROX/SIMETH 30 ML CUP PO PRN (08:18)
[2019-08-17] MEDS ORDERED: SODIUM CHLORIDE 0.9% 1,000 ML IV SCH (08:30)
--- NOTE | 2019-08-17 08:51 | PTCA ---
PERCUTANEOUSTRANS CORORONARY ANGIOGRAPHY DATE OF SERVICE: 08/17/2019 PERFORMING PHYSICIAN: Rah Lin MD. PROCEDURE PERFORMED: Successful stenting of the ostial right coronary artery using 3.5 x 12 mm Xience MARLON with an excellent angiographic results and reduction of stenosis from 80% to 10%. INDICATION: This is a very pleasant 74-year-old female patient who was experiencing symptoms of shortness of breath with exertion. She underwent a heart catheterization recently and she was found to have severe disease involving the ostial right coronary artery. She was brought today to undergo an intervention on the RCA. APPROACH: Right common femoral artery. COMPLICATION: None. LEVEL OF SEDATION: Moderate with sedation length of 20 minutes. PROCEDURE DESCRIPTION: After obtaining an informed consent, the patient was brought to the cardiac kiln labourer. The right common femoral artery was cannulated using micropuncture technique, the micropuncture wire passed easily, then I placed a 6-Burmese sheath 11 cm at the right common femoral artery. Anticoagulation was initiated with Angiomax with bolus and drip per protocol considering the patient's chronic kidney disease. The RCA was engaged using JR3.5 short tip guide. The RCA was wired using a run-through wire. Angioplasty was performed using 2.5 x 10 mm AngioSculpt balloon which was inflated under 18 atmospheres for 20 seconds. Subsequently, I did perform stenting of the ostial RCA using 3.5 x 12 mm Xience MARLON where the stent was positioned under fluoroscopy guidance and deployed under 20 atmospheres for 20 seconds. The following angiogram showed excellent angiographic results and the procedure was completed without any complication. POSTPROCEDURE MANAGEMENT: 1. Dual anti-platelet therapy. 2. Risk factor modifications. 3. Follow up with the patient. MMODL / IJN: [id number] /
[2019-08-17] MEDS: ASPIRIN 325 MG TAB PO SCH (09:02)
[2019-08-17 09:06] LABS: Glucose,Whole Blood 164 mg/dL (75-99)
[2019-08-17] MEDS: ALPRAZolam 0.25 MG TAB PO PRN (11:23)
[2019-08-17 12:23] LABS: Glucose,Whole Blood 176 mg/dL (75-99)
[2019-08-17] MEDS ORDERED: ACETAMINOPHEN TAB 325 MG TAB PO PRN (13:55)
[2019-08-17] MEDS: SODIUM CHLORIDE TAB 1 GM TAB PO SCH ×3 (16:46→22:31)
[2019-08-17 17:28] LABS: Glucose,Whole Blood 196 mg/dL (75-99)
[2019-08-17 20:35] LABS: Glucose,Whole Blood 211 mg/dL (75-99)
[2019-08-17] MEDS: FUROSEMIDE 40 MG TAB PO SCH (21:07)
[2019-08-17 23:07] VITALS: RESP 16
[2019-08-18 06:21] LABS: Glucose,Whole Blood 154 mg/dL (75-99)
[2019-08-18 06:21] LABS: Basophils % (A) 0 %; Eosinophils # (A) 0.2 k/uL (0-0.7); Eosinophils % (A) 2 %; HCT 30.3 % (34.0-46.0); HGB 10.2 gm/dL (11.4-16.0); Lymphocytes # (A) 0.7 k/uL (1.0-4.8); Lymphocytes % (A) 11 %; MCH 30.1 pg (25.0-35.0); MCHC 33.7 g/dL (31.0-37.0); MCV 89.4 fL (80.0-100.0); Mean Platelet Volume 7.5; Monocytes # (A) 0.3 k/uL (0-1.0); Monocytes % (A) 5 %; Neutrophils # (A) 5.4 k/uL (1.3-7.7); Neutrophils % (A) 81 %; Platelet Count 246 k/uL (150-450); RBC 3.38 m/uL (3.80-5.40); RDW 14.6 % (11.5-15.5); WBC 6.6 k/uL (3.8-10.6)
[2019-08-18] MEDS ORDERED: LEVOTHYROXINE 112 MCG TAB PO SCH (06:30)
[2019-08-18 06:39] LABS: Calcium 8.3 mg/dL (8.4-10.2); Potassium 3.3 mmol/L (3.5-5.1)
[2019-08-18] MEDS ORDERED: AMIODARONE 200 MG TAB PO SCH (09:00)
[2019-08-18] MEDS ORDERED: METOPROLOL TARTRATE 12.5 MG TAB PO SCH (09:00)
[2019-08-18] MEDS ORDERED: POTASSIUM CHLORIDE ER 20 MEQ TAB.ER PO STA (09:05)
--- NOTE | 2019-08-18 09:05 | P.DS ---
Providers Date of admission: August 162019 Attending physician: Rah Lin Consults: 08/16/19 08:09 Consult Physician Stat Consulting Provider: Alia Morgan Consult Reason/Comments: current patient,renal insufficiency,abnormal labs Do you want consulting provider notified?: Already Contacted 08/17/19 08:18 Consult Physician Routine Consulting Provider: [facility] Consult Reason/Comments: Post Interventional patient Do you want consulting provider notified?: Already Contacted Primary care physician: [facility] Course: This is a very pleasant 74-year-old female patient was underwent yesterday elective angioplasty and stenting of the ostial right coronary artery with a good angiographic results and without any complication. The procedure was performed from the right groin which is soft and nontender and without any bruises. The patient is going to be discharged home on dual antiplatelet therapy as well as a statin and I'll follow-up with the patient next week in the office. The blood work was reviewed this morning and revealed mild hypokalemia which we are going to replace her potassium. Assessment: Patient uses visiting physicians for primary care Plan - Discharge Summary Discharge Rx Participant: No New Discharge Prescriptions: New Aspirin 325 mg PO DAILY #90 tab Atorvastatin Calcium [Lipitor] 20 mg PO DAILY #90 tab Clopidogrel [Plavix] 75 mg PO DAILY #90 tab Continue Multivitamins, Thera [Multivitamin (formulary)] 1 tab PO DAILY Omeprazole 40 mg PO DAILY Sertraline HCl [Zoloft] 100 mg PO DAILY Levothyroxine Sodium 112 mcg PO DAILY Amiodarone HCl [Pacerone] 200 mg PO DAILY Metoprolol Tartrate [Lopressor] 12.5 mg PO DAILY Allopurinol [Zyloprim] 100 mg PO DAILY ALPRAZolam [Xanax] 0.25 mg PO HS Furosemide [Lasix] 40 mg PO BID Metolazone [Zaroxolyn] 2.5 mg PO DAILY Calcitriol [Rocaltrol] 0.25 mcg PO ORNELAS [employer] Gummie 3 tab PO DAILY Ferrous Sulfate [Iron (65 MG Elemental)] 325 mg PO BID Loratadine [Claritin] 10 mg PO DAILY Discontinued Warfarin Sodium 1 mg PO HS #0 Discharge Medication List Multivitamins, Thera [Multivitamin (formulary)] 1 tab PO DAILY 01/09/14 [History] ALPRAZolam [Xanax] 0.25 mg PO HS 01/30/19 [History] Allopurinol [Zyloprim] 100 mg PO DAILY 01/30/19 [History] Amiodarone HCl [Pacerone] 200 mg PO DAILY 01/30/19 [History] Levothyroxine Sodium 112 mcg PO DAILY 01/30/19 [History] Metoprolol Tartrate [Lopressor] 12.5 mg PO DAILY 01/30/19 [History] Omeprazole 40 mg PO DAILY 01/30/19 [History] Sertraline HCl [Zoloft] 100 mg PO DAILY 01/30/19 [History] Furosemide [Lasix] 40 mg PO BID 02/19/19 [History] Calcitriol [Rocaltrol] 0.25 mcg PO ORNELAS 07/11/19 [History] Metolazone [Zaroxolyn] 2.5 mg PO DAILY 07/11/19 [History] Ferrous Sulfate [Iron (65 MG Elemental)] 325 mg PO BID 08/05/19 [History] Hairskin And Nails Gummie 3 tab PO DAILY 08/05/19 [History] Loratadine [Claritin] 10 mg PO DAILY 08/14/19 [History] Aspirin 325 mg PO DAILY #90 tab 08/17/19 [Rx] Atorvastatin Calcium [Lipitor] 20 mg PO DAILY #90 tab 08/17/19 [Rx] Clopidogrel [Plavix] 75 mg PO DAILY #90 tab 08/17/19 [Rx] Follow up Appointment(s)/Referral(s): Rehab [facility],Cardiac [NON-STAFF] - (After discharge, you will follow-up with your brush or broom cutter. Once you have obtained a prescription for cardiac rehab, please call [phone] to set up an evaluation.) Rah Lin MD [STAFF PHYSICIAN] - 08/23/19 9:00 am Patient Instructions/Handouts: *Surgery [facility] - After Heart Catheterization - Sawing And Assembly Supervisor Instructions, Heart Healthy Diet (DC) Activity/Diet/Wound Care/Special Instructions: CARDIAC CATH 1. Support your puncture site by applying firm, steady pressure whenever you cough, laugh, sneeze or bear down to have a bowel movement (2-day restriction). 2. Watch for any excessive bruising, active bleeding, a firm knot forming under your skin, extreme tenderness and signs of infection (redness, swelling, fever). 3. Shower daily, do not soak puncture in a tub bath, jacuzzi, pool, marcus etc. for 1 week. This is to prevent risk of infection. 4. Drink plenty of fluids the day of and day after your procedure to flush contrast dye out of your kidneys. 5. Take all medications as directed. Never stop any new medication without your physicians OK. 6. No driving for 2 days after procedure. 7. 10- pound weight lifting restriction for 1 week. 8. Low sodium/low fat diet. 9. Activity limited until follow up appointment with your brush or broom cutter. In case of any problems, please call [facility], Philip Andino @ [phone].
[2019-08-18] MEDS: ASPIRIN 325 MG TAB PO SCH (09:49)
[2019-08-18] MEDS: CLOPIDOGREL 75 MG TAB PO SCH ×2 (09:49→09:55)
[2019-08-18] MEDS: FUROSEMIDE 40 MG TAB PO SCH (09:49)
[2019-08-18 10:11] VITALS: BP 107/61; PULSE 80; TEMP 98
[2019-08-18] MEDS: SODIUM CHLORIDE TAB 1 GM TAB PO SCH (11:21)
== END 2019-08-18 11:25 | disposition home or self-care (01) ==
LOC: CATHCVL 05:52 → 1SOBS 07:31 → 3SCARD 08-17 09:40 → CATHCVL 08-18 08:11 → 3SCARD 08-18 11:25 → CATHCVL 08-18 11:25
PROVIDERS: ADMIT Internal Medicine Interventional Cardiology; ATTEND Internal Medicine Interventional Cardiology
DX: I25.10 Atherosclerotic heart disease of native coronary artery without angina pectoris (principal); E87.1 Hypo-osmolality and hyponatremia; N17.9 Acute kidney failure, unspecified; E11.649 Type 2 diabetes mellitus with hypoglycemia without coma; I13.0 Hypertensive heart and chronic kidney disease with heart failure and stage 1 through stage 4 chronic kidney disease, or unspecified chronic kidney disease; N18.3 Chronic kidney disease, stage 3 (moderate); I50.33 Acute on chronic diastolic (congestive) heart failure; E11.22 Type 2 diabetes mellitus with diabetic chronic kidney disease; I48.0 Paroxysmal atrial fibrillation; I08.1 Rheumatic disorders of both mitral and tricuspid valves; E89.0 Postprocedural hypothyroidism; K44.9 Diaphragmatic hernia without obstruction or gangrene; R26.9 Unspecified abnormalities of gait and mobility; M51.9 Unspecified thoracic, thoracolumbar and lumbosacral intervertebral disc disorder; E87.3 Alkalosis; E86.1 Hypovolemia; I44.0 Atrioventricular block, first degree; I45.10 Unspecified right bundle-branch block; Z85.850 Personal history of malignant neoplasm of thyroid; Z85.118 Personal history of other malignant neoplasm of bronchus and lung; Z86.711 Personal history of pulmonary embolism; Z86.718 Personal history of other venous thrombosis and embolism; K21.9 Gastro-esophageal reflux disease without esophagitis; M19.90 Unspecified osteoarthritis, unspecified site; M54.5 Low back pain; G89.29 Other chronic pain; F41.9 Anxiety disorder, unspecified; F32.9 Major depressive disorder, single episode, unspecified; Z91.040 Latex allergy status; Z91.048 Other nonmedicinal substance allergy status; Z79.01 Long term (current) use of anticoagulants; Z79.890 Hormone replacement therapy; Z79.899 Other long term (current) drug therapy; Z79.84 Long term (current) use of oral hypoglycemic drugs; Z91.011 Allergy to milk products; Z98.84 Bariatric surgery status; Z95.4 Presence of other heart-valve replacement; Z90.49 Acquired absence of other specified parts of digestive tract; Z90.89 Acquired absence of other organs; Z98.51 Tubal ligation status; Z98.42 Cataract extraction status, left eye; Z98.41 Cataract extraction status, right eye; Z96.1 Presence of intraocular lens; Z83.3 Family history of diabetes mellitus; Z82.49 Family history of ischemic heart disease and other diseases of the circulatory system
CPT/HCPCS: 93005; 80053 ×2; 80048 ×2; 83735 ×2; 85025 ×3; 85610; 83935; G0378; C9600; C1769 ×4; C1887; C1894; C1725; C1874; J2250; J3480; J2001; J0583; Q9967

== ENCOUNTER 2019-11-08 17:16 | Inpatient (IN) | payer MEDICARE ==
[2019-11-08 20:04] LABS: Glucose,Whole Blood 150 mg/dL (75-99)
[2019-11-08 20:09] LABS: INR 2.3 (<1.2); Prothrombin Time 22.4 sec (9.0-12.0)
--- NOTE | 2019-11-08 20:24 | XR ---
EXAMINATION TYPE: XR chest 2V DATE OF EXAM: 11/08/2019 COMPARISON: 08/05/2019 HISTORY: Short of breath TECHNIQUE: FINDINGS: Heart is enlarged. There is mild pulmonary congestion. There is some blunting of the costop hrenic angles. There are sternal wires. There are chest leads. IMPRESSION: Cardiomegaly. Small pleural effusions. There is evidence for mild congestive heart failur e unchanged compared to old exam.
[2019-11-08] MEDS: ATORVASTATIN 20 MG TAB PO SCH (20:47)
[2019-11-08] MEDS: FUROSEMIDE 10 MG/ML 2 ML VIAL IV SCH (20:47)
[2019-11-08] MEDS: WARFARIN 1 MG TAB PO SCH (20:47)
[2019-11-08] MEDS: ALPRAZolam 0.25 MG TAB PO SCH (20:47)
[2019-11-08] MEDS: FERROUS SULFATE 325 MG TAB PO SCH (20:47)
[2019-11-09] MEDS: INSULIN ASPART (NovoLOG) 100 UNIT/ML VIAL SQ SCH ×4 (06:28→21:18)
[2019-11-09 06:29] LABS: Glucose,Whole Blood 155 mg/dL (75-99)
[2019-11-09] MEDS: LEVOTHYROXINE 112 MCG TAB PO SCH (06:29)
[2019-11-09] MEDS: PANTOPRAZOLE 40 MG TABLET PO SCH (06:29)
[2019-11-09 06:37] LABS: Basophils % (A) 1 %; Eosinophils # (A) 0.3 k/uL (0-0.7); Eosinophils % (A) 6 %; HCT 31.6 % (34.0-46.0); Lymphocytes # (A) 0.9 k/uL (1.0-4.8); Lymphocytes % (A) 20 %; MCH 29.6 pg (25.0-35.0); MCHC 31.5 g/dL (31.0-37.0); MCV 94.1 fL (80.0-100.0); Mean Platelet Volume 8.1; Monocytes # (A) 0.3 k/uL (0-1.0); Monocytes % (A) 7 %; Neutrophils # (A) 2.8 k/uL (1.3-7.7); Neutrophils % (A) 65 %; Platelet Count 180 k/uL (150-450); RBC 3.36 m/uL (3.80-5.40); RDW 14.2 % (11.5-15.5); WBC 4.3 k/uL (3.8-10.6)
[2019-11-09 06:46] LABS: INR 2.4 (<1.2); Prothrombin Time 23.6 sec (9.0-12.0)
[2019-11-09 07:01] LABS: Calcium 7.7 mg/dL (8.4-10.2); Potassium 3.3 mmol/L (3.5-5.1)
[2019-11-09] MEDS: METOPROLOL TARTRATE 12.5 MG TAB PO SCH (10:02)
[2019-11-09] MEDS: ALLOPURINOL 100 MG TAB PO SCH (10:03)
[2019-11-09] MEDS: FERROUS SULFATE 325 MG TAB PO SCH ×2 (10:03→21:18)
[2019-11-09] MEDS: AMIODARONE 200 MG TAB PO SCH (10:03)
[2019-11-09] MEDS: ATORVASTATIN 20 MG TAB PO SCH (10:03)
[2019-11-09] MEDS: MULTIVITAMINS, THERA 1 EACH TAB PO SCH (10:03)
[2019-11-09] MEDS: LORATADINE 10 MG TAB PO SCH (10:03)
[2019-11-09] MEDS: ASPIRIN 325 MG TAB PO SCH (10:03)
[2019-11-09] MEDS: FUROSEMIDE 10 MG/ML 2 ML VIAL IV SCH ×2 (10:03→21:18)
[2019-11-09] MEDS: SERTRALINE 100 MG TAB PO SCH (10:03)
[2019-11-09] MEDS: CLOPIDOGREL 75 MG TAB PO SCH (10:07)
[2019-11-09 11:53] LABS: Glucose,Whole Blood 149 mg/dL (75-99)
[2019-11-09] MEDS ORDERED: POTASSIUM CHLORIDE ER 20 MEQ TAB.ER PO STA (13:24)
--- NOTE | 2019-11-09 13:27 | P.NPCON ---
History of Present Illness - Reason for Consult acute renal failure, chronic renal failure - History of Present Illness Reason for consultation: Acute kidney injury on chronic kidney disease History of present illness: Patient is a 74-year-old female seen in consultation for acute kidney injury on chronic kidney disease. Patient has chronic kidney disease stage III with baseline creatinine near 1.5. However recently her creatinine has been higher. Diuretics were decreased due to worsening kidney injury outpatient. Zaroxolyn was discontinued. Patient's creatinine as of 10/25/2019 was 3.1. It is 3.8 today. Patient denies chest pain or shortness of breath. However she does complain of swelling in her lower extremities. She is currently maintained on Lasix 20 mg IV twice daily. She admits to good urine output. No hematuria or dysuria.denies use of nonsteroidals. Blood pressure has been stable in the systolic 115 to 125 range this admission. She denies dizziness.states she has history of diabetes but is currently not maintained on any medications. Echocardiogram from January 2019 revealed preserved ejection fraction with mild to moderate mitral regurgitation, moderate mitral stenosis, moderate tricuspid regurgitation and severe pulmonary hypertension. Vital signs are stable. General: The patient appeared well nourished and normally developed. HEENT: Head exam is unremarkable. Neck is without jugular venous distension. LUNGS: Lungs are clear to auscultation and percussion. Breath sounds decreased. HEART: Rate and Rhythm are regular. ABDOMEN: Soft, nontender. EXTREMITITES: 2+ edema. Past Medical History Past Medical History: Blood Disorder, Coronary Artery Disease (CAD), Cancer, Heart Failure, Diabetes Mellitus, Deep Vein Thrombosis (DVT), GERD/Reflux, Hypertension, Osteoarthritis (OA), Pulmonary Embolus (PE) Additional Past Medical History / Comment(s): NIDDM type II, 2004 L lung cancer with surgery, 2000 thyroid cancer with surgery/hypothyroid, bilateral PEs, DVT R leg, hiatal hernia, hemorrhoids, DDD, occasional low back pain, gait disturbance, sinus problems. History of Any Multi-Drug Resistant Organisms: None Reported Past Surgical History: Bariatric Surgery, Cardiac Valve Replacement, Section, Cholecystectomy, Tonsillectomy, Tubal Ligation Additional Past Surgical History / Comment(s): L lower lobe resection, parathyroidectomy, cardiac valve repair, EGD, colonoscopy, lap ewa en Y with lysis of adhesions, D&C, bilateral cataract removals/lens implants. Past Anesthesia/Blood Transfusion Reactions: Motion Sickness, No Reported Reaction Past Psychological History: Anxiety, Depression Additional Psychological History / Comment(s): Pt resides alone in [facility]. She uses a walker to ambulate. pts. daughter drives her to appointments Smoking Status: Never smoker Past Alcohol Use History: None Reported Past Drug Use History: None Reported - Past Family History Mother Family Medical History: No Reported History Father Family Medical History: Diabetes Mellitus, Myocardial Infarction ([place]) Medications and Allergies Home Medications Medication Instructions Recorded Confirmed Type ALPRAZolam [Xanax] 0.25 mg PO HS 01/30/19 11/08/19 History Allopurinol [Zyloprim] 100 mg PO DAILY 01/30/19 11/08/19 History Amiodarone HCl [Pacerone] 200 mg PO DAILY 01/30/19 11/08/19 History Levothyroxine Sodium 112 mcg PO DAILY 01/30/19 11/08/19 History Metoprolol Tartrate [Lopressor] 12.5 mg PO DAILY 01/30/19 11/08/19 History Omeprazole 40 mg PO DAILY 01/30/19 11/08/19 History Sertraline HCl [Zoloft] 100 mg PO HS 01/30/19 11/08/19 History Furosemide [Lasix] 80 mg PO BID 02/19/19 11/08/19 History Calcitriol [Rocaltrol] 0.25 mcg PO ORNELAS 07/11/19 11/08/19 History Ferrous Sulfate [Iron (65 MG 325 mg PO BID 08/05/19 11/08/19 History Elemental)] Loratadine [Claritin] 10 mg PO DAILY 08/14/19 11/08/19 History Aspirin 325 mg PO DAILY #90 tab 08/17/19 11/08/19 Rx Atorvastatin Calcium [Lipitor] 20 mg PO DAILY #90 tab 08/17/19 11/08/19 Rx Clopidogrel [Plavix] 75 mg PO DAILY #90 tab 08/17/19 11/08/19 Rx Multivitamin [Multivitamins Adult 1 tab PO DAILY 11/08/19 11/08/19 History Gummies] Warfarin Sodium [Jantoven] 1.5 mg PO MOFR 11/08/19 11/08/19 History Warfarin [Coumadin] 1 mg PO SUTUWETHSA 11/08/19 11/08/19 History Allergies Allergy/AdvReac Type Severity Reaction Status Date / Time latex Allergy Rash/Hives Verified 08/16/19 06:14 iodine AdvReac Intermediate MOTHER IS Verified 08/16/19 06:14 ALLERGIC lactose AdvReac Diarrhea Verified 08/16/19 06:14 Physical Exam Vitals: Vital Signs Temp Pulse Resp BP Pulse Ox 11/09/19 08:00 98.3 F 71 18 120/58 95 11/09/19 03:15 97.5 F L 58 L 16 126/56 93 L 11/08/19 23:00 98.3 F 65 16 125/58 95 11/08/19 20:00 98 F 57 L 18 114/51 96 11/08/19 18:35 62 19 11/08/19 18:04 97.3 F L 62 19 118/70 95 Intake and Output 11/08/19 11/09/19 11/09/19 22:59 06:59 14:59 Intake Total 180 Output Total 700 300 Balance -700 -120 Intake: Oral 180 Output: Urine 700 300 Other: Voiding Method Toilet Toilet Toilet # Voids 1 Weight 90.265 kg 87.9 kg Results - Lab Results Most recent lab results Calcium 7.7 mg/dL (8.4-10.2) L 11/09/19 06:16 11/09/19 06:16 11/09/19 06:16 Assessment and Plan Plan: assessment: 1. Acute kidney injury secondary to ATN secondary to cardiorenal syndrome. Creatinine 3.8 today. 2. Chronic kidney disease stage III with baseline creatinine near 1.5 secondary to nephrosclerosis. 3. Volume overload. 4. Acute on chronic diastolic CHF with mild to moderate mitral regurgitat ion,moderate mitral stenosis, moderate tricuspid regurgitation and severe pulmonary hypertension. 5. Hypokalemia secondary to diuresis. Plan: Increase Lasix to 40 mg IV twice daily. Check bladder scan to rule out urinary retention. Replace potassium. 40 mEq today. Check urinalysis. Repeat electrolytes in the morning. Low-salt diet and 1500 mL fluid resection. Thank you for the consultation. I will continue to follow the patient with you during her hospital stay.
--- NOTE | 2019-11-09 14:32 | P.CRDCN ---
History of Present Illness Consult date: 11/09/19 Chief complaint: Increasing in the shortness of breath History of present illness: This is a very pleasant 74-year-old female patient who following the office as an outpatient with extensive past medical history consistent off history of repair complex mitral valve was performed in the past, coronary artery disease and status post a stenting of the RCA, paroxysmal atrial fibrillation, diabetes, hypertension, dyslipidemia, and chronic diastolic congestive heart failure. The patient was directly admitted to the hospital because of increasing shortness of breath and worsening renal function. She has been struggling with increasing in the shortness of breath for the last several weeks and also increasing in the lower extremities edema. She was managed medically by myself as well as by the nephrology service through Dr. Morgan. Because she did not response to conservative medical approach and by mouth diuretics we also patient to come to the hospital. Yesterday her daughter called that the patient did undergo a blood work which I reviewed by myself and that revealed worsening renal function with a creatinine of about before. Also she stated that her shortness of breath has been worse compared to before. I directed the patient to be admitted to the hospital and I started her on Lasix at 20 mg IV twice a day which was increased by nephrology service to 40 mg IV twice a day. When the patient was seen today, she stated that she is feeling better in terms of shortness of breath. She still have diminished breathing sounds bilaterally. She's to have severe bilateral lower extremities edema. The creatinine has improved yebetween sterday to today and also the patient lost about 6 pounds between yesterday and today as well. I am going to keep her on the current dose of IV diuretics. She is in process of seeing a gunsmith apprentice at [facility] for possible mitral valve clip. The last transesophageal echocardiogram revealed normal left ventricular systolic function was evidence of moderate to severe mitral r egurgitation she does have quite significant pansystolic murmur. Past Medical History Past Medical History: Blood Disorder, Coronary Artery Disease (CAD), Cancer, Heart Failure, Diabetes Mellitus, Deep Vein Thrombosis (DVT), GERD/Reflux, Hypertension, Osteoarthritis (OA), Pulmonary Embolus (PE) Additional Past Medical History / Comment(s): NIDDM type II, 2004 L lung cancer with surgery, 2000 thyroid cancer with surgery/hypothyroid, bilateral PEs, DVT R leg, hiatal hernia, hemorrhoids, DDD, occasional low back pain, gait disturb ance, sinus problems. History of Any Multi-Drug Resistant Organisms: None Reported Past Surgical History: Bariatric Surgery, Cardiac Valve Replacement, Section, Cholecystectomy, Tonsillectomy, Tubal Ligation Additional Past Surgical History / Comment(s): L lower lobe resection, parathyroidectomy, cardiac valve repair, EGD, colonoscopy, lap ewa en Y with lysis of adhesions, D&C, bilateral cataract removals/lens implants. Past Anesthesia/Blood Transfusion Reactions: Motion Sickness, No Reported Reaction Past Psychological History: Anxiety, Depression Additional Psychological History / Comment(s): Pt resides alone in [place]. She uses a walker to ambulate. pts. daughter drives her to appointments Smoking Status: Never smoker Past Alcohol Use History: None Reported Past Drug Use History: None Reported - Past Family History Mother Family Medical History: No Reported History Father Family Medical History: Diabetes Mellitus, Myocardial Infarction ([place]) Medications and Allergies Home Medications Medication Instructions Recorded Confirmed Type ALPRAZolam [Xanax] 0.25 mg PO HS 01/30/19 11/08/19 History Allopurinol [Zyloprim] 100 mg PO DAILY 01/30/19 11/08/19 History Amiodarone HCl [Pacerone] 200 mg PO DAILY 01/30/19 11/08/19 History Levothyroxine Sodium 112 mcg PO DAILY 01/30/19 11/08/19 History Metoprolol Tartrate [Lopressor] 12.5 mg PO DAILY 01/30/19 11/08/19 History Omeprazole 40 mg PO DAILY 01/30/19 11/08/19 History Sertraline HCl [Zoloft] 100 mg PO HS 01/30/19 11/08/19 History Furosemide [Lasix] 80 mg PO BID 02/19/19 11/08/19 History Calcitriol [Rocaltrol] 0.25 mcg PO ORNELAS 07/11/19 11/08/19 History Ferrous Sulfate [Iron (65 MG 325 mg PO BID 08/05/19 11/08/19 History Elemental)] Loratadine [Claritin] 10 mg PO DAILY 08/14/19 11/08/19 History Aspirin 325 mg PO DAILY #90 tab 08/17/19 11/08/19 Rx Atorvastatin Calcium [Lipitor] 20 mg PO DAILY #90 tab 08/17/19 11/08/19 Rx Clopidogrel [Plavix] 75 mg PO DAILY #90 tab 08/17/19 11/08/19 Rx Multivitamin [Multivitamins Adult 1 tab PO DAILY 11/08/19 11/08/19 History Gummies] Warfarin Sodium [Jantoven] 1.5 mg PO MOFR 11/08/19 11/08/19 History Warfarin [Coumadin] 1 mg PO SUTUWETHSA 11/08/19 11/08/19 History Allergies Allergy/AdvReac Type Severity Reaction Status Date / Time latex Allergy Rash/Hives Verified 08/16/19 06:14 iodine AdvReac Intermediate MOTHER IS Verified 08/16/19 06:14 ALLERGIC lactose AdvReac Diarrhea Verified 08/16/19 06:14 Physical Exam Vitals: Vital Signs Temp Pulse Resp BP Pulse Ox 11/09/19 12:00 97.1 F L 60 18 100/44 95 11/09/19 08:00 98.3 F 71 18 120/58 95 11/09/19 03:15 97.5 F L 58 L 16 126/56 93 L 11/08/19 23:00 98.3 F 65 16 125/58 95 11/08/19 20:00 98 F 57 L 18 114/51 96 11/08/19 18:35 62 19 11/08/19 18:04 97.3 F L 62 19 118/70 95 Intake and Output 11/08/19 11/09/19 11/09/19 22:59 06:59 14:59 Intake Total 180 Output Total 700 300 Balance -700 -120 Intake: Oral 180 Output: Urine 700 300 Other: Voiding Method Toilet Toilet Toilet # Voids 1 Weight 90.265 kg 87.9 kg 87.9 kg - Constitutional General appearance: no acute distress - Respiratory Respiratory: bilateral: diminished - Cardiovascular Rhythm: regular Heart sounds: normal: S1, S2 Abnormal Heart Sounds: systolic murmur Results 11/09/19 06:16 11/09/19 06:16 Coagulation 11/08/19 11/09/19 Range/Units 19:39 06:16 PT 22.4 H 23.6 H (9.0-12.0) sec CBC 11/09/19 Range/Units 06:16 WBC 4.3 (3.8-10.6) k/uL RBC 3.36 L (3.80-5.40) m/uL Hgb 10.0 L (11.4-16.0) gm/dL Hct 31.6 L (34.0-46.0) % Plt Count 180 (150-450) k/uL Comprehensive Metabolic Panel 11/09/19 Range/Units 06:16 Sodium 137 (137-145) mmol/L Potassium 3.3 L (3.5-5.1) mmol/L Chloride 99 (98-107) mmol/L Carbon Dioxide 31 H (22-30) mmol/L BUN 97 H (7-17) mg/dL Creatinine 3.80 H (0.52-1.04) mg/dL Glucose 137 H (74-99) mg/dL Calcium 7.7 L (8.4-10.2) mg/dL Current Medications Generic Name Dose Route Start Last Admin Trade Name Freq PRN Reason Stop Dose Admin Allopurinol 100 mg 11/09/19 09:00 11/09/19 10:03 Zyloprim PO 100 mg DAILY KEYLA Administration Alprazolam 0.25 mg 11/08/19 21:00 11/08/19 20:47 Xanax PO 0.25 mg HS KEYLA Administration Amiodarone HCl 200 mg 11/09/19 09:00 11/09/19 10:03 Cordarone PO 200 mg DAILY KEYLA Administration Aspirin 325 mg 11/09/19 09:00 11/09/19 10:03 Aspirin PO 325 mg DAILY KEYLA Administration Atorvastatin Calcium 20 mg 11/08/19 19:00 11/09/19 10:03 Lipitor PO 20 mg DAILY KEYLA Administration Clopidogrel Bisulfate 75 mg 11/09/19 09:00 11/09/19 10:07 Plavix PO 75 mg DAILY KEYLA Administration Ferrous Sulfate 325 mg 11/08/19 21:00 11/09/19 10:03 Feosol PO 325 mg BID KEYLA Administration Furosemide 40 mg 11/09/19 21:00 Lasix IV Q12HR [facility] Insulin Aspart 0 unit 11/09/19 07:30 11/09/19 12:25 Novolog SQ 1 unit ACHS KEYLA Administration Protocol Levothyroxine Sodium 112 mcg 11/09/19 06:30 11/09/19 06:29 Synthroid PO 112 mcg DAILY@0630 KEYLA Administration Loratadine 10 mg 11/09/19 09:00 11/09/19 10:03 Claritin PO 10 mg DAILY KEYLA Administration Metoprolol Tartrate 12.5 mg 11/09/19 09:00 11/09/19 10:02 Lopressor PO 12.5 mg DAILY KEYLA Administration Multivitamins 1 each 11/09/19 09:00 11/09/19 10:03 Theragran PO 1 each DAILY KEYLA Administration Pantoprazole Sodium 40 mg 11/09/19 07:30 11/09/19 06:29 Protonix PO 40 mg [id number] KEYLA Administration Sertraline HCl 100 mg 11/09/19 09:00 11/09/19 10:03 Zoloft PO 100 mg DAILY KEYLA Administration Warfarin Sodium 1 mg 11/08/19 19:00 11/08/19 20:47 Coumadin PO 1 mg [id number] KEYLA Administration Protocol Warfarin Sodium 1.5 mg 11/09/19 18:00 Coumadin PO [id number] KEYLA Intake and Output 11/08/19 11/09/19 11/09/19 22:59 06:59 14:59 Intake Total 180 Output Total 700 300 Balance -700 -120 Intake: Oral 180 Output: Urine 700 300 Other: Voiding Method Toilet Toilet Toilet # Voids 1 Weight 90.265 kg 87.9 kg 87.9 kg Patient Weight 11/10/19 06:59 Weight 87.9 kg 11/09/19 06:16 11/09/19 06:16 Assessment and Plan Assessment: Assessment #1 congestive heart failure exacerbation secondary to diastolic dysfunction #2 moderate to severe mitral regurgitation #3 history of mitral valve repair #4 coronary artery disease and status post PCI of the RCA #4 accessible atrial fibrillation #5 multiple comorbid conditions Plan #1 continue the current dose of Lasix IV. #2 nephrology is on the case as well #3 continue monitor the kidney function and electrolytes #4 follow-up with the patient Thank you for allowing us participate in her care
[2019-11-09 16:59] LABS: Glucose,Whole Blood 144 mg/dL (75-99)
[2019-11-09] MEDS: WARFARIN 1.5 MG TAB PO SCH (17:02)
[2019-11-09 17:30] LABS: Appearance,Urine Clear (Clear); Bacteria,Urine Rare /hpf; Bilirubin,Urine Negative (Negative); Blood,Urine Negative (Negative); Color,Urine Yellow; Glucose,Urine (UA) Negative (Negative); Ketones,Urine Negative (Negative); Leukocyte Esterase,Urine Moderate (Negative); Mucus,Urine Rare /hpf; Nitrite,Urine Negative (Negative); Protein,Urine Negative (Negative); RBC,Urine <1 /hpf (0-5); Squamous Epithelial Cell,Urine 2 /hpf (0-4); Urobilinogen,Urine <2.0 mg/dL (<2.0); WBC,Urine 5 /hpf (0-5)
[2019-11-09] MEDS: MIDODRINE 5 MG TAB PO SCH (20:35)
[2019-11-09 20:53] LABS: Glucose,Whole Blood 181 mg/dL (75-99)
[2019-11-09] MEDS: ALPRAZolam 0.25 MG TAB PO SCH (21:18)
[2019-11-10] MEDS: INSULIN ASPART (NovoLOG) 100 UNIT/ML VIAL SQ SCH ×4 (06:20→20:54)
[2019-11-10 06:21] LABS: Glucose,Whole Blood 113 mg/dL (75-99)
[2019-11-10] MEDS: LEVOTHYROXINE 112 MCG TAB PO SCH (06:21)
[2019-11-10] MEDS: MIDODRINE 5 MG TAB PO SCH ×2 (06:21→17:33)
[2019-11-10] MEDS: PANTOPRAZOLE 40 MG TABLET PO SCH (06:22)
[2019-11-10 07:11] LABS: Calcium 7.8 mg/dL (8.4-10.2); Magnesium 2.1 mg/dL (1.6-2.3); Potassium 3.6 mmol/L (3.5-5.1)
[2019-11-10] MEDS: MULTIVITAMINS, THERA 1 EACH TAB PO SCH (08:57)
[2019-11-10] MEDS: SERTRALINE 100 MG TAB PO SCH (08:57)
[2019-11-10] MEDS: FUROSEMIDE 10 MG/ML 2 ML VIAL IV SCH ×3 (08:58→20:54)
[2019-11-10] MEDS: AMIODARONE 200 MG TAB PO SCH (08:58)
[2019-11-10] MEDS: FERROUS SULFATE 325 MG TAB PO SCH ×2 (08:58→20:54)
[2019-11-10] MEDS: LORATADINE 10 MG TAB PO SCH (08:58)
[2019-11-10] MEDS: ATORVASTATIN 20 MG TAB PO SCH (08:58)
[2019-11-10] MEDS: CLOPIDOGREL 75 MG TAB PO SCH (08:58)
[2019-11-10] MEDS: ALLOPURINOL 100 MG TAB PO SCH (08:58)
[2019-11-10] MEDS: ASPIRIN 325 MG TAB PO SCH (08:58)
[2019-11-10] MEDS: METOPROLOL TARTRATE 12.5 MG TAB PO SCH (08:58)
[2019-11-10 12:00] LABS: Glucose,Whole Blood 138 mg/dL (75-99)
--- NOTE | 2019-11-10 13:10 | PN ---
PROGRESS NOTE Patient is seen for follow up for acute kidney injury on top of chronic kidney disease, mainly cardiorenal. The patient is currently being diuresed. Her renal function is slightly improved with creatinine going down to 3.65 from 3.8 on initial admission. Her baseline creatinine for CKD has been about 1.5-1.4 mg/dL. EXAMINATION: Today patient is comfortable. She is not in any acute distress. Blood pressure is 90/43, heart rate 56 per minute, she is afebrile examination of the heart S1, S2. Examination of the lungs, decreased breath sounds at bases. Abdomen is soft, nontender. Examination of lower extremities shows edema 1+ bilaterally. Chronic skin changes are noted. AIRPORT SALES AGENT exam grossly intact. LABS: Show sodium of 139, potassium 3.6, chloride 101, BUN 97, serum creatinine 3.65. UA is completely benign. ASSESSMENT: 1. Acute kidney injury, cardiorenal, currently slightly improved. May continue with current dose of IV Lasix as renal function is improving. There is also a component of hypotension, hypoperfusion, and patient is maintained on midodrine which I will increase to 10 mg b.i.d. 2. Congestive heart failure, acute on top of chronic, mainly diastolic. 3. Moderate mitral regurgitation, moderate mitral stenosis and severe pulmonary hypertension. 4. Hypokalemia associated with diuresis. 5. Chronic kidney disease stage 3 secondary to nephrosclerosis. Baseline creatinine around 1.5 mg/dL. PLAN: Continue with IV Lasix for now. Increase midodrine. Replace sodium. Repeat labs in a.m. Continue to avoid nephrotoxic agents. MMODL / IJN: [id number] /
--- NOTE | 2019-11-10 13:17 | P.PN ---
Subjective Progress Note Date: 11/10/19 This is a very pleasant 74-year-old female patient who following the office as an outpatient with extensive past medical history consistent off history of repair complex mitral valve was performed in the past, coronary artery disease and status post a stenting of the RCA, paroxysmal atrial fibrillation, diabetes, hypertension, dyslipidemia, and chronic diastolic congestive heart failure. The patient was directly admitted to the hospital because of increasing shortness of breath and worsening renal function. She has been struggling with increasing in the shortness of breath for the last several weeks and also increasing in the lower extremities edema. She was managed medically by myself as well as by the nephrology service through Dr. Morgan. Because she did not response to conservative medical approach and by mouth diuretics we also patient to come to the hospital. Yesterday her daughter called that the patient did undergo a blood work which I reviewed by myself and that revealed worsening renal function with a creatinine of about before. Also she stated that her shortness of breath has been worse compared to before. I directed the patient to be admitted to the hospital and I started her on Lasix at 20 mg IV twice a day which was increased by nephrology service to 40 mg IV twice a day. When the patient was seen today, she stated that she is feeling better in terms of shortness of breath. She still have diminished breathing sounds bilaterally. She's to have severe bilateral lower extremities edema. The creatinine has improved yebetween sterday to today and also the patient lost about 6 pounds between yesterday and today as well. I am going to keep her on the current dose of IV diuretics. She is in process of seeing a hand cigar maker at [facility] for possible mitral valve clip. The last transesophageal echocardiogram revealed normal left ventricular systolic function was evidence of moderate to severe mitral regurgitation she does have quite significant pansystolic murmur. 11/10/2019 Patient seen and examined this morning sitting up at the bedside, overall feeling better, diuresed well through the night last night. Her weight is down 1 kg today, creatinine improving at 3.6 today. We will continue with IV Lasix, continue to monitor intake and output along with daily weights and daily lytes BUN and creatinine. Objective - Vital Signs Vital signs: Vital Signs Temp 98.2 F 11/10/19 03:05 Pulse 56 L 11/10/19 08:00 Resp 18 11/10/19 08:00 BP 90/43 11/10/19 08:00 Pulse Ox 94 L 11/10/19 08:00 Intake & Output 11/09/19 11/10/19 11/10/19 18:59 06:59 18:59 Intake Total 180 Output Total 2099 1450 Balance -1919 -1449 Weight 87.9 kg 86.5 kg Intake: Oral 180 Output: Urine 2099 1450 Other: Voiding Method Toilet Toilet Toilet # Voids 1 # Bowel Movements 1 - Exam PHYSICAL EXAMINATION: GENERAL: 74-year-old female in no acute distress at the time of my e xamination HEENT: Head is atraumatic, normocephalic. Pupils equal, round. Sclera anicteric. Conjunctiva are clear. Mucous membranes of the mouth are moist. Neck is supple. There is no elevated jugular venous pressure. No carotid bruit is heard. HEART EXAMINATION: Heart S1 and S2 systolic murmur is heard CHEST EXAMINATION: On's are clear diminished air entry to the bases bilaterally ABDOMEN: Soft, nontender. Bowel sounds are heard. No organomegaly noted. EXTREMITIES: 2+ peripheral pulses with no evidence of trace to 1+ peripheral edema and no calf tenderness noted. NEUROLOGIC patient is awake, alert and oriented 3 . . - Labs CBC & Chem 7: 11/09/19 06:16 11/10/19 05:45 Labs: Abnormal Lab Results - Last 24 Hours (Table) 11/09/19 11/09/19 11/09/19 Range/Units 16:57 17:10 20:52 BUN (7-17) mg/dL Creatinine (0.52-1.04) mg/dL Glucose (74-99) mg/dL POC Glucose (mg/dL) 144 H 181 H (75-99) mg/dL Calcium (8.4-10.2) mg/dL Ur Leukocyte Esterase Moderate H (Negative) Urine Bacteria Rare H (None) /hpf Urine Mucus Rare H (None) /hpf 11/10/19 11/10/19 11/10/19 Range/Units 05:45 06:19 11:46 BUN 97 H (7-17) mg/dL Creatinine 3.65 H (0.52-1.04) mg/dL Glucose 102 H (74-99) mg/dL POC Glucose (mg/dL) 113 H 138 H (75-99) mg/dL Calcium 7.8 L (8.4-10.2) mg/dL Ur Leukocyte Esterase (Negative) Urine Bacteria (None) /hpf Urine Mucus (None) /hpf Assessment and Plan Plan: Assessment and plan #1 congestive heart failure exacerbation secondary to diastolic dysfunction #2 moderate to severe mitral regurgitation #3 history of mitral valve repair #4 coronary artery disease and status post PCI of the RCA #4 accessible atrial fibrillation #5 multiple comorbid conditions Plan From cardiology's perspective, we will continue current dose of IV Lasix, continue to monitor the intake and output along with daily weights and daily lytes BUN and creatinine. DNP note has been reviewed, I agree with a documented findings and plan of care. Patient was seen and examined.
[2019-11-10 17:30] LABS: Glucose,Whole Blood 162 mg/dL (75-99)
[2019-11-10] MEDS: WARFARIN 1 MG TAB PO SCH (17:33)
[2019-11-10 20:45] LABS: Glucose,Whole Blood 279 mg/dL (75-99)
[2019-11-10] MEDS: ALPRAZolam 0.25 MG TAB PO SCH (20:54)
[2019-11-11 06:03] LABS: Glucose,Whole Blood 149 mg/dL (75-99)
[2019-11-11] MEDS: LEVOTHYROXINE 112 MCG TAB PO SCH (06:06)
[2019-11-11] MEDS: MIDODRINE 5 MG TAB PO SCH ×2 (06:07→16:56)
[2019-11-11] MEDS: PANTOPRAZOLE 40 MG TABLET PO SCH (06:07)
[2019-11-11] MEDS: INSULIN ASPART (NovoLOG) 100 UNIT/ML VIAL SQ SCH ×4 (06:07→21:29)
[2019-11-11 06:46] LABS: INR 2.5 (<1.2); Prothrombin Time 24.3 sec (9.0-12.0)
[2019-11-11 07:28] LABS: Calcium 8.1 mg/dL (8.4-10.2); Potassium 3.4 mmol/L (3.5-5.1)
[2019-11-11] MEDS: ASPIRIN 81 MG PO SCH (09:07)
[2019-11-11] MEDS: ATORVASTATIN 20 MG TAB PO SCH (09:07)
[2019-11-11] MEDS: FERROUS SULFATE 325 MG TAB PO SCH ×2 (09:08→21:30)
[2019-11-11] MEDS: METOPROLOL TARTRATE 12.5 MG TAB PO SCH (09:08)
[2019-11-11] MEDS: AMIODARONE 200 MG TAB PO SCH (09:08)
[2019-11-11] MEDS: SERTRALINE 100 MG TAB PO SCH (09:08)
[2019-11-11] MEDS: MULTIVITAMINS, THERA 1 EACH TAB PO SCH (09:08)
[2019-11-11] MEDS: FUROSEMIDE 10 MG/ML 2 ML VIAL IV SCH ×2 (09:08→21:30)
[2019-11-11] MEDS: ALLOPURINOL 100 MG TAB PO SCH (09:08)
[2019-11-11] MEDS: LORATADINE 10 MG TAB PO SCH (09:08)
[2019-11-11] MEDS: CLOPIDOGREL 75 MG TAB PO SCH (09:08)
--- NOTE | 2019-11-11 10:13 | XR ---
EXAMINATION TYPE: XR chest 1V DATE OF EXAM: 11/11/2019 COMPARISON: 10/31/2019 HISTORY: Congestive heart failure and shortness of breath TECHNIQUE: Single frontal view of the chest is obtained. FINDINGS: The heart is again enlarged with post CABG change. There is worsening central pulmonary va scular congestion and mild interstitial edema. Trace pleural effusions blunt the costophrenic angles. IMPRESSION: Worsening central vascular congestion and minimal interstitial edema. Able trace pleural effusions.
[2019-11-11 11:28] LABS: Glucose,Whole Blood 147 mg/dL (75-99)
--- NOTE | 2019-11-11 11:40 | P.PN ---
Subjective Progress Note Date: 11/11/19 This is a very pleasant 74-year-old female patient who following the office as an outpatient with extensive past medical history consistent off history of repair complex mitral valve was performed in the past, coronary artery disease and status post a stenting of the RCA, paroxysmal atrial fibrillation, diabetes, hypertension, dyslipidemia, and chronic diastolic congestive heart failure. The patient was directly admitted to the hospital because of increasing shortness of breath and worsening renal function. She has been struggling with increasing in the shortness of breath for the last several weeks and also increasing in the lower extremities edema. She was managed medically by myself as well as by the nephrology service through Dr. Morgan. Because she did not response to conservative medical approach and by mouth diuretics we also patient to come to the hospital. Yesterday her daughter called that the patient did undergo a blood work which I reviewed by myself and that revealed worsening renal function with a creatinine of about before. Also she stated that her shortness of breath has been worse compared to before. I directed the patient to be admitted to the hospital and I started her on Lasix at 20 mg IV twice a day which was increased by nephrology service to 40 mg IV twice a day. When the patient was seen today, she stated that she is feeling better in terms of shortness of breath. She still have diminished breathing sounds bilaterally. She's to have severe bilateral lower extremities edema. The creatinine has improved yebetween sterday to today and also the patient lost about 6 pounds between yesterday and today as well. I am going to keep her on the current dose of IV diuretics. She is in process of seeing a adult basic education teacher at [facility] for possible mitral valve clip. The last transesophageal echocardiogram revealed normal left ventricular systolic function was evidence of moderate to severe mitral regurgitation she does have quite significant pansystolic murmur. 11/10/2019 Patient seen and examined this morning sitting up at the bedside, overall feeling better, diuresed well through the night last night. Her weight is down 1 kg today, creatinine improving at 3.6 today. We will continue with IV Lasix, continue to monitor intake and output along with daily weights and daily lytes BUN and creatinine. 11/11/2019 Patient seen and examined this morning sitting up in the chair, edema has improved significantly. Her weight is down. INR today 2.5, sodium 141, potassium 3.4, BUN 91, creatinine 3.6. From cardiology's perspective, we'll continue with the IV Lasix for 24 hours, check her lytes BUN and creatinine in weight in the morning Objective - Vital Signs Vital signs: Vital Signs Temp 98.0 F 11/11/19 08:00 Pulse 62 11/11/19 08:00 Resp 18 11/11/19 08:00 BP 110/48 11/11/19 08:00 Pulse Ox 93 L 11/11/19 08:00 Intake & Output 11/10/19 11/11/19 11/11/19 18:59 06:59 18:59 Intake Total 230 Output Total 750 400 Balance -750 -170 Weight 85.9 kg Intake: Oral 230 Output: Urine 750 400 Other: Voiding Method Toilet Toilet Toilet # Voids 1 - Exam PHYSICAL EXAMINATION: GENERAL: 74-year-old female in no acute distress at the time of my ex amination HEENT: Head is atraumatic, normocephalic. Pupils equal, round. Sclera anicteric. Conjunctiva are clear. Mucous membranes of the mouth are moist. Neck is supple. There is no elevated jugular venous pressure. No carotid bruit is heard. HEART EXAMINATION: Heart S1 and S2 systolic murmur is heard CHEST EXAMINATION: On's are clear diminished air entry to the bases bilaterally ABDOMEN: Soft, nontender. Bowel sounds are heard. No organomegaly noted. EXTREMITIES: 2+ peripheral pulses with no evidence of trace to 1+ peripheral edema and no calf tenderness noted. NEUROLOGIC patient is awake, alert and oriented 3 . . - Labs CBC & Chem 7: 11/09/19 06:16 11/11/19 06:06 Labs: Abnormal Lab Results - Last 24 Hours (Table) 11/10/19 11/10/19 11/10/19 Range/Units 11:46 17:20 20:43 PT (9.0-12.0) sec INR (<1.2) Potassium (3.5-5.1) mmol/L BUN (7-17) mg/dL Creatinine (0.52-1.04) mg/dL Glucose (74-99) mg/dL POC Glucose (mg/dL) 138 H 162 H 279 H (75-99) mg/dL Calcium (8.4-10.2) mg/dL 11/11/19 11/11/19 11/11/19 Range/Units 06:01 06:06 06:06 PT 24.3 H (9.0-12.0) sec INR 2.5 H (<1.2) Potassium 3.4 L (3.5-5.1) mmol/L BUN 91 H (7-17) mg/dL Creatinine 3.64 H (0.52-1.04) mg/dL Glucose 117 H (74-99) mg/dL POC Glucose (mg/dL) 149 H (75-99) mg/dL Calcium 8.1 L (8.4-10.2) mg/dL 11/11/19 Range/Units 11:13 PT (9.0-12.0) sec INR (<1.2) Potassium (3.5-5.1) mmol/L BUN (7-17) mg/dL Creatinine (0.52-1.04) mg/dL Glucose (74-99) mg/dL POC Glucose (mg/dL) 147 H (75-99) mg/dL Calcium (8.4-10.2) mg/dL Assessment and Plan Plan: Assessment and plan #1 congestive heart failure exacerbation secondary to diastolic dysfunction #2 moderate to severe mitral regurgitation #3 history of mitral valve repair #4 coronary artery disease and status post PCI of the RCA #4 accessible atrial fibrillation #5 multiple comorbid conditions Plan From cardiology's perspective, we will continue current dose of IV Lasix, continue to monitor the intake and output along with daily weights and daily lytes BUN and creatinine. DNP note has been reviewed, I agree with a documented findings and plan of care. Patient was seen and examined.
--- NOTE | 2019-11-11 12:11 | PN ---
PROGRESS NOTE Patient is seen for followup for chronic kidney disease and acute kidney injury. She is currently being diuresed for CHF and volume overload. Volume status has improved. Serum creatinine was slightly better yesterday with creatinine down to 3.65 from 3.8. Today it is at 3.64. Overall, patient denies any significant complaints. EXAMINATION: Blood pressure is 110/48, heart rate 62 per minute, she is afebrile. Examination of the heart S1, S2. Examination of the lungs, decreased breath sounds at bases. Abdomen is soft, nontender. Examination of lower extremities shows chronic skin changes, edema 1+ bilaterally. FINANCIAL COMPLIANCE OFFICER exam grossly intact. LABS: Show sodium of 141, potassium 3.4, chloride 101, BUN 91, creatinine 3.64. ASSESSMENT: 1. Acute kidney injury cardiorenal, currently stable about the same as yesterday but improved from admission. 2. Chronic kidney disease stage 4 secondary to nephrosclerosis. Previous creatinine about 1.4-1.5 mg/dL. 3. Hypokalemia associated with diuresis status post replacement. We will continue to replace. 4. Hypotension, maintained on midodrine. 5. Atrial fibrillation, maintained on amiodarone and Coumadin for anticoagulation. 6. Congestive heart failure, mainly diastolic dysfunction. PLAN: Continue with IV Lasix for now. Repeat chest x-ray. MMODL / IJN: [id number] /
[2019-11-11] MEDS: WARFARIN 1 MG TAB PO SCH (16:55)
[2019-11-11 17:30] LABS: Glucose,Whole Blood 186 mg/dL (75-99)
[2019-11-11 20:20] LABS: Glucose,Whole Blood 215 mg/dL (75-99)
[2019-11-11] MEDS: ALPRAZolam 0.25 MG TAB PO SCH (21:29)
[2019-11-12 06:11] LABS: Glucose,Whole Blood 121 mg/dL (75-99)
[2019-11-12] MEDS: INSULIN ASPART (NovoLOG) 100 UNIT/ML VIAL SQ SCH ×4 (06:36→21:36)
[2019-11-12] MEDS: PANTOPRAZOLE 40 MG TABLET PO SCH (06:38)
[2019-11-12] MEDS: MIDODRINE 5 MG TAB PO SCH ×2 (06:38→17:49)
[2019-11-12] MEDS: LEVOTHYROXINE 112 MCG TAB PO SCH (06:38)
[2019-11-12 07:25] LABS: Potassium 3.1 mmol/L (3.5-5.1)
[2019-11-12] MEDS: METOPROLOL TARTRATE 12.5 MG TAB PO SCH (09:23)
[2019-11-12] MEDS: AMIODARONE 200 MG TAB PO SCH (09:24)
[2019-11-12] MEDS: FUROSEMIDE 10 MG/ML 2 ML VIAL IV SCH ×2 (09:24→21:35)
[2019-11-12] MEDS: ALLOPURINOL 100 MG TAB PO SCH (09:24)
[2019-11-12] MEDS: CLOPIDOGREL 75 MG TAB PO SCH (09:24)
[2019-11-12] MEDS: LORATADINE 10 MG TAB PO SCH (09:25)
[2019-11-12] MEDS: FERROUS SULFATE 325 MG TAB PO SCH ×2 (09:25→21:35)
[2019-11-12] MEDS: SERTRALINE 100 MG TAB PO SCH (09:25)
[2019-11-12] MEDS: ATORVASTATIN 20 MG TAB PO SCH (09:25)
[2019-11-12] MEDS: MULTIVITAMINS, THERA 1 EACH TAB PO SCH (09:25)
[2019-11-12] MEDS: ASPIRIN 81 MG PO SCH (09:25)
--- NOTE | 2019-11-12 11:43 | P.PN ---
Subjective Progress Note Date: 11/12/19 This is a very pleasant 74-year-old female patient who following the office as an outpatient with extensive past medical history consistent off history of repair complex mitral valve was performed in the past, coronary artery disease and status post a stenting of the RCA, paroxysmal atrial fibrillation, diabetes, hypertension, dyslipidemia, and chronic diastolic congestive heart failure. The patient was directly admitted to the hospital because of increasing shortness of breath and worsening renal function. She has been struggling with increasing in the shortness of breath for the last several weeks and also increasing in the lower extremities edema. She was managed medically by myself as well as by the nephrology service through Dr. Morgan. Because she did not response to conservative medical approach and by mouth diuretics we also patient to come to the hospital. Yesterday her daughter called that the patient did undergo a blood work which I reviewed by myself and that revealed worsening renal function with a creatinine of about before. Also she stated that her shortness of breath has been worse compared to before. I directed the patient to be admitted to the hospital and I started her on Lasix at 20 mg IV twice a day which was increased by nephrology service to 40 mg IV twice a day. When the patient was seen today, she stated that she is feeling better in terms of shortness of breath. She still have diminished breathing sounds bilaterally. She's to have severe bilateral lower extremities edema. The creatinine has improved yebetween sterday to today and also the patient lost about 6 pounds between yesterday and today as well. I am going to keep her on the current dose of IV diuretics. She is in process of seeing a land measurer at [facility] for possible mitral valve clip. The last transesophageal echocardiogram revealed normal left ventricular systolic function was evidence of moderate to severe mitral regurgitation she does have quite significant pansystolic murmur. 11/10/2019 Patient seen and examined this morning sitting up at the bedside, overall feeling better, diuresed well through the night last night. Her weight is down 1 kg today, creatinine improving at 3.6 today. We will continue with IV Lasix, continue to monitor intake and output along with daily weights and daily lytes BUN and creatinine. 11/11/2019 Patient seen and examined this morning sitting up in the chair, edema has improved significantly. Her weight is down. INR today 2.5, sodium 141, potassium 3.4, BUN 91, creatinine 3.6. From cardiology's perspective, we'll continue with the IV Lasix for 24 hours, check her lytes BUN and creatinine in weight in the morning. 11/12/2019 Patient seen and examined this morning, became more short of breath through the night last night, oxygen was applied. She continues to diurese on IV Lasix, creatinine is down to 3.4 today. 120/50, heart rate in the 90s. Objective - Vital Signs Vital signs: Vital Signs Temp 97.6 F 11/12/19 08:00 Pulse 96 11/12/19 08:00 Resp 18 11/12/19 08:00 BP 116/80 11/12/19 08:00 Pulse Ox 97 11/12/19 08:00 Intake & Output 11/11/19 11/12/19 11/12/19 18:59 06:59 18:59 Intake Total 932 10 240 Output Total 1400 850 300 Balance -468 -840 -60 Weight 87.3 kg Intake: IV 10 .9 10 Oral 932 240 Output: Urine 1400 850 300 Other: Voiding Method Toilet Bedside Commode # Voids 2 - Exam PHYSICAL EXAMINATION: GENERAL: 74-year-old female in no acute distress at the time of my examination HEENT: Head is atraumatic, normocephalic. Pupils equal, round. Sclera anicteric. Conjunctiva are clear. Mucous membranes of the mouth are moist. Neck is supple. There is no elevated jugular venous pressure. No carotid bruit is heard. HEART EXAMINATION: Heart S1 and S2 systolic murmur is heard CHEST EXAMINATION: On's are clear diminished air entry to the bases bilaterally ABDOMEN: Soft, nontender. Bowel sounds are heard. No organomegaly noted. EXTREMITIES: 2+ peripheral pulses with no evidence of trace to 1+ peripheral edema and no calf tenderness noted. NEUROLOGIC patient is awake, alert and oriented 3 . . - Labs CBC & Chem 7: 11/09/19 06:16 11/12/19 05:54 Labs: Abnormal Lab Results - Last 24 Hours (Table) 11/11/19 11/11/19 11/12/19 Range/Units 17:26 20:18 05:54 Potassium 3.1 L (3.5-5.1) mmol/L BUN 89 H (7-17) mg/dL Creatinine 3.41 H (0.52-1.04) mg/dL Glucose 113 H (74-99) mg/dL POC Glucose (mg/dL) 186 H 215 H (75-99) mg/dL Calcium 8.0 L (8.4-10.2) mg/dL 11/12/19 Range/Units 06:09 Potassium (3.5-5.1) mmol/L BUN (7-17) mg/dL Creatinine (0.52-1.04) mg/dL Glucose (74-99) mg/dL POC Glucose (mg/dL) 121 H (75-99) mg/dL Calcium (8.4-10.2) mg/dL Assessment and Plan Plan: Assessment and plan #1 congestive heart failure exacerbation secondary to diastolic dysfunction #2 moderate to severe mitral regurgitation #3 history of mitral valve repair #4 coronary artery disease and status post PCI of the RCA #4 accessible atrial fibrillation #5 multiple comorbid conditions Plan From cardiology's perspective, we will continue current dose of IV Lasix, continue to monitor the intake and output along with daily weights and daily lytes BUN and creatinine. DNP note has been reviewed, I agree with a documented findings and plan of care. Patient was seen and examined.
[2019-11-12 12:37] LABS: Glucose,Whole Blood 130 mg/dL (75-99)
[2019-11-12] MEDS ORDERED: POTASSIUM CHLORIDE ER 20 MEQ TAB.ER PO STA (14:03)
--- NOTE | 2019-11-12 15:55 | PN ---
PROGRESS NOTE Patient is seen for followup for acute kidney injury on top of chronic kidney disease. The patient is currently comfortable. She is sitting up in bed. She denies any significant complaints. She is maintained on IV Lasix, and renal function continues to improve slightly. Her GFR is up to 13 from 11 with creatinine down to 3.4 from 3.8 on initial admission. PHYSICAL EXAMINATION: On examination today, blood pressure was 116/80, heart rate 96 per minute. She is afebrile. EXAMINATION OF THE HEART: S1 and S2. EXAMINATION OF LUNGS: Bilateral breath sounds are heard. Decreased breath sounds at bases. ABDOMEN: Soft, non-tender. Examination of lower extremities shows edema 1+ bilaterally. OPTICAL BRIGHTENER MAKER HELPER exam is grossly intact. LABS: Labs show sodium 141, potassium 3.1, BUN 89, serum creatinine 3.41. ASSESSMENT: 1. Acute kidney injury, cardiorenal, currently improving. Continue with IV Lasix, as chest x-ray from yesterday continued to show pulmonary vascular congestion. 2. Hypokalemia associated with diuresis, being replaced. 3. Chronic kidney disease, stage IV, secondary to nephrosclerosis. Previous creatinine 1.4 to 1.5 mg/dL. 4. Atrial fibrillation, maintained on amiodarone and Coumadin for anticoagulation. 5. Diastolic heart failure, acute on top of chronic. PLAN: Continue with IV Lasix. Repeat labs in a.m. I did discuss with the patient's daughter that if her renal function worsens, she may need to be considered for renal replacement therapy. However, given the ongoing improvement in creatinine, I will continue to diurese her for now. MMODL / IJN: [id number] /
[2019-11-12 16:37] LABS: Glucose,Whole Blood 251 mg/dL (75-99)
[2019-11-12] MEDS: WARFARIN 1.5 MG TAB PO SCH (17:49)
[2019-11-12 20:34] LABS: Glucose,Whole Blood 169 mg/dL (75-99)
[2019-11-12] MEDS: ALPRAZolam 0.25 MG TAB PO SCH (21:35)
[2019-11-13 06:07] LABS: Glucose,Whole Blood 115 mg/dL (75-99)
[2019-11-13 06:33] LABS: INR 2.9 (<1.2); Prothrombin Time 27.8 sec (9.0-12.0)
[2019-11-13] MEDS: MIDODRINE 5 MG TAB PO SCH ×2 (06:40→16:54)
[2019-11-13] MEDS: LEVOTHYROXINE 112 MCG TAB PO SCH (06:40)
[2019-11-13] MEDS: PANTOPRAZOLE 40 MG TABLET PO SCH (06:40)
[2019-11-13 06:48] LABS: Calcium 8.1 mg/dL (8.4-10.2); Potassium 3.5 mmol/L (3.5-5.1)
[2019-11-13] MEDS: METOPROLOL TARTRATE 12.5 MG TAB PO SCH (09:35)
[2019-11-13] MEDS: LORATADINE 10 MG TAB PO SCH (09:36)
[2019-11-13] MEDS: FERROUS SULFATE 325 MG TAB PO SCH ×2 (09:37→20:43)
[2019-11-13] MEDS: SERTRALINE 100 MG TAB PO SCH (09:37)
[2019-11-13] MEDS: CLOPIDOGREL 75 MG TAB PO SCH (09:38)
[2019-11-13] MEDS: MULTIVITAMINS, THERA 1 EACH TAB PO SCH (09:38)
[2019-11-13] MEDS: ALLOPURINOL 100 MG TAB PO SCH (09:38)
[2019-11-13] MEDS: AMIODARONE 200 MG TAB PO SCH (09:38)
[2019-11-13] MEDS: ASPIRIN 81 MG PO SCH (09:39)
[2019-11-13] MEDS: FUROSEMIDE 10 MG/ML 2 ML VIAL IV SCH (09:39)
[2019-11-13] MEDS: ATORVASTATIN 20 MG TAB PO SCH (09:39)
[2019-11-13] MEDS: INSULIN ASPART (NovoLOG) 100 UNIT/ML VIAL SQ SCH ×4 (09:43→20:43)
[2019-11-13 11:15] LABS: Glucose,Whole Blood 139 mg/dL (75-99)
--- NOTE | 2019-11-13 11:35 | PN ---
PROGRESS NOTE Patient is seen for followup for acute kidney injury on top of chronic kidney disease. Patient is currently being diuresed for volume overload, CHF exacerbation. Her renal function slowly continues to improve. However, patient remains volume overloaded. Chest x-ray from 11/10 still showed evidence of pulmonary vascular congestion. Patient's weight is slowly decreasing, but I am not sure if this is accurate. PHYSICAL EXAMINATION: This morning blood pressure is 119/40, heart rate 60 per minute, patient is afebrile. Examination of the heart S1, S2. Examination of the lungs, decreased breath sounds at bases, basal crackles are heard. Abdomen is soft, nontender, obese. Examination of the lower extremities shows edema 2+ bilaterally. SOFTWARE PRODUCT MANAGER exam grossly intact. LABS: Show sodium of 140, potassium 3.5, chloride 101, BUN 86, creatinine 3.35. ASSESSMENT: 1. Acute kidney injury, cardiorenal, slowly improving, continue to diurese patient. I will increase the Lasix to 40 mg q.8 hours. 2. Congestive heart failure, volume overload, acute on top of chronic, mainly diastolic. Increase diuresis. Volume status is improved. 3. Chronic kidney disease stage IV secondary to nephrosclerosis. Baseline creatinine about 1.5 mg/dL previously. 4. Atrial fibrillation with controlled ventricular response. 5. Hypokalemia associated with diuresis, currently being replaced. PLAN: Increase Lasix to 40 mg q.8 hours and then repeat labs in a.m. I have discussed with the family and the patient and if her renal function does not improve significantly down the road, she may need to start dialysis. However, if she has her cardiac valvular heart surgery, there may be improvement in the kidney function down the road. MMODL / IJN: [id number] /
--- NOTE | 2019-11-13 11:46 | P.PN ---
Subjective Progress Note Date: 11/13/19 This is a very pleasant 74-year-old female patient who following the office as an outpatient with extensive past medical history consistent off history of repair complex mitral valve was performed in the past, coronary artery disease and status post a stenting of the RCA, paroxysmal atrial fibrillation, diabetes, hypertension, dyslipidemia, and chronic diastolic congestive heart failure. The patient was directly admitted to the hospital because of increasing shortness of breath and worsening renal function. She has been struggling with increasing in the shortness of breath for the last several weeks and also increasing in the lower extremities edema. She was managed medically by myself as well as by the nephrology service through Dr. Morgan. Because she did not response to conservative medical approach and by mouth diuretics we also patient to come to the hospital. Yesterday her daughter called that the patient did undergo a blood work which I reviewed by myself and that revealed worsening renal function with a creatinine of about before. Also she stated that her shortness of breath has been worse compared to before. I directed the patient to be admitted to the hospital and I started her on Lasix at 20 mg IV twice a day which was increased by nephrology service to 40 mg IV twice a day. When the patient was seen today, she stated that she is feeling better in terms of shortness of breath. She still have diminished breathing sounds bilaterally. She's to have severe bilateral lower extremities edema. The creatinine has improved yebetween sterday to today and also the patient lost about 6 pounds between yesterday and today as well. I am going to keep her on the current dose of IV diuretics. She is in process of seeing a global vp creative + content marketing at [facility] for possible mitral valve clip. The last transesophageal echocardiogram revealed normal left ventricular systolic function was evidence of moderate to severe mitral regurgitation she does have quite significant pansystolic murmur. 11/10/2019 Patient seen and examined this morning sitting up at the bedside, overall feeling better, diuresed well through the night last night. Her weight is down 1 kg today, creatinine improving at 3.6 today. We will continue with IV Lasix, continue to monitor intake and output along with daily weights and daily lytes BUN and creatinine. 11/11/2019 Patient seen and examined this morning sitting up in the chair, edema has improved significantly. Her weight is down. INR today 2.5, sodium 141, potassium 3.4, BUN 91, creatinine 3.6. From cardiology's perspective, we'll continue with the IV Lasix for 24 hours, check her lytes BUN and creatinine in weight in the morning. 11/12/2019 Patient seen and examined this morning, became more short of breath through the night last night, oxygen was applied. She continues to diurese on IV Lasix, creatinine is down to 3.4 today. 120/50, heart rate in the 90s. 11/13/2019 patient was seen and examined this morning, continues to diurese well, her weight is down, creatinine today is down to 3.3. Blood pressure 120/50 with a heart rate in the 60s, 93% on 2 L. Objective - Vital Signs Vital signs: Vital Signs Temp 97.6 F 11/13/19 11:31 Pulse 66 11/13/19 11:31 Resp 16 11/13/19 11:31 BP 121/53 11/13/19 11:32 Pulse Ox 93 L 11/13/19 11:31 Intake & Output 11/12/19 11/13/19 11/13/19 18:59 06:59 18:59 Intake Total 1100 240 Output Total 500 300 Balance 600 -300 240 Weight 86.9 kg Intake: Oral 1100 240 Output: Urine 500 300 Other: # Voids 2 1 - Exam PHYSICAL EXAMINATION: GENERAL: 74-year-old female in no acute distress at the time of my examination HEENT: Head is atraumatic, normocephalic. Pupils equal, round. Sclera anic teric. Conjunctiva are clear. Mucous membranes of the mouth are moist. Neck is supple. There is no elevated jugular venous pressure. No carotid bruit is heard. HEART EXAMINATION: Heart S1 and S2 systolic murmur is heard CHEST EXAMINATION: lungs are clear with improvement in air entry to the bases bilaterally ABDOMEN: Soft, nontender. Bowel sounds are heard. No organomegaly noted. EXTREMITIES: 2+ peripheral pulses with evidence of trace to 1+ peripheral edema and no calf tenderness noted. NEUROLOGIC patient is awake, alert and oriented 3 . . - Labs CBC & Chem 7: 11/09/19 06:16 11/13/19 06:07 Labs: Abnormal Lab Results - Last 24 Hours (Table) 11/12/19 11/12/19 11/12/19 Range/Units 12:10 16:36 20:32 PT (9.0-12.0) sec INR (<1.2) Carbon Dioxide (22-30) mmol/L BUN (7-17) mg/dL Creatinine (0.52-1.04) mg/dL Glucose (74-99) mg/dL POC Glucose (mg/dL) 130 H 251 H 169 H (75-99) mg/dL Calcium (8.4-10.2) mg/dL 11/13/19 11/13/19 11/13/19 Range/Units 06:06 06:07 06:07 PT 27.8 H (9.0-12.0) sec INR 2.9 H (<1.2) Carbon Dioxide 31 H (22-30) mmol/L BUN 86 H (7-17) mg/dL Creatinine 3.35 H (0.52-1.04) mg/dL Glucose 106 H (74-99) mg/dL POC Glucose (mg/dL) 115 H (75-99) mg/dL Calcium 8.1 L (8.4-10.2) mg/dL 11/13/19 Range/Units 11:13 PT (9.0-12.0) sec INR (<1.2) Carbon Dioxide (22-30) mmol/L BUN (7-17) mg/dL Creatinine (0.52-1.04) mg/dL Glucose (74-99) mg/dL POC Glucose (mg/dL) 139 H (75-99) mg/dL Calcium (8.4-10.2) mg/dL Assessment and Plan Plan: Assessment and plan #1 congestive heart failure exacerbation secondary to diastolic dysfunction #2 moderate to severe mitral regurgitation #3 history of mitral valve repair #4 coronary artery disease and status post PCI of the RCA #4 accessible atrial fibrillation #5 multiple comorbid conditions Plan From cardiology's perspective, we will continue current dose of IV Lasix, continue to monitor the intake and output along with daily weights and daily lytes BUN and creatinine. DNP note has been reviewed, I agree with a documented findings and plan of care. Patient was seen and examined.
[2019-11-13 16:52] LABS: Glucose,Whole Blood 150 mg/dL (75-99)
[2019-11-13] MEDS: WARFARIN 1 MG TAB PO SCH (16:53)
[2019-11-13] MEDS: FUROSEMIDE 10 MG/ML 4 ML VIAL IV SCH ×2 (16:53→23:01)
[2019-11-13 20:30] LABS: Glucose,Whole Blood 210 mg/dL (75-99)
[2019-11-13] MEDS: ALPRAZolam 0.25 MG TAB PO SCH (20:43)
[2019-11-14 06:03] LABS: Glucose,Whole Blood 138 mg/dL (75-99)
[2019-11-14] MEDS: INSULIN ASPART (NovoLOG) 100 UNIT/ML VIAL SQ SCH ×4 (06:11→21:24)
[2019-11-14] MEDS: MIDODRINE 5 MG TAB PO SCH ×2 (06:11→17:32)
[2019-11-14] MEDS: PANTOPRAZOLE 40 MG TABLET PO SCH (06:11)
[2019-11-14] MEDS: LEVOTHYROXINE 112 MCG TAB PO SCH (06:11)
[2019-11-14] MEDS: FUROSEMIDE 10 MG/ML 4 ML VIAL IV SCH ×3 (08:49→21:42)
[2019-11-14] MEDS: MULTIVITAMINS, THERA 1 EACH TAB PO SCH (08:49)
[2019-11-14] MEDS: ATORVASTATIN 20 MG TAB PO SCH (08:49)
[2019-11-14] MEDS: ALLOPURINOL 100 MG TAB PO SCH (08:49)
[2019-11-14] MEDS: AMIODARONE 200 MG TAB PO SCH (08:49)
[2019-11-14] MEDS: SERTRALINE 100 MG TAB PO SCH (08:49)
[2019-11-14] MEDS: FERROUS SULFATE 325 MG TAB PO SCH ×2 (08:49→21:24)
[2019-11-14] MEDS: ASPIRIN 81 MG PO SCH (08:49)
[2019-11-14 11:43] LABS: Calcium 8.3 mg/dL (8.4-10.2); Potassium 3.5 mmol/L (3.5-5.1)
[2019-11-14 11:52] LABS: Glucose,Whole Blood 141 mg/dL (75-99)
--- NOTE | 2019-11-14 11:52 | PN ---
PROGRESS NOTE Patient is seen for followup for chronic kidney disease and acute kidney injury. Patient is currently being diuresed for volume overload and worsening renal failure, mainly cardiorenal syndrome. Serum creatinine has been improving, yesterday it was down to 3.35 from 3.8 on initial admission. Previous creatinine was 1.5-1.4 mg/dL. PHYSICAL EXAMINATION: On examination, patient is comfortable, awake, not in any acute distress. Blood pressure is 95/59, heart rate 56 per minute, she is afebrile. Examination of the heart S1, S2. Examination of lungs, bilateral breath sounds are heard. Decreased breath sounds at bases. No crackles or wheezing is heard. Abdomen is soft, nontender. Examination of the lower extremities shows edema 2+ bilaterally currently slightly improved. CLINICAL PROJECT ASSISTANT exam grossly intact. LABS: Labs are not available from today. ASSESSMENT: 1. Acute kidney injury, cardiorenal, acute on top of chronic renal function was slowly improving. There is consideration for possible possibly starting renal dialysis renal replacement therapy if renal function does not improve significantly. 2. CHF acute on top of chronic mainly diastolic currently improving. 3. Chronic kidney disease stage 4 secondary to nephrosclerosis. Baseline creatinine 1.5-1.7 mg/dL. 4. Atrial fibrillation with controlled ventricular response. 5. Hypokalemia associated with diuresis being replaced. PLAN: Continue current dose of Lasix. Check labs today. MMODL / IJN: [id number] /
[2019-11-14] MEDS ORDERED: POTASSIUM CHLORIDE ER 20 MEQ TAB.ER PO STA (11:57)
[2019-11-14] MEDS: CLOPIDOGREL 75 MG TAB PO SCH (12:04)
[2019-11-14] MEDS: LORATADINE 10 MG TAB PO SCH (12:04)
[2019-11-14] MEDS: METOPROLOL TARTRATE 12.5 MG TAB PO SCH (12:05)
--- NOTE | 2019-11-14 14:23 | P.PN ---
Subjective Progress Note Date: 11/14/19 This is a very pleasant 74-year-old female patient who following the office as an outpatient with extensive past medical history consistent off history of repair complex mitral valve was performed in the past, coronary artery disease and status post a stenting of the RCA, paroxysmal atrial fibrillation, diabetes, hypertension, dyslipidemia, and chronic diastolic congestive heart failure. The patient was directly admitted to the hospital because of increasing shortness of breath and worsening renal function. She has been struggling with increasing in the shortness of breath for the last several weeks and also increasing in the lower extremities edema. She was managed medically by myself as well as by the nephrology service through Dr. Morgan. Because she did not response to conservative medical approach and by mouth diuretics we also patient to come to the hospital. Yesterday her daughter called that the patient did undergo a blood work which I reviewed by myself and that revealed worsening renal function with a creatinine of about before. Also she stated that her shortness of breath has been worse compared to before. I directed the patient to be admitted to the hospital and I started her on Lasix at 20 mg IV twice a day which was increased by nephrology service to 40 mg IV twice a day. When the patient was seen today, she stated that she is feeling better in terms of shortness of breath. She still have diminished breathing sounds bilaterally. She's to have severe bilateral lower extremities edema. The creatinine has improved yebetween sterday to today and also the patient lost about 6 pounds between yesterday and today as well. I am going to keep her on the current dose of IV diuretics. She is in process of seeing a environmental services tech at [facility] for possible mitral valve clip. The last transesophageal echocardiogram revealed normal left ventricular systolic function was evidence of moderate to severe mitral regurgitation she does have quite significant pansystolic murmur. 11/10/2019 Patient seen and examined this morning sitting up at the bedside, overall feeling better, diuresed well through the night last night. Her weight is down 1 kg today, creatinine improving at 3.6 today. We will continue with IV Lasix, continue to monitor intake and output along with daily weights and daily lytes BUN and creatinine. 11/11/2019 Patient seen and examined this morning sitting up in the chair, edema has improved significantly. Her weight is down. INR today 2.5, sodium 141, potassium 3.4, BUN 91, creatinine 3.6. From cardiology's perspective, we'll continue with the IV Lasix for 24 hours, check her lytes BUN and creatinine in weight in the morning. 11/12/2019 Patient seen and examined this morning, became more short of breath through the night last night, oxygen was applied. She continues to diurese on IV Lasix, creatinine is down to 3.4 today. 120/50, heart rate in the 90s. 11/13/2019 patient was seen and examined this morning, continues to diurese well, her weight is down, creatinine today is down to 3.3. Blood pressure 120/50 with a heart rate in the 60s, 93% on 2 L. 11/14/2019 Patient was seen and examined this morning, sitting up in her chair at bedside.she continues to diurese well.sodium 141, potassium 3.5, BUN 85, creatinine 3.4. Objective - Vital Signs Vital signs: Vital Signs Temp 96.9 F L 11/14/19 11:59 Pulse 60 11/14/19 11:59 Resp 20 11/14/19 11:59 BP 115/54 11/14/19 11:59 Pulse Ox 99 11/14/19 07:42 Intake & Output 11/13/19 11/14/19 11/14/19 18:59 06:59 18:59 Intake Total 250 480 Output Total 1350 250 Balance 250 -1350 230 Weight 86.8 kg Intake: IV 10 .9 10 Oral 240 480 Output: Urine 1350 250 Other: Voiding Method Bedside Commode Bedside Commode # Voids 1 - Exam PHYSICAL EXAMINATION: GENERAL: 74-year-old female in no acute distress at the time of my examination HEENT: Head is atraumatic, normocephalic. Pupils equal, round. Sclera anicteric. Conjunctiva are clear. Mucous membranes of the mouth are moist. Neck is supple. There is no elevated jugular venous pressure. No carotid bruit is heard. HEART EXAMINATION: Heart S1 and S2 systolic murmur is heard CHEST EXAMINATION: lungs are clear with improvement in air entry to the bases bilaterally ABDOMEN: Soft, nontender. Bowel sounds are heard. No organomegaly noted. EXTREMITIES: 2+ peripheral pulses with evidence of trace peripheral edema and no calf tenderness noted. NEUROLOGIC patient is awake, alert and oriented 3 . . - Labs CBC & Chem 7: 11/09/19 06:16 11/14/19 09:40 Labs: Abnormal Lab Results - Last 24 Hours (Table) 11/13/19 11/13/19 11/14/19 Range/Units 16:51 20:28 06:02 Carbon Dioxide (22-30) mmol/L BUN (7-17) mg/dL Creatinine (0.52-1.04) mg/dL Glucose (74-99) mg/dL POC Glucose (mg/dL) 150 H 210 H 138 H (75-99) mg/dL Calcium (8.4-10.2) mg/dL 11/14/19 11/14/19 Range/Units 09:40 11:44 Carbon Dioxide 33 H (22-30) mmol/L BUN 85 H (7-17) mg/dL Creatinine 3.48 H (0.52-1.04) mg/dL Glucose 132 H (74-99) mg/dL POC Glucose (mg/dL) 141 H (75-99) mg/dL Calcium 8.3 L (8.4-10.2) mg/dL Assessment and Plan Plan: Assessment and plan #1 congestive heart failure exacerbation secondary to diastolic dysfunction #2 moderate to severe mitral regurgitation #3 history of mitral valve repair #4 coronary artery disease and status post PCI of the RCA #4 accessible atrial fibrillation #5 multiple comorbid conditions Plan From cardiology's perspective, we will continue current dose of IV Lasix, co ntinue to monitor the intake and output along with daily weights and daily lytes BUN and creatinine. DNP note has been reviewed, I agree with a documented findings and plan of care. Patient was seen and examined.
[2019-11-14 16:55] LABS: Glucose,Whole Blood 161 mg/dL (75-99)
[2019-11-14] MEDS: WARFARIN 1 MG TAB PO SCH (17:32)
[2019-11-14 20:27] LABS: Glucose,Whole Blood 202 mg/dL (75-99)
[2019-11-14] MEDS: ALPRAZolam 0.25 MG TAB PO SCH (21:24)
[2019-11-15 06:13] LABS: Glucose,Whole Blood 141 mg/dL (75-99)
[2019-11-15] MEDS: INSULIN ASPART (NovoLOG) 100 UNIT/ML VIAL SQ SCH ×4 (06:21→21:53)
[2019-11-15] MEDS: LEVOTHYROXINE 112 MCG TAB PO SCH (06:21)
[2019-11-15] MEDS: PANTOPRAZOLE 40 MG TABLET PO SCH (06:21)
[2019-11-15] MEDS: MIDODRINE 5 MG TAB PO SCH ×3 (06:21→21:57)
[2019-11-15] MEDS: SERTRALINE 100 MG TAB PO SCH (08:49)
[2019-11-15] MEDS: FUROSEMIDE 10 MG/ML 4 ML VIAL IV SCH ×3 (08:49→23:35)
[2019-11-15] MEDS: CLOPIDOGREL 75 MG TAB PO SCH (08:49)
[2019-11-15] MEDS: ASPIRIN 81 MG PO SCH (08:49)
[2019-11-15] MEDS: METOPROLOL TARTRATE 12.5 MG TAB PO SCH (08:49)
[2019-11-15] MEDS: ALLOPURINOL 100 MG TAB PO SCH (08:50)
[2019-11-15] MEDS: LORATADINE 10 MG TAB PO SCH (08:50)
[2019-11-15] MEDS: FERROUS SULFATE 325 MG TAB PO SCH ×2 (08:50→21:53)
[2019-11-15] MEDS: AMIODARONE 200 MG TAB PO SCH (08:50)
[2019-11-15] MEDS: ATORVASTATIN 20 MG TAB PO SCH (08:50)
[2019-11-15] MEDS: MULTIVITAMINS, THERA 1 EACH TAB PO SCH (08:50)
--- NOTE | 2019-11-15 09:19 | XR ---
EXAMINATION TYPE: XR chest 1V DATE OF EXAM: 11/15/2019 COMPARISON: 11/11/2019 HISTORY: Shortness of breath FINDINGS: There are bilateral pleural effusions with cardiomegaly and bibasilar infiltrate. There is a diffuse interstitial pattern. Postsurgical changes noted. No sizable pneumothorax. IMPRESSION: 1. Correlate for CHF stable in appearance. Underlying infiltrate not excluded.
[2019-11-15 09:57] LABS: INR 3.5 (<1.2)
[2019-11-15 10:15] LABS: Calcium 8.1 mg/dL (8.4-10.2); Potassium 3.4 mmol/L (3.5-5.1)
[2019-11-15 11:38] LABS: Glucose,Whole Blood 135 mg/dL (75-99)
--- NOTE | 2019-11-15 11:50 | P.PN ---
Subjective Progress Note Date: 11/15/19 This is a very pleasant 74-year-old female patient who following the office as an outpatient with extensive past medical history consistent off history of repair complex mitral valve was performed in the past, coronary artery disease and status post a stenting of the RCA, paroxysmal atrial fibrillation, diabetes, hypertension, dyslipidemia, and chronic diastolic congestive heart failure. The patient was directly admitted to the hospital because of increasing shortness of breath and worsening renal function. She has been struggling with increasing in the shortness of breath for the last several weeks and also increasing in the lower extremities edema. She was managed medically by myself as well as by the nephrology service through Dr. Morgan. Because she did not response to conservative medical approach and by mouth diuretics we also patient to come to the hospital. Yesterday her daughter called that the patient did undergo a blood work which I reviewed by myself and that revealed worsening renal function with a creatinine of about before. Also she stated that her shortness of breath has been worse compared to before. I directed the patient to be admitted to the hospital and I started her on Lasix at 20 mg IV twice a day which was increased by nephrology service to 40 mg IV twice a day. When the patient was seen today, she stated that she is feeling better in terms of shortness of breath. She still have diminished breathing sounds bilaterally. She's to have severe bilateral lower extremities edema. The creatinine has improved yebetween sterday to today and also the patient lost about 6 pounds between yesterday and today as well. I am going to keep her on the current dose of IV diuretics. She is in process of seeing a swing grinder at [facility] for possible mitral valve clip. The last transesophageal echocardiogram revealed normal left ventricular systolic function was evidence of moderate to severe mitral regurgitation she does have quite significant pansystolic murmur. 11/10/2019 Patient seen and examined this morning sitting up at the bedside, overall feeling better, diuresed well through the night last night. Her weight is down 1 kg today, creatinine improving at 3.6 today. We will continue with IV Lasix, continue to monitor intake and output along with daily weights and daily lytes BUN and creatinine. 11/11/2019 Patient seen and examined this morning sitting up in the chair, edema has improved significantly. Her weight is down. INR today 2.5, sodium 141, potassium 3.4, BUN 91, creatinine 3.6. From cardiology's perspective, we'll continue with the IV Lasix for 24 hours, check her lytes BUN and creatinine in weight in the morning. 11/12/2019 Patient seen and examined this morning, became more short of breath through the night last night, oxygen was applied. She continues to diurese on IV Lasix, creatinine is down to 3.4 today. 120/50, heart rate in the 90s. 11/13/2019 patient was seen and examined this morning, continues to diurese well, her weight is down, creatinine today is down to 3.3. Blood pressure 120/50 with a heart rate in the 60s, 93% on 2 L. 11/14/2019 Patient was seen and examined this morning, sitting up in her chair at bedside.she continues to diurese well.sodium 141, potassium 3.5, BUN 85, creatinine 3.4. 11/15/2019 Patient seen and examined this morning, again sitting up in her chair at bedside, every day she states that she's feeling better than the day before. Continues to be on IV Lasix. Pro time 34 with an INR of 3.5. Sodium 142, potassium 3.4, BUN 85, creatinine 3.2. Objective - Vital Signs Vital signs: Vital Signs Temp 96.9 F L 11/15/19 08:00 Pulse 61 11/15/19 08:00 Resp 18 11/15/19 08:00 BP 96/37 11/15/19 08:00 Pulse Ox 97 11/15/19 08:00 Intake & Output 11/14/19 11/15/19 11/15/19 18:59 06:59 18:59 Intake Total 720 285 Output Total 750 1425 300 Balance -30 -1425 -15 Weight 86 kg Intake: Oral 720 285 Output: Urine 750 1425 300 Other: Voiding Method Bedside Commode Bedside Commode # Voids 1 # Bowel Movements 1 - Exam PHYSICAL EXAMINATION: GENERAL: 74-year-old female in no acute distress at the time of my examination HEENT: Head is atraumatic, normocephalic. Pupils equal, round. Sclera anicteric. Conjunctiva are clear. Mucous membranes of the mouth are moist. Neck is supple. There is no elevated jugular venous pressure. No carotid bruit is heard. HEART EXAMINATION: Heart S1 and S2 systolic murmur is heard CHEST EXAMINATION: lungs are clear with improvement in air entry to the bases bilaterally ABDOMEN: Soft, nontender. Bowel sounds are heard. No organomegaly noted. EXTREMITIES: 2+ peripheral pulses with evidence of trace peripheral edema and no calf tenderness noted. NEUROLOGIC patient is awake, alert and oriented 3 . . - Labs CBC & Chem 7: 11/09/19 06:16 11/15/19 09:34 Labs: Abnormal Lab Results - Last 24 Hours (Table) 11/14/19 11/14/19 11/14/19 Range/Units 11:44 16:49 20:25 PT (9.0-12.0) sec INR (<1.2) Potassium (3.5-5.1) mmol/L BUN (7-17) mg/dL Creatinine (0.52-1.04) mg/dL Glucose (74-99) mg/dL POC Glucose (mg/dL) 141 H 161 H 202 H (75-99) mg/dL Calcium (8.4-10.2) mg/dL 11/15/19 11/15/19 11/15/19 Range/Units 06:12 09:34 09:34 PT 34.0 H (9.0-12.0) sec INR 3.5 H (<1.2) Potassium 3.4 L (3.5-5.1) mmol/L BUN 85 H (7-17) mg/dL Creatinine 3.29 H (0.52-1.04) mg/dL Glucose 138 H (74-99) mg/dL POC Glucose (mg/dL) 141 H (75-99) mg/dL Calcium 8.1 L (8.4-10.2) mg/dL 11/15/19 Range/Units 11:36 PT (9.0-12.0) sec INR (<1.2) Potassium (3.5-5.1) mmol/L BUN (7-17) mg/dL Creatinine (0.52-1.04) mg/dL Glucose (74-99) mg/dL POC Glucose (mg/dL) 135 H (75-99) mg/dL Calcium (8.4-10.2) mg/dL Assessment and Plan Plan: Assessment and plan #1 congestive heart failure exacerbation secondary to diastolic dysfunction #2 moderate to severe mitral regurgitation #3 history of mitral valve repair #4 coronary artery disease and status post PCI of the RCA #4 accessible atrial fibrillation #5 multiple comorbid conditions Plan From cardiology's perspective, we will continue current dose of IV Lasix, continue to monitor the intake and output along with daily weights and daily lytes BUN and creatinine. Chest x-ray continues to show congestive heart failure. DNP note has been reviewed, I agree with a documented findings and plan of care. Patient was seen and examined.
[2019-11-15 11:58] VITALS: BMI 35.8
--- NOTE | 2019-11-15 14:31 | PN ---
PROGRESS NOTE Patient is seen for followup for acute kidney on top of chronic kidney disease. She is currently maintained on IV Lasix, which I had increased 2 days ago to q.8 hours. Patient states that she is feeling better. Her edema has improved. She is also less short of breath. Creatinine is down to 3.29 today. PHYSICAL EXAMINATION: On examination, blood pressure was 96/37. Examination of the heart, S1-S2. Examination of the lungs, decreased breath sounds at the bases. Abdomen is soft and nontender. Examination of the lower extremities shows chronic skin changes, edema 2+ bilaterally, currently stable. PRETZEL TWISTER exam grossly intact. LABS: Show sodium of 124, potassium 3,4, chloride 102, CO2 is 13, BUN 85, creatinine 3.29. ASSESSMENT: 1. Acute kidney injury, cardiorenal. Maintain on IV Lasix q.8 hours and creatinine seems to be improved. Patient is tolerating the diuresis fairly well. Will hold off on any renal replacement therapy for now. 2. CHF, acute on top of chronic, slowly improving. 3. CKD stage 3b to 4 sec to nephrosclerosis, previous cr 1.6-1.7 mg/dL PLAN . Continue IV Lasix, add zarololyn, check CXR. Repeat labs in am. No INSTRUCTION LIBRARIAN for now. MMODL / IJN: [id number] / [place]
[2019-11-15] MEDS ORDERED: POTASSIUM CHLORIDE ER 20 MEQ TAB.ER PO STA (15:34)
[2019-11-15] MEDS: METOLAZONE 5 MG TAB PO SCH (16:10)
[2019-11-15 16:38] LABS: Glucose,Whole Blood 165 mg/dL (75-99)
[2019-11-15] MEDS: WARFARIN 1 MG TAB PO SCH (16:51)
[2019-11-15 19:51] LABS: Glucose,Whole Blood 254 mg/dL (75-99)
[2019-11-15] MEDS: ALPRAZolam 0.25 MG TAB PO SCH (21:53)
[2019-11-16 06:26] LABS: Glucose,Whole Blood 115 mg/dL (75-99)
[2019-11-16] MEDS: INSULIN ASPART (NovoLOG) 100 UNIT/ML VIAL SQ SCH ×4 (06:29→20:53)
[2019-11-16] MEDS: PANTOPRAZOLE 40 MG TABLET PO SCH (06:29)
[2019-11-16] MEDS: LEVOTHYROXINE 112 MCG TAB PO SCH (06:29)
[2019-11-16 07:41] LABS: Calcium 8.2 mg/dL (8.4-10.2); Potassium 3.4 mmol/L (3.5-5.1)
[2019-11-16] MEDS: METOPROLOL TARTRATE 12.5 MG TAB PO SCH (09:03)
[2019-11-16] MEDS: MIDODRINE 5 MG TAB PO SCH ×3 (09:03→20:53)
[2019-11-16] MEDS: LORATADINE 10 MG TAB PO SCH (09:04)
[2019-11-16] MEDS: FUROSEMIDE 10 MG/ML 4 ML VIAL IV SCH ×3 (09:04→23:17)
[2019-11-16] MEDS: SERTRALINE 100 MG TAB PO SCH (09:04)
[2019-11-16] MEDS: AMIODARONE 200 MG TAB PO SCH (09:04)
[2019-11-16] MEDS: ASPIRIN 81 MG PO SCH (09:04)
[2019-11-16] MEDS: MULTIVITAMINS, THERA 1 EACH TAB PO SCH (09:04)
[2019-11-16] MEDS: CLOPIDOGREL 75 MG TAB PO SCH (09:04)
[2019-11-16] MEDS: METOLAZONE 5 MG TAB PO SCH (09:04)
[2019-11-16] MEDS: ATORVASTATIN 20 MG TAB PO SCH (09:04)
[2019-11-16] MEDS: ALLOPURINOL 100 MG TAB PO SCH (09:04)
[2019-11-16] MEDS: FERROUS SULFATE 325 MG TAB PO SCH ×2 (09:04→20:16)
[2019-11-16 09:25] LABS: INR 3.2 (<1.2); Prothrombin Time 30.9 sec (9.0-12.0)
[2019-11-16] MEDS ORDERED: POTASSIUM CHLORIDE ER 20 MEQ TAB.ER PO STA (09:41)
[2019-11-16 11:17] LABS: Glucose,Whole Blood 181 mg/dL (75-99)
--- NOTE | 2019-11-16 11:26 | P.PN ---
Subjective Progress Note Date: 11/16/19 This is a very pleasant 74-year-old female patient who following the office as an outpatient with extensive past medical history consistent off history of repair complex mitral valve was performed in the past, coronary artery disease and status post a stenting of the RCA, paroxysmal atrial fibrillation, diabetes, hypertension, dyslipidemia, and chronic diastolic congestive heart failure. The patient was directly admitted to the hospital because of increasing shortness of breath and worsening renal function. She has been struggling with increasing in the shortness of breath for the last several weeks and also increasing in the lower extremities edema. She was managed medically by myself as well as by the nephrology service through Dr. Morgan. Because she did not response to conservative medical approach and by mouth diuretics we also patient to come to the hospital. Yesterday her daughter called that the patient did undergo a blood work which I reviewed by myself and that revealed worsening renal function with a creatinine of about before. Also she stated that her shortness of breath has been worse compared to before. I directed the patient to be admitted to the hospital and I started her on Lasix at 20 mg IV twice a day which was increased by nephrology service to 40 mg IV twice a day. When the patient was seen today, she stated that she is feeling better in terms of shortness of breath. She still have diminished breathing sounds bilaterally. She's to have severe bilateral lower extremities edema. The creatinine has improved yebetween sterday to today and also the patient lost about 6 pounds between yesterday and today as well. I am going to keep her on the current dose of IV diuretics. She is in process of seeing a hand heel seat fitter at [facility] for possible mitral valve clip. The last transesophageal echocardiogram revealed normal left ventricular systolic function was evidence of moderate to severe mitral regurgitation she does have quite significant pansystolic murmur. 11/10/2019 Patient seen and examined this morning sitting up at the bedside, overall feeling better, diuresed well through the night last night. Her weight is down 1 kg today, creatinine improving at 3.6 today. We will continue with IV Lasix, continue to monitor intake and output along with daily weights and daily lytes BUN and creatinine. 11/11/2019 Patient seen and examined this morning sitting up in the chair, edema has improved significantly. Her weight is down. INR today 2.5, sodium 141, potassium 3.4, BUN 91, creatinine 3.6. From cardiology's perspective, we'll continue with the IV Lasix for 24 hours, check her lytes BUN and creatinine in weight in the morning. 11/12/2019 Patient seen and examined this morning, became more short of breath through the night last night, oxygen was applied. She continues to diurese on IV Lasix, creatinine is down to 3.4 today. 120/50, heart rate in the 90s. 11/13/2019 patient was seen and examined this morning, continues to diurese well, her weight is down, creatinine today is down to 3.3. Blood pressure 120/50 with a heart rate in the 60s, 93% on 2 L. 11/14/2019 Patient was seen and examined this morning, sitting up in her chair at bedside.she continues to diurese well.sodium 141, potassium 3.5, BUN 85, creatinine 3.4. 11/15/2019 Patient seen and examined this morning, again sitting up in her chair at bedside, every day she states that she's feeling better than the day before. Continues to be on IV Lasix. Pro time 34 with an INR of 3.5. Sodium 142, potassium 3.4, BUN 85, creatinine 3.2. 11/16/2019 Patient seen and examined this morning, she was initiated on Zaroxolyn yesterday as well as the IV Lasix, again diuresed well through the night last night her edema in her lower extremities has significantly improved. Sodium 142, potassium 3.4, BUN 86, creatinine 3.4. INR today is 3.2. Objective - Vital Signs Vital signs: Vital Signs Temp 97.1 F L 11/16/19 08:00 Pulse 60 11/16/19 08:00 Resp 18 11/16/19 08:00 BP 110/61 11/16/19 08:00 Pulse Ox 96 11/16/19 08:00 Intake & Output 11/15/19 11/16/19 11/16/19 18:59 06:59 18:59 Intake Total 285 143 Output Total 850 1400 900 Balance -564 -1400 -834 Weight 86 kg 85 kg Intake: Oral 285 143 Output: Urine 850 1400 900 Other: Voiding Method Toilet Bedside Commode Bedside Commode - Exam PHYSICAL EXAMINATION: GENERAL: 74-year-old female in no acute distress at the time of my examination HEENT: Head is atraumatic, normocephalic. Pupils equal, round. Sclera anicteric. Conjunctiva are clear. Mucous membranes of the mouth are moist. Neck is supple. There is no elevated jugular venous pressure. No carotid bruit is heard. HEART EXAMINATION: Heart S1 and S2 systolic murmur is heard CHEST EXAMINATION: lungs are clear with improvement in air entry to the bases bilaterally ABDOMEN: Soft, nontender. Bowel sounds are heard. No organomegaly noted. EXTREMITIES: 2+ peripheral pulses with evidence of trace peripheral edema and no calf tenderness noted. NEUROLOGIC patient is awake, alert and oriented 3 . . - Labs CBC & Chem 7: 11/09/19 06:16 11/16/19 06:45 Labs: Abnormal Lab Results - Last 24 Hours (Table) 11/15/19 11/15/19 11/15/19 Range/Units 11:36 16:36 19:50 PT (9.0-12.0) sec INR (<1.2) Potassium (3.5-5.1) mmol/L Carbon Dioxide (22-30) mmol/L BUN (7-17) mg/dL Creatinine (0.52-1.04) mg/dL Glucose (74-99) mg/dL POC Glucose (mg/dL) 135 H 165 H 254 H (75-99) mg/dL Calcium (8.4-10.2) mg/dL 11/16/19 11/16/19 11/16/19 Range/Units 06:24 06:45 08:23 PT 30.9 H (9.0-12.0) sec INR 3.2 H (<1.2) Potassium 3.4 L (3.5-5.1) mmol/L Carbon Dioxide 33 H (22-30) mmol/L BUN 86 H (7-17) mg/dL Creatinine 3.47 H (0.52-1.04) mg/dL Glucose 108 H (74-99) mg/dL POC Glucose (mg/dL) 115 H (75-99) mg/dL Calcium 8.2 L (8.4-10.2) mg/dL 11/16/19 Range/Units 11:15 PT (9.0-12.0) sec INR (<1.2) Potassium (3.5-5.1) mmol/L Carbon Dioxide (22-30) mmol/L BUN (7-17) mg/dL Creatinine (0.52-1.04) mg/dL Glucose (74-99) mg/dL POC Glucose (mg/dL) 181 H (75-99) mg/dL Calcium (8.4-10.2) mg/dL Assessment and Plan Plan: Assessment and plan #1 congestive heart failure exacerbation secondary to diastolic dysfunction #2 moderate to severe mitral regurgitation #3 history of mitral valve repair #4 coronary artery disease and status post PCI of the RCA #4 accessible atrial fibrillation #5 multiple comorbid conditions Plan From cardiology's perspective, we will continue current dose of IV Lasix, continue to monitor the intake and output along with daily weights and daily lytes BUN and creatinine. Plan is to discontinue the IV Lasix from tomorrow possible discharge home tomorrow. DNP note has been reviewed, I agree with a documented findings and plan of care. Patient was seen and examined.
[2019-11-16] MEDS ORDERED: POTASSIUM CHLORIDE ER 20 MEQ TAB.ER PO ONE (12:00)
--- NOTE | 2019-11-16 15:36 | P.HPIM ---
History of Present Illness H&P Date: 11/16/19 Chief Complaint: Acute hypoxemic respiratory failure due to acute diastolic heart failure This is a 74-year-old female with a previous medical history significant for hypertension and hypertensive cardiovascular disease, with left ventricular hypertrophy, history of severe mitral regurgitation status post mitral valve repair, about 2 and 1/2 year ago, that was done by Dr. García at [facility], history of the diabetes mellitus type 2, chronic diastolic heart failure, CAD post PCI of the RCA., history of pulmonary embolism, DVT of the right lower extremity, paroxysmal atrial fibrillation, history of morbid obesity status post Juan-en-Y surgery, patient was admitted to the hospital back on 11/09/2019 from her knitter helper's office Dr. Lni due to increased shortness of breath and worsening renal function, she was seen in consultation by cardiolo gy as well as by nephrology due to worsening kidney disease due to acute tubular necrosis and top of chronic kidney disease stage III, along with acute diastolic heart failure. I was asked to see the patient today as she is going to be transferred to my service from the visiting physician, and she will be following up with me as an outpatient. Please note that the patient was admitted on 11/08/2019. Review of Systems Constitutional: Reports weakness, Denies anorexia, Denies chronic headaches, Denies chronic pain, Denies fatigue, Denies lethargy, Denies sweats, Denies weight gain Eyes: denies blurred vision, denies bulging eye, denies decreased vision Ears: deny: decreased hearing Ears, nose, mouth and throat: Denies dysphagia, Denies neck fullness/pressure, Denies neck lump, Denies sore throat Cardiovascular: Reports decreased exercise tolerance, Reports dyspnea on exertion, Reports shortness of breath, Denies chest pain, Denies rapid heart beat, Denies syncope Respiratory: Reports cough, Reports cough with sputum, Reports home oxygen, Denies congestion, Denies respiratory infections, Denies sleep apnea, Denies snoring, Denies wheezing Gastrointestinal: Reports loss of appetite, Reports nausea, Denies abdominal pain, Denies bloating, Denies BRBPR, Denies excessive gas, Denies melena, Denies vomiting Genitourinary: Reports nocturia, Denies dysuria Menstruation: Reports postmenopausal Musculoskeletal: Reports gait dysfunction, Denies myalgias Musculoskeletal: absent: ankle pain, ankle stiffness, ankle swelling, elbow pain, elbow stiffness, elbow swelling, foot pain, foot stiffness, foot swelling, hand pain, hand stiffness, hand swelling, hip pain, hip stiffness, hip swelling, knee pain, knee stiffness, knee swelling, shoulder pain, shoulder stiffness, shoulder swelling, wrist pain, wrist stiffness, wrist swelling Integumentary: Denies pruritus, Denies rash Neurological: Denies numbness, Denies weakness Psychiatric: Denies anxiety, Denies depression Endocrine: Denies fatigue, Denies weight change Past Medical History Past Medical History: Blood Disorder, Coronary Artery Disease (CAD), Cancer, Heart Failure, Diabetes Mellitus, Deep Vein Thrombosis (DVT), GERD/Reflux, Hypertension, Osteoarthritis (OA), Pulmonary Embolus (PE) Additional Past Medical History / Comment(s): NIDDM type II, 2004 L lung cancer with surgery, 2000 thyroid cancer with surgery/hypothyroid, bilateral PEs, DVT R leg, hiatal hernia, hemorrhoids, DDD, occasional low back pain, gait disturbance, sinus problems. History of Any Multi-Drug Resistant Organisms: None Reported Past Surgical History: Bariatric Surgery, Cardiac Valve Replacement, Section, Cholecystectomy, Tonsillectomy, Tubal Ligation Additional Past Surgical History / Comment(s): L lower lobe resection, parathyroidectomy, cardiac valve repair, EGD, colonoscopy, lap juan en Y with lysis of adhesions, D&C, bilateral cataract removals/lens implants. Past Anesthesia/Blood Transfusion Reactions: Motion Sickness, No Reported Reaction Past Psychological History: Anxiety, Depression Additional Psychological History / Comment(s): Pt resides alone in [facility]. She uses a walker to ambulate. pts. daughter drives her to appointments Smoking Status: Never smoker Past Alcohol Use History: None Reported Past Drug Use History: None Reported - Past Family History Mother Family Medical History: No Reported History (Mother at age of 94 from old age.) Father Family Medical History: Diabetes Mellitus (Father at age of 65 from diabetes complications as well as PA.), Myocardial Infarction (PA) Brother(s) Family Medical History: No Reported History (Patient has 3 half-brothers.) Sister(s) Family Medical History: No Reported History (Patient has one full sister and 2 half sisters.) Daughter(s) Family Medical History: No Reported History (Patient has 3 daughters no major medical problems.) Medications and Allergies Home Medications Medication Instructions Recorded Confirmed Type ALPRAZolam [Xanax] 0.25 mg PO HS 01/30/19 11/08/19 History Allopurinol [Zyloprim] 100 mg PO DAILY 01/30/19 11/08/19 History Amiodarone HCl [Pacerone] 200 mg PO DAILY 01/30/19 11/08/19 History Levothyroxine Sodium 112 mcg PO DAILY 01/30/19 11/08/19 History Metoprolol Tartrate [Lopressor] 12.5 mg PO DAILY 01/30/19 11/08/19 History Omeprazole 40 mg PO DAILY 01/30/19 11/08/19 History Sertraline HCl [Zoloft] 100 mg PO HS 01/30/19 11/08/19 History Furosemide [Lasix] 80 mg PO BID 02/19/19 11/08/19 History Calcitriol [Rocaltrol] 0.25 mcg PO ORNELAS 07/11/19 11/08/19 History Ferrous Sulfate [Iron (65 MG 325 mg PO BID 08/05/19 11/08/19 History Elemental)] Loratadine [Claritin] 10 mg PO DAILY 08/14/19 11/08/19 History Aspirin 325 mg PO DAILY #90 tab 08/17/19 11/08/19 Rx Atorvastatin Calcium [Lipitor] 20 mg PO DAILY #90 tab 08/17/19 11/08/19 Rx Clopidogrel [Plavix] 75 mg PO DAILY #90 tab 08/17/19 11/08/19 Rx Multivitamin [Multivitamins Adult 1 tab PO DAILY 11/08/19 11/08/19 History Gummies] Warfarin Sodium [Jantoven] 1.5 mg PO MOFR 11/08/19 11/08/19 History Warfarin [Coumadin] 1 mg PO SUTUWETHSA 11/08/19 11/08/19 History Allergies Allergy/AdvReac Type Severity Reaction Status Date / Time latex Allergy Rash/Hives Verified 08/16/19 06:14 iodine AdvReac Intermediate MOTHER IS Verified 08/16/19 06:14 ALLERGIC lactose AdvReac Diarrhea Verified 08/16/19 06:14 Physical Exam Vitals: Vital Signs Temp Pulse Resp BP Pulse Ox 11/16/19 12:00 97.4 F L 66 18 100/61 11/16/19 08:00 97.1 F L 60 18 110/61 96 11/16/19 04:00 97.9 F 69 18 119/77 95 11/16/19 00:00 98.0 F 63 16 114/74 97 11/15/19 20:00 98.4 F 64 18 127/62 96 11/15/19 16:00 97 F L 53 L 16 96/53 96 Intake and Output 11/16/19 11/16/19 11/16/19 06:59 14:59 22:59 Intake Total 143 Output Total 1100 1200 Balance -1100 -1057 Intake: Oral 143 Output: Urine 1100 1200 Other: Voiding Method Bedside Commode Bedside Commode # Bowel Movements 1 Weight 85 kg HEENT: Head is atraumatic, normocephalic, pupils were equal round reactive to light and accommodation, extraocular muscle movement were intact, mucous membranes of the mouth are somewhat dry. Neck: Supple, no JVP, decreased carotid upstroke bilaterally. Chest: Decreased breath sounds at the bases, few rhonchi, no extremities, no chest wall tenderness, no intercostal retractions. Heart: First heart sound is depressed, second heart sounds normal, there is systolic ejection murmur 3/6 located at the left sternal border. Abdomen: Soft, nontender, nondistended, positive bowel sounds. Extremities: Trace edema, no calf tenderness, dorsalis pedis +1 bilaterally. Neurologic examination: Patient is awake alert and oriented 3, creatinine 3-12 appear grossly intact, as per 4 out of 5 in upper extremities and 3 out of 5 in both lower extremities. Deep tendon reflexes were depressed bilaterally. Results CBC & Chem 7: 11/09/19 06:16 11/16/19 06:45 Labs: Abnormal Lab Results - Last 24 Hours (Table) 11/15/19 11/15/19 11/16/19 Range/Units 16:36 19:50 06:24 PT (9.0-12.0) sec INR (<1.2) Potassium (3.5-5.1) mmol/L Carbon Dioxide (22-30) mmol/L BUN (7-17) mg/dL Creatinine (0.52-1.04) mg/dL Glucose (74-99) mg/dL POC Glucose (mg/dL) 165 H 254 H 115 H (75-99) mg/dL Calcium (8.4-10.2) mg/dL 11/16/19 11/16/19 11/16/19 Range/Units 06:45 08:23 11:15 PT 30.9 H (9.0-12.0) sec INR 3.2 H (<1.2) Potassium 3.4 L (3.5-5.1) mmol/L Carbon Dioxide 33 H (22-30) mmol/L BUN 86 H (7-17) mg/dL Creatinine 3.47 H (0.52-1.04) mg/dL Glucose 108 H (74-99) mg/dL POC Glucose (mg/dL) 181 H (75-99) mg/dL Calcium 8.2 L (8.4-10.2) mg/dL Thrombosis Risk Factor Assmnt - DVT/VTE Prophylaxis DVT/VTE Prophylaxis: Pharmacologic Prophylaxis ordered, Mechanical Prophylaxis ordered - Choose All That Apply Any of the Below Risk Factors Present?: Yes Each Factor Represents 1 point: Heart failure (<1month), Obesity (BMI >25), Swollen legs (current) Other Risk Factors: Yes Each Risk Factor Represents 2 Points: Age 61-74 years Each Risk Factor Represents 3 Points: History of DVT/PE Other congenital or acquired thrombophilia - If yes, enter type in comment: No Thrombosis Risk Factor Assessment Total Risk Factor Score: 8 Thrombosis Risk Factor Assessment Level: High Risk Assessment and Plan Assessment: Assessment and plan: 1. Acute hypoxemic respiratory failure due to acute diastolic heart failure. Continue patient on Lasix 80 mg IV push every 8 hours, we will continue metolazone 5 mg orally once every day, continue metoprolol 12.5 mg orally once every day, monitor the patient input and output and daily weight, patient may need to go for a mitral valve clip to try to avoid rehospitalization due to acute diastolic heart failure because of her moderate to severe mitral regurgitation postrepair. 2. Acute kidney injury on chronic kidney disease stage III Baseline creatinine 1.5. Monitor the patient input and output and daily weight monitor the patient CMP, nephrology is following. 3. Coronary artery disease status post PCI of the RCA. Currently on aspirin 81 mg once every day, Plavix 75 mg once every day, metoprolol 12.5 mg orally once every day, Lipitor 20 mg orally once every day. 4. Hypertension and hypertensive cardiovascular disease. Continue metoprolol 12.5 mg orally once every day. 5. Hyperlipidemia. Continue patient on Lipitor 20 mg orally once every day. 6. Hypothyroidism. Continue patient on Synthroid 112 g orally once every day. 7. Diabetes mellitus type 2. Continue patient on sliding scale insulin. 8. Paroxysmal atrial fibrillation. Continue patient on Coumadin and metoprolol. Keep her INR between 2 and 3. 9. History of morbid obesity status post Juan-en-Y surgery. Stable. 10. ALLERGIC rhinitis. Continue loratadine 10 mg orally once every day. 11. Secondary hyperparathyroidism. Continue calcitriol. 12. Chronic kidney disease stage III. Monitor the patient creatinine very closely. 13. Anemia of chronic kidney disease. Continue iron 325 minute gram orally twice every day. 14. Remote history of lung cancer status post left lower lobectomy. In remission. 15. History of pulmonary and was and right lower extremity DVT. She will continue to be on Coumadin for life. 16. Depressive disorder. Continue sertraline 100 mg orally once every day. 17. Patient was admitted as an inpatient, estimate length of stay 2 midnights. 18. Patient is full code.
--- NOTE | 2019-11-16 15:56 | PN ---
PROGRESS NOTE Patient is seen for followup for acute kidney injury which is mainly cardiorenal. She was admitted to the hospital for volume overload, CHF exacerbation and worsening renal failure. Patient's renal function seems to be improving with diuresis, high diuretics were increased and Zaroxolyn was added. Creatinine is stable at about 3.4 mg/dL which is lower than 3.8 on initial admission. Volume status is improved. Patient has lost about a kg from yesterday. PHYSICAL EXAMINATION: On examination today, blood pressure was 110/61, heart rate 60 per minute, she is afebrile. Examination of the heart S1, S2. Examination of the lungs, bilateral breath sounds are heard. Abdomen is soft, nontender. Examination of the lower extremities shows improving edema, chronic skin changes noted. 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 LABS: Show sodium 142, potassium 3.4, chloride 102, CO2 is 33, BUN 86, creatinine 3.47. ASSESSMENT: 1. Acute kidney injury, cardiorenal syndrome, currently stable, although much weaker than her baseline creatinine of 1.5-1.7 mg/dL. No indication to start renal replacement therapy. Continue current diuretics for one more day, switch to oral diuretics and patient can likely be discharged tomorrow. 2. Congestive heart failure, acute on top of chronic, mainly diastolic, now improving. 3. Chronic kidney disease stage 3B. Baseline creatinine about 1.6-1.7 mg/dL. 4. Valvular heart disease. Patient needs mitral valve surgery, which will be out of town. 5. Generalized debility. 6. Hypotension maintained on midodrine and stable. PLAN: Switch to oral diuretics in a.m. Continue with the Zaroxolyn. Patient was on 80 mg b.i.d. of Lasix at home. She could be sent home on the same dose tomorrow. She will need close followup within 1 week's time. MMODL / IJN: [id number] /
[2019-11-16 16:36] LABS: Glucose,Whole Blood 134 mg/dL (75-99)
[2019-11-16] MEDS: WARFARIN 1.5 MG TAB PO SCH (17:25)
[2019-11-16] MEDS: ALPRAZolam 0.25 MG TAB PO SCH (20:16)
[2019-11-16 20:47] LABS: Glucose,Whole Blood 146 mg/dL (75-99)
[2019-11-17 06:09] LABS: Glucose,Whole Blood 141 mg/dL (75-99)
[2019-11-17 06:23] LABS: Basophils # (A) 0.1 k/uL (0-0.2); Basophils % (A) 1 %; Eosinophils # (A) 0.3 k/uL (0-0.7); Eosinophils % (A) 6 %; HCT 35.1 % (34.0-46.0); HGB 10.8 gm/dL (11.4-16.0); Hypochromasia Slight; Lymphocytes # (A) 1.1 k/uL (1.0-4.8); Lymphocytes % (A) 21 %; MCH 29.5 pg (25.0-35.0); MCHC 30.7 g/dL (31.0-37.0); Mean Platelet Volume 8.1; Monocytes # (A) 0.3 k/uL (0-1.0); Monocytes % (A) 5 %; Neutrophils # (A) 3.4 k/uL (1.3-7.7); Neutrophils % (A) 65 %; Platelet Count 171 k/uL (150-450); RBC 3.66 m/uL (3.80-5.40); RDW 14.8 % (11.5-15.5); WBC 5.3 k/uL (3.8-10.6)
[2019-11-17] MEDS: PANTOPRAZOLE 40 MG TABLET PO SCH (06:35)
[2019-11-17] MEDS: INSULIN ASPART (NovoLOG) 100 UNIT/ML VIAL SQ SCH ×4 (06:35→21:44)
[2019-11-17] MEDS: LEVOTHYROXINE 112 MCG TAB PO SCH (06:35)
[2019-11-17 06:42] LABS: Albumin 3.5 g/dL (3.5-5.0); Calcium 8.3 mg/dL (8.4-10.2); Magnesium 1.7 mg/dL (1.6-2.3); Potassium 3.5 mmol/L (3.5-5.1); Total Bilirubin 1.4 mg/dL (0.2-1.3); Total Protein 6.3 g/dL (6.3-8.2)
[2019-11-17] MEDS: METOPROLOL TARTRATE 12.5 MG TAB PO SCH (09:32)
[2019-11-17] MEDS: METOLAZONE 5 MG TAB PO SCH (09:33)
[2019-11-17] MEDS: MULTIVITAMINS, THERA 1 EACH TAB PO SCH (09:33)
[2019-11-17] MEDS: AMIODARONE 200 MG TAB PO SCH (09:33)
[2019-11-17] MEDS: ASPIRIN 81 MG PO SCH (09:34)
[2019-11-17] MEDS: ALLOPURINOL 100 MG TAB PO SCH (09:34)
[2019-11-17] MEDS: SERTRALINE 100 MG TAB PO SCH (09:34)
[2019-11-17] MEDS: FERROUS SULFATE 325 MG TAB PO SCH ×2 (09:34→21:44)
[2019-11-17] MEDS: MIDODRINE 5 MG TAB PO SCH ×3 (09:34→21:44)
[2019-11-17] MEDS: ATORVASTATIN 20 MG TAB PO SCH (09:34)
[2019-11-17] MEDS: CLOPIDOGREL 75 MG TAB PO SCH (09:34)
[2019-11-17] MEDS: LORATADINE 10 MG TAB PO SCH (09:34)
[2019-11-17] MEDS: FUROSEMIDE 10 MG/ML 4 ML VIAL IV SCH ×3 (09:35→21:43)
--- NOTE | 2019-11-17 09:49 | P.PN ---
Subjective Progress Note Date: 11/17/19 This is a 74-year-old female with a previous medical history significant for hypertension and hypertensive cardiovascular disease, with left ventricular hypertrophy, history of severe mitral regurgitation status post mitral valve repair, about 2 and 1/2 year ago, that was done by Dr. García at [facility], history of the diabetes mellitus type 2, chronic diastolic heart failure, CAD post PCI of the RCA., history of pulmonary embolism, DVT of the right lower extremity, paroxysmal atrial fibrillation, history of morbid obesity status post Juan-en-Y surgery, patient was admitted to the hospital back on 11/09/2019 from her shirt hemmer's office Dr. Lin due to increased shortness of breath and worsening renal function, she was seen in consultation by cardiology as well as by nephrology due to worsening kidney disease due to acute tubular necrosis and top of chronic kidney disease stage III, along with acute diastolic heart failure. I was asked to see the patient today as she is going to be transferred to my service from the visiting physician, and she will be following up with me as an outpatient. 11/16: Patient is sitting up in chair in no apparent distress she denies any chest pain she was short of breath she continues to have some post nasal drip, she denies any abdominal pain, nausea or vomiting she did have a bowel movement yesterday, she was seen earlier by cardiology the Lasix was switched to oral and hopefully she will be discharged early next week.. Would make an arrangement for her to have a home oxygen as she is dropping to 87% with ambulation. Objective - Vital Signs Vital signs: Vital Signs Temp 98.0 F 11/17/19 04:00 Pulse 64 11/17/19 04:00 Resp 18 11/17/19 04:00 BP 125/67 11/17/19 04:00 Pulse Ox 97 11/17/19 04:00 Intake & Output 11/16/19 11/17/19 11/17/19 18:59 06:59 18:59 Intake Total 380 40 120 Output Total 1900 300 Balance -1520 40 -180 Weight 82.9 kg Intake: Oral 380 40 120 Output: Urine 1900 300 Other: Voiding Method Bedside Commode Bedside Commode # Bowel Movements 1 - Exam HEENT: Head is atraumatic, normocephalic, pupils were equal round reactive to light and accommodation, extraocular muscle movement were intact, mucous membranes of the mouth are somewhat dry. Neck: Supple, no JVP, decreased carotid upstroke bilaterally. Chest: Decreased breath sounds at the bases, few rhonchi, no extremities, no chest wall tenderness, no intercostal retractions. Heart: First heart sound is depressed, second heart sounds normal, there is systolic ejection murmur 3/6 located at the left sternal border. Abdomen: Soft, nontender, nondistended, positive bowel sounds. Extremities: Trace edema, no calf tenderness, dorsalis pedis +1 bilaterally. Neurologic examination: Patient is awake alert and oriented 3, creatinine 3-12 appear grossly intact, as per 4 out of 5 in upper extremities and 3 out of 5 in both lower extremities. Deep tendon reflexes were depressed bilaterally. - Labs CBC & Chem 7: 11/17/19 06:09 11/17/19 06:09 Labs: Abnormal Lab Results - Last 24 Hours (Table) 11/16/19 11/16/19 11/16/19 Range/Units 11:15 16:35 20:45 RBC (3.80-5.40) m/uL Hgb (11.4-16.0) gm/dL MCHC (31.0-37.0) g/dL Carbon Dioxide (22-30) mmol/L BUN (7-17) mg/dL Creatinine (0.52-1.04) mg/dL Glucose (74-99) mg/dL POC Glucose (mg/dL) 181 H 134 H 146 H (75-99) mg/dL Calcium (8.4-10.2) mg/dL Total Bilirubin (0.2-1.3) mg/dL AST (14-36) U/L 11/17/19 11/17/19 11/17/19 Range/Units 06:05 06:09 06:09 RBC 3.66 L (3.80-5.40) m/uL Hgb 10.8 L (11.4-16.0) gm/dL MCHC 30.7 L (31.0-37.0) g/dL Carbon Dioxide 33 H (22-30) mmol/L BUN 87 H (7-17) mg/dL Creatinine 3.36 H (0.52-1.04) mg/dL Glucose 122 H (74-99) mg/dL POC Glucose (mg/dL) 141 H (75-99) mg/dL Calcium 8.3 L (8.4-10.2) mg/dL Total Bilirubin 1.4 H (0.2-1.3) mg/dL AST 53 H (14-36) U/L Assessment and Plan Assessment: Assessment and plan: 1. Acute hypoxemic respiratory failure due to acute diastolic heart failure. Switch patient to Lasix 40 mg IVP q 12 hours, we will continue metolazone 5 mg orally once every day, continue metoprolol 12.5 mg orally once every day, monitor the patient input and output and daily weight, patient may need to go for a mitral valve clip to try to avoid rehospitalization due to acute diastolic heart failure because of her moderate to severe mitral regurgitation postrepair. 2. Acute kidney injury on chronic kidney disease stage III Baseline creatinine 1.5. Monitor the patient input and output and daily weight monitor the patient CMP, nephrology is following. 3. Coronary artery disease status post PCI of the RCA. Currently on aspirin 81 mg once every day, Plavix 75 mg once every day, metoprolol 12.5 mg orally once every day, Lipitor 20 mg orally once every day. 4. Hypertension and hypertensive cardiovascular disease. Continue metoprolol 12.5 mg orally once every day. 5. Hyperlipidemia. Continue patient on Lipitor 20 mg orally once every day. 6. Hypothyroidism. Continue patient on Synthroid 112 g orally once every day. 7. Diabetes mellitus type 2. Continue patient on sliding scale insulin. 8. Paroxysmal atrial fibrillation. Continue patient on Coumadin and me toprolol. Keep her INR between 2 and 3. 9. History of morbid obesity status post Juan-en-Y surgery. Stable. 10. ALLERGIC rhinitis. Continue loratadine 10 mg orally once every day. 11. Secondary hyperparathyroidism. Continue calcitriol. 12. Chronic kidney disease stage III. Monitor the patient creatinine very closely. 13. Anemia of chronic kidney disease. Continue iron 325 minute gram orally twice every day. 14. Remote history of lung cancer status post left lower lobectomy. In remission. 15. History of pulmonary and was and right lower extremity DVT. She will continue to be on Coumadin for life. 16. Depressive disorder. Continue sertraline 100 mg orally once every day.
[2019-11-17 11:37] LABS: Glucose,Whole Blood 173 mg/dL (75-99)
--- NOTE | 2019-11-17 13:54 | P.PN ---
Subjective Progress Note Date: 11/17/19 The patient is a 74-year-old female who follows with Dr. Mendez in the office. The patient is sitting up, resting comfortably in the chair. She states she continues to get better every day. She denies any chest pain, chest pressure, palpitations, dizziness, or lightheadedness. She does continue to have shortness of breath when she ambulates to the bathroom. She is currently on 2 L nasal cannula. GENERAL: Well-appearing, well-nourished and in no acute distress. NECK: Supple without JVD or thyromegaly. LUNGS: Breath sounds clear to auscultation bilaterally. Respiration equal and unlabored. No wheezes, rales or rhonchi. HEART: Regular rate and rhythm. Systolic murmur. No rubs or gallops. S1 and S2 heard. EXTREMITIES: Normal range of motion. No clubbing or cyanosis. Peripheral pulses intact and strong. 2+ lower extremity pitting edema, improving. LABS: WBC 5.3, hemoglobin 10.8, hematocrit 35.1, sodium 142, potassium 3.5, BUN 87, creatinine 3.36, magnesium 1.7, AST 53, ALT 29 VITALS: 97.1 Fahrenheit, heart rate 62, respiratory rate 16, blood pressure 108/50, SpO2 98 on 2 L nasal cannula. Weight this morning is 82.9 kg (down 7.5 kg from admission ) ASSESSMENT: #1 congestive heart failure, diastolic dysfunction #2 moderate to severe mitral regurgitation #3 history of complex mitral valve repair #4 coronary artery disease #5 paroxysmal atrial fibrillation #6 multiple comorbid conditions PLAN: Transition patient to oral diuretics. If patient continues to void and lab work remained stable, she may be discharged for outpatient follow-up. Objective - Vital Signs Vital signs: Vital Signs Temp 97.5 F L 11/17/19 11:54 Pulse 56 L 11/17/19 11:54 Resp 18 11/17/19 11:54 BP 131/63 11/17/19 11:54 Pulse Ox 96 11/17/19 11:54 Intake & Output 11/16/19 11/17/19 11/17/19 18:59 06:59 18:59 Intake Total 380 40 120 Output Total 1900 700 Balance -1520 40 -580 Weight 82.9 kg Intake: Oral 380 40 120 Output: Urine 1900 700 Other: Voiding Method Bedside Commode Bedside Commode # Bowel Movements 1 - Labs CBC & Chem 7: 11/17/19 06:09 11/17/19 06:09 Labs: Abnormal Lab Results - Last 24 Hours (Table) 11/16/19 11/16/19 11/17/19 Range/Units 16:35 20:45 06:05 RBC (3.80-5.40) m/uL Hgb (11.4-16.0) gm/dL MCHC (31.0-37.0) g/dL Carbon Dioxide (22-30) mmol/L BUN (7-17) mg/dL Creatinine (0.52-1.04) mg/dL Glucose (74-99) mg/dL POC Glucose (mg/dL) 134 H 146 H 141 H (75-99) mg/dL Calcium (8.4-10.2) mg/dL Total Bilirubin (0.2-1.3) mg/dL AST (14-36) U/L 11/17/19 11/17/19 11/17/19 Range/Units 06:09 06:09 11:35 RBC 3.66 L (3.80-5.40) m/uL Hgb 10.8 L (11.4-16.0) gm/dL MCHC 30.7 L (31.0-37.0) g/dL Carbon Dioxide 33 H (22-30) mmol/L BUN 87 H (7-17) mg/dL Creatinine 3.36 H (0.52-1.04) mg/dL Glucose 122 H (74-99) mg/dL POC Glucose (mg/dL) 173 H (75-99) mg/dL Calcium 8.3 L (8.4-10.2) mg/dL Total Bilirubin 1.4 H (0.2-1.3) mg/dL AST 53 H (14-36) U/L
--- NOTE | 2019-11-17 14:13 | P.PN ---
Subjective Progress Note Date: 11/17/19 Principal diagnosis: 74-year-old female, followed up for cardiorenal syndrome congestive heart failure acute kidney injury. Currently on Lasix and metolazone creatinine slowly coming down. Creatinine is down to 3.36. Bicarb is 33 Vital signs are stable blood pressure 108 systolic to 131 systolic. Heart rate in the 50s to 60s Urine output 1900 mL for the last 24 hours She is known with coronary artery disease and diabetes mellitus, ejection fraction is supposedly preserved with mild to moderate valvular dysfunction Objective - Vital Signs Vital signs: Vital Signs Temp 97.5 F L 11/17/19 11:54 Pulse 56 L 11/17/19 11:54 Resp 18 11/17/19 11:54 BP 131/63 11/17/19 11:54 Pulse Ox 96 11/17/19 11:54 Intake & Output 11/16/19 11/17/19 11/17/19 18:59 06:59 18:59 Intake Total 380 40 120 Output Total 1900 700 Balance -1520 40 -580 Weight 82.9 kg Intake: Oral 380 40 120 Output: Urine 1900 700 Other: Voiding Method Bedside Commode Bedside Commode # Bowel Movements 1 On examination awake alert oriented on nasal cannula oxygen. HEENT exam no JVP neck is supple no facial asymmetry Lungs are significant for occasional coarse crackle at bases Heart sounds are remarkable for grade 1-2 systolic ejection murmur. Abdomen soft nontender obese Extremity exam was mild edema Neurologically awake alert oriented - Labs CBC & Chem 7: 11/17/19 06:09 11/17/19 06:09 Labs: Abnormal Lab Results - Last 24 Hours (Table) 11/16/19 11/16/19 11/17/19 Range/Units 16:35 20:45 06:05 RBC (3.80-5.40) m/uL Hgb (11.4-16.0) gm/dL MCHC (31.0-37.0) g/dL Carbon Dioxide (22-30) mmol/L BUN (7-17) mg/dL Creatinine (0.52-1.04) mg/dL Glucose (74-99) mg/dL POC Glucose (mg/dL) 134 H 146 H 141 H (75-99) mg/dL Calcium (8.4-10.2) mg/dL Total Bilirubin (0.2-1.3) mg/dL AST (14-36) U/L 11/17/19 11/17/19 11/17/19 Range/Units 06:09 06:09 11:35 RBC 3.66 L (3.80-5.40) m/uL Hgb 10.8 L (11.4-16.0) gm/dL MCHC 30.7 L (31.0-37.0) g/dL Carbon Dioxide 33 H (22-30) mmol/L BUN 87 H (7-17) mg/dL Creatinine 3.36 H (0.52-1.04) mg/dL Glucose 122 H (74-99) mg/dL POC Glucose (mg/dL) 173 H (75-99) mg/dL Calcium 8.3 L (8.4-10.2) mg/dL Total Bilirubin 1.4 H (0.2-1.3) mg/dL AST 53 H (14-36) U/L Assessment and Plan Assessment: Impression 1. Acute kidney injury from prerenal from cardiorenal syndrome slowly improving on aggressive diuresis. Creatinine improved to 3.36, from a peak of 3.8 on 11/09/2019. 2. Chronic kidney disease, stage III Her baseline is 1.5-2 as of May 2019 and June 2019. Etiology is nephrosclerosis. 3. Anemia of chronic kidney disease hemoglobin 10.8 at target 4. Mild metabolic alkalosis 33 secondary to diuresis Recommendation 1. Continue current dosage of diuretics 2. Watch electrolytes and acid-base and hemoglobin
[2019-11-17 16:42] LABS: Glucose,Whole Blood 178 mg/dL (75-99)
[2019-11-17] MEDS: WARFARIN 1 MG TAB PO SCH (18:05)
[2019-11-17 21:06] LABS: Glucose,Whole Blood 191 mg/dL (75-99)
[2019-11-17] MEDS: ALPRAZolam 0.25 MG TAB PO SCH (21:43)
[2019-11-18 06:22] LABS: Glucose,Whole Blood 133 mg/dL (75-99)
[2019-11-18 06:29] LABS: Basophils # (A) 0.1 k/uL (0-0.2); Basophils % (A) 1 %; Eosinophils # (A) 0.3 k/uL (0-0.7); Eosinophils % (A) 5 %; HCT 34.4 % (34.0-46.0); HGB 11.1 gm/dL (11.4-16.0); Lymphocytes # (A) 1.2 k/uL (1.0-4.8); Lymphocytes % (A) 21 %; MCHC 32.4 g/dL (31.0-37.0); MCV 95.7 fL (80.0-100.0); Mean Platelet Volume 7.8; Monocytes # (A) 0.3 k/uL (0-1.0); Monocytes % (A) 5 %; Neutrophils % (A) 67 %; Platelet Count 195 k/uL (150-450); RBC 3.59 m/uL (3.80-5.40); WBC 5.9 k/uL (3.8-10.6)
[2019-11-18 06:46] LABS: Calcium 8.2 mg/dL (8.4-10.2); Potassium 3.1 mmol/L (3.5-5.1)
[2019-11-18] MEDS: INSULIN ASPART (NovoLOG) 100 UNIT/ML VIAL SQ SCH ×2 (06:55→11:55)
[2019-11-18] MEDS: LEVOTHYROXINE 112 MCG TAB PO SCH (06:55)
[2019-11-18] MEDS: PANTOPRAZOLE 40 MG TABLET PO SCH (06:55)
[2019-11-18] MEDS: ALLOPURINOL 100 MG TAB PO SCH (08:18)
[2019-11-18] MEDS: FERROUS SULFATE 325 MG TAB PO SCH (08:18)
[2019-11-18] MEDS: METOPROLOL TARTRATE 12.5 MG TAB PO SCH (08:18)
[2019-11-18] MEDS: MIDODRINE 5 MG TAB PO SCH ×2 (08:18→16:37)
[2019-11-18] MEDS: SERTRALINE 100 MG TAB PO SCH (08:18)
[2019-11-18] MEDS: ATORVASTATIN 20 MG TAB PO SCH (08:18)
[2019-11-18] MEDS: MULTIVITAMINS, THERA 1 EACH TAB PO SCH (08:19)
[2019-11-18] MEDS: CLOPIDOGREL 75 MG TAB PO SCH (08:19)
[2019-11-18] MEDS: LORATADINE 10 MG TAB PO SCH (08:19)
[2019-11-18] MEDS: ASPIRIN 81 MG PO SCH (08:19)
[2019-11-18] MEDS: AMIODARONE 200 MG TAB PO SCH (08:19)
[2019-11-18] MEDS ORDERED: POTASSIUM CHLORIDE ER 20 MEQ TAB.ER PO STA ×2 (10:01→16:01)
[2019-11-18] MEDS: FUROSEMIDE 10 MG/ML 4 ML VIAL IV SCH (10:17)
[2019-11-18] MEDS: METOLAZONE 5 MG TAB PO SCH (10:26)
--- NOTE | 2019-11-18 10:58 | P.DS ---
Providers Date of admission: 11/08/19 17:53 Expected date of discharge: 11/18/19 Attending physician: Eulalia Frazier Consults: 11/08/19 18:35 Consult Physician Urgent Consulting Provider: Jovon Pride Consult Reason/Comments: iv lasix management, worsening kidney function Do you want consulting provider notified?: Yes Primary care physician: Eulalia Frazier Hospital Course: This is a 74-year-old female with a previous medical history significant for hypertension and hypertensive cardiovascular disease, with left ventricular hypertrophy, history of severe mitral regurgitation status post mitral valve repair, about 2 and 1/2 year ago, that was done by Dr. García at [facility], history of the diabetes mellitus type 2, chronic diastolic heart failure, CAD post PCI of the RCA., history of pulmonary embolism, DVT of the right lower extremity, paroxysmal atrial fibrillation, history of morbid obesity status post Juan-en-Y surgery, patient was admitted to the hospital back on 11/09/2019 from her corporate development associate's office Dr. Lin due to increased shortness of breath and worsening renal function, she was seen in consultation by cardiology as well as by nephrology due to worsening kidney disease due to acute tubular necrosis and top of chronic kidney disease stage III, along with acute diastolic heart failure. I was asked to see the patient today as she is going to be transferred to my service from the visiting physician, and she will be following up with me as an outpatient. 11/16: Patient is sitting up in chair in no apparent distress she denies any chest pain she was short of breath she continues to have some post nasal drip, she denies any abdominal pain, nausea or vomiting she did have a bowel movement yesterday, she was seen earlier by cardiology the Lasix was switched to oral and hopefully she will be discharged early next week.. Would make an arrangement for her to have a home oxygen as she is dropping to 87% with ambulation. 11/17: Patient is sitting up in a chair in no apparent distress she denies any chest pain or any shortness of breath at this time she has no more swelling, her blood pressure was a bit lower today, held her Lasix IV she will be switched to oral Lasix 40 mg orally twice every day, she will need 24-hour oxygen 2 L nasal cannula due to chronic diastolic heart failure stemming from severe mitral regurgitation along with severe pulmonary hypertension, patient will need home health care services with physical therapy at home as well and the hopefully if all the requirements are not patient can be discharged home if okay with cardiology as well as nephrology also if her home oxygen is delivered as well as the patient will require 2 L nasal cannula 24 hours 7 days a week, due to chronic diastolic heart failure as I stated earlier due to her severe mitral regurgitation and severe pulmonary hypertension, patient will be seen by an table maker at [facility] tomorrow morning for possible a clip procedure hopefully that will reduce her recurrent hospitalization due to acute diastolic heart failure. Patient was instructed to follow-up with me as an outpatient one week she is to follow-up with cardiology in about 1 week as well, and nephrology in about 1 week. discharge diagnoses: Assessment and plan: 1. Acute hypoxemic respiratory failure due to acute diastolic heart failure. 2. Acute kidney injury on chronic kidney disease stage III Baseline creatinine 1.5. 3. Coronary artery disease status post PCI of the RCA. 4. Hypertension and hypertensive cardiovascular disease. 5. Hyperlipidemia. 6. Hypothyroidism. 7. Diabetes mellitus type 2. 8. Paroxysmal atrial fibrillation/flutter. 9. History of morbid obesity status post Juan-en-Y surgery. 10. ALLERGIC rhinitis. 11. Secondary hyperparathyroidism. 12. Chronic kidney disease stage III. 13. Anemia of chronic kidney disease. 14. Remote history of lung cancer status post left lower lobectomy. 15. Severe mitral regurgitation, tricuspid regurgitation, severe pulmonary hypertension. 16. Hypomagnesemia. 17. Hypokalemia. Patient Condition at Discharge: Fair Plan - Discharge Summary Discharge Rx Participant: No New Discharge Prescriptions: New Aspirin 81 mg PO DAILY chew Furosemide [Lasix] 40 mg PO BID@0900,1600 #60 tab Midodrine [ProAmatine] 10 mg PO TID #90 tab Metolazone [Zaroxolyn] 5 mg PO DAILY #30 tab Continue Omeprazole 40 mg PO DAILY Sertraline HCl [Zoloft] 100 mg PO HS Levothyroxine Sodium 112 mcg PO DAILY Amiodarone HCl [Pacerone] 200 mg PO DAILY Metoprolol Tartrate [Lopressor] 12.5 mg PO DAILY Allopurinol [Zyloprim] 100 mg PO DAILY ALPRAZolam [Xanax] 0.25 mg PO HS Calcitriol [Rocaltrol] 0.25 mcg PO ORNELAS Ferrous Sulfate [Iron (65 MG Elemental)] 325 mg PO BID Loratadine [Claritin] 10 mg PO DAILY Atorvastatin Calcium [Lipitor] 20 mg PO DAILY #90 tab Clopidogrel [Plavix] 75 mg PO DAILY #90 tab Warfarin [Coumadin] 1 mg PO SUTUWETHSA Multivitamin [Multivitamins Adult Gummies] 1 tab PO DAILY Warfarin Sodium [Jantoven] 1.5 mg PO MOFR Discontinued Furosemide [Lasix] 80 mg PO BID Aspirin 325 mg PO DAILY #90 tab Discharge Medication List ALPRAZolam [Xanax] 0.25 mg PO HS 01/30/19 [History] Allopurinol [Zyloprim] 100 mg PO DAILY 01/30/19 [History] Amiodarone HCl [Pacerone] 200 mg PO DAILY 01/30/19 [History] Levothyroxine Sodium 112 mcg PO DAILY 01/30/19 [History] Metoprolol Tartrate [Lopressor] 12.5 mg PO DAILY 01/30/19 [History] Omeprazole 40 mg PO DAILY 01/30/19 [History] Sertraline HCl [Zoloft] 100 mg PO HS 01/30/19 [History] Calcitriol [Rocaltrol] 0.25 mcg PO ORNELAS 07/11/19 [History] Ferrous Sulfate [Iron (65 MG Elemental)] 325 mg PO BID 08/05/19 [History] Loratadine [Claritin] 10 mg PO DAILY 08/14/19 [History] Atorvastatin Calcium [Lipitor] 20 mg PO DAILY #90 tab 08/17/19 [Rx] Clopidogrel [Plavix] 75 mg PO DAILY #90 tab 08/17/19 [Rx] Multivitamin [Multivitamins Adult Gummies] 1 tab PO DAILY 11/08/19 [History] Warfarin Sodium [Jantoven] 1.5 mg PO MOFR 11/08/19 [History] Warfarin [Coumadin] 1 mg PO SUTUWETHSA 11/08/19 [History] Aspirin 81 mg PO DAILY chew 11/18/19 [Rx] Furosemide [Lasix] 40 mg PO BID@0900,1600 #60 tab 11/18/19 [Rx] Metolazone [Zaroxolyn] 5 mg PO DAILY #30 tab 11/18/19 [Rx] Midodrine [ProAmatine] 10 mg PO TID #90 tab 11/18/19 [Rx] Follow up Appointment(s)/Referral(s): Eulalia Frazier MD [Primary Care Provider] - 1 Week Rah Lni MD [STAFF PHYSICIAN] - 2 Weeks [facility] Visiting Nurse, [NON-STAFF] - Discharge Disposition: HOME WITH HOME HEALTH SERVICES
[2019-11-18] MEDS ORDERED: MAGNESIUM SULFATE-D5W PMX 1 GM in DEXTROSE/WATER 1 100ML.BAG IVPB ONE (11:00)
[2019-11-18 11:34] LABS: Glucose,Whole Blood 160 mg/dL (75-99)
[2019-11-18 12:12] VITALS: BP 104/57; PULSE 54; RESP 16; TEMP 97.7
--- NOTE | 2019-11-18 12:41 | P.PN ---
Subjective Progress Note Date: 11/18/19 Principal diagnosis: 74-year-old female, followed up for cardiorenal syndrome congestive heart failure acute kidney injury. Currently on Lasix 40 twice a day by mouth and metolazone 5 mg daily, creatinine slowly coming down. Creatinine is down to 3.36 yesterday and is 3.4 but this morning. Bicarb is 33 and up to 36 this She continues to feel very much improved less edema less short of breath minimal cough no dizziness she is able to stand up. Fair appetite She is being discharged this morning. Urine output is 2400 mL Vital signs is rather stable. She is known with coronary artery disease and diabetes mellitus, ejection fraction is supposedly preserved with mild to moderate valvular dysfunction Objective - Vital Signs Vital signs: Vital Signs Temp 97.7 F 11/18/19 12:00 Pulse 54 L 11/18/19 12:00 Resp 16 11/18/19 12:00 BP 104/57 11/18/19 12:00 Pulse Ox 98 11/18/19 12:00 Intake & Output 11/17/19 11/18/19 11/18/19 18:59 06:59 18:59 Intake Total 120 320 240 Output Total 1500 900 Balance -1380 -580 240 Weight 80.8 kg Intake: Oral 120 320 240 Output: Urine 1500 900 Other: Voiding Method Toilet Toilet Bedside Commode # Voids 2 On exam awake alert oriented comfortable on nasal cannula oxygen HEENT exam no JVP neck is supple no facial asymmetry Lungs are clear to auscultation fair air entry bilaterally Heart sounds are unremarkable for any murmur rub gallop Abdomen is soft nontender Extremity exam was minimal to trace edema Neurologically awake alert oriented but weak. - Labs CBC & Chem 7: 11/18/19 05:52 11/18/19 05:52 Labs: Abnormal Lab Results - Last 24 Hours (Table) 11/17/19 11/17/19 11/18/19 Range/Units 16:41 21:04 05:52 RBC (3.80-5.40) m/uL Hgb (11.4-16.0) gm/dL Potassium 3.1 L (3.5-5.1) mmol/L Chloride 96 L (98-107) mmol/L Carbon Dioxide 36 H (22-30) mmol/L BUN 91 H (7-17) mg/dL Creatinine 3.42 H (0.52-1.04) mg/dL Glucose 121 H (74-99) mg/dL POC Glucose (mg/dL) 178 H 191 H (75-99) mg/dL Calcium 8.2 L (8.4-10.2) mg/dL 11/18/19 11/18/19 11/18/19 Range/Units 05:52 06:20 11:33 RBC 3.59 L (3.80-5.40) m/uL Hgb 11.1 L (11.4-16.0) gm/dL Potassium (3.5-5.1) mmol/L Chloride (98-107) mmol/L Carbon Dioxide (22-30) mmol/L BUN (7-17) mg/dL Creatinine (0.52-1.04) mg/dL Glucose (74-99) mg/dL POC Glucose (mg/dL) 133 H 160 H (75-99) mg/dL Calcium (8.4-10.2) mg/dL Assessment and Plan Assessment: Impression 1. Acute kidney injury from prerenal from cardiorenal syndrome slowly improving on aggressive diuresis. Creatinine improved to 3.36 up to 3.4 but this morning, from a peak of 3.8 on 11/09/2019. 2. Chronic kidney disease, stage III Her baseline is 1.5-2 as of May 2019 and June 2019. Etiology is nephrosclerosis. 3. Anemia of chronic kidney disease hemoglobin 10.8 > 11.1 at target 4. Mild metabolic alkalosis 33 > 36 secondary to diuresis Recommendation 1. Continue Lasix 40 twice a day but discontinue the Zaroxolyn as she is getting more alkalotic and her creatinine is continuing to go up again 2. Agree with discharge home but under careful monitoring of blood pressure and weight every day and follow up in our office in the next 48-72 hours 3. I'll told her that weight the CV recorded every day and blood pressure 2 or 3 times a day
--- NOTE | 2019-11-18 13:05 | P.PN ---
Subjective Progress Note Date: 11/18/19 The patient is a 74-year-old female who follows with Dr. Mendez in the office. 11/17/2019: The patient is sitting up, resting comfortably in the chair. She states she continues to get better every day. She denies any chest pain, chest pressure, palpitations, dizziness, or lightheadedness. She does continue to have shortness of breath when she ambulates to the bathroom. She is currently on 2 L nasal cannula. WBC 5.3, hemoglobin 10.8, hematocrit 35.1, sodium 142, potassium 3.5, BUN 87, creatinine 3.36, magnesium 1.7, AST 53, ALT 29. 97.1 Fahrenheit, heart rate 62, respiratory rate 16, blood pressure 108/50, SpO2 98 on 2 L nasal cannula. Weight this morning is 82.9 kg (down 7.5 kg from admission ) 11/18/2019: Patient is currently resting comfortably in the recliner chair. She states she is overall feeling well. She denies any chest pain, chest pressure, palpitations, dizziness, or lightheadedness. She continues to have shortness of breath with ambulation. She continues to be on 2 L of oxygen. WBC 5.9 hemoglobin 11.1, hematocrit 34.4, platelet 195, sodium 140, potassium 3.1, BUN 91, creatinine 3.42. Blood pressure 96/69, respirations 18, pulse 65, tem perature 97.2 Fahrenheit, 96% on 2 L nasal cannula. Weight this morning is 80.8 kg (another 2 kg loss) GENERAL: Well-appearing, well-nourished and in no acute distress. NECK: Supple without JVD or thyromegaly. LUNGS: Breath sounds clear to auscultation; fine crackles in the right base. Respiration equal and unlabored. No wheezes, rales or rhonchi. HEART: Regular rate and rhythm. Systolic murmur. No rubs or gallops. S1 and S2 heard. EXTREMITIES: Normal range of motion. No clubbing or cyanosis. Peripheral pulses intact and strong. mild lower extremity edema ASSESSMENT: #1 congestive heart failure, diastolic dysfunction #2 moderate to severe mitral regurgitation #3 history of complex mitral valve repair #4 coronary artery disease #5 paroxysmal atrial fibrillation #6 multiple comorbid conditions #7 electrolyte imbalance PLAN: Continue oral furosemide 40 mg twice a day and metolazone outpatient. Supplement electrolytes as needed. Patient is requesting discharge in order to be evaluated by [facility] touch up painter tomorrow for possible mitral clip surgery. Patient should follow-up in the office in 1-2 weeks. Objective - Vital Signs Vital signs: Vital Signs Temp 97.7 F 11/18/19 12:00 Pulse 54 L 11/18/19 12:00 Resp 16 11/18/19 12:00 BP 104/57 11/18/19 12:00 Pulse Ox 98 11/18/19 12:00 Intake & Output 11/17/19 11/18/19 11/18/19 18:59 06:59 18:59 Intake Total 120 320 240 Output Total 1500 900 Balance -1380 -580 240 Weight 80.8 kg Intake: Oral 120 320 240 Output: Urine 1500 900 Other: Voiding Method Toilet Toilet Bedside Commode # Voids 2 - Labs CBC & Chem 7: 11/18/19 05:52 11/18/19 05:52 Labs: Abnormal Lab Results - Last 24 Hours (Table) 11/17/19 11/17/19 11/18/19 Range/Units 16:41 21:04 05:52 RBC (3.80-5.40) m/uL Hgb (11.4-16.0) gm/dL Potassium 3.1 L (3.5-5.1) mmol/L Chloride 96 L (98-107) mmol/L Carbon Dioxide 36 H (22-30) mmol/L BUN 91 H (7-17) mg/dL Creatinine 3.42 H (0.52-1.04) mg/dL Glucose 121 H (74-99) mg/dL POC Glucose (mg/dL) 178 H 191 H (75-99) mg/dL Calcium 8.2 L (8.4-10.2) mg/dL 11/18/19 11/18/19 11/18/19 Range/Units 05:52 06: 11:33 RBC 3.59 L (3.80-5.40) m/uL Hgb 11.1 L (11.4-16.0) gm/dL Potassium (3.5-5.1) mmol/L Chloride (98-107) mmol/L Carbon Dioxide (22-30) mmol/L BUN (7-17) mg/dL Creatinine (0.52-1.04) mg/dL Glucose (74-99) mg/dL POC Glucose (mg/dL) 133 H 160 H (75-99) mg/dL Calcium (8.4-10.2) mg/dL
[2019-11-18 14:52] LABS: Magnesium 2.2 mg/dL (1.6-2.3); Potassium 3.3 mmol/L (3.5-5.1)
[2019-11-18] MEDS ORDERED: FUROSEMIDE 40 MG TAB PO SCH (16:00)
== END 2019-11-18 17:04 | disposition home health service (06) | DRG 291 ==
LOC: 3SCARD 17:53
PROVIDERS: ADMIT Internal Medicine; ATTEND Internal Medicine
DX: I13.0 Hypertensive heart and chronic kidney disease with heart failure and stage 1 through stage 4 chronic kidney disease, or unspecified chronic kidney disease (principal); J96.01 Acute respiratory failure with hypoxia; I50.33 Acute on chronic diastolic (congestive) heart failure; N17.0 Acute kidney failure with tubular necrosis; E87.3 Alkalosis; N25.81 Secondary hyperparathyroidism of renal origin; I48.92 Unspecified atrial flutter; N18.4 Chronic kidney disease, stage 4 (severe); Z11.59 Encounter for screening for other viral diseases; I27.29 Other secondary pulmonary hypertension; D63.1 Anemia in chronic kidney disease; E11.22 Type 2 diabetes mellitus with diabetic chronic kidney disease; E66.01 Morbid (severe) obesity due to excess calories; I48.0 Paroxysmal atrial fibrillation; I25.10 Atherosclerotic heart disease of native coronary artery without angina pectoris; E78.5 Hyperlipidemia, unspecified; J30.9 Allergic rhinitis, unspecified; F32.9 Major depressive disorder, single episode, unspecified; M19.90 Unspecified osteoarthritis, unspecified site; K21.9 Gastro-esophageal reflux disease without esophagitis; I08.1 Rheumatic disorders of both mitral and tricuspid valves; E87.6 Hypokalemia; I95.9 Hypotension, unspecified; E83.42 Hypomagnesemia; E89.0 Postprocedural hypothyroidism; F41.9 Anxiety disorder, unspecified; T50.1X5A Adverse effect of loop [high-ceiling] diuretics, initial encounter; R26.9 Unspecified abnormalities of gait and mobility; Z79.02 Long term (current) use of antithrombotics/antiplatelets; Z79.82 Long term (current) use of aspirin; Z79.890 Hormone replacement therapy; Z79.899 Other long term (current) drug therapy; Z79.01 Long term (current) use of anticoagulants; Z95.5 Presence of coronary angioplasty implant and graft; Z98.84 Bariatric surgery status; Z90.2 Acquired absence of lung [part of]; Z85.118 Personal history of other malignant neoplasm of bronchus and lung; Z86.718 Personal history of other venous thrombosis and embolism; Z98.890 Other specified postprocedural states; Z86.711 Personal history of pulmonary embolism; Z85.850 Personal history of malignant neoplasm of thyroid; Z96.1 Presence of intraocular lens; Z95.2 Presence of prosthetic heart valve; Z98.51 Tubal ligation status; Z90.49 Acquired absence of other specified parts of digestive tract; Z98.42 Cataract extraction status, left eye; Z98.41 Cataract extraction status, right eye; Z71.3 Dietary counseling and surveillance; Z68.35 Body mass index [BMI] 35.0-35.9, adult; K44.9 Diaphragmatic hernia without obstruction or gangrene; Z87.19 Personal history of other diseases of the digestive system; Z88.8 Allergy status to other drugs, medicaments and biological substances; Z91.040 Latex allergy status; Z83.3 Family history of diabetes mellitus; Z82.49 Family history of ischemic heart disease and other diseases of the circulatory system
CPT/HCPCS: 71045; 71046; 80048; 80053; 81001; 83735; 83880; 84132; 85025; 85610

== ENCOUNTER 2020-02-15 07:01 | Day surgery (SDC) | payer MEDICARE ==
[2020-02-13 09:25] VITALS: BMI 30.7
[~2020-02-15 07:01] MED LIST changes: -ALPRAZolam 0.5 MG TAB PO PRN; +LACTATED RINGERS 1,000 ML IV SCH; -NITROGLYCERIN SL TABS 0.4 MG TAB SUBLINGUAL PRN; -SODIUM CHLORIDE 0.9% 1,000 ML in EMPTY BAG 1 BAG IV ONE
[2020-02-15 07:16] VITALS: RESP 16; TEMP 97.6
[2020-02-15] MEDS: LIDOCAINE 1% (10MG/ML) FOR IV START INTRADERMA PRN ×2 (07:25→07:35)
[2020-02-15] MEDS ORDERED: PROPOFOL 10 MG/ML 20 ML VIAL IV ONE (07:33)
[2020-02-15 07:38] LABS: Glucose,Whole Blood 100 mg/dL (75-99)
--- NOTE | 2020-02-15 08:10 | P.PCN ---
Date of Procedure: 02/15/20 Procedure(s) Performed: Brief history: Patient is a pleasant 74-year-old white female scheduled for an elective upper endoscopy as well as colonoscopy as a part of evaluation of iron deficiency anemia. She has prior history of gastric bypass surgery. She does complain of intermittent rectal bleeding. No abdominal pain, nausea vomiting. Procedure performed: Esophagogastroduodenoscopy with biopsy Colonoscopy Preoperative diagnosis: Iron deficiency anemia Intermittent rectal bleeding Anesthesia: [facility] [place] Procedure: After informed consent was obtained from the patient was brought into the endoscopy unit and IV sedation was administered by anesthesia under continuous monitoring. Initially upper endoscopy was done. The Olympus GF 160 video endoscope was inserted inserted into the mouth and esophagus intubated without any difficulty and was gradually advanced into the gastric pouch. There was evidence of previous Juan-en-Y gastric bypass surgery noted. The afferent and efferent loops appeared normal. Anastomosis appeared normal. Scope was advanced at least 40 cm into the efferent loop that appeared normal. Biopsies were done from the jejunum to rule out celiac disease. The scope at this time was withdrawn to the gastric pouch that appeared normal. The scope was then withdrawn into the esophagus. The GE junction was located at 38 cm to the incisors. It appeared regular with no erythema erosions or ulcerations. Rest of the esophagus appeared normal. Patient tolerated the procedure well. At this time the patient continued to remain sedation. Initial digital rectal examination was normal. Olympus CF 160 video colonoscope was then inserted into the rectum and gradually advanced to the cecum without any difficulty. Careful examination was performed as the scope was gradually being withdrawn. The prep was excellent. The cecum, ascending colon, transverse colon, descending colon, sigmoid colon and rectum appeared normal. Retroflexion was performed in the rectum and grade 2 internal hemorrhoids were noted. Patient tolerated the procedure well. Impression: 1. Upper endoscopy revealed evidence of gastric bypass surgery with normal Juan-en-Y anastomosis and no evidence of ulcerations 2. Colonoscopy revealed small internal hemorrhoids but no evidence of colorectal neoplasia Recommendations: Findings of this examination were discussed with the patient as well as her family. She was advised to follow with the biopsy results. She will continue with iron supplements and monitor CBC on a frequent basis. She can have a repeat colonoscopy in 10 years.
[2020-02-15 08:16] VITALS: BP 137/67; PULSE 67
== END 2020-02-15 08:55 | disposition home or self-care (01) ==
LOC: ORWHC2ENDO 07:01
PROVIDERS: ATTEND Internal Medicine Gastroenterology
DX: K64.1 Second degree hemorrhoids (principal); D50.9 Iron deficiency anemia, unspecified; I25.10 Atherosclerotic heart disease of native coronary artery without angina pectoris; I13.0 Hypertensive heart and chronic kidney disease with heart failure and stage 1 through stage 4 chronic kidney disease, or unspecified chronic kidney disease; I50.9 Heart failure, unspecified; E78.5 Hyperlipidemia, unspecified; E11.22 Type 2 diabetes mellitus with diabetic chronic kidney disease; N18.9 Chronic kidney disease, unspecified; E07.9 Disorder of thyroid, unspecified; M19.90 Unspecified osteoarthritis, unspecified site; K21.9 Gastro-esophageal reflux disease without esophagitis; Z98.84 Bariatric surgery status; Z79.899 Other long term (current) drug therapy; Z79.02 Long term (current) use of antithrombotics/antiplatelets; K08.109 Complete loss of teeth, unspecified cause, unspecified class; Z91.040 Latex allergy status; Z91.048 Other nonmedicinal substance allergy status; Z91.011 Allergy to milk products; Z86.79 Personal history of other diseases of the circulatory system; Z86.718 Personal history of other venous thrombosis and embolism; Z95.820 Peripheral vascular angioplasty status with implants and grafts; Z79.890 Hormone replacement therapy; Z79.01 Long term (current) use of anticoagulants
CPT/HCPCS: 88305; 45378; 43239; J2704

== ENCOUNTER 2020-04-20 08:20 | Emergency (ER) | payer MEDICARE ==
[2020-04-20] MEDS ORDERED: LIDOCAINE/EPINEPHR/TETRACAINE 5 ML BOTTLE TOPICAL ONE (08:38)
[2020-04-20 09:02] LABS: Prothrombin Time 75.2 sec (9.0-12.0)
[2020-04-20 09:05] LABS: INR 7.3 (<1.2)
[2020-04-20] MEDS ORDERED: PHYTONADIONE ORAL 5 MG/5 ML ORAL.SYRG PO STA (09:29)
[2020-04-20 09:33] VITALS: BP 137/62; PULSE 63; RESP 14; TEMP 97.6
--- NOTE | 2020-04-20 09:35 | ED ---
Wound/Laceration HPI - General Chief Complaint: Wound/Laceration Stated Complaint: R Arm Bleeding Time Seen by Provider: 04/20/20 08:33 Source: patient, RN notes reviewed Mode of arrival: ambulatory Limitations: no limitations - History of Present Illness Initial Comments: 74-year-old female presented emergency department with chief complaint of bleeding from wound to right arm. Patient states this started yesterday and has been salt-losing. Patient is concerned as she takes Coumadin for history of blood clot. She states this was years and years ago is had no recent issues. Patient denies any rectal bleeding including melena, hematochezia, hematemesis, coffee-ground emesis, hematuria no oral bleeding no abdominal pain - Related Data Home Medications Medication Instructions Recorded Confirmed ALPRAZolam [Xanax] 0.25 mg PO HS 01/30/19 02/15/20 Amiodarone HCl [Pacerone] 200 mg PO DAILY 01/30/19 02/15/20 Levothyroxine Sodium 112 mcg PO DAILY 01/30/19 02/15/20 Omeprazole 40 mg PO DAILY 01/30/19 02/15/20 Sertraline HCl [Zoloft] 100 mg PO HS 01/30/19 02/15/20 allopurinoL [Zyloprim] 100 mg PO DAILY 01/30/19 02/15/20 calcitrioL [Rocaltrol] 0.25 mcg PO ORNELAS 07/11/19 02/15/20 Ferrous Sulfate [Iron (65 MG 325 mg PO BID 08/05/19 02/15/20 Elemental)] Loratadine [Claritin] 10 mg PO DAILY 08/14/19 02/15/20 Multivitamin [Multivitamins Adult 1 tab PO DAILY 11/08/19 02/15/20 Gummies] Warfarin Sodium [Jantoven] 1.5 mg PO MOFR 11/08/19 02/15/20 Warfarin [Coumadin] 1 mg PO SUTUWETHSA 11/08/19 02/15/20 Previous Rx's Medication Instructions Recorded Atorvastatin Calcium [Lipitor] 20 mg PO DAILY #90 tab 08/17/19 Clopidogrel [Plavix] 75 mg PO DAILY #90 tab 08/17/19 Furosemide [Lasix] 40 mg PO BID@0900,1600 #60 tab 11/18/19 Allergies Allergy/AdvReac Type Severity Reaction Status Date / Time latex Allergy Rash/Hives Verified 04/20/20 08:29 iodine AdvReac Intermediate MOTHER IS Verified 04/20/20 08:29 ALLERGIC lactose AdvReac Diarrhea Verified 04/20/20 08:29 Review of Systems ROS Statement: Those systems with pertinent positive or pertinent negative responses have been documented in the HPI. ROS Other: All systems not noted in ROS Statement are negative. Past Medical History Past Medical History: Coronary Artery Disease (CAD), Cancer, Heart Failure, Diabetes Mellitus, Deep Vein Thrombosis (DVT), GERD/Reflux, Hyperlipidemia, Hypertension, Osteoarthritis (OA), Pulmonary Embolus (PE) Additional Past Medical History / Comment(s): NIDDM type II, 2004 L lung cancer with surgery, 2000 thyroid cancer with surgery/hypothyroid, bilateral PEs, DVT R leg, hiatal hernia, hemorrhoids, DDD, occasional low back pain, gait disturbance, sinus problems. ANEMIA History of Any Multi-Drug Resistant Organisms: None Reported Past Surgical History: Bariatric Surgery, Cardiac Valve Replacement, Section, Cholecystectomy, Tonsillectomy, Tubal Ligation Additional Past Surgical History / Comment(s): L lower lobe resection, parathyroidectomy, cardiac valve repair, EGD, colonoscopy, lap ewa en Y with lysis of adhesions, D&C, bilateral cataract removals/lens implants. Past Anesthesia/Blood Transfusion Reactions: Motion Sickness Past Psychological History: Anxiety, Depression Smoking Status: Never smoker Past Alcohol Use History: None Reported Past Drug Use History: None Reported - Past Family History Mother Family Medical History: No Reported History Father Family Medical History: Diabetes Mellitus, Myocardial Infarction (CT) Brother(s) Family Medical History: No Reported History Sister(s) Family Medical History: No Reported History Daughter(s) Family Medical History: No Reported History General Exam Limitations: no limitations General appearance: alert, in no apparent distress Head exam: Present: atraumatic, normocephalic, normal inspection Respiratory exam: Present: normal lung sounds bilaterally. Absent: respiratory distress, wheezes, rales, rhonchi, stridor Cardiovascular Exam: Present: regular rate, normal rhythm, normal heart sounds. Absent: systolic murmur, diastolic murmur, rubs, gallop, clicks Extremities exam: Present: other (Right forearm small skin tear with minimal bleeding, pulses are equal bilaterally) Course Vital Signs 04/20/20 08:26 Temperature 97.4 F L Pulse Rate 64 Respiratory 18 Rate Blood Pressure 145/68 O2 Sat by Pulse 100 Oximetry Procedures - [facility] Protocol (Time Out) Nurse: Joana Kimble Medical Decision Making - Medical Decision Making let solution was applied to the right arm there is no active bleeding after application, patient INR 7.3 patient given vitamin K she has an appointment tomorrow with her primary care physician will have it rechecked and return parameters discussed. Patient has no other areas of bleeding. - Lab Data Lab Results 04/20/20 Range/Units 08:47 PT 75.2 H (9.0-12.0) sec INR 7.3 H* (<1.2) Disposition Clinical Impression: Skin tear of right upper extremity, Warfarin-induced coagulopathy Disposition: HOME SELF-CARE Condition: Stable Instructions (If sedation given, give patient instructions): Skin Tear (ED) Additional Instructions: Please return to the Emergency Department if symptoms worsen or any other concerns. Please have your INR rechecked tomorrow please hold Coumadin dose tonight. Is patient prescribed a controlled substance at d/c from ED?: No Referrals: Eulalia Frazier MD [Primary Care Provider] - 1-2 days Time of Disposition: 09:35
== END 2020-04-20 10:09 | disposition home or self-care (01) ==
LOC: EC 08:20
DX: S41.111A Laceration without foreign body of right upper arm, initial encounter (principal); D68.32 Hemorrhagic disorder due to extrinsic circulating anticoagulants; T45.515A Adverse effect of anticoagulants, initial encounter; E03.9 Hypothyroidism, unspecified; I25.10 Atherosclerotic heart disease of native coronary artery without angina pectoris; I11.0 Hypertensive heart disease with heart failure; I50.9 Heart failure, unspecified; E78.5 Hyperlipidemia, unspecified; K21.9 Gastro-esophageal reflux disease without esophagitis; F41.9 Anxiety disorder, unspecified; F32.9 Major depressive disorder, single episode, unspecified; E11.9 Type 2 diabetes mellitus without complications; Z79.01 Long term (current) use of anticoagulants; Z79.890 Hormone replacement therapy; Z79.899 Other long term (current) drug therapy; Z91.040 Latex allergy status; Z91.048 Other nonmedicinal substance allergy status; Z88.8 Allergy status to other drugs, medicaments and biological substances; Z85.118 Personal history of other malignant neoplasm of bronchus and lung; Z85.850 Personal history of malignant neoplasm of thyroid; Z86.711 Personal history of pulmonary embolism; Z86.718 Personal history of other venous thrombosis and embolism; Z95.2 Presence of prosthetic heart valve
CPT/HCPCS: 36415; 85610; 99283

== ENCOUNTER → 2020-06-17 | Outpatient (CLI) | payer MEDICARE ==
[2020-06-17 12:40] LABS: Prothrombin Time 66.4 sec (9.0-12.0)
[2020-06-17 13:20] LABS: INR 6.8 (<1.2)
== END | disposition home or self-care (01) ==
LOC: LABWHC1 11:15
PROVIDERS: ATTEND Nurse Practitioner Adult Health
DX: I48.0 Paroxysmal atrial fibrillation (principal)
CPT/HCPCS: 36415; 85610